=== PATIENT | female | born 1955 | race Caucasian/White ===

== ENCOUNTER 2016-07-03 08:27 | Day surgery (SDC) | payer OTHER ==
[2016-07-02 11:43] VITALS: BMI 20.2
--- NOTE | 2016-07-02 13:09 | PREOPHP ---
DATE OF ADMISSION: 07/03/2016 HISTORY OF PRESENT ILLNESS: This 61-year-old patient is admitted for elective cataract surgery of t he left eye. The patient has had progressive deterioration of vision in both eyes over the past yea r. The patient has a history of insulin-dependent diabetes mellitus, currently being treated with i nsulin as well as Januvia, spironolactone and glimepiride. ALLERGIES: THERE ARE NO KNOWN ALLERGIES. PHYSICAL EXAMINATION: Visual acuity with best correction is finger counting vision in both eyes. S lit lamp examination reveals advanced nuclear sclerotic and posterior subcapsular cataract changes p resent in both eyes. Applanation tonometry is 10 mmHg. Examination of the retina is grossly within normal limits with no obvious macular degenerative changes. DIAGNOSIS: Advanced cataracts, both eyes. PLAN: Cataract extraction with lens implant, left eye. The risks and alternatives to the surgery h ave been discussed with the patient, as well as the hope for improvement of visual acuity leading to a greater ability to perform activities of daily living. The patient understands this and agrees t o proceed with the surgery. Dictated By: GLENYS SAHU/GHULAM Conf#: [id number] DID#: [id number]
[2016-07-03] VITALS (7 sets, daily range): BP systolic 90–110; BP diastolic 47–64; PULSE 87–91; RESP 16–41; Ht 152.4 cm; Wt 50.1 kg
[~2016-07-03] VITALS: Ht 152.4 cm; Wt 50.1 kg
[~2016-07-03 08:27] MED LIST: ACET325T45 PO; CIPR500T4 PO; FURO20TA3 PO; LABE100T3 PO; LACT20SO12 PO; METF500T4 PO; PANT40TA3 PO
[2016-07-03] MEDS ORDERED: CYCLOPENTOLATE/PHENYLEPH 2 ML OPH OPER SCH (09:30)
[2016-07-03] MEDS ORDERED: TROPICAMIDE 1% 2 ML OPH OPER SCH (09:30)
[2016-07-03] MEDS ORDERED: DICLOFENAC 0.1% 2.5 ML OPH OPER SCH (09:30)
[2016-07-03] MEDS ORDERED: CIPROFLOXACIN 0.3% 2.5 ML OPH OPER SCH (09:30)
[2016-07-03] MEDS ORDERED: SITA100T8 PO (09:42)
[2016-07-03] MEDS ORDERED: SPIR50TA PO (09:42)
[2016-07-03] MEDS ORDERED: GLIM2TAB PO (09:43)
[2016-07-03] MEDS ORDERED: LANT3I SC (09:44)
[2016-07-03] MEDS ORDERED: PROP15DR OP (09:45)
[2016-07-03] MEDS ORDERED: EYEL1TOW3 (09:45)
[2016-07-03] MEDS ORDERED: DEXAMETHASONE 4 MG/ML 1 ML INJ INJ ONE (11:15)
[2016-07-03] MEDS ORDERED: HYALURONATE/CHONDROITIN 1ML OPH INJ IO ONE (11:15)
[2016-07-03] MEDS ORDERED: CARBACHOL 0.01% 1.5 ML OPH INJ IO ONE (11:15)
[2016-07-03] MEDS ORDERED: CEFAZOLIN 1 GM INJ INJ ONE (11:15)
[2016-07-03] MEDS ORDERED: PROPOFOL 20 ML ONE (11:24)
[2016-07-03] MEDS ORDERED: FENTAnyl 50 MCG/ML VIAL ONE (11:24)
[2016-07-03] MEDS ORDERED: LIDOCAINE 2% (SDV) 5 ML INJ ONE (11:24)
[2016-07-03] MEDS ORDERED: FENTAnyl 50 MCG/ML VIAL IV PRN (12:00)
[2016-07-03] MEDS ORDERED: HYDROmorphONE (0.2 MG/ML) 10ML SYG IV PRN (12:00)
[2016-07-03] MEDS ORDERED: ONDANSETRON 4 MG INJ IV PRN (12:00)
[2016-07-03] MEDS ORDERED: OXYCODONE/ACETAMINOPHEN (5/325) TAB PO PRN (12:00)
[2016-07-03] MEDS ORDERED: EPINEPHrine 1 MG INJ ONE (12:28)
[2016-07-03] MEDS ORDERED: GENTAMICIN 80 MG INJ ONE (12:28)
[2016-07-03] MEDS ORDERED: DEXAMETHASONE 4 MG/ML 1 ML INJ ONE (12:28)
[2016-07-03] MEDS ORDERED: CARBACHOL 0.01% 1.5 ML OPH INJ ONE (12:28)
[2016-07-03] MEDS ORDERED: CEFAZOLIN 1 GM INJ ONE (12:28)
--- NOTE | 2016-07-03 13:26 | OPR ---
DATE OF OPERATION: 07/03/2016 PREOPERATIVE DIAGNOSIS: Mature cataract, left eye. POSTOPERATIVE DIAGNOSIS:. Mature cataract, left eye. OPERATION PERFORMED: Cataract extraction with intraocular lens implant, left eye. SURGEON: Glenys Cifuentes MD ANESTHESIOLOGIST: Dr. Contreras. DESCRIPTION OF PROCEDURE: Patient brought to the operating room and IV positioned appropriately, at tached to electrocardiogram monitor and given oxygen via nasal cannula. The patient was given some intravenous sedation and then received local anesthesia using lidocaine 4%, given a lid block and r etrobulbar injection. The patient was then prepped and draped in the usual sterile manner. A specu lum was inserted between the lids of the left eye. Two paracentesis incisions were made through elsy ar cornea near the corneal scleral limbus at the 2 and 10 o'clock positions, and then a 3.0 mm kerat ome was used to enter the anterior chamber through clear cornea at the 12 o'clock position in a step incision. Through this opening, an irrigating cystotome was introduced. The anterior chamber was filled with DisCoVisc and then a large anterior capsulotomy was performed. An attempt was then made to be emulsify the lens nucleus by means of sculpting and quadrant removal. The lens was noted to be extremely hard in its durability and a higher energy setting was required in order to emulsify th e nucleus. During the procedure, however, it was noted that the posterior chamber deepened and the remaining lens nucleus appeared to move slightly posteriorly, indicating that there must have been a break in the posterior capsule. The procedure was then interrupted and it was decided to open the wound of the eye to a larger extent to remove the remaining lens nucleus by means of using a lens lo op and removing it en bloc. This was done using curved corneal scissors and then the lens loop noé jose m the remainder of the lens nucleus. Some anterior vitreous, however, presented at the lips of th e wound and a limited mechanical anterior vitrectomy was performed until there was no more vitreous present at the lips of the wound. Inspection of the posterior chamber revealed the presence of adeq uate remaining posterior capsule to support the haptics of a posterior chamber intraocular lens. A break in the posterior capsule was noted to be centrally located. At this point, 2 peripheral 10-0 nylon sutures were placed across the wound and were tied, the ends were cut short. Additional DisCo Visc was then injected into the anterior and posterior chamber and then a 21.0 diopter posterior mary mber intraocular lens ([employer] model LI61AO) was inserted with the haptics place d anterior to the capsule remnants in the nasal and temporal quadrants of the posterior chamber. Th e intraocular lens remained centered and despite external pressure on the globe, appeared stable. I t was therefore decided to continue to close the wound by placing 2 additional 10-0 nylon sutures. These were tied in interrupted fashion and the knots were then all buried in the corneal scleral ti ssue. Prior to tying the last suture, the DisCoVisc was evacuated from the anterior chamber. Miost at was instilled to constrict the pupil. At the end of the procedure, it was noted that the lens wa s then positioned in the posterior chamber and the wound was closed. A 0.5 mL of Ancef and 0.5 mL o f dexamethasone were injected into the subtenon space inferiorly and then the speculum was removed. Vigamox drops were placed on the surface of the eye and the eye was patched. The patient left the operating room in satisfactory condition. Dictated By: GLENYS SAHU/GHULAM Conf#: [id number] DID#: [id number]
== END 2016-07-03 13:05 | disposition home or self-care (01) ==
LOC: SDS 08:27
PROVIDERS: ATTEND Ophthalmology
DX: H25.12 Age-related nuclear cataract, left eye (principal); I10 Essential (primary) hypertension; Z87.891 Personal history of nicotine dependence
CPT/HCPCS: 66984; 82962; J0171; J0690; J1100; J1580; J3010; V2632; Z7512; Z7610

== ENCOUNTER 2016-08-28 08:36 | Day surgery (SDC) | payer OTHER ==
--- NOTE | 2016-08-27 20:59 | PREOPHP ---
DATE OF ADMISSION: 08/28/2016 HISTORY OF PRESENT ILLNESS: This 61-year-old patient is admitted for elective cataract surgery of t he right eye. The patient has had progressive deterioration of vision in both eyes over the past ye ar and 2 months ago underwent cataract surgery of the left eye with visual improvement. The patient has a history of insulin-dependent diabetes mellitus and is taking insulin as well as Januvia, spir onolactone, an Glyburide. ALLERGIES: THERE ARE NO KNOWN ALLERGIES. PHYSICAL EXAMINATION: Visual acuity best corrected is finger counting vision in the right eye and 2 0/50 in the left eye. Slit lamp examination reveals a nuclear sclerotic and posterior subcapsular c ataract in the right eye. Applanation tonometry is 10 mmHg in both eyes. Examination of the retina is within normal limits with no evidence of degenerative macular changes. DIAGNOSIS: Cataract, right eye. PLAN: Cataract extraction with lens implant, right eye. The risks and alternatives to the surgery have been discussed with the patient as well as the potential problem related to the advanced catara ct with its potential for complications during surgery. The patient understands this and agrees to proceed with surgery. Dictated By: GLENYS SAHU/GHULAM Conf#: [id number] DID#: [id number]
[~2016-08-28] VITALS: Ht 154.9 cm; Wt 49.0 kg
[2016-08-28] VITALS (10 sets, daily range): BP systolic 94–114; BP diastolic 56–65; PULSE 77–108; RESP 13–23; Ht 154.9 cm; Wt 49.0 kg
[~2016-08-28 08:36] MED LIST changes: -ACET325T45 PO; -CIPR500T4 PO; +EYEL1TOW3; -FURO20TA3 PO; +GLIM2TAB PO; +HYDROmorphONE (0.2 MG/ML) 10ML SYG IV PRN; -LABE100T3 PO; -LACT20SO12 PO; +LANT3I SC; -METF500T4 PO; +ONDANSETRON 4 MG INJ IV PRN; -PANT40TA3 PO; +PROP15DR OP; +SITA100T8 PO; +SPIR50TA PO
[2016-08-28] MEDS ORDERED: FER325 PO (09:17)
[2016-08-28] MEDS ORDERED: FURO-110 PO (09:18)
[2016-08-28] MEDS ORDERED: GLIM4TAB PO (09:19)
[2016-08-28] MEDS ORDERED: DOCU-144 PO (09:22)
[2016-08-28] MEDS ORDERED: CALC1TAB30 PO (09:23)
[2016-08-28] MEDS ORDERED: CIPROFLOXACIN 0.3% 2.5 ML OPH OPER SCH (09:30)
[2016-08-28] MEDS ORDERED: CYCLOPENTOLATE/PHENYLEPH 2 ML OPH OPER SCH (09:30)
[2016-08-28] MEDS ORDERED: DICLOFENAC 0.1% 2.5 ML OPH OPER SCH (09:30)
[2016-08-28] MEDS ORDERED: TROPICAMIDE 1% 2 ML OPH OPER SCH (09:30)
[2016-08-28] MEDS ORDERED: DEXAMETHASONE 4 MG/ML 1 ML INJ ONE (11:26)
[2016-08-28] MEDS ORDERED: HYALURONATE/CHONDROITIN 1ML OPH INJ ONE (11:26)
[2016-08-28] MEDS ORDERED: CARBACHOL 0.01% 1.5 ML OPH INJ ONE (11:26)
[2016-08-28] MEDS ORDERED: CEFAZOLIN 1 GM INJ ONE (11:26)
[2016-08-28] MEDS ORDERED: EPINEPHrine 1 MG INJ ONE (11:26)
[2016-08-28] MEDS ORDERED: GENTAMICIN 80 MG INJ ONE (11:26)
[2016-08-28] MEDS ORDERED: LIDOCAINE 4% (MPF) 5 ML INJ ONE (11:26)
[2016-08-28] MEDS ORDERED: HYALURONATE/CHONDROITIN 1ML OPH INJ IO ONE (11:30)
[2016-08-28] MEDS ORDERED: CEFAZOLIN 1 GM INJ INJ ONE (11:30)
[2016-08-28] MEDS ORDERED: DEXAMETHASONE 4 MG/ML 1 ML INJ INJ ONE (11:30)
[2016-08-28] MEDS ORDERED: CARBACHOL 0.01% 1.5 ML OPH INJ IO ONE (11:30)
[2016-08-28] MEDS ORDERED: PROPOFOL 20 ML ONE (12:15)
--- NOTE | 2016-08-28 12:44 | OPR ---
DATE OF OPERATION: 08/28/2016 PREOPERATIVE DIAGNOSIS: Cataract, right eye. POSTOPERATIVE DIAGNOSIS: Cataract, right eye. OPERATION PERFORMED: Cataract extraction with lens implant, right eye. SURGEON: Glenys Cifuentes MD ANESTHESIOLOGIST: Dr. Brooks ANESTHESIA: Local standby. PROCEDURE: The patient was brought to the operating room and placed on the table with an IV in plac e and the patient attached to an monitor tech. Oxygen was given via face mask. After some intravenous sedation was administered, local anesthesia was given using Xylocaine 2% with epinephrine, mixed with Marcaine 0.5%. This was given in a lid block and retrobulbar injection. The patient was then prepped and draped in the usual sterile manner. A wire lid speculum was inserted between the lids of the right eye. A Superblade was used to enter t he anterior chamber at the corneoscleral limbus at the 10:30 o'clock position. A separate incision w as made using a 3.0-mm keratome which entered the corneoscleral junction at the 12 o'clock position. Through this 3-mm opening, an irrigating cystotome was introduced into the anterior chamber. The ch epter was filled with Viscoat and an anterior capsulotomy was performed. Balanced salt solution was then used for hydrodissection of the lens. A phacoemulsification handpiece was then brought into th e field and introduced into the anterior chamber. The lens nucleus was emulsified using a deep groov e and cracking the nucleus into quadrants. Following this, each quadrant was aspirated and emulsifie d at the pupillary margin. The patient had an advanced nucleus sclerotic cataract which required a higher setting of ultrasonic phacoemulsification power in order to fully emulsify the lens nucleus. After this was completed, the irrigation/aspiration handpiece was brought to the field, introduced i nto the posterior chamber, and the lens cortical material was removed. When this was completed, samm tional Viscoat was injected into the anterior and posterior chambers. The 3-mm opening had its internal lips enlarged, and then the posterior chamber intraocular lens esther suring 21.0 diopters (Bausch and Lomb model LI61AO) was then injected into the posterior chamber usi ng the lens injector system. After the leading haptic was introduced into the capsular bag and the l ens optic was present in the center of the eye, the injector was removed and the trailing haptic was grasped with non-toothed forceps and introduced into the capsular fold superiorly. A Sinskey hook w as then used to rotate the intraocular lens so that the lips were oriented in the horizontal meridia n. One 10-0 nylon suture was placed across the wound. Prior to tying, the irrigation/aspiration handpiece was reintroduced into the anterior chamber to re move the Viscoat. Miochol was instilled to constrict the pupil, and then the 10-0 nylon suture was t ied. The ends were cut short and then the knot was buried. Then, 0.5 mL of dexamethasone and 0.5 mL of Ancef were injected into the sub-Tenon space in the infe rior fornix. Ciloxan drops were then placed on the surface of the eye. The speculum was removed and a patch was applied. The patient then left the operating room in satisfactory condition. Dictated By: GLENYS SAHU/GHULAM Conf#: [id number] DID#: [id number]
== END 2016-08-28 13:32 | disposition home or self-care (01) ==
LOC: SDS 08:36
PROVIDERS: ATTEND Ophthalmology
DX: H25.11 Age-related nuclear cataract, right eye (principal); E11.9 Type 2 diabetes mellitus without complications; F17.200 Nicotine dependence, unspecified, uncomplicated
CPT/HCPCS: 66984; 82962; J0171; J0690; J1100; J1170; J1580; J2405; V2632; Z7512; Z7610

== ENCOUNTER 2016-10-11 19:34 | Inpatient (IN) | payer OTHER ==
[~2016-10-11] VITALS: Ht 162.6 cm; Wt 51.7 kg
[~2016-10-11 19:34] MED LIST changes: +CALC1TAB30 PO; +DOCU-144 PO; -EYEL1TOW3; +FER325 PO; +FURO-110 PO; -GLIM2TAB PO; +GLIM4TAB PO; -HYDROmorphONE (0.2 MG/ML) 10ML SYG IV PRN; -ONDANSETRON 4 MG INJ IV PRN; -PROP15DR OP; -SPIR50TA PO
[2016-10-11 20:00] VITALS: Ht 162.6 cm; Wt 51.7 kg
[2016-10-11] MEDS ORDERED: ONDANSETRON 4 MG INJ IV PRN ×2 (20:00→22:00)
[2016-10-11] MEDS ORDERED: ACETAMINOPHEN 325 MG TAB PO PRN (20:00)
[2016-10-11] MEDS ORDERED: SPIR50TA PO (21:25)
[2016-10-11] MEDS ORDERED: OMEP20CA16 PO (21:25)
[2016-10-11] MEDS ORDERED: GLIM2TAB PO (21:25)
[2016-10-11] MEDS ORDERED: ACET325T45 PO (21:26)
--- NOTE | 2016-10-11 21:31 | ERA ---
ER Documentation Chief Complaint Date/Time DATE: 10/11/16 TIME: 21:28 Chief Complaint BILATERAL LOWER LEG PAIN AND SWELLING, UNABLE TO WALK. HPI Patient is a 61-year-old female with diabetes who presents with lower extremity pain and weakness. She was brought in by ambulance. She was transferred from [facility] for admission. She was supposed to be a direct admission but there were no beds available in the hospital and is capitated to [facility] so she needed to come to the emergency department. The patient has had bilateral leg pain weakness for a long time but it has been worse over the past 2 days and she feels like she cannot walk. She denies fever or trauma. Upon review of old medical records this is the patient's third visit to the ER since 2014. She does not know the name of her primary doctor. She had previously been accepted by Dr. Kidd from the panel team this afternoon. ROS All systems reviewed and are negative except as per history of present illness. Medications Home Meds Reported Medications Acetaminophen* (Acetaminophen*) 325 Mg Tablet, 325 MG PO Q6H Y for PAIN AND OR ELEVATED TEMP, #30 TAB 10/11/16 Spironolactone* (Aldactone*) 50 Mg Tablet, 50 MG PO BID, #60 TAB 10/11/16 Omeprazole* (Omeprazole*) 20 Mg Capsule.dr, 20 MG PO DAILY, #30 CAP 10/11/16 Glimepiride* (Glimepiride*) 2 Mg Tablet, 4 MG PO WITH BREAKFAST, TAB 10/11/16 Docusate Sodium* (Colace*) 100 Mg Capsule, 100 MG PO DAILY, #30 CAP 08/28/16 Furosemide* (Lasix*) 20 Mg Tablet, 20 MG PO DAILY, TAB 08/28/16 Ferrous Sulfate* (Ferrous Sulfate*) 325 Mg Tabec, 325 MG PO BID, TAB 08/28/16 Insulin Glargine* (Lantus*) 100 Unit/Ml Soln, 10 UNIT SC DAILY, #1 VIAL 07/03/16 Sitagliptin* (Januvia*) 100 Mg Tablet, 100 MG PO DAILY, #30 TAB 07/03/16 Discontinued Reported Medications Calcium Carbonate/Vitamin D3 (Os-Afshin 500-Vit D3 600 Caplet) 1 Each Tablet, 1 EACH PO DAILY, TAB 08/28/16 Glimepiride* (Glimepiride*) 4 Mg Tablet, 4 MG PO WITH BREAKFAST, TAB 08/28/16 Allergies Allergies: Coded Allergies: No Known Allergy (Unverified , 10/11/16) PMhx/Soc History of Surgery: Yes (LEFT EYE SX) Anesthesia Reaction: No Hx Neurological Disorder: No Hx Respiratory Disorders: No Hx Cardiac Disorders: No (HTN) Hx Psychiatric Problems: No Hx Miscellaneous Medical Probl: No (DM, CIRRHOSIS) Hx Alcohol Use: Yes (FORMER) Hx Substance Use: No Hx Tobacco Use: No Smoking Status: Former smoker FmHx Family History: No diabetes Physical Exam Vitals Vital Signs Date Time Temp Pulse Resp B/P Pulse Ox O2 Delivery O2 Flow Rate FiO2 10/11/16 20:00 98.0 82 17 141/68 98 Physical Exam Const: Mild distress secondary to pain Head: Atraumatic Eyes: Normal Conjunctiva ENT: Normal External Ears, Nose and Mouth. Neck: Full range of motion..~ No meningismus. Resp: Clear to auscultation bilaterally Cardio: Regular rate and rhythm, no murmurs Abd: Soft, non tender, non distended. Normal bowel sounds Skin: No petechiae or rashes Back: No midline or flank tenderness Ext: No cyanosis, or edema Neur: Weakness of the lower extremities bilateral Psych: Normal Mood and Affect Results 24 hrs Current Medications Medications (Trade) Dose Ordered Sig/Dino Route PRN Reason Start Time Stop Time Status Last Admin Dose Admin Ondansetron HCl (Zofran Inj) 4 mg BRIDGE ORDER PRN IV NAUSEA AND/OR VOMITING 10/11/16 20:00 10/12/16 19:59 Acetaminophen (Tylenol Tab) 650 mg ER BRIDGE PRN PO MILD PAIN/FEVER 10/11/16 20:00 10/12/16 19:59 Procedures/MDM Smoking Cessation Therapy: Pt. was lectured for greater than 3 minutes on the health risks of continued smoking and the benefits of cessation. Patient is a 61-year-old female with diabetes who presents with bilateral lower extremity weakness and pain. She will be admitted to the care of Dr. Shearer who is covering the panel at this time. The patient will be admitted to a medical surgical bed. At this point I doubt epidural abscess, epidural hematoma , or cauda equina syndrome. Departure Diagnosis: Primary Impression: Ambulatory dysfunction Additional Impression: Leg weakness, bilateral Condition: Fair OSTICK,CORRINE MD Oct 11, 2016 21:30
[2016-10-11] MEDS ORDERED: NACL 0.9% 3 ML SYG IV SCH (22:00)
--- NOTE | 2016-10-11 22:22 | HP ---
Date/Time of Note Date/Time of Note DATE: 10/11/16 TIME: 22:22 Assessment/Plan VTE Prophylaxis VTE Prophylaxis Intervention: heparin Lines/Catheters IV Catheter Type (from [facility] Saline Lock Assessment/Plan Chief Complaint/Hosp Course Will order an ultrasound of the abdomen to assess for this is a 61-year-old female was being admitted to [facility] for: #1 ambulatory dysfunction: This possibly could be multifactorial possibly related to diabetic neuropathy, edema from liver cirrhosis, or other etiology. Patient denies any recent falls. At the current time will obtain lower extremity Doppler bilaterally. Will start the patient on gabapentin as she does does describe burning sensation bilaterally. Will order further order further imaging as indicated. No signs of any cauda equina syndrome or epidural abscess at this point in time. #2 cirrhosis: We will continue current medications of spironolactone. Will hold home dose of Lasix right now and provide some aggressive diuresis with IV Lasix. Will also start patient on lactulose. And get an ammonia level. Will obtain LFTs. I did discuss patient regarding possible need for liver transplant. She and her family do state that they have been in discussion regarding liver transplant however they did not probably follow-up regarding this. I did advise patient that she needs to be sober for period of time to be considered for transplant. Ascites though I feel like there is not an adequate amount that would be amenable to percutaneous drainage. #3 diabetes mellitus: We will obtain a hemoglobin A1c level. Patient's home blood sugars that she describes appear to be uncontrolled. And I believe her current regimen of Lantus Januvia and glimepiride likely are not enough. Will put the patient on insulin sliding scale. And adjust her diabetic regimen as indicated. #DVT and GI prophylaxis: Heparin, Protonix Further treatment strategy will be implemented as per the clinical course. Problems: HPI/ROS Admit Date/Time Admit Date/Time Hx of Present Illness Chief complaint: Burning in the legs, difficulty walking This is a 61-year-old female with diabetes who presents with lower extremity pain and weakness. She was transferred from [facility] for admission. The patient has had bilateral leg pain weakness for a long time but it has been worse over the past 2 days and she feels like she cannot walk. She states she has burning sensation in her legs and she also notices swelling at times. She denies fever or trauma. She does not know the name of her primary doctor. Allergies: NKDA Medications: See Jun Const: As per HPI Eyes : No pain discharge or redness or change in visual acuity ENT: No pain, sore throat, congestion, congestion, dysphagia or discharge Respiratory: No shortness of breath, cough, sputum, wheezing, or pleuritic pain Cardiovascular: No chest pain, palpitation, PND, or edema GI : As per HPI Genitourinary: No dysuria, hematuria, flank pain , discharge or CVA tenderness Musculoskeletal: As per HPI Skin: No rash, bruising or hives Neuro: No headache, dizziness, syncope, seizure, focal weakness Endocrine: States her sugars have been at times in the 200-300 Psych: No hallucination, depression, anxiety or suicidal ideation PMH/Family/Social Past Medical History Diabetes mellitus, cirrhosis Past Surgical History Bilateral cataract surgery Family History Significant Family History: no pertinent family hx Social History Alcohol Use: other (Patient used to be a heavy drinker however she has significantly cut her drinking down but does still some small amount of alcohol such as ODELLS) Smoking Status: Never smoker (1 pack per day 30 years) Exam/Review of Systems Vital Signs Vitals Vital Signs Date Time Temp Pulse Resp B/P Pulse Ox O2 Delivery O2 Flow Rate FiO2 10/11/16 20:00 98.0 82 17 141/68 98 Exam Exam General: Patient is well-developed well-nourished The patient is alert oriented -3 lying comfortably in bed, in no acute distress. HEENT: Atraumatic, normocephalic. The pupils are equal, round and reactive. Extraocular motor are intact, Neck: Supple with full range of motion. No rigidity or meningismus Chest: Nontender Lungs: Clear to auscultation bilaterally no crackles rales or wheezing Heart: Normal S1-S2, Regular rhythm and rate. No murmur, S3, or S4 Abdomen: Soft, mild distention, no [place] noted, no overt fluid wave appreciated. Extremities: Trace edema of the bilateral lower extremities, mild tenderness to palpation along the bilateral lower extremities Neurologic: Normal mental status, speech normal, cranial nerves II through XII are intact, motor and sensory are intact, no focal weakness, Medications Medications Current Medications Ondansetron HCl (Zofran Inj) 4 mg Q6H PRN IV NAUSEA AND/OR VOMITING; Start at 22:00 Pantoprazole (Protonix Iv) 40 mg DAILY@06 IV ; Start 10/12/16 at 06:00 Heparin Sodium (Porcine) (Heparin (5000 Units/0.5 ml)) 5,000 unit Q8 SC ; Start 10/12/16 at 06:00 Gabapentin (Neurontin) 100 mg TID PO ; Start 10/12/16 at 09:00 Ferrous Sulfate (Ferrous Sulfate (Ec)) 325 mg BID PO ; Start 10/12/16 at 09:00 Insulin Glargine (Lantus) 10 unit DAILY SC ; Start 10/12/16 at 09:00 Spironolactone (Aldactone) 50 mg BID PO ; Start 10/11/16 at 23:30 Miscellaneous Information (* Miscellaneous Pharmacy Order) HYPOGLYCEMIA PROTOCOL w... ONCE ONCE XX ; Start 10/11/16 at 22:30; Stop 10/11/16 at 22:31 Miscellaneous Information (* Miscellaneous Pharmacy Order) Discontinue Glyburide , Glipizide,... ONCE ONCE XX ; Start 10/11/16 at 22:30; Stop 10/11/16 at 22:31 Miscellaneous Information (* Miscellaneous Pharmacy Order) Discontinue all previ... ONCE ONCE XX ; Start 10/11/16 at 22:30; Stop 10/11/16 at 22:31 Miscellaneous Information 1 ea NOTE XX ; Start 10/11/16 at 22:30 Glucose (Glutose) 15 gm Q15M PRN PO DECREASED GLUCOSE; Start 10/11/16 at 22:30 Glucose (Glutose) 22.5 gm Q15M PRN PO DECREASED GLUCOSE; Start 10/11/16 at 22: 30 Dextrose (D50w Syringe) 25 ml Q15M PRN IV DECREASED GLUCOSE; Start 10/11/16 at 22:30 Dextrose (D50w Syringe) 50 ml Q15M PRN IV DECREASED GLUCOSE; Start 10/11/16 at 22:30 Glucagon (Glucagen) 1 mg Q15M PRN IM DECREASED GLUCOSE; Start 10/11/16 at 22:30 Glucose (Glutose) 15 gm Q15M PRN BUCCAL DECREASED GLUCOSE; Start 10/11/16 at 22 :30 Furosemide (Lasix) 40 mg DAILY@06 IV ; Start 10/12/16 at 06:00 DANNY ROSAS Oct 11, 2016 22:22
[2016-10-11] MEDS ORDERED: GLUCAGON 1 MG INJ IM PRN (22:30)
[2016-10-11] MEDS ORDERED: DEXTROSE 50% 50 ML SYRINGE IV PRN ×2 (22:30)
[2016-10-11] MEDS ORDERED: GLUCOSE GEL 15 GRAM TUBE BUCCAL PRN (22:30)
[2016-10-11] MEDS ORDERED: GLUCOSE GEL 15 GRAM TUBE PO PRN ×2 (22:30)
[2016-10-11] MEDS: SPIRONOLACTONE 50 MG TAB PO SCH (22:58)
--- NOTE | 2016-10-11 23:22 | RADRPT ---
PROCEDURE: Abdominal ultrasound, limited. CLINICAL INDICATION: Ascites. TECHNIQUE: Multiple real-time images were acquired of the four quadrants of the abdomen utilizing a high resolution transducer. COMPARISON: None FINDINGS: There is mild free fluid within the left upper quadrant. IMPRESSION: Mild free fluid within the left upper quadrant. .Pierre Arroyo MD, Date Time Electronically viewed and signed by .Pierre Arroyo MD, MD on 10/11/2016 23:22 .T/
[2016-10-12 00:11] LABS: ABNORMAL IP MESSAGE 1; BASOPHILS % 0.7 % (0.0-2.0); EOSINOPHILS # 0.3 10^3/ul (0.0-0.5); EOSINOPHILS % 5.3 % (0.0-7.0); HEMATOCRIT 37.1 % (37.0-47.0); HEMOGLOBIN 13.5 g/dl (12.0-16.0); LYMPHOCYTES # 0.7 10^3/ul (0.8-2.9); LYMPHOCYTES % 12.7 % (15.0-51.0); MEAN CORPUSCULAR HEMOGLOBIN 35.7 pg (29.0-33.0); MEAN CORPUSCULAR HGB CONC 36.4 g/dl (32.0-37.0); MEAN CORPUSCULAR VOLUME 98.1 fl (82.0-101.0); MEAN PLATELET VOLUME 10.2 fl (7.4-10.4); MONOCYTE # 1.3 10^3/ul (0.3-0.9); MONOCYTES % 22.5 % (0.0-11.0); NEUTROPHIL # 3.3 10^3/ul (1.6-7.5); NEUTROPHILS % 58.6 % (39.0-77.0); PLATELET COUNT 63 10^3/UL (140-415); RED BLOOD COUNT 3.78 10^6/ul (4.20-5.40); RED CELL DISTRIBUTION WIDTH 14.4 % (11.5-14.5); WHITE BLOOD COUNT 5.7 10^3/ul (4.8-10.8)
[2016-10-12 00:26] LABS: ALBUMIN/GLOBULIN RATIO 0.88; BILIRUBIN,INDIRECT 0.9 mg/dl (0-1.1); BILIRUBIN,TOTAL 0.9 mg/dl (0.2-1.3); CREATININE 0.64 mg/dl (0.44-1.00); IRON 144 ug/dl (35-150); POTASSIUM 4.5 mmol/L (3.5-5.1); TOTAL PROTEIN 6.4 g/dl (6.1-8.1)
[2016-10-12 00:35] LABS: TOTAL IRON BINDING CAPACITY 247 ug/dl (241-421)
[2016-10-12 01:01] LABS: FERRITIN 83.7 ng/ml (11.1-264.0)
[2016-10-12 01:32] LABS: FOLATE 10.9 ng/ml (2.8-20.0)
[2016-10-12 01:40] LABS: ADD SCAN DIFF NO
[2016-10-12] MEDS ORDERED: GABAPENTIN 300 MG CAP PO ONE (04:00)
[2016-10-12] MEDS ORDERED: HEPARIN 5,000 UNIT/0.5 ML VIAL SC SCH (06:00)
[2016-10-12] MEDS: FUROSEMIDE 40 MG INJ IV SCH (06:00)
[2016-10-12] MEDS: LACTULOSE 30ML CUP PO SCH ×3 (06:00→21:08)
[2016-10-12] MEDS: PANTOPRAZOLE 40 MG INJ IV SCH (06:33)
[2016-10-12] MEDS: INSULIN ASPART [NOVOLOG] 3 ML PEN SC SCH ×4 (08:00→21:11)
[2016-10-12] MEDS ORDERED: INSULIN GLARGINE [LANtus] 3 ML PEN SC SCH (09:00)
[2016-10-12] MEDS ORDERED: GABAPENTIN 100 MG CAP PO SCH (09:00)
--- NOTE | 2016-10-12 09:06 | RADRPT ---
PROCEDURE: Ultrasound of the bilateral lower extremity venous system. CLINICAL INDICATION: Bilateral leg pain and swelling, deep venous thrombosis TECHNIQUE: Rock scale with and without compression, color doppler, spectral doppler of the venous system of the bilateral lower extremities was performed. Venous augmentation maneuvers were utilized . COMPARISON: No prior studies are available for comparison. FINDINGS: RIGHT: Common femoral vein: Patent. Femoral vein: Patent. Popliteal vein: Patent. Calf veins: Patent. No soft tissue abnormalities are identified. LEFT: Common femoral vein: Patent. Femoral vein: Patent. Popliteal vein: Patent. Calf veins: Patent. No soft tissue abnormalities are identified. IMPRESSION: No evidence of a deep vein thrombosis within the bilateral lower extremities. RPTAT: AADD .Arnav Mehta MD, MD Date Time Electronically viewed and signed by .Arnav Mehta MD, MD on 10/12/2016 09:05 .B/
--- NOTE | 2016-10-12 11:32 | PN ---
Date/Time of Note Date/Time of Note DATE: 10/12/16 TIME: 11:27 Assessment/Plan VTE Prophylaxis VTE Prophylaxis Intervention: SCD's Lines/Catheters IV Catheter Type (from [facility]): Saline Lock Assessment/Plan Chief Complaint/Hosp Course A/P: 61-year-old female was being admitted to [facility] floor for: #1 ambulatory dysfunction: This possibly could be multifactorial possibly related to diabetic neuropathy, edema from liver cirrhosis, or other etiology. Patient denies any recent falls. No signs of any cauda equina syndrome or epidural abscess at this point in time. -f/u lower extremity Doppler bilaterally. - for now continue gabapentin as she does does describe burning sensation bilaterally. Will order further order further imaging as indicated. #2 cirrhosis: Admitting doctor discussed with patient regarding possible need for liver transplant. She and her family do state that they have been in discussion regarding liver transplant however they did not probably follow-up regarding this. Pt advised patient that she needs to be sober for period of time to be considered for transplant. - continue current medications of spironolactone. - holding home dose of Lasix right now - monitor ammonia level;s (elevated on admission) - continue lactulose. - monitor LFTs. I did #3 diabetes mellitus: Patient's home blood sugars that she describes appear to be uncontrolled. - ISS, f/u hemoglobin A1c level. - adjust her diabetic regimen as indicated. #DVT and GI prophylaxis: SCD's, Protonix Problems: Subjective 24 Hr Interval Summary Free Text/Dictation Pt had no acute events overnight. Exam/Review of Systems Vital Signs Vitals Vital Signs Date Time Temp Pulse Resp B/P Pulse Ox O2 Delivery O2 Flow Rate FiO2 10/12/16 07:02 82 16 83/40 96 Room Air 10/11/16 20:00 98.0 Intake and Output 10/11/16 10/11/16 10/12/16 15:00 23:00 07:00 Output Total 250 ml Balance -250 ml Exam General: Patient is alert oriented -3 lying comfortably in bed, in no acute distress. HEENT: Atraumatic, normocephalic. The pupils are equal, round and reactive. Extraocular motor are intact, Neck: Supple with full range of motion. No rigidity or meningismus Lungs: Clear to auscultation bilaterally no crackles rales or wheezing Heart: Normal S1-S2, Regular rhythm and rate. No murmur, S3, or S4 Abdomen: Soft, mild distention, no [place] noted, no overt fluid wave appreciated. Extremities: Trace edema of the bilateral lower extremities, mild tenderness to palpation along the bilateral lower extremities Neurologic: Normal mental status, speech normal, cranial nerves II through XII are intact, motor and sensory are intact, no focal weakness, Results Result Diagram: 10/11/16 2355 10/11/16 2355 Results 24 hrs Laboratory Tests Test 10/11/16 23:55 10/12/16 08:38 White Blood Count 5.7 Red Blood Count 3.78 #L Hemoglobin 13.5 # Hematocrit 37.1 # Mean Corpuscular Volume 98.1 Mean Corpuscular Hemoglobin 35.7 H Mean Corpuscular Hemoglobin Concent 36.4 Red Cell Distribution Width 14.4 Platelet Count 63 L Mean Platelet Volume 10.2 Neutrophils % 58.6 Lymphocytes % 12.7 L Monocytes % 22.5 H Eosinophils % 5.3 Basophils % 0.7 Nucleated Red Blood Cells % 0.0 Neutrophils # 3.3 Lymphocytes # 0.7 L Monocytes # 1.3 H Eosinophils # 0.3 Basophils # 0.0 Nucleated Red Blood Cells # 0.0 Sodium Level 136 Potassium Level 4.5 Chloride Level 106 Carbon Dioxide Level 23 Anion Gap 12 Blood Urea Nitrogen 11 Creatinine 0.64 Glucose Level 274 H Calcium Level 9.0 Iron Level 144 Total Iron Binding Capacity 247 Percent Iron Saturation 58 H Ferritin 83.7 Total Bilirubin 0.9 Direct Bilirubin 0.00 Indirect Bilirubin 0.9 Aspartate Amino Transf (AST/SGOT) 40 Alanine Aminotransferase (ALT/SGPT) 43 Alkaline Phosphatase 138 H Ammonia 134 #H Total Protein 6.4 Albumin 3.0 L Globulin 3.40 H Albumin/Globulin Ratio 0.88 Vitamin B12 Level > 1000 H Folate 10.9 Bedside Glucose 164 Medications Medications Current Medications Ondansetron HCl (Zofran Inj) 4 mg Q6H PRN IV NAUSEA AND/OR VOMITING; Start at 22:00 Pantoprazole (Protonix Iv) 40 mg DAILY@06 IV Last administered on 10/12/16t 06: 33; Admin Dose 40 MG; Start 10/12/16 at 06:00 Heparin Sodium (Porcine) (Heparin (5000 Units/0.5 ml)) 5,000 unit Q8 SC ; Start 10/12/16 at 06:00 Ferrous Sulfate (Ferrous Sulfate (Ec)) 325 mg BID PO ; Start 10/12/16 at 09:00 Insulin Glargine (Lantus) 10 unit DAILY SC ; Start 10/12/16 at 09:00 Spironolactone (Aldactone) 50 mg BID PO Last administered on 10/11/16t 22:58; Admin Dose 50 MG; Start 10/11/16 at 23:30 Miscellaneous Information 1 ea NOTE XX ; Start 10/11/16 at 22:30 Glucose (Glutose) 15 gm Q15M PRN PO DECREASED GLUCOSE; Start 10/11/16 at 22:30 Glucose (Glutose) 22.5 gm Q15M PRN PO DECREASED GLUCOSE; Start 10/11/16 at 22: 30 Dextrose (D50w Syringe) 25 ml Q15M PRN IV DECREASED GLUCOSE; Start 10/11/16 at 22:30 Dextrose (D50w Syringe) 50 ml Q15M PRN IV DECREASED GLUCOSE; Start 10/11/16 at 22:30 Glucagon (Glucagen) 1 mg Q15M PRN IM DECREASED GLUCOSE; Start 10/11/16 at 22:30 Glucose (Glutose) 15 gm Q15M PRN BUCCAL DECREASED GLUCOSE; Start 10/11/16 at 22 :30 Furosemide (Lasix) 40 mg DAILY@06 IV ; Start 10/12/16 at 06:00 Lactulose (Enulose) 20 gm Q8 PO ; Start 10/12/16 at 06:00 Gabapentin (Neurontin) 300 mg TID PO ; Start 10/13/16 at 09:00 RAYA EDEN Oct 12, 2016 11:31
[2016-10-12 12:11] LABS: CHOL/HDL RATIO 3.6 RATIO
[2016-10-12 12:13] LABS: ALBUMIN 2.9 g/dl (3.3-4.9); ALBUMIN/GLOBULIN RATIO 0.96; BILIRUBIN,INDIRECT 1.3 mg/dl (0-1.1); BILIRUBIN,TOTAL 1.3 mg/dl (0.2-1.3); CALCIUM 8.2 mg/dl (8.4-10.2); CREATININE 0.69 mg/dl (0.44-1.00); MAGNESIUM 1.5 mg/dl (1.7-2.5); PHOSPHORUS 4.6 mg/dl (2.5-4.9); POTASSIUM 4.5 mmol/L (3.5-5.1); TOTAL PROTEIN 5.9 g/dl (6.1-8.1)
[2016-10-12 12:26] VITALS: PULSE 73; TEMP 98.1
[2016-10-12] MEDS: SPIRONOLACTONE 50 MG TAB PO SCH ×2 (12:31→21:08)
[2016-10-12] MEDS: GABAPENTIN 300 MG CAP PO SCH (12:31)
[2016-10-12] MEDS: FERROUS SULFATE (EC) 325 MG TAB PO SCH ×2 (12:31→21:08)
[2016-10-12 12:41] LABS: THYROID STIMULATING HORMONE 0.228 MIU/L (0.465-4.680)
[2016-10-12 12:49] LABS: ABNORMAL IP MESSAGE 1; BASOPHIL # 0.1 10^3/ul (0.0-0.1); EOSINOPHILS # 0.3 10^3/ul (0.0-0.5); EOSINOPHILS % 5.6 % (0.0-7.0); HEMATOCRIT 37.8 % (37.0-47.0); HEMOGLOBIN 13.5 g/dl (12.0-16.0); LYMPHOCYTES % 19.6 % (15.0-51.0); MEAN CORPUSCULAR HEMOGLOBIN 35.5 pg (29.0-33.0); MEAN CORPUSCULAR HGB CONC 35.7 g/dl (32.0-37.0); MEAN CORPUSCULAR VOLUME 99.5 fl (82.0-101.0); MEAN PLATELET VOLUME 11.1 fl (7.4-10.4); MONOCYTES % 21.5 % (0.0-11.0); NEUTROPHIL # 2.5 10^3/ul (1.6-7.5); NEUTROPHILS % 52.1 % (39.0-77.0); PLATELET COUNT 58 10^3/UL (140-415); RED CELL DISTRIBUTION WIDTH 14.6 % (11.5-14.5); WHITE BLOOD COUNT 4.8 10^3/ul (4.8-10.8)
[2016-10-12 12:50] LABS: ADD SCAN DIFF NO
[2016-10-12 13:09] VITALS: BP 99/51; RESP 18
[2016-10-12 20:57] VITALS: BP 124/58; RESP 20
[2016-10-12] MEDS: INSULIN GLARGINE [LANtus] 3 ML PEN SC SCH (21:14)
[2016-10-13] MEDS: PANTOPRAZOLE 40 MG INJ IV SCH (05:44)
[2016-10-13] MEDS: LACTULOSE 30ML CUP PO SCH ×3 (05:44→21:20)
[2016-10-13] MEDS: FUROSEMIDE 40 MG INJ IV SCH (05:45)
[2016-10-13 08:05] VITALS: BP 110/54; RESP 18
[2016-10-13] MEDS: INSULIN ASPART [NOVOLOG] 3 ML PEN SC SCH ×5 (08:18→21:25)
[2016-10-13] MEDS: GABAPENTIN 300 MG CAP PO SCH ×3 (09:01→21:20)
[2016-10-13] MEDS: SPIRONOLACTONE 50 MG TAB PO SCH ×2 (09:01→21:20)
[2016-10-13] MEDS: FERROUS SULFATE (EC) 325 MG TAB PO SCH ×2 (09:01→21:20)
[2016-10-13 09:06] LABS: ABNORMAL IP MESSAGE 1; BASOPHILS % 0.7 % (0.0-2.0); EOSINOPHILS # 0.3 10^3/ul (0.0-0.5); EOSINOPHILS % 4.9 % (0.0-7.0); HEMOGLOBIN 13.6 g/dl (12.0-16.0); LYMPHOCYTES # 0.8 10^3/ul (0.8-2.9); LYMPHOCYTES % 15.3 % (15.0-51.0); MEAN CORPUSCULAR HEMOGLOBIN 34.4 pg (29.0-33.0); MEAN CORPUSCULAR HGB CONC 34.9 g/dl (32.0-37.0); MEAN CORPUSCULAR VOLUME 98.7 fl (82.0-101.0); MEAN PLATELET VOLUME 11.1 fl (7.4-10.4); MONOCYTE # 0.9 10^3/ul (0.3-0.9); MONOCYTES % 17.2 % (0.0-11.0); NEUTROPHIL # 3.3 10^3/ul (1.6-7.5); NEUTROPHILS % 61.7 % (39.0-77.0); PLATELET COUNT 58 10^3/UL (140-415); RED BLOOD COUNT 3.95 10^6/ul (4.20-5.40); RED CELL DISTRIBUTION WIDTH 14.1 % (11.5-14.5); WHITE BLOOD COUNT 5.4 10^3/ul (4.8-10.8)
[2016-10-13] MEDS ORDERED: morphine 2 MG INJ IV PRN (13:00)
--- NOTE | 2016-10-13 15:22 | PN ---
Date/Time of Note Date/Time of Note DATE: 10/13/16 TIME: 15:21 Assessment/Plan VTE Prophylaxis VTE Prophylaxis Intervention: contraindicated Lines/Catheters IV Catheter Type (from Nrs): Saline Lock Assessment/Plan Chief Complaint/Hosp Course 1. Debility with underlying ambulatory dysfunction. Most probably secondary to underlying diabetic neuropathy. Physical therapy evaluation ordered. Continue pain control. 2. Type 2 diabetes mellitus. Hemoglobin A1c 10.6. We will continue the patient on sliding scale insulin along with pre-meal insulin and Lantus insulin. 3. Alcoholic liver cirrhosis. Continue Lasix, Aldactone, and lactulose. 4. Thrombocytopenia. Most probably secondary to underlying liver cirrhosis. Continue to monitor. 5. Fluids, electrolytes, and nutrition. Carbohydrate controlled diet. 6. DVT prophylaxis. Contraindicated because of underlying thrombocytopenia. 7. Gastrointestinal prophylaxis. Proton pump inhibitors. 8. Plan. Continue pain control. Continue blood sugar control. Await physical therapy evaluation. Case discussed with Dr. Kidd. Problems: Subjective 24 Hr Interval Summary Free Text/Dictation Complains of bilateral lower extremity pain. Exam/Review of Systems Vital Signs Vitals Vital Signs Date Time Temp Pulse Resp B/P Pulse Ox O2 Delivery O2 Flow Rate FiO2 10/13/16 08:05 99.0 79 18 110/54 95 10/12/16 12:26 Room Air Intake and Output 10/12/16 10/12/16 10/13/16 15:00 23:00 07:00 Intake Total 360 ml 200 ml Balance 360 ml 200 ml Exam General: Adequately build 61 year-old female lying in bed in no apparent distress. HEENT: Normocephalic, atraumatic. Eyes: Anicteric sclerae, conjunctivae clear. ENT: Nasal septum midline, oral mucosa moist. Neck supple, no JVD noticed. Respiratory: Bilaterally clear breath sounds. No use of accessory muscles of respiration. No adventitious breath sounds. Cardiovascular: S1, S2 heard. No murmurs or gallops. Abdomen: Soft, nontender, and nondistended. Bowel sounds positive in all 4 quadrants. Genitourinary: Deferred. Extremities: No cyanosis, no clubbing, no edema. Peripheral pulses palpable. Bilateral lower extremity tenderness of the feet. Neurologic: Cranial nerves II through XII grossly intact. The patient is awake, alert, and oriented. Skin: Normal skin turgor. No skin rashes. Results Result Diagram: 10/13/16 0820 10/12/16 1128 Results 24 hrs Laboratory Tests Test 10/12/16 17:36 10/12/16 21:05 10/13/16 02:11 10/13/16 08:07 Bedside Glucose 255 H 288 H 214 230 H Test 10/13/16 08:20 10/13/16 12:06 White Blood Count 5.4 Red Blood Count 3.95 L Hemoglobin 13.6 Hematocrit 39.0 Mean Corpuscular Volume 98.7 Mean Corpuscular Hemoglobin 34.4 H Mean Corpuscular Hemoglobin Concent 34.9 Red Cell Distribution Width 14.1 Platelet Count 58 L Mean Platelet Volume 11.1 H Neutrophils % 61.7 Lymphocytes % 15.3 Monocytes % 17.2 H Eosinophils % 4.9 Basophils % 0.7 Nucleated Red Blood Cells % 0.0 Neutrophils # 3.3 Lymphocytes # 0.8 Monocytes # 0.9 Eosinophils # 0.3 Basophils # 0.0 Nucleated Red Blood Cells # 0.0 Ammonia 54 H Bedside Glucose 260 H Medications Medications Current Medications Ondansetron HCl (Zofran Inj) 4 mg Q6H PRN IV NAUSEA AND/OR VOMITING; Start at 22:00 Pantoprazole (Protonix Iv) 40 mg DAILY@06 IV Last administered on 10/13/16 05: 44; Admin Dose 40 MG; Start 10/12/16 at 06:00 Ferrous Sulfate (Ferrous Sulfate (Ec)) 325 mg BID PO Last administered on 09:01; Admin Dose 325 MG; Start 10/12/16 at 09:00 Spironolactone (Aldactone) 50 mg BID PO Last administered on 10/13/16 09:01; Admin Dose 50 MG; Start 10/11/16 at 23:30 Miscellaneous Information 1 ea NOTE XX ; Start 10/11/16 at 22:30 Glucose (Glutose) 15 gm Q15M PRN PO DECREASED GLUCOSE; Start 10/11/16 at 22:30 Glucose (Glutose) 22.5 gm Q15M PRN PO DECREASED GLUCOSE; Start 10/11/16 at 22: 30 Dextrose (D50w Syringe) 25 ml Q15M PRN IV DECREASED GLUCOSE; Start 10/11/16 at 22:30 Dextrose (D50w Syringe) 50 ml Q15M PRN IV DECREASED GLUCOSE; Start 10/11/16 at 22:30 Glucagon (Glucagen) 1 mg Q15M PRN IM DECREASED GLUCOSE; Start 10/11/16 at 22:30 Glucose (Glutose) 15 gm Q15M PRN BUCCAL DECREASED GLUCOSE; Start 10/11/16 at 22 :30 Furosemide (Lasix) 40 mg DAILY@06 IV Last administered on 10/13/16 05:45; Admin Dose 40 MG; Start 10/12/16 at 06:00 Lactulose (Enulose) 20 gm Q8 PO Last administered on 10/13/16 13:38; Admin Dose 20 GM; Start 10/12/16 at 06:00 Gabapentin (Neurontin) 300 mg TID PO Last administered on 10/13/16 13:38; Admin Dose 300 MG; Start 10/13/16 at 09:00 Insulin Glargine (Lantus) 10 unit HS SC Last administered on 10/12/16 21:14; Admin Dose 10 UNIT; Start 10/12/16 at 21:00 Morphine Sulfate (morphine) 2 mg Q4H PRN IV Pain; Start 10/13/16 at 13:00 DONA AVALOS NP Oct 13, 2016 15:22
[2016-10-13 20:09] VITALS: BP 131/67; RESP 18
[2016-10-13] MEDS: INSULIN GLARGINE [LANtus] 3 ML PEN SC SCH (21:26)
[2016-10-14] MEDS: LACTULOSE 30ML CUP PO SCH ×3 (05:40→21:21)
[2016-10-14] MEDS: FUROSEMIDE 40 MG INJ IV SCH (05:40)
[2016-10-14] MEDS: PANTOPRAZOLE 40 MG INJ IV SCH (05:40)
[2016-10-14 06:04] LABS: ABNORMAL IP MESSAGE 1; MEAN CORPUSCULAR VOLUME 97.2 fl (82.0-101.0)
[2016-10-14 06:06] LABS: MEAN PLATELET VOLUME 10.6 fl (7.4-10.4); PLATELET COUNT 56 10^3/UL (140-415)
[2016-10-14 06:24] LABS: MAGNESIUM 1.4 mg/dl (1.7-2.5); PHOSPHORUS 4.3 mg/dl (2.5-4.9)
[2016-10-14 06:56] LABS: ALBUMIN 2.9 g/dl (3.3-4.9); ALBUMIN/GLOBULIN RATIO 0.9; BILIRUBIN,INDIRECT 0.8 mg/dl (0-1.1); BILIRUBIN,TOTAL 0.8 mg/dl (0.2-1.3); CALCIUM 9.4 mg/dl (8.4-10.2); CREATININE 0.58 mg/dl (0.44-1.00); POTASSIUM 4.1 mmol/L (3.5-5.1); TOTAL PROTEIN 6.1 g/dl (6.1-8.1)
[2016-10-14 06:57] LABS: ADD SCAN DIFF YES; HEMATOCRIT 37.5 % (37.0-47.0); HEMOGLOBIN 13.5 g/dl (12.0-16.0); RED BLOOD COUNT 3.86 10^6/ul (4.20-5.40); WHITE BLOOD COUNT 4.6 10^3/ul (4.8-10.8)
[2016-10-14 06:58] LABS: RED CELL DISTRIBUTION WIDTH 13.7 % (11.5-14.5)
[2016-10-14 07:53] VITALS: BP 105/56; RESP 18
[2016-10-14] MEDS: FERROUS SULFATE (EC) 325 MG TAB PO SCH ×2 (08:01→21:22)
[2016-10-14] MEDS: SPIRONOLACTONE 50 MG TAB PO SCH ×2 (08:01→21:22)
[2016-10-14] MEDS: GABAPENTIN 300 MG CAP PO SCH ×3 (08:01→21:22)
[2016-10-14] MEDS: INSULIN ASPART [NOVOLOG] 3 ML PEN SC SCH ×8 (08:09→21:42)
[2016-10-14 10:59] LABS: EOSINOPHILS # 0.6 10^3/ul (0.0-0.5); LYMPHOCYTES # 0.7 10^3/ul (0.8-2.9); MONOCYTE # 0.7 10^3/ul (0.3-0.9); NEUTROPHIL # 2.6 10^3/ul (1.6-7.5)
[2016-10-14 11:00] LABS: PLATELET ESTIMATE PLT APPEAR DECREASED
--- NOTE | 2016-10-14 11:42 | PN ---
Date/Time of Note Date/Time of Note DATE: 10/14/16 TIME: 11:41 Assessment/Plan VTE Prophylaxis VTE Prophylaxis Intervention: SCD's Lines/Catheters IV Catheter Type (from Nrs): Saline Lock Assessment/Plan Chief Complaint/Hosp Course 1. Debility with underlying ambulatory dysfunction. Most probably secondary to underlying diabetic neuropathy. Physical therapy evaluation ordered. Continue pain control. 2. Type 2 diabetes mellitus. Hemoglobin A1c 10.6. We will continue the patient on sliding scale insulin along with pre-meal insulin and Lantus insulin. 3. Alcoholic liver cirrhosis. Continue Lasix, Aldactone, and lactulose. 4. Thrombocytopenia. Most probably secondary to underlying liver cirrhosis. Continue to monitor. 5. Fluids, electrolytes, and nutrition. Carbohydrate controlled diet. 6. DVT prophylaxis. Contraindicated because of underlying thrombocytopenia. 7. Gastrointestinal prophylaxis. Proton pump inhibitors. 8. Plan. Continue pain control. Continue blood sugar control. Await physical therapy evaluation. Adjust insulin dosing to obtain optimal blood sugar control. Replete magnesium. Case discussed with Dr. Kidd. Problems: Subjective 24 Hr Interval Summary Free Text/Dictation Blood sugars running high. Had nausea and abdominal pain last night. Exam/Review of Systems Vital Signs Vitals Vital Signs Date Time Temp Pulse Resp B/P Pulse Ox O2 Delivery O2 Flow Rate FiO2 10/14/16 07:53 97.7 70 18 105/56 98 10/12/16 12:26 Room Air Intake and Output 10/13/16 10/13/16 10/14/16 15:00 23:00 07:00 Intake Total 1240 ml 240 ml Balance 1240 ml 240 ml Exam General: Adequately build 61 year-old female lying in bed in no apparent distress. HEENT: Normocephalic, atraumatic. Eyes: Anicteric sclerae, conjunctivae clear. ENT: Nasal septum midline, oral mucosa moist. Neck supple, no JVD noticed. Respiratory: Bilaterally clear breath sounds. No use of accessory muscles of respiration. No adventitious breath sounds. Cardiovascular: S1, S2 heard. No murmurs or gallops. Abdomen: Soft, nontender, and nondistended. Bowel sounds positive in all 4 quadrants. Genitourinary: Deferred. Extremities: No cyanosis, no clubbing, no edema. Peripheral pulses palpable. Bilateral lower extremity tenderness of the feet. Neurologic: Cranial nerves II through XII grossly intact. The patient is awake, alert, and oriented. Skin: Normal skin turgor. No skin rashes. Results Result Diagram: 10/14/1625 10/14/16 0525 Results 24 hrs Laboratory Tests Test 10/13/16 12:06 10/13/16 17:31 10/13/16 21:17 10/14/16 02:37 Bedside Glucose 260 H 294 H 235 H 237 H Test 10/14/16 05:25 10/14/16 08:00 10/14/16 09:20 White Blood Count 4.6 L Red Blood Count 3.86 L Hemoglobin 13.5 Hematocrit 37.5 Mean Corpuscular Volume 97.2 Mean Corpuscular Hemoglobin 35.0 H Mean Corpuscular Hemoglobin Concent 36.0 Red Cell Distribution Width 13.7 Platelet Count 56 L Mean Platelet Volume 10.6 H Neutrophils % 56.0 Lymphocytes % 16.0 Monocytes % 15.0 H Eosinophils % 13.0 H Basophils % Nucleated Red Blood Cells % Neutrophils # 2.6 Lymphocytes # 0.7 L Monocytes # 0.7 Eosinophils # 0.6 H Basophils # Nucleated Red Blood Cells # Platelet Estimate PLT APPEAR DECREASED Sodium Level 138 Potassium Level 4.1 Chloride Level 101 Carbon Dioxide Level 25 Anion Gap 16 # Blood Urea Nitrogen 13 Creatinine 0.58 Glucose Level 240 H Calcium Level 9.4 Phosphorus Level 4.3 Magnesium Level 1.4 L Total Bilirubin 0.8 Direct Bilirubin 0.00 Indirect Bilirubin 0.8 Aspartate Amino Transf (AST/SGOT) 36 Alanine Aminotransferase (ALT/SGPT) 43 Alkaline Phosphatase 126 H Total Protein 6.1 Albumin 2.9 L Globulin 3.20 Albumin/Globulin Ratio 0.90 Bedside Glucose 269 H Ammonia 69 H Medications Medications Current Medications Ondansetron HCl (Zofran Inj) 4 mg Q6H PRN IV NAUSEA AND/OR VOMITING; Start at 22:00 Pantoprazole (Protonix Iv) 40 mg DAILY@06 IV Last administered on 10/14/16 05: 40; Admin Dose 40 MG; Start 10/12/16 at 06:00 Ferrous Sulfate (Ferrous Sulfate (Ec)) 325 mg BID PO Last administered on 08:01; Admin Dose 325 MG; Start 10/12/16 at 09:00 Spironolactone (Aldactone) 50 mg BID PO Last administered on 10/14/16 08:01; Admin Dose 50 MG; Start 10/11/16 at 23:30 Miscellaneous Information 1 ea NOTE XX ; Start 10/11/16 at 22:30 Glucose (Glutose) 15 gm Q15M PRN PO DECREASED GLUCOSE; Start 10/11/16 at 22:30 Glucose (Glutose) 22.5 gm Q15M PRN PO DECREASED GLUCOSE; Start 10/11/16 at 22: 30 Dextrose (D50w Syringe) 25 ml Q15M PRN IV DECREASED GLUCOSE; Start 10/11/16 at 22:30 Dextrose (D50w Syringe) 50 ml Q15M PRN IV DECREASED GLUCOSE; Start 10/11/16 at 22:30 Glucagon (Glucagen) 1 mg Q15M PRN IM DECREASED GLUCOSE; Start 10/11/16 at 22:30 Glucose (Glutose) 15 gm Q15M PRN BUCCAL DECREASED GLUCOSE; Start 10/11/16 at 22 :30 Furosemide (Lasix) 40 mg DAILY@06 IV Last administered on 10/14/16 05:40; Admin Dose 40 MG; Start 10/12/16 at 06:00 Lactulose (Enulose) 20 gm Q8 PO Last administered on 10/14/16 05:40; Admin Dose 20 GM; Start 10/12/16 at 06:00 Gabapentin (Neurontin) 300 mg TID PO Last administered on 10/14/16 08:01; Admin Dose 300 MG; Start 10/13/16 at 09:00 Insulin Glargine (Lantus) 10 unit HS SC Last administered on 10/13/16 21:26; Admin Dose 10 UNIT; Start 10/12/16 at 21:00 Morphine Sulfate (morphine) 2 mg Q4H PRN IV Pain; Start 10/13/16 at 13:00 DONA AVALOS NP Oct 14, 2016 11:41
[2016-10-14] MEDS ORDERED: MAGNESIUM SULFATE 3 GM in SOD CHLORIDE 0.9% 100 ML IVPB ONE (13:00)
[2016-10-14 19:31] VITALS: BP 109/59; RESP 20
[2016-10-14] MEDS ORDERED: INSULIN GLARGINE [LANtus] 3 ML PEN SC SCH (21:00)
[2016-10-14] MEDS ORDERED: INSULIN ASPART [NOVOLOG] 3 ML PEN SC ONE (21:30)
[2016-10-15] MEDS: ACCU-CHEK XX SCH (01:55)
[2016-10-15] MEDS ORDERED: ACCU-CHEK XX SCH (02:00)
[2016-10-15] MEDS: LACTULOSE 30ML CUP PO SCH ×2 (05:24→18:00)
[2016-10-15] MEDS: PANTOPRAZOLE 40 MG INJ IV SCH (05:24)
[2016-10-15] MEDS: FUROSEMIDE 40 MG INJ IV SCH (05:30)
[2016-10-15 06:18] LABS: ABNORMAL IP MESSAGE 1; BASOPHIL # 0.1 10^3/ul (0.0-0.1); EOSINOPHILS # 0.4 10^3/ul (0.0-0.5); EOSINOPHILS % 7.5 % (0.0-7.0); HEMATOCRIT 37.7 % (37.0-47.0); HEMOGLOBIN 13.4 g/dl (12.0-16.0); LYMPHOCYTES % 20.1 % (15.0-51.0); MEAN CORPUSCULAR HEMOGLOBIN 34.2 pg (29.0-33.0); MEAN CORPUSCULAR HGB CONC 35.5 g/dl (32.0-37.0); MEAN CORPUSCULAR VOLUME 96.2 fl (82.0-101.0); MONOCYTE # 0.8 10^3/ul (0.3-0.9); MONOCYTES % 15.6 % (0.0-11.0); NEUTROPHIL # 2.9 10^3/ul (1.6-7.5); NEUTROPHILS % 55.6 % (39.0-77.0); PLATELET COUNT 60 10^3/UL (140-415); RED BLOOD COUNT 3.92 10^6/ul (4.20-5.40); RED CELL DISTRIBUTION WIDTH 13.7 % (11.5-14.5); WHITE BLOOD COUNT 5.2 10^3/ul (4.8-10.8)
[2016-10-15 06:39] LABS: MAGNESIUM 1.5 mg/dl (1.7-2.5); PHOSPHORUS 4.4 mg/dl (2.5-4.9)
[2016-10-15 07:46] VITALS: BP 107/59; RESP 20
[2016-10-15] MEDS: INSULIN ASPART [NOVOLOG] 3 ML PEN SC SCH ×7 (08:00→21:16)
[2016-10-15 08:25] LABS: ALBUMIN 3.2 g/dl (3.3-4.9); ALBUMIN/GLOBULIN RATIO 0.94; BILIRUBIN,INDIRECT 0.7 mg/dl (0-1.1); BILIRUBIN,TOTAL 0.7 mg/dl (0.2-1.3); CALCIUM 9.6 mg/dl (8.4-10.2); CREATININE 0.62 mg/dl (0.44-1.00); POTASSIUM 3.9 mmol/L (3.5-5.1); TOTAL PROTEIN 6.6 g/dl (6.1-8.1)
[2016-10-15] MEDS: FERROUS SULFATE (EC) 325 MG TAB PO SCH ×2 (09:48→21:03)
[2016-10-15] MEDS: GABAPENTIN 300 MG CAP PO SCH ×3 (09:48→21:03)
[2016-10-15] MEDS: SPIRONOLACTONE 50 MG TAB PO SCH ×2 (09:48→21:03)
--- NOTE | 2016-10-15 13:31 | PN ---
Date/Time of Note Date/Time of Note DATE: 10/15/16 TIME: 13:28 Assessment/Plan VTE Prophylaxis VTE Prophylaxis Intervention: SCD's Lines/Catheters IV [facility]from [facility] Saline Lock Assessment/Plan Chief Complaint/Hosp Course A/P: 61-year-old female was being admitted to [facility] floor for: #1 ambulatory dysfunction: This possibly could be multifactorial possibly related to diabetic neuropathy, edema from liver cirrhosis, or other etiology. Patient denies any recent falls. No signs of any cauda equina syndrome or epidural abscess at this point in time. appreciate PT rec's - monitor - f/u with CM. - continue gabapentin as she does does describe burning sensation bilaterally. #2 cirrhosis: Admitting doctor discussed with patient regarding possible need for liver transplant. She and her family do state that they have been in discussion regarding liver transplant however they did not probably follow-up regarding this. Pt advised patient that she needs to be sober for period of time to be considered for transplant. - continue current medications of spironolactone. Ammonia still elevated. - holding home dose of Lasix right now - increase lactulose dose. - monitor LFTs. #3 diabetes mellitus: Patient's home blood sugars that she describes appear to be uncontrolled. FS still elevated - ISS, f/u hemoglobin A1c level. - adjust her diabetic regimen as indicated - increase aspart and lantus doses. #DVT and GI prophylaxis: SCD's, Protonix Problems: Subjective 24 Hr Interval Summary Free Text/Dictation No acute events overnight. Exam/Review of Systems Vital Signs Vitals Vital Signs Date Time Temp Pulse Resp B/P Pulse Ox O2 Delivery O2 Flow Rate FiO2 10/15/16 07:46 97.7 74 20 107/59 98 10/12/16 12:26 Room Air Intake and Output 10/14/16 10/14/16 10/15/16 15:00 23:00 07:00 Intake Total 1306 ml 500 ml Output Total 4 ml Balance 1302 ml 500 ml Exam General: female lying in bed in no apparent distress. HEENT: Normocephalic, atraumatic. Eyes: Anicteric sclerae, conjunctivae clear. ENT: Nasal septum midline, oral mucosa moist. Neck supple, no JVD noticed. Respiratory: Bilaterally clear breath sounds. No use of accessory muscles of respiration. No adventitious breath sounds. Cardiovascular: S1, S2 heard. No murmurs or gallops. Abdomen: Soft, nontender, and nondistended. Bowel sounds positive in all 4 quadrants. Extremities: No cyanosis, no clubbing, no edema. Peripheral pulses palpable. Bilateral lower extremity tenderness of the feet. Neurologic: Cranial nerves II through XII grossly intact. The patient is awake, alert, and oriented. Skin: Normal skin turgor. No skin rashes. Results Result Diagram: 10/15/1628 10/15/16527 Results 24 hrs Laboratory Tests Test 10/14/16 17:11 10/14/16 21:20 10/15/16 01:36 10/15/16 05:28 Bedside Glucose 240 H 364 H 266 H White Blood Count 5.2 Red Blood Count 3.92 L Hemoglobin 13.4 Hematocrit 37.7 Mean Corpuscular Volume 96.2 Mean Corpuscular Hemoglobin 34.2 H Mean Corpuscular Hemoglobin Concent 35.5 Red Cell Distribution Width 13.7 Platelet Count 60 L Mean Platelet Volume 11.0 H Neutrophils % 55.6 Lymphocytes % 20.1 Monocytes % 15.6 H Eosinophils % 7.5 H Basophils % 1.0 Nucleated Red Blood Cells % 0.0 Neutrophils # 2.9 Lymphocytes # 1.0 Monocytes # 0.8 Eosinophils # 0.4 Basophils # 0.1 Nucleated Red Blood Cells # 0.0 Sodium Level 137 Potassium Level 3.9 Chloride Level 100 Carbon Dioxide Level 23 Anion Gap 18 H Blood Urea Nitrogen 13 Creatinine 0.62 Glucose Level 195 Calcium Level 9.6 Phosphorus Level 4.4 Magnesium Level 1.5 L Total Bilirubin 0.7 Direct Bilirubin 0.00 Indirect Bilirubin 0.7 Aspartate Amino Transf (AST/SGOT) 39 Alanine Aminotransferase (ALT/SGPT) 39 Alkaline Phosphatase 129 H Total Protein 6.6 Albumin 3.2 L Globulin 3.40 H Albumin/Globulin Ratio 0.94 Test 10/15/16 07:55 10/15/16 08:55 10/15/16 12:19 Bedside Glucose 201 365 H Ammonia 137 #H Medications Medications Current Medications Ondansetron HCl (Zofran Inj) 4 mg Q6H PRN IV NAUSEA AND/OR VOMITING; Start at 22:00 Pantoprazole (Protonix Iv) 40 mg DAILY@06 IV Last administered on 10/15/16t 05: 24; Admin Dose 40 MG; Start 10/12/16 at 06:00 Ferrous Sulfate (Ferrous Sulfate (Ec)) 325 mg BID PO Last administered on 09:48; Admin Dose 325 MG; Start 10/12/16 at 09:00 Spironolactone (Aldactone) 50 mg BID PO Last administered on 10/15/16 09:48; Admin Dose 50 MG; Start 10/11/16 at 23:30 Miscellaneous Information 1 ea NOTE XX ; Start 10/11/16 at 22:30 Glucose (Glutose) 15 gm Q15M PRN PO DECREASED GLUCOSE; Start 10/11/16 at 22:30 Glucose (Glutose) 22.5 gm Q15M PRN PO DECREASED GLUCOSE; Start 10/11/16 at 22: 30 Dextrose (D50w Syringe) 25 ml Q15M PRN IV DECREASED GLUCOSE; Start 10/11/16 at 22:30 Dextrose (D50w Syringe) 50 ml Q15M PRN IV DECREASED GLUCOSE; Start 10/11/16 at 22:30 Glucagon (Glucagen) 1 mg Q15M PRN IM DECREASED GLUCOSE; Start 10/11/16 at 22:30 Glucose (Glutose) 15 gm Q15M PRN BUCCAL DECREASED GLUCOSE; Start 10/11/16 at 22 :30 Furosemide (Lasix) 40 mg DAILY@06 IV Last administered on 10/15/16 05:30; Admin Dose 40 MG; Start 10/12/16 at 06:00 Gabapentin (Neurontin) 300 mg TID PO Last administered on 10/15/16 09:48; Admin Dose 300 MG; Start 10/13/16 at 09:00 Morphine Sulfate (morphine) 2 mg Q4H PRN IV Pain; Start 10/13/16 at 13:00 Diagnostic Test (Pha) (Accu-Chek) 1 ea 02 XX ; Start 10/15/16 at 02:00 Insulin Glargine (Lantus) 30 unit HS SC ; Start 10/15/16 at 21:00 Lactulose 30 gm 30 gm Q6 PO ; Start 10/15/16 at 18:00 Magnesium Sulfate (Magnesium Sulfate 2 Gm/50 ml) 50 ml @ 25 mls/hr ONCE ONCE IVPB ; Start 10/15/16 at 13:30; Stop 10/15/16 at 15:29; Status UNV RAYA EDEN Oct 15, 2016 13:31
[2016-10-15] MEDS ORDERED: MAGNESIUM SULFATE 2 GM/50 ML 50 ML IVPB ONE (15:00)
[2016-10-15 20:19] VITALS: BP 140/69; RESP 18
[2016-10-15] MEDS ORDERED: INSULIN GLARGINE [LANtus] 3 ML PEN SC SCH ×2 (21:00)
[2016-10-16] MEDS: LACTULOSE 30ML CUP PO SCH ×4 (00:36→17:36)
[2016-10-16] MEDS: ACCU-CHEK XX SCH (01:52)
[2016-10-16] MEDS: PANTOPRAZOLE (EC) 40 MG TAB PO SCH (05:58)
[2016-10-16] MEDS: FUROSEMIDE 40 MG INJ IV SCH (06:02)
[2016-10-16 06:05] LABS: MAGNESIUM 1.5 mg/dl (1.7-2.5); PHOSPHORUS 4.1 mg/dl (2.5-4.9)
[2016-10-16 06:16] LABS: ALBUMIN 3.4 g/dl (3.3-4.9); ALBUMIN/GLOBULIN RATIO 0.97; BILIRUBIN,INDIRECT 0.4 mg/dl (0-1.1); BILIRUBIN,TOTAL 0.4 mg/dl (0.2-1.3); CALCIUM 9.5 mg/dl (8.4-10.2); CREATININE 0.63 mg/dl (0.44-1.00); POTASSIUM 3.9 mmol/L (3.5-5.1); TOTAL PROTEIN 6.9 g/dl (6.1-8.1)
[2016-10-16 06:32] LABS: ADD SCAN DIFF NO
[2016-10-16 06:35] LABS: BASOPHILS % 1.3 % (0.0-2.0); EOSINOPHILS % 6.5 % (0.0-7.0); HEMATOCRIT 40.3 % (37.0-47.0); MEAN CORPUSCULAR HEMOGLOBIN 33.8 pg (29.0-33.0); MEAN CORPUSCULAR HGB CONC 34.7 g/dl (32.0-37.0); MEAN CORPUSCULAR VOLUME 97.3 fl (82.0-101.0); MONOCYTES % 12.1 % (0.0-11.0); NEUTROPHIL # 3.2 10^3/ul (1.6-7.5); NEUTROPHILS % 60.7 % (39.0-77.0); PLATELET COUNT 72 10^3/UL (140-415); RED BLOOD COUNT 4.14 10^6/ul (4.20-5.40); RED CELL DISTRIBUTION WIDTH 13.8 % (11.5-14.5); WHITE BLOOD COUNT 5.2 10^3/ul (4.8-10.8)
[2016-10-16 06:36] LABS: ABNORMAL IP MESSAGE 1; BASOPHIL # 0.1 10^3/ul (0.0-0.1); EOSINOPHILS # 0.3 10^3/ul (0.0-0.5); MONOCYTE # 0.6 10^3/ul (0.3-0.9)
[2016-10-16 07:48] VITALS: BP 106/59; RESP 20
[2016-10-16] MEDS: INSULIN ASPART [NOVOLOG] 3 ML PEN SC SCH ×7 (08:10→20:48)
[2016-10-16] MEDS: FERROUS SULFATE (EC) 325 MG TAB PO SCH ×2 (10:25→20:48)
[2016-10-16] MEDS: SPIRONOLACTONE 50 MG TAB PO SCH ×2 (10:25→20:48)
[2016-10-16] MEDS: GABAPENTIN 300 MG CAP PO SCH ×3 (10:25→20:48)
--- NOTE | 2016-10-16 11:18 | PN ---
Date/Time of Note Date/Time of Note DATE: 10/16/16 TIME: 11:16 Assessment/Plan VTE Prophylaxis VTE Prophylaxis Intervention: SCD's Lines/Catheters IV Catheter Type (from [facility]): Saline Lock Assessment/Plan Chief Complaint/Hosp Course A/P: 61-year-old female was being admitted to [facility] floor for: #1 ambulatory dysfunction: This possibly could be multifactorial possibly related to diabetic neuropathy, edema from liver cirrhosis, or other etiology. Patient denies any recent falls. No signs of any cauda equina syndrome or epidural abscess at this point in time. appreciate PT rec's - monitor - f/u with CM. - continue gabapentin as she does does describe burning sensation bilaterally. #2 cirrhosis: Admitting doctor discussed with patient regarding possible need for liver transplant. She and her family do state that they have been in discussion regarding liver transplant however they did not probably follow-up regarding this. Pt advised patient that she needs to be sober for period of time to be considered for transplant. - continue current medications of spironolactone. Ammonia still elevated. - holding home dose of Lasix right now - increase lactulose dose. - monitor LFTs. #3 diabetes mellitus: Patient's home blood sugars that she describes appear to be uncontrolled. FS still elevated today again, slightly improved. - ISS, - adjust her diabetic regimen as indicated - increase aspart and lantus doses again today, monitor. #DVT and GI prophylaxis: SCD's, Protonix Dispo: home in 24 hrs if FS improved, and CM has set up needs. Problems: Subjective 24 Hr Interval Summary Free Text/Dictation Pt had no acute events overnight. Exam/Review of Systems Vital Signs Vitals Vital Signs Date Time Temp Pulse Resp B/P Pulse Ox O2 Delivery O2 Flow Rate FiO2 10/16/16 07:48 97.8 82 20 106/59 98 10/12/16 12:26 Room Air Intake and Output 10/15/16 10/15/16 10/16/16 15:00 23:00 07:00 Intake Total 1490 ml 600 ml Balance 1490 ml 600 ml Exam General: female lying in bed in no apparent distress. HEENT: Normocephalic, atraumatic. Eyes: Anicteric sclerae, conjunctivae clear. ENT: Nasal septum midline, oral mucosa moist. Neck supple, no JVD noticed. Respiratory: Bilaterally clear breath sounds. No use of accessory muscles of respiration. No adventitious breath sounds. Cardiovascular: S1, S2 heard. No murmurs or gallops. Abdomen: Soft, nontender, and nondistended. Bowel sounds positive in all 4 quadrants. Extremities: No cyanosis, no clubbing, no edema. Peripheral pulses palpable. Bilateral lower extremity tenderness of the feet. Neurologic: Cranial nerves II through XII grossly intact. The patient is awake, alert, and oriented. Skin: Normal skin turgor. No skin rashes. Results Result Diagram: 10/16/1652110/16/16521 Results 24 hrs Laboratory Tests Test 10/15/16 12:19 10/15/16 17:12 10/15/16 21:06 10/16/16 01:26 Bedside Glucose 365 H 245 H 200 204 Test 10/16/16 05:22 10/16/16 07:44 10/16/16 08:35 White Blood Count 5.2 Red Blood Count 4.14 L Hemoglobin 14.0 Hematocrit 40.3 Mean Corpuscular Volume 97.3 Mean Corpuscular Hemoglobin 33.8 H Mean Corpuscular Hemoglobin Concent 34.7 Red Cell Distribution Width 13.8 Platelet Count 72 L Mean Platelet Volume 12.0 H Neutrophils % 60.7 Lymphocytes % 19.0 Monocytes % 12.1 H Eosinophils % 6.5 Basophils % 1.3 Nucleated Red Blood Cells % 0.0 Neutrophils # 3.2 Lymphocytes # 1.0 Monocytes # 0.6 Eosinophils # 0.3 Basophils # 0.1 Nucleated Red Blood Cells # 0.0 Sodium Level 140 Potassium Level 3.9 Chloride Level 100 Carbon Dioxide Level 25 Anion Gap 19 H Blood Urea Nitrogen 13 Creatinine 0.63 Glucose Level 197 Calcium Level 9.5 Phosphorus Level 4.1 Magnesium Level 1.5 L Total Bilirubin 0.4 Direct Bilirubin 0.00 Indirect Bilirubin 0.4 Aspartate Amino Transf (AST/SGOT) 42 Alanine Aminotransferase (ALT/SGPT) 41 Alkaline Phosphatase 152 H Total Protein 6.9 Albumin 3.4 Globulin 3.50 H Albumin/Globulin Ratio 0.97 Bedside Glucose 200 Ammonia 76 H Medications Medications Current Medications Ondansetron HCl (Zofran Inj) 4 mg Q6H PRN IV NAUSEA AND/OR VOMITING; Start at 22:00 Ferrous Sulfate (Ferrous Sulfate (Ec)) 325 mg BID PO Last administered on 10:25; Admin Dose 325 MG; Start 10/12/16 at 09:00 Spironolactone (Aldactone) 50 mg BID PO Last administered on 10/16/16 10:25; Admin Dose 50 MG; Start 10/11/16 at 23:30 Miscellaneous Information 1 ea NOTE XX ; Start 10/11/16 at 22:30 Glucose (Glutose) 15 gm Q15M PRN PO DECREASED GLUCOSE; Start 10/11/16 at 22:30 Glucose (Glutose) 22.5 gm Q15M PRN PO DECREASED GLUCOSE; Start 10/11/16 at 22: 30 Dextrose (D50w Syringe) 25 ml Q15M PRN IV DECREASED GLUCOSE; Start 10/11/16 at 22:30 Dextrose (D50w Syringe) 50 ml Q15M PRN IV DECREASED GLUCOSE; Start 10/11/16 at 22:30 Glucagon (Glucagen) 1 mg Q15M PRN IM DECREASED GLUCOSE; Start 10/11/16 at 22:30 Glucose (Glutose) 15 gm Q15M PRN BUCCAL DECREASED GLUCOSE; Start 10/11/16 at 22 :30 Gabapentin (Neurontin) 300 mg TID PO Last administered on 10/16/16 10:25; Admin Dose 300 MG; Start 10/13/16 at 09:00 Morphine Sulfate (morphine) 2 mg Q4H PRN IV Pain; Start 10/13/16 at 13:00 Diagnostic Test (Pha) (Accu-Chek) 1 ea 02 XX Last administered on 10/16/16 01: 52; Admin Dose 1 EA; Start 10/15/16 at 02:00 Lactulose (Enulose) 30 gm Q6 PO Last administered on 10/16/16 05:57; Admin Dose 30 GM; Start 10/15/16 at 18:00 Pantoprazole (Protonix Tab) 40 mg DAILY@06 PO Last administered on 10/16/16 05: 58; Admin Dose 40 MG; Start 10/16/16 at 06:00 Insulin Glargine (Lantus) 42 unit HS SC ; Start 10/16/16 at 21:00 Furosemide (Lasix) 20 mg DAILY PO ; Start 10/17/16 at 09:00; Status RAYA PUCKETT Oct 16, 2016 11:18
[2016-10-16 20:13] VITALS: BP 110/56; RESP 20
[2016-10-16] MEDS: INSULIN GLARGINE [LANtus] 3 ML PEN SC SCH (20:53)
[2016-10-16] MEDS ORDERED: QUETIAPINE 100 MG TAB PO SCH (21:00)
[2016-10-16] MEDS ORDERED: QUETIAPINE 25 MG TAB PO SCH (21:00)
[2016-10-17] MEDS: ACCU-CHEK XX SCH (02:00)
[2016-10-17] MEDS: LACTULOSE 30ML CUP PO SCH ×5 (05:53→23:51)
[2016-10-17] MEDS: PANTOPRAZOLE (EC) 40 MG TAB PO SCH (05:53)
[2016-10-17 06:14] LABS: ADD SCAN DIFF NO
[2016-10-17 06:20] LABS: ABNORMAL IP MESSAGE 1; BASOPHIL # 0.1 10^3/ul (0.0-0.1); BASOPHILS % 1.3 % (0.0-2.0); EOSINOPHILS # 0.5 10^3/ul (0.0-0.5); EOSINOPHILS % 6.8 % (0.0-7.0); HEMOGLOBIN 14.2 g/dl (12.0-16.0); LYMPHOCYTES # 1.4 10^3/ul (0.8-2.9); LYMPHOCYTES % 20.3 % (15.0-51.0); MEAN PLATELET VOLUME 11.3 fl (7.4-10.4); MONOCYTE # 0.9 10^3/ul (0.3-0.9); MONOCYTES % 12.4 % (0.0-11.0); NEUTROPHIL # 4.1 10^3/ul (1.6-7.5); NEUTROPHILS % 58.9 % (39.0-77.0); RED CELL DISTRIBUTION WIDTH 13.8 % (11.5-14.5)
[2016-10-17 06:36] LABS: HEMATOCRIT 40.2 % (37.0-47.0); MEAN CORPUSCULAR HEMOGLOBIN 34.3 pg (29.0-33.0); MEAN CORPUSCULAR HGB CONC 35.3 g/dl (32.0-37.0); MEAN CORPUSCULAR VOLUME 97.1 fl (82.0-101.0); RED BLOOD COUNT 4.14 10^6/ul (4.20-5.40)
[2016-10-17 06:38] LABS: PLATELET COUNT 79 10^3/UL (140-415)
[2016-10-17 07:00] LABS: CALCIUM 8.9 mg/dl (8.4-10.2); CREATININE 0.63 mg/dl (0.44-1.00); MAGNESIUM 1.4 mg/dl (1.7-2.5); POTASSIUM 3.8 mmol/L (3.5-5.1)
[2016-10-17 07:48] VITALS: BP 132/68; RESP 18
[2016-10-17] MEDS: INSULIN ASPART [NOVOLOG] 3 ML PEN SC SCH ×7 (07:52→20:43)
[2016-10-17] MEDS: SPIRONOLACTONE 50 MG TAB PO SCH ×2 (08:56→20:43)
[2016-10-17] MEDS: FUROSEMIDE 20 MG TAB PO SCH (08:56)
[2016-10-17] MEDS: GABAPENTIN 300 MG CAP PO SCH ×3 (08:57→20:43)
[2016-10-17] MEDS: FERROUS SULFATE (EC) 325 MG TAB PO SCH ×2 (08:57→20:43)
--- NOTE | 2016-10-17 10:50 | PN ---
Date/Time of Note Date/Time of Note DATE: 10/17/16 TIME: 10:47 Assessment/Plan VTE Prophylaxis VTE Prophylaxis Intervention: SCD's Lines/Catheters IV C[facility]ter Type (from [facility]): Saline Lock Urinary Cath still in place: No Assessment/Plan Chief Complaint/Hosp Course A/P: 61-year-old female was being admitted to [facility] floor for: #1 ambulatory dysfunction: This possibly could be multifactorial possibly related to diabetic neuropathy, edema from liver cirrhosis, or other etiology. Patient denies any recent falls. No signs of any cauda equina syndrome or epidural abscess at this point in time. Improved ambulation now since admission. appreciate PT rec's - monitor - f/u with CM. - continue gabapentin as she does does describe burning sensation bilaterally. #2 cirrhosis: Admitting doctor discussed with patient regarding possible need for liver transplant. She and her family do state that they have been in discussion regarding liver transplant however they did not probably follow-up regarding this. Pt advised patient that she needs to be sober for period of time to be considered for transplant. - continue current medications of spironolactone. Ammonia more elevated today. - holding home dose of Lasix right now - again will increase lactulose dose today - monitor LFTs, NH4 levels. #3 diabetes mellitus: Patient's home blood sugars that she describes appear to be uncontrolled. FS improved in last 24 hrs - ISS, - continue current aspart and lantus doses, monitor. #DVT and GI prophylaxis: SCD's, Protonix Dispo: home in 24 hrs if FS and Mag levels and ammonia levels improved, and CM has set up home needs. Problems: Subjective 24 Hr Interval Summary Free Text/Dictation Pt with some confusion (ammonia higher than yesterday). FS improved. Exam/Review of Systems Vital Signs Vitals Vital Signs Date Time Temp Pulse Resp B/P Pulse Ox O2 Delivery O2 Flow Rate FiO2 10/17/16 07:48 97.8 80 18 132/68 97 Intake and Output 10/16/16 10/16/16 10/17/16 15:00 23:00 07:00 Intake Total 1800 ml 550 ml Balance 1800 ml 550 ml Exam General: female lying in bed in no apparent distress. HEENT: Normocephalic, atraumatic. Eyes: Anicteric sclerae, conjunctivae clear. ENT: Nasal septum midline, oral mucosa moist. Neck supple, no JVD noticed. Respiratory: Bilaterally clear breath sounds. No use of accessory muscles of respiration. No adventitious breath sounds. Cardiovascular: S1, S2 heard. No murmurs or gallops. Abdomen: Soft, nontender, and nondistended. Bowel sounds positive in all 4 quadrants. Extremities: No cyanosis, no clubbing, no edema. Peripheral pulses palpable. Bilateral lower extremity tenderness of the feet. Neurologic: Cranial nerves II through XII grossly intact. The patient is awake, alert, and oriented. Skin: Normal skin turgor. No skin rashes. Results Result Diagram: 10/17/1652410/17/16524 Results 24 hrs Laboratory Tests Test 10/16/16 11:32 10/16/16 17:09 10/16/16 20:47 10/17/16 05:25 Bedside Glucose 371 H 115 139 White Blood Count 7.0 # Red Blood Count 4.14 L Hemoglobin 14.2 Hematocrit 40.2 Mean Corpuscular Volume 97.1 Mean Corpuscular Hemoglobin 34.3 H Mean Corpuscular Hemoglobin Concent 35.3 Red Cell Distribution Width 13.8 Platelet Count 79 L Mean Platelet Volume 11.3 H Neutrophils % 58.9 Lymphocytes % 20.3 Monocytes % 12.4 H Eosinophils % 6.8 Basophils % 1.3 Nucleated Red Blood Cells % 0.0 Neutrophils # 4.1 Lymphocytes # 1.4 Monocytes # 0.9 Eosinophils # 0.5 Basophils # 0.1 Nucleated Red Blood Cells # 0.0 Sodium Level 139 Potassium Level 3.8 Chloride Level 100 Carbon Dioxide Level 24 Anion Gap 19 H Blood Urea Nitrogen 14 Creatinine 0.63 Glucose Level 127 # Calcium Level 8.9 Phosphorus Level 4.0 Magnesium Level 1.4 L Test 10/17/16 07:46 10/17/16 09:22 Bedside Glucose 146 Ammonia 116 #H Medications Medications Current Medications Ondansetron HCl (Zofran Inj) 4 mg Q6H PRN IV NAUSEA AND/OR VOMITING Last administered on 10/16/16 23:47; Admin Dose 4 MG; Start 10/11/16 at 22:00 Ferrous Sulfate (Ferrous Sulfate (Ec)) 325 mg BID PO Last administered on 08:57; Admin Dose 325 MG; Start 10/12/16 at 09:00 Spironolactone (Aldactone) 50 mg BID PO Last administered on 10/17/16 08:56; Admin Dose 50 MG; Start 10/11/16 at 23:30 Miscellaneous Information 1 ea NOTE XX ; Start 10/11/16 at 22:30 Glucose (Glutose) 15 gm Q15M PRN PO DECREASED GLUCOSE; Start 10/11/16 at 22:30 Glucose (Glutose) 22.5 gm Q15M PRN PO DECREASED GLUCOSE; Start 10/11/16 at 22: 30 Dextrose (D50w Syringe) 25 ml Q15M PRN IV DECREASED GLUCOSE; Start 10/11/16 at 22:30 Dextrose (D50w Syringe) 50 ml Q15M PRN IV DECREASED GLUCOSE; Start 10/11/16 at 22:30 Glucagon (Glucagen) 1 mg Q15M PRN IM DECREASED GLUCOSE; Start 10/11/16 at 22:30 Glucose (Glutose) 15 gm Q15M PRN BUCCAL DECREASED GLUCOSE; Start 10/11/16 at 22 :30 Gabapentin (Neurontin) 300 mg TID PO Last administered on 10/17/16 08:57; Admin Dose 300 MG; Start 10/13/16 at 09:00 Morphine Sulfate (morphine) 2 mg Q4H PRN IV Pain Last administered on 10/16/16 23:47; Admin Dose 2 MG; Start 10/13/16 at 13:00 Diagnostic Test (Pha) (Accu-Chek) 1 ea 02 XX Last administered on 10/16/16 01: 52; Admin Dose 1 EA; Start 10/15/16 at 02:00 Pantoprazole (Protonix Tab) 40 mg DAILY@06 PO Last administered on 10/17/16 05: 53; Admin Dose 40 MG; Start 10/16/16 at 06:00 Insulin Glargine (Lantus) 42 unit HS SC Last administered on 10/16/16 20:53; Admin Dose 42 UNIT; Start 10/16/16 at 21:00 Furosemide (Lasix) 20 mg DAILY PO Last administered on 10/17/16 08:56; Admin Dose 20 MG; Start 10/17/16 at 09:00 Lactulose 50 gm 50 gm Q6 PO ; Start 10/17/16 at 12:00 Magnesium Sulfate (Magnesium Sulfate 2 Gm/50 ml) 50 ml @ 25 mls/hr ONCE ONCE IVPB ; Start 10/17/16 at 11:30; Stop 10/17/16 at 13:29 RAYA EDEN Oct 17, 2016 10:50
[2016-10-17] MEDS ORDERED: MAGNESIUM SULFATE 2 GM/50 ML 50 ML IVPB ONE (11:30)
[2016-10-17] MEDS: NICOTINE (14 MG/24 HR) PATCH TRANSDERM SCH (17:36)
[2016-10-17 19:19] VITALS: BP 162/84; RESP 20
[2016-10-17] MEDS: INSULIN GLARGINE [LANtus] 3 ML PEN SC SCH (20:47)
[2016-10-18] MEDS: ACCU-CHEK XX SCH (02:00)
[2016-10-18 05:36] LABS: ADD SCAN DIFF NO
[2016-10-18 05:50] LABS: ABNORMAL IP MESSAGE 1; BASOPHIL # 0.1 10^3/ul (0.0-0.1); EOSINOPHILS # 0.4 10^3/ul (0.0-0.5); EOSINOPHILS % 5.4 % (0.0-7.0); HEMATOCRIT 40.5 % (37.0-47.0); HEMOGLOBIN 14.2 g/dl (12.0-16.0); LYMPHOCYTES # 0.8 10^3/ul (0.8-2.9); MEAN CORPUSCULAR HEMOGLOBIN 34.4 pg (29.0-33.0); MEAN CORPUSCULAR HGB CONC 35.1 g/dl (32.0-37.0); MEAN CORPUSCULAR VOLUME 98.1 fl (82.0-101.0); MEAN PLATELET VOLUME 11.3 fl (7.4-10.4); MONOCYTE # 0.7 10^3/ul (0.3-0.9); MONOCYTES % 10.3 % (0.0-11.0); NEUTROPHIL # 4.9 10^3/ul (1.6-7.5); RED BLOOD COUNT 4.13 10^6/ul (4.20-5.40); WHITE BLOOD COUNT 6.9 10^3/ul (4.8-10.8)
[2016-10-18] MEDS: PANTOPRAZOLE (EC) 40 MG TAB PO SCH (06:15)
[2016-10-18] MEDS: LACTULOSE 30ML CUP PO SCH ×3 (06:16→18:00)
[2016-10-18 06:19] LABS: PLATELET COUNT 57 10^3/UL (140-415)
[2016-10-18 06:23] LABS: CALCIUM 9.4 mg/dl (8.4-10.2); CREATININE 0.53 mg/dl (0.44-1.00); POTASSIUM 3.5 mmol/L (3.5-5.1)
[2016-10-18 07:50] VITALS: BP 167/87; RESP 18
[2016-10-18] MEDS: GABAPENTIN 300 MG CAP PO SCH ×2 (08:42→12:35)
[2016-10-18] MEDS: SPIRONOLACTONE 50 MG TAB PO SCH (08:42)
[2016-10-18] MEDS: FERROUS SULFATE (EC) 325 MG TAB PO SCH (08:42)
[2016-10-18] MEDS: FUROSEMIDE 20 MG TAB PO SCH (08:44)
[2016-10-18] MEDS: NICOTINE (14 MG/24 HR) PATCH TRANSDERM SCH (08:44)
[2016-10-18] MEDS: INSULIN ASPART [NOVOLOG] 3 ML PEN SC SCH ×6 (08:46→17:43)
--- NOTE | 2016-10-18 10:37 | PDOCDIS ---
Discharge Instructions CONDITION Patient Condition: Stable HOME CARE INSTRUCTIONS: Special Diet: CARB CONTROLLED ACTIVITY: Activity Restrictions: Slowly Increase Activity FOLLOW UP/APPOINTMENTS Follow-up Plan Please take your medications as prescribed. Please follow-up with your doctor in 1 week as well in the clinic. RAYA EDEN Oct 18, 2016 10:37
[2016-10-18] MEDS ORDERED: LANT3I SC (10:40)
[2016-10-18] MEDS ORDERED: Lactulose PO (10:40)
[2016-10-18] MEDS ORDERED: NOVO3I SC (10:40)
--- NOTE | 2016-10-18 10:48 | DS ---
Date/Time of Note Date/Time of Note DATE: 10/18/16 TIME: 10:43 Discharge Summary Admission/Discharge Info Admit Date/Time Oct 11, 2016 at 19:56 Discharge Date/Time Discharge Diagnosis #1 ambulatory dysfunction: This possibly could be multifactorial possibly related to diabetic neuropathy, edema from liver cirrhosis, or other etiology. #2 cirrhosis: Admitting doctor discussed with patient regarding possible need for liver transplant. #3 diabetes mellitus -improved Patient Condition: Stable Hospital Course 61-year-old female with diabetes who presents with lower extremity pain and weakness. She was transferred from [facility] for admission. The patient has had bilateral leg pain weakness for a long time but it has been worse over the past 2 days prior to admission and she felt like she could not walk. She states she has burning sensation in her legs and she also notices swelling at times. She denies fever or trauma. She does not know the name of her primary doctor. She was admitted for ambulatory dysfunction: This possibly could be multifactorial possibly related to diabetic neuropathy, edema from liver cirrhosis, or other etiology. Patient denies any recent falls. No signs of any cauda equina syndrome or epidural abscess at this point in time. Improved ambulation now since admissiion as she worked with PT and was started on gabapentin as she does does describe burning sensation bilaterally. She was able to ambulate afterwards. She was also treated for her cirrhosis: Admitting doctor discussed with patient regarding possible need for liver transplant. She and her family do state that they have been in discussion regarding liver transplant however they did not probably follow-up regarding this. Pt advised patient that she needs to be sober for period of time to be considered for transplant. She was continued on spironolactone. Ammonia levels were found to be elevated and was placed on lactulose dose. And her ammonia levels improved to normal levels. Her diabetes mellitus was found to be out of control as her A1c was 10.6, she was placed on insulin which helped improve her blood sugars dramatically. Again, she worked with physical therapy able to ambulate, tolerate p.o. diet, ammonia levels and sugar levels are stable, had repletion of her magnesium, and would be discharged home today in in improved condition. For home medication list please see discharge medication list below. Home Meds Active Scripts [Lactulose] 20 GM/30 ML SOLN No Conflict Check, 20 GM PO Q6, 3 Refills Prov:RAHI,RAYA S. 10/18/16 Insulin Glargine* (Lantus*) 100 Unit/Ml Soln, 40 UNIT SC HS for 30 Days, 3 Refills Prov:RAYA EDEN S. 10/18/16 Insulin Aspart* (Novolog Insulin Pen*) 100 Unit/Ml Soln, 10 UNIT SC WITH MEALS for 30 Days, 2 Refills Prov:RAYA EDEN S. 10/18/16 Reported Medications Acetaminophen* (Acetaminophen*) 325 Mg Tablet, 325 MG PO Q6H Y for PAIN AND OR ELEVATED TEMP, #30 TAB 10/11/16 Spironolactone* (Aldactone*) 50 Mg Tablet, 50 MG PO BID, #60 TAB 10/11/16 Omeprazole* (Omeprazole*) 20 Mg Capsule.dr, 20 MG PO DAILY, #30 CAP 10/11/16 Docusate Sodium* (Colace*) 100 Mg Capsule, 100 MG PO DAILY, #30 CAP 08/28/16 Furosemide* (Lasix*) 20 Mg Tablet, 20 MG PO DAILY, TAB 08/28/16 Ferrous Sulfate* (Ferrous Sulfate*) 325 Mg Tabec, 325 MG PO BID, TAB 08/28/16 Insulin Glargine* (Lantus*) 100 Unit/Ml Soln, 10 UNIT SC DAILY, #1 VIAL 07/03/16 Discontinued Reported Medications Glimepiride* (Glimepiride*) 2 Mg Tablet, 4 MG PO WITH BREAKFAST, TAB 10/11/16 Sitagliptin* (Januvia*) 100 Mg Tablet, 100 MG PO DAILY, #30 TAB 07/03/16 Calcium Carbonate/Vitamin D3 (Os-Afshin 500-Vit D3 600 Caplet) 1 Each Tablet, 1 EACH PO DAILY, TAB 08/28/16 Glimepiride* (Glimepiride*) 4 Mg Tablet, 4 MG PO WITH BREAKFAST, TAB 08/28/16 Primary Care Provider Not On Staff Doctor Pending Labs Laboratory Tests Test 10/17/16 11:54 10/17/16 17:30 10/17/16 20:42 10/18/16 05:00 Bedside Glucose 158mg/dL (70-220) 284mg/dL (70-220) 164mg/dL (70-220) White Blood Count 6.910^3/ul (4.8-10.8) Red Blood Count 4.1310^6/ul (4.20-5.40) Hemoglobin 14.2g/dl (12.0-16.0) Hematocrit 40.5% (37.0-47.0) Mean Corpuscular Volume 98.1fl (82.0-101.0) Mean Corpuscular Hemoglobin 34.4pg (29.0-33.0) Mean Corpuscular Hemoglobin Concent 35.1g/dl (32.0-37.0) Red Cell Distribution Width 14.0% (11.5-14.5) Platelet Count 5710^3/UL (140-415) Mean Platelet Volume 11.3fl (7.4-10.4) Neutrophils % 71.0% (39.0-77.0) Lymphocytes % 12.0% (15.0-51.0) Monocytes % 10.3% (0.0-11.0) Eosinophils % 5.4% (0.0-7.0) Basophils % 1.0% (0.0-2.0) Nucleated Red Blood Cells % 0.0/100WBC (0.0-0.0) Neutrophils # 4.910^3/ul (1.6-7.5) Lymphocytes # 0.810^3/ul (0.8-2.9) Monocytes # 0.710^3/ul (0.3-0.9) Eosinophils # 0.410^3/ul (0.0-0.5) Basophils # 0.110^3/ul (0.0-0.1) Nucleated Red Blood Cells # 0.010^3/ul (0.0-0.0) Sodium Level 136mmol/L (135-144) Potassium Level 3.5mmol/L (3.5-5.1) Chloride Level 105mmol/L (97-110) Carbon Dioxide Level 20mmol/L (21-31) Anion Gap 15 (8-16) Blood Urea Nitrogen 12mg/dl (7-20) Creatinine 0.53mg/dl (0.44-1.00) Glucose Level 156mg/dl (70-220) Calcium Level 9.4mg/dl (8.4-10.2) Magnesium Level 1.6mg/dl (1.7-2.5) Ammonia 17umol/l (9-30) Test 10/18/16 07:52 Bedside Glucose 172mg/dL (70-220) RAYA EDEN Oct 18, 2016 10:48
[2016-10-18] MEDS ORDERED: MAGNESIUM SULFATE 2 GM/50 ML 50 ML IVPB SCH (12:30)
== END 2016-10-18 18:55 | disposition home or self-care (01) | DRG 74 ==
LOC: E/R 19:34 → MS2 19:56
PROVIDERS: ADMIT Family Medicine; ATTEND Family Medicine
DX: E11.40 Type 2 diabetes mellitus with diabetic neuropathy, unspecified (principal); D69.1 Qualitative platelet defects; K70.30 Alcoholic cirrhosis of liver without ascites; R53.81 Other malaise; R60.9 Edema, unspecified; Z79.4 Long term (current) use of insulin
CPT/HCPCS: 76705; 80048; 80053; 80061; 82140; 82607; 82728; 82746; 82962; 83036; 83540; 83735; 84100; 84425; 84443; 84466; 85025; 93970; 96374; 97110; 97116; 97162; 97530; C9113; J1815; J1940; J2270; J2405; J3475

== ENCOUNTER 2016-12-22 20:57 | Inpatient (IN) | payer OTHER ==
[~2016-12-22] VITALS: Ht 157.5 cm; Wt 55.0 kg
[~2016-12-22 20:57] MED LIST changes: +ACET325T45 PO; -CALC1TAB30 PO; -GLIM4TAB PO; +Lactulose PO; +NOVO3I SC; +OMEP20CA16 PO; -SITA100T8 PO; +SPIR50TA PO
[2016-12-22 21:10] VITALS: Ht 157.5 cm; Wt 55.0 kg
[2016-12-22 21:52] LABS: ABNORMAL IP MESSAGE 1; BASOPHIL # 0.1 10^3/ul (0.0-0.1); BASOPHILS % 1.1 % (0.0-2.0); EOSINOPHILS # 0.3 10^3/ul (0.0-0.5); EOSINOPHILS % 4.6 % (0.0-7.0); HEMATOCRIT 33.6 % (37.0-47.0); HEMOGLOBIN 11.9 g/dl (12.0-16.0); LYMPHOCYTES # 1.1 10^3/ul (0.8-2.9); LYMPHOCYTES % 14.9 % (15.0-51.0); MEAN CORPUSCULAR HEMOGLOBIN 35.2 pg (29.0-33.0); MEAN CORPUSCULAR HGB CONC 35.4 g/dl (32.0-37.0); MEAN CORPUSCULAR VOLUME 99.4 fl (82.0-101.0); MEAN PLATELET VOLUME 11.9 fl (7.4-10.4); MONOCYTE # 0.8 10^3/ul (0.3-0.9); MONOCYTES % 10.9 % (0.0-11.0); NEUTROPHILS % 68.2 % (39.0-77.0); POSITIVE DIFF @See below; RED BLOOD COUNT 3.38 10^6/ul (4.20-5.40); RED CELL DISTRIBUTION WIDTH 14.6 % (11.5-14.5); WHITE BLOOD COUNT 7.4 10^3/ul (4.8-10.8)
[2016-12-22 21:53] LABS: PLATELET COUNT 72 10^3/UL (140-415)
[2016-12-22 22:12] LABS: INR 1.25; PROTIME 15.8 Sec (12.2-14.2); PT RATIO 1.2
[2016-12-22 22:13] LABS: PARTIAL THROMBOPLASTIN TIME 35.4 Sec (25.0-35.0)
[2016-12-22 22:17] LABS: ALANINE AMINOTRANSFERASE 44 IU/L (13-69); ALBUMIN 3.4 g/dl (3.3-4.9); ALBUMIN/GLOBULIN RATIO 0.91; ALKALINE PHOSPHATASE 154 IU/L (42-121); ANION GAP 13 (8-16); ASPARTATE AMINO TRANSFERASE 65 IU/L (15-46); BILIRUBIN,INDIRECT 1.1 mg/dl (0-1.1); BILIRUBIN,TOTAL 1.1 mg/dl (0.2-1.3); BLOOD UREA NITROGEN 19 mg/dl (7-20); CALCIUM 8.5 mg/dl (8.4-10.2); CARBON DIOXIDE 19 mmol/L (21-31); CHLORIDE 110 mmol/L (97-110); CREATININE 0.51 mg/dl (0.44-1.00); GLUCOSE 297 mg/dl (70-220); POTASSIUM 4.7 mmol/L (3.5-5.1); SODIUM 137 mmol/L (135-144); TOTAL PROTEIN 7.1 g/dl (6.1-8.1)
[2016-12-22 22:18] LABS: ACETAMINOPHEN < 10.0 ug/ml (10.0-30.0); ETHANOL < 10.0 mg/dl; SALICYLATE < 1.0 mg/dl (5.0-30.0)
[2016-12-22 22:32] LABS: TROPONIN-I < 0.012 ng/ml (0.00-0.12)
[2016-12-22 22:45] LABS: T3 UPTAKE 35.8 % (23.5-40.5)
[2016-12-22] MEDS ORDERED: LACTULOSE 30ML CUP PO ONE (23:00)
[2016-12-22 23:28] VITALS: TEMP 98.2
--- NOTE | 2016-12-22 23:41 | RADRPT ---
PROCEDURE: XR Chest. CLINICAL INDICATION: Altered mental status. TECHNIQUE: Single frontal view of the chest was obtained COMPARISON: 08/28/2014 FINDINGS: The heart and mediastinum are within normal limits. The lungs are clear. There is no pleural effusion or pneumothorax. IMPRESSION: No acute disease. RPTAT: [facility] Physician Neeru Date Time Electronically viewed and signed by Nadine Cruz Physician on 12/22/2016 23:41 RS/
--- NOTE | 2016-12-22 23:48 | RADRPT ---
PROCEDURE: CT HEAD WITHOUT CONTRAST: CLINICAL INDICATION: 61-year of age, male, altered mental status . COMPARISON: None available. TECHNIQUE: CT of the head was performed without IV contrast. Coronal and sagittal reformatted images were obtained from the axial source images. Images were reviewed on a high-resolution PACS workstat ion. Dose information: The estimated radiation dose (CTDIvol mGy) for each series in this exam is 45. Th e estimated cumulative dose (DLP mGy-cm) is 720. One or more of the following dose reduction techniques were used: - Automated exposure control. - Adjustment of the mA and/or kV according to patient size. - Use of iterative reconstruction technique. FINDINGS: Parenchyma: Negative for evidence of acute intracranial hemorrhage, significant mass effect or midli ne shift. 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 Rock-white matter differentiation is maintained. Mild predominantly f rontal cerebral tissue loss. Mild intracranial atherosclerosis. Ventricles and extra-axial spaces: Prominence of the ventricles proportionate to the sulci in keepin g with cerebral tissue loss. No abnormal extra-axial fluid collections are identified. Visualized paranasal sinuses: Clear. Mastoid air cells: Clear. Bones: No focal abnormality. Additional comment: None. IMPRESSION: 1. Negative for evidence of an acute abnormality. Negative for evidence of acute intracranial hemorr dylan or mass effect and negative for evidence of a large territory vascular infarct. If there is con cern for recent ischemia, consider MRI brain for further evaluation. 2. 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 3. Mild predominantly frontal cerebral tissue loss. Mild intracranial atherosclerosis. RPTAT: [facility] Physician Maikel Date Time Electronically viewed and signed by Physician Maikel on 12/22/2016 23:48 CS/
[2016-12-23] VITALS (11 sets, daily range): BP systolic 103–133; BP diastolic 51–65; PULSE 74–78; RESP 16–20
[2016-12-23] MEDS ORDERED: ONDANSETRON 4 MG INJ IV PRN (01:00)
[2016-12-23] MEDS ORDERED: NACL 0.9% 3 ML SYG IV SCH (01:00)
--- NOTE | 2016-12-23 01:27 | ERA ---
ER Documentation Chief Complaint Date/Time DATE: 12/23/16 TIME: 01:21 Chief Complaint ALOC taking pills for depression and insomia HPI 61-year-old woman brought in by family for recent agitation and confusion, she does have a history of depression and dementia and has recently used new medications for insomnia and depression. Patient also has a history of cirrhosis. She has had no fevers or chills, no loss of consciousness, no vomiting or diarrhea, no blood per rectum or melena. ROS All systems reviewed and are negative except as per history of present illness. Medications Home Meds Active Scripts [Lactulose] 20 GM/30 ML SOLN No Conflict Check, 20 GM PO Q6, 3 Refills Prov:RAYA EDEN S. 10/18/16 Insulin Glargine* (Lantus*) 100 Unit/Ml Soln, 40 UNIT SC HS for 30 Days, 3 Refills Prov:JEF EDENP S. 10/18/16 Insulin Aspart* (Novolog Insulin Pen*) 100 Unit/Ml Soln, 10 UNIT SC WITH MEALS for 30 Days, 2 Refills Prov:RAYA EDEN S. 10/18/16 Reported Medications Acetaminophen* (Acetaminophen*) 325 Mg Tablet, 325 MG PO Q6H Y for PAIN AND OR ELEVATED TEMP, #30 TAB 10/11/16 Spironolactone* (Aldactone*) 50 Mg Tablet, 50 MG PO BID, #60 TAB 10/11/16 Omeprazole* (Omeprazole*) 20 Mg Capsule.dr, 20 MG PO DAILY, #30 CAP 10/11/16 Docusate Sodium* (Colace*) 100 Mg Capsule, 100 MG PO DAILY, #30 CAP 08/28/16 Furosemide* (Lasix*) 20 Mg Tablet, 20 MG PO DAILY, TAB 08/28/16 Ferrous Sulfate* (Ferrous Sulfate*) 325 Mg Tabec, 325 MG PO BID, TAB 08/28/16 Insulin Glargine* (Lantus*) 100 Unit/Ml Soln, 10 UNIT SC DAILY, #1 VIAL 07/03/16 Allergies Allergies: Coded Allergies: No Known Allergy (Unverified , 10/11/16) PMhx/Soc Depression, cirrhosis, hypertension, dementia, CHF, diabetes mellitus Anesthesia Reaction: No Hx Neurological Disorder: No Hx Respiratory Disorders: No Hx Cardiac Disorders: No Hx Psychiatric Problems: Yes (depression) Hx Miscellaneous Medical Probl: No Hx Alcohol Use: Yes Hx Substance Use: No Hx Tobacco Use: Yes Smoking Status: Smoker,current status unk FmHx Family History: No diabetes Physical Exam Vitals Vital Signs Date Time Temp Pulse Resp B/P Pulse Ox O2 Delivery O2 Flow Rate FiO2 12/22/16 21:29 98.2 77 18 118/64 100 Room Air 12/22/16 21:10 98.3 93 18 113/55 100 Physical Exam GENERAL: Well-developed, well-nourished, well-hydrated, appears confused, afebrile HEENT: Moist mucous membranes, pink conjunctiva, no cervical spine tenderness or step-off deformities, no goiter, no jaundice or icterus, extraocular movements intact without pain. No submandibular induration, and no pharyngeal erythema NEURO: Patient is confused, and O 1, able to answer simple questions and follow simple commands, moving all extremities, pupils equal round reactive to light CARDIAC: Regular rate and rhythm, no murmurs rubs or gallops LUNGS: Clear bilaterally no wheezing crackles or stridor ABDOMEN: Soft, protuberant, without rigidity, no rebound SKIN: Warm and dry to touch, no abrasions, contusions, or hematomas, no lacerations, no ecchymosis, no target lesions, and without ulcers EXTREMITIES: No clubbing cyanosis or edema, calves are bilaterally symmetrical, no Homans sign, no popliteal cord sign. Distal pulses equal and bilateral PSYCH: Normal affect without agitation or irritability Result Diagram: 12/22/16203912/22/162039 Results 24 hrs Laboratory Tests Test 12/22/16 20:40 12/22/16 22:10 White Blood Count 7.410^3/ul Red Blood Count 3.3810^6/ul Hemoglobin 11.9g/dl Hematocrit 33.6% Mean Corpuscular Volume 99.4fl Mean Corpuscular Hemoglobin 35.2pg Mean Corpuscular Hemoglobin Concent 35.4g/dl Red Cell Distribution Width 14.6% Platelet Count 7210^3/UL Mean Platelet Volume 11.9fl Neutrophils % 68.2% Lymphocytes % 14.9% Monocytes % 10.9% Eosinophils % 4.6% Basophils % 1.1% Nucleated Red Blood Cells % 0.0/100WBC Neutrophils # (Manual) 5.010^3/ul Lymphocytes # 1.110^3/ul Monocytes # 0.810^3/ul Eosinophils # 0.310^3/ul Basophils # 0.110^3/ul Nucleated Red Blood Cells # 0.010^3/ul Prothrombin Time 15.8Sec Prothrombin Time Ratio 1.2 INR International Normalized Ratio 1.25 Activated Partial Thromboplast Time 35.4Sec Sodium Level 137mmol/L Potassium Level 4.7mmol/L Chloride Level 110mmol/L Carbon Dioxide Level 19mmol/L Anion Gap 13 Blood Urea Nitrogen 19mg/dl Creatinine 0.51mg/dl Glucose Level 297mg/dl Calcium Level 8.5mg/dl Total Bilirubin 1.1mg/dl Direct Bilirubin 0.00mg/dl Indirect Bilirubin 1.1mg/dl Aspartate Amino Transf (AST/SGOT) 65IU/L Alanine Aminotransferase (ALT/SGPT) 44IU/L Alkaline Phosphatase 154IU/L Ammonia 96umol/l Troponin I < 0.012ng/ml Total Protein 7.1g/dl Albumin 3.4g/dl Globulin 3.70g/dl Albumin/Globulin Ratio 0.91 Free Thyroxine Index 3.22ug/ml Thyroxine (T4) 9.0ug/dl Triiodothyronine (T3) Uptake 35.8% Salicylates Level < 1.0mg/dl Acetaminophen Level < 10.0ug/ml Ethyl Alcohol Level < 10.0mg/dl Bedside Glucose 284mg/dL Procedures/MDM IV line was established patient was placed on pvc monitor rhythm strip revealed a sinus rhythm at about 70 bpm with upright P and T waves. Patient was afebrile. CT scan of the brain was performed that was negative for acute bleed mass or shift. One AP view of the chest performed, read by me reveals no acute infiltrates, normal mediastinum, sharp costophrenic and cardiac borders, no air under the diaphragm. Otherwise unremarkable chest x-ray. EKG performed, read by me: revealed a sinus tachycardia at 101 bpm, normal axis , no acute ST segment changes, narrow QRS complex, with good R-wave progression in precordial leads. CBC was unremarkable, electrolytes revealed mild dehydration, liver function tests normal, troponin negative. Ammonia was elevated at 96.Ethanol, Tylenol, aspirin levels were negative. For acute hyperammonemia administered lactulose 20 g p.o. Urine analysis is pending I will follow-up. Patient will be admitted to telemetry setting for continued medical management. Departure Diagnosis: Primary Impression: Hyperammonemia Additional Impressions: Acute encephalopathy Cirrhosis Qualified Code: K74.60 - Cirrhosis of liver with ascites, unspecified hepatic cirrhosis type Condition: ADEN Connelly MD Dec 23, 2016 01:27
[2016-12-23] MEDS: ACCU-CHEK XX SCH ×2 (02:00)
[2016-12-23] MEDS: FAMOTIDINE 20 MG TAB PO SCH ×2 (02:03→10:00)
[2016-12-23] MEDS: PROPRANOLOL 10 MG TAB PO SCH ×3 (02:03→20:56)
[2016-12-23] MEDS ORDERED: GLUCAGON 1 MG INJ IM PRN (02:30)
[2016-12-23] MEDS ORDERED: DEXTROSE 50% 50 ML SYRINGE IV PRN ×2 (02:30)
[2016-12-23] MEDS ORDERED: GLUCOSE GEL 15 GRAM TUBE BUCCAL PRN (02:30)
[2016-12-23] MEDS ORDERED: GLUCOSE GEL 15 GRAM TUBE PO PRN ×2 (02:30)
[2016-12-23 05:27] LABS: ABNORMAL IP MESSAGE 1; BASOPHIL # 0.1 10^3/ul (0.0-0.1); EOSINOPHILS # 0.4 10^3/ul (0.0-0.5); EOSINOPHILS % 6.9 % (0.0-7.0); HEMATOCRIT 25.6 % (37.0-47.0); HEMOGLOBIN 8.8 g/dl (12.0-16.0); LYMPHOCYTES # 1.2 10^3/ul (0.8-2.9); LYMPHOCYTES % 20.4 % (15.0-51.0); MEAN CORPUSCULAR HGB CONC 34.4 g/dl (32.0-37.0); MEAN CORPUSCULAR VOLUME 98.8 fl (82.0-101.0); MEAN PLATELET VOLUME 11.5 fl (7.4-10.4); MONOCYTE # 0.7 10^3/ul (0.3-0.9); MONOCYTES % 12.5 % (0.0-11.0); NEUTROPHILS % 58.9 % (39.0-77.0); PLATELET COUNT 66 10^3/UL (140-415); RED BLOOD COUNT 2.59 10^6/ul (4.20-5.40); RED CELL DISTRIBUTION WIDTH 14.7 % (11.5-14.5); WHITE BLOOD COUNT 5.9 10^3/ul (4.8-10.8)
[2016-12-23 05:35] LABS: POSITIVE DIFF @See below
[2016-12-23] MEDS: SPIRONOLACTONE 50 MG TAB PO SCH ×2 (05:47→17:16)
[2016-12-23] MEDS: LACTULOSE 30ML CUP PO SCH ×3 (05:47→17:16)
[2016-12-23 06:20] LABS: ALBUMIN 2.5 g/dl (3.3-4.9); ALBUMIN/GLOBULIN RATIO 0.83; BILIRUBIN,INDIRECT 0.9 mg/dl (0-1.1); BILIRUBIN,TOTAL 0.9 mg/dl (0.2-1.3); CALCIUM 8.2 mg/dl (8.4-10.2); CREATININE 0.47 mg/dl (0.44-1.00); MAGNESIUM 1.8 mg/dl (1.7-2.5); TOTAL PROTEIN 5.5 g/dl (6.1-8.1)
--- NOTE | 2016-12-23 07:15 | HP ---
Date/Time of Note Date/Time of Note DATE: 12/23/16 TIME: 06:55 Assessment/Plan VTE Prophylaxis VTE Prophylaxis Intervention: SCD's Lines/Catheters IV [facility]from [facility] Assessment/Plan Chief Complaint/Hosp Course This is a 61-year-old female was being admitted to [facility] floor for: #1 hepatic encephalopathy: Secondary to underlying cirrhosis. Patient's ammonia level was 96. She received a dose of lactulose in the ED, will continue lactulose 20 mg every 6 hours. Monitor patient's mental status. #2: Hematemesis: As per family they report that they have noticed her spitting up blood at times. At the current time will patient on IV Protonix and Inderal for suspicion for bleeding esophageal varices. There does not appear to be and active bleeding at this time, but will continue to monitor closely. Serial h/h. Will consult GI for further evaluation and likely endoscopy. #2 cirrhosis: Patient appears encephalopathic secondary to hyperammonemia level , will put on lactulose. We will continue current medications of spironolactone and Lasix. Please see #1 and #2 for further treatment strategy. #3 diabetes mellitus: We will obtain a hemoglobin A1c level. Continue patient' s home Lantus dose, insulin sliding scale and adjust as indicated. #4DVT and GI prophylaxis: scds, Protonix Further treatment strategy will be implemented as per the clinical course. Problems: HPI/ROS Admit Date/Time Admit Date/Time Dec 22, 2016 at 22:41 Hx of Present Illness Plan agitation and confusion 61-year-old woman brought in by family for recent agitation and confusion, she does have a history of depression and dementia and has recently used new medications for insomnia and depression. Patient also has a history of cirrhosis. She has had no fevers or chills, no loss of consciousness, no vomiting or diarrhea. Per the nurse who spoke with the family it was noted that the patient has been no blood recently. Upon my examination I did not notice any blood in the oral cavity. Allergies: NKDA Medications: See MAR ROS Subjective hx not possible: other (Patient appears confused, unable to get a proper review of systems) PMH/Family/Social Past Medical History Diabetes mellitus, cirrhosis Past Surgical History Past Surgical History Bilateral cataract surgery Family History Significant Family History: no pertinent family hx Social History Alcohol Use: other (Patient used to be a heavy drinker however she has significantly cut her drinking down but does still some small amount of alcohol such as ODELLS) smoker (1 pack per day 30 years) Smoking Status: Smoker,current status unk Exam/Review of Systems Vital Signs Vitals Vital Signs Date Time Temp Pulse Resp B/P Pulse Ox O2 Delivery O2 Flow Rate FiO2 12/23/16 03:15 97.4 86 20 122/60 99 12/22/16 23:28 Room Air Intake and Output 12/22/16 12/22/16 12/23/16 15:00 23:00 07:00 Intake Total 240 ml Output Total 1 ml Balance 239 ml Exam Exam General: Patient is lying in bed in no acute distress, however patient is confused when questioned HEENT: Atraumatic, normocephalic. The pupils are equal, round and reactive. Extraocular motor are intact Neck: Supple with full range of motion. No rigidity or meningismus Chest: Nontender Lungs: Clear to auscultation bilaterally no crackles rales or wheezing Heart: Normal S1-S2, Regular rhythm and rate. No overt murmurs appreciated Abdomen: Soft, nontender to palpation, mild ascites noted Extremities: Normal to inspection, no edema no cyanosis Neurologic: She is alert, however she is confused, unable to do a full neurological exam secondary to her confusion Additional Comments PROCEDURE: CT HEAD WITHOUT CONTRAST: CLINICAL INDICATION: 61-year of age, male, altered mental status . COMPARISON: None available. TECHNIQUE: CT of the head was performed without IV contrast. Coronal and sagittal reformatted images were obtained from the axial source images. Images were reviewed on a high-resolution PACS workstation. Dose information: The estimated radiation dose (CTDIvol mGy) for each series in this exam is 45. The estimated cumulative dose (DLP mGy-cm) is 720. One or more of the following dose reduction techniques were used: - Automated exposure control. - Adjustment of the mA and/or kV according to patient size. - Use of iterative reconstruction technique. FINDINGS: Parenchyma: Negative for evidence of acute intracranial hemorrhage, significant mass effect or midline shift. 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 Rock- white matter differentiation is maintained. Mild predominantly frontal cerebral tissue loss. Mild intracranial atherosclerosis. Ventricles and extra-axial spaces: Prominence of the ventricles proportionate to the sulci in keeping with cerebral tissue loss. No abnormal extra-axial fluid collections are identified. Visualized paranasal sinuses: Clear. Mastoid air cells: Clear. Bones: No focal abnormality. Additional comment: None. IMPRESSION: 1. Negative for evidence of an acute abnormality. Negative for evidence of acute intracranial hemorrhage or mass effect and negative for evidence of a large territory vascular infarct. If there is concern for recent ischemia, consider MRI brain for further evaluation. 2. 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 3. Mild predominantly frontal cerebral tissue loss. Mild intracranial atherosclerosis. RPTAT: HCTS Physician Maikel Date Time Electronically viewed and signed by Physician Maikel on 12/22/2016 23: 48 CS/ CC: ASHLYN HAY MD PROCEDURE: XR Chest. CLINICAL INDICATION: Altered mental status. TECHNIQUE: Single frontal view of the chest was obtained COMPARISON: 08/28/2014 FINDINGS: The heart and mediastinum are within normal limits. The lungs are clear. There is no pleural effusion or pneumothorax. IMPRESSION: No acute disease. RPTAT: UU Physician Neeru Date Time Electronically viewed and signed by Physician Neeru on 12/22/2016 23:41 RS/ CC: ASHLYN HAY MD Labs Result Diagram: 12/23/1644012/23/16441 Medications Medications Current Medications Ondansetron HCl (Zofran Inj) 4 mg Q6H PRN IV NAUSEA AND/OR VOMITING; Start 01/29 at 01:00 Acetaminophen (Tylenol Tab) 650 mg Q6H PRN PO PAIN LEVEL 1-3 OR FEVER; Start at 01:00 Famotidine (Pepcid) 20 mg Q12 PO Last administered on 12/23/16 02:03; Admin Dose 20 MG; Start 12/23/16 at 01:00 Ferrous Sulfate (Ferrous Sulfate (Ec)) 325 mg BID PO ; Start 12/23/16 at 09:00 Diagnostic Test (Pha) (Accu-Chek) 1 ea 02 XX ; Start 12/23/16 at 02:00 Diagnostic Test (Pha) (Accu-Chek) 1 ea 02 XX ; Start 12/23/16 at 02:00 Lactulose (Enulose) 20 gm Q6 PO Last administered on 12/23/16 05:47; Admin Dose 20 GM; Start 12/23/16 at 06:00 Propranolol HCl (Inderal) 10 mg BID PO Last administered on 12/23/16 02:03; Admin Dose 10 MG; Start 12/23/16 at 01:30 Docusate Sodium (Colace) 100 mg DAILY PO ; Start 12/23/16 at 09:00 Furosemide (Lasix) 20 mg DAILY PO ; Start 12/23/16 at 09:00 Insulin Glargine (Lantus) 40 unit HS SC ; Start 12/23/16 at 21:00 Miscellaneous Information 1 ea NOTE XX ; Start 12/23/16 at 02:30 Glucose (Glutose) 15 gm Q15M PRN PO DECREASED GLUCOSE; Start 12/23/16 at 02:30 Glucose (Glutose) 22.5 gm Q15M PRN PO DECREASED GLUCOSE; Start 12/23/16 at 02: 30 Dextrose (D50w Syringe) 25 ml Q15M PRN IV DECREASED GLUCOSE; Start 12/23/16 at 02:30 Dextrose (D50w Syringe) 50 ml Q15M PRN IV DECREASED GLUCOSE; Start 12/23/16 at 02:30 Glucagon (Glucagen) 1 mg Q15M PRN IM DECREASED GLUCOSE; Start 12/23/16 at 02:30 Glucose (Glutose) 15 gm Q15M PRN BUCCAL DECREASED GLUCOSE; Start 12/23/16 at 02 :30 DANNY ROSAS Dec 23, 2016 07:07
[2016-12-23] MEDS ORDERED: SOD CHLORIDE 0.9% 250 ML IV* ONE (07:22)
[2016-12-23] MEDS ORDERED: INSULIN ASPART [NOVOLOG] 3 ML PEN SC SCH ×2 (07:50)
[2016-12-23] MEDS ORDERED: FUROSEMIDE 20 MG TAB PO SCH (09:00)
[2016-12-23] MEDS: FERROUS SULFATE (EC) 325 MG TAB PO SCH ×2 (10:00→20:56)
[2016-12-23] MEDS ORDERED: OCTREOTIDE 50 MCG in SOD CHLORIDE 0.9% 50 ML IVPB ONE (10:00)
[2016-12-23] MEDS: DOCUSATE SODIUM 100 MG CAP PO SCH (10:00)
--- NOTE | 2016-12-23 10:32 | QN ---
Documentation Comment Patient with persistent hyperglycemia with A1C 9.0. Increase premeal to 13 units and continue a Low-dose ISS. Reevaluate in AM and adjust Lantus if indicated. DM education will be requested. HH dropped. GI consult requested. No further GI bleed. Awake but Remains non verbal, disoreintedx4. Unable to swallow. Obtain MRI brain to rule out other possibility of altered mentation other than hepatic encephalopathy. Started on Lactulose therapy appropriately. Patient on BB therapy for variceal bleeding concerns. Obtain US to rule out ascites and if positive for ascites,will hold off to BB therapy as patient also on Aldactone+Lasix and adding BB can lead to profound hypotension. Swallow eval and if passes , recommend carb-controlled, r 2 gm sodium diet. insemination worker to evaluate support system. Patient was seen in collaboration with . MIGUELITO SAMPSON NP Dec 23, 2016 10:32
[2016-12-23] MEDS: OCTREOTIDE 500 MCG in SOD CHLORIDE 0.9% 49 ML IV SCH (10:50)
--- NOTE | 2016-12-23 10:59 | CONS ---
Date/Time of Note Date/Time of Note DATE: 12/23/16 TIME: 10:48 Assessment/Plan Assessment/Plan Additional Assessment/Plan Assessment * Altered level of consciousness hyperammonemia * Anemia R/O Upper GI bleed R/O bleeding esophageal varices vs bleeding peptic ulcer vs others * Liver cirrhosis * Diabetes mellitus * Depression * H/O alcohol abuse Plan * PPI bid * monitor hemoglobin and hematocrit daily and transfuse as needed * Continue present management * Swallow evaluation * EGD tomorrow spoke to daughter and agreed with the planned procedure * case discussed with Dr Helton * Further orders will depend on clinical course Consultation Date/Type/Reason Admit Date/Time Dec 22, 2016 at 22:41 Date of Consultation: Dec 23, 2016 Type of Consultation: gastroenterology Reason for Consultation ALOC/hematemesis? Referring Provider: DANNY ROSAS Hx of Present Illness 61 year old female with past medical history of cirrhosis of liver,diabetes mellitus was brought to emergency room because of altered level of consciousness.Present condition apparently started 1 day prior to admission when the daughter noted her mother to be confused and irritable.She denies any episode of vomiting,hematemesis,nor hematochezia nor abdominal pain.She was noted to be spiriting blood on several occasion but no active bleeding.Emergency room workup revealed hemoglobin 11.8 now 8,8,ammonia level [address] scan head showed 1. Negative for evidence of an acute abnormality. Negative for evidence of acute intracranial hemorrhage or mass effect and negative for evidence of a large territory vascular infarct. If there is concern for recent ischemia, consider MRI brain for further evaluation. 2. 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 3. Mild predominantly frontal cerebral tissue loss. Mild intracranial atherosclerosis. Presently,patient is awake but unresponsive,no evidenced of active bleeding.I have spoke with her daughter Jil Polanco about the planned EGD for tomorrow and agreed with the planned procedure. Constitutional: improved, no complaints Eyes: no complaints ENT: no complaints Respiratory: no complaints Cardiovascular: no complaints Gastrointestinal: no complaints Genitourinary: no complaints Musculoskeletal: no complaints Skin: no complaints Neurologic: confusion Endocrine: no complaints Lymphatic: no complaints Psychological: nl mood/affect, no complaints Immunologic: no complaints Past Medical History Medical History: diabetes, other (depression) Past Surgical History Past Surgical Hx: other (cataract surgery) Family History Significant Family History: no pertinent family hx Social History Alcohol Use: other (history of heavy alcohol use) Smoking Status: Smoker,current status unk Exam/Review of Systems Vital Signs Vitals Vital Signs Date Time Temp Pulse Resp B/P Pulse Ox O2 Delivery O2 Flow Rate FiO2 12/23/16 08:37 78 12/23/16 07:42 98.0 16 133/60 98 12/22/16 23:28 Room Air Intake and Output 12/22/16 12/22/16 12/23/16 15:00 23:00 07:00 Intake Total 240 ml Output Total 1 ml Balance 239 ml Exam Constitutional: frail, non-verbal Psych: nl mood/affect, no complaints Head: atraumatic, normocephalic Eyes: EOMI, PERRL, nl conjunctiva, nl lids, nl sclera ENMT: nl external ears & nose, nl lips & teeth, nl nasal mucosa & septum Neck: non-tender, supple Respiratory: clear to auscultation, normal air movement Cardiovascular: nl pulses, regular rate and rhythm Gastrointestinal: nl liver, spleen, non-tender, soft Musculoskeletal: nl extremities to inspection, nl gait and stance Extremities: normal pulses Neurological: nl strength, other (non verbal) Skin: nl turgor, No rash or lesions Lymph: nl lymph nodes Results Result Diagram: 12/23/1644012/23/16441 Results 24 hrs Laboratory Tests Test 12/22/16 20:40 12/22/16 22:10 12/23/16 04:41 12/23/16 04:42 White Blood Count 7.4 5.9 # Red Blood Count 3.38 L 2.59 #L Hemoglobin 11.9 L 8.8 #L Hematocrit 33.6 L 25.6 #L Mean Corpuscular Volume 99.4 98.8 Mean Corpuscular Hemoglobin 35.2 H 34.0 H Mean Corpuscular Hemoglobin Concent 35.4 34.4 Red Cell Distribution Width 14.6 H 14.7 H Platelet Count 72 #L 66 L Mean Platelet Volume 11.9 H 11.5 H Neutrophils % 68.2 58.9 Lymphocytes % 14.9 L 20.4 Monocytes % 10.9 12.5 H Eosinophils % 4.6 6.9 Basophils % 1.1 1.0 Nucleated Red Blood Cells % 0.0 0.0 Neutrophils # (Manual) 5.0 3.5 Lymphocytes # 1.1 1.2 Monocytes # 0.8 0.7 Eosinophils # 0.3 0.4 Basophils # 0.1 0.1 Nucleated Red Blood Cells # 0.0 0.0 Prothrombin Time 15.8 H Prothrombin Time Ratio 1.2 INR International Normalized Ratio 1.25 Activated Partial Thromboplast Time 35.4 H Sodium Level 137 140 Potassium Level 4.7 4.0 Chloride Level 110 115 H Carbon Dioxide Level 19 L 22 Anion Gap 13 7 L Blood Urea Nitrogen 19 24 H Creatinine 0.51 0.47 Glucose Level 297 H 229 H Calcium Level 8.5 8.2 L Total Bilirubin 1.1 0.9 Direct Bilirubin 0.00 0.00 Indirect Bilirubin 1.1 0.9 Aspartate Amino Transf (AST/SGOT) 65 H 35 Alanine Aminotransferase (ALT/SGPT) 44 48 Alkaline Phosphatase 154 H 94 Ammonia 96 #H Troponin I < 0.012 Total Protein 7.1 5.5 #L Albumin 3.4 2.5 L Globulin 3.70 H 3.00 Albumin/Globulin Ratio 0.91 0.83 Free Thyroxine Index 3.22 Thyroxine (T4) 9.0 Triiodothyronine (T3) Uptake 35.8 Salicylates Level < 1.0 L Acetaminophen Level < 10.0 L Ethyl Alcohol Level < 10.0 Bedside Glucose 284 H Hemoglobin A1c 9.0 H Magnesium Level 1.8 Test 12/23/16 07:46 12/23/16 08:48 Bedside Glucose 246 H 213 Medications Medications Current Medications Ondansetron HCl (Zofran Inj) 4 mg Q6H PRN IV NAUSEA AND/OR VOMITING; Start 01/29 at 01:00 Acetaminophen (Tylenol Tab) 650 mg Q6H PRN PO PAIN LEVEL 1-3 OR FEVER; Start at 01:00 Famotidine (Pepcid) 20 mg Q12 PO Last administered on 12/23/16t 02:03; Admin Dose 20 MG; Start 12/23/16 at 01:00 Ferrous Sulfate (Ferrous Sulfate (Ec)) 325 mg BID PO ; Start 12/23/16 at 09:00 Diagnostic Test (Pha) (Accu-Chek) 1 ea 02 XX ; Start 12/23/16 at 02:00 Diagnostic Test (Pha) (Accu-Chek) 1 ea 02 XX ; Start 12/23/16 at 02:00 Lactulose (Enulose) 20 gm Q6 PO Last administered on 12/23/16 05:47; Admin Dose 20 GM; Start 12/23/16 at 06:00 Propranolol HCl (Inderal) 10 mg BID PO Last administered on 12/23/16 10:00; Admin Dose 10 MG; Start 12/23/16 at 01:30 Docusate Sodium (Colace) 100 mg DAILY PO ; Start 12/23/16 at 09:00 Insulin Glargine (Lantus) 40 unit HS SC ; Start 12/23/16 at 21:00 Miscellaneous Information 1 ea NOTE XX ; Start 12/23/16 at 02:30 Glucose (Glutose) 15 gm Q15M PRN PO DECREASED GLUCOSE; Start 12/23/16 at 02:30 Glucose (Glutose) 22.5 gm Q15M PRN PO DECREASED GLUCOSE; Start 12/23/16 at 02: 30 Dextrose (D50w Syringe) 25 ml Q15M PRN IV DECREASED GLUCOSE; Start 12/23/16 at 02:30 Dextrose (D50w Syringe) 50 ml Q15M PRN IV DECREASED GLUCOSE; Start 12/23/16 at 02:30 Glucagon (Glucagen) 1 mg Q15M PRN IM DECREASED GLUCOSE; Start 12/23/16 at 02:30 Glucose (Glutose) 15 gm Q15M PRN BUCCAL DECREASED GLUCOSE; Start 12/23/16 at 02 :30 Pantoprazole 40 mg 40 mg BID@06,18 IV ; Start 12/23/16 at 18:00 Octreotide Acetate/Sodium Chloride (Sandostatin/NS) 50 ml @ 2.5 mls/hr Q20H IV ; Start 12/23/16 at 10:15 Furosemide (Lasix) 40 mg DAILY PO ; Start 12/24/16 at 09:00 CAIN GAVIRIA NP Dec 23, 2016 10:58
[2016-12-23] MEDS: INSULIN ASPART [NOVOLOG] 3 ML PEN SC SCH ×5 (11:50→21:00)
[2016-12-23 12:22] LABS: ABNORMAL IP MESSAGE 1; BASOPHIL # 0.1 10^3/ul (0.0-0.1); BASOPHILS % 1.1 % (0.0-2.0); EOSINOPHILS # 0.5 10^3/ul (0.0-0.5); EOSINOPHILS % 7.3 % (0.0-7.0); HEMATOCRIT 27.3 % (37.0-47.0); HEMOGLOBIN 9.9 g/dl (12.0-16.0); LYMPHOCYTES # 1.8 10^3/ul (0.8-2.9); LYMPHOCYTES % 26.8 % (15.0-51.0); MEAN CORPUSCULAR HEMOGLOBIN 35.7 pg (29.0-33.0); MEAN CORPUSCULAR HGB CONC 36.3 g/dl (32.0-37.0); MEAN CORPUSCULAR VOLUME 98.6 fl (82.0-101.0); MEAN PLATELET VOLUME 10.8 fl (7.4-10.4); MONOCYTES % 14.8 % (0.0-11.0); NEUTROPHILS % 49.7 % (39.0-77.0); PLATELET COUNT 79 10^3/UL (140-415); RED BLOOD COUNT 2.77 10^6/ul (4.20-5.40); RED CELL DISTRIBUTION WIDTH 14.6 % (11.5-14.5); WHITE BLOOD COUNT 6.6 10^3/ul (4.8-10.8)
[2016-12-23 12:38] LABS: POSITIVE DIFF @See below
[2016-12-23] MEDS ORDERED: LACTULOSE ENEMA 1,000 ML BTL PR ONE (16:00)
[2016-12-23] MEDS: PANTOPRAZOLE 40 MG INJ IV SCH (17:16)
[2016-12-23 20:13] LABS: ABNORMAL IP MESSAGE 1; BASOPHIL # 0.1 10^3/ul (0.0-0.1); BASOPHILS % 1.3 % (0.0-2.0); EOSINOPHILS # 0.5 10^3/ul (0.0-0.5); HEMATOCRIT 30.5 % (37.0-47.0); HEMOGLOBIN 10.9 g/dl (12.0-16.0); LYMPHOCYTES # 1.3 10^3/ul (0.8-2.9); LYMPHOCYTES % 19.4 % (15.0-51.0); MEAN CORPUSCULAR HEMOGLOBIN 34.6 pg (29.0-33.0); MEAN CORPUSCULAR HGB CONC 35.7 g/dl (32.0-37.0); MEAN CORPUSCULAR VOLUME 96.8 fl (82.0-101.0); MEAN PLATELET VOLUME 10.7 fl (7.4-10.4); MONOCYTE # 0.8 10^3/ul (0.3-0.9); MONOCYTES % 11.4 % (0.0-11.0); NEUTROPHILS % 60.6 % (39.0-77.0); PLATELET COUNT 82 10^3/UL (140-415); RED BLOOD COUNT 3.15 10^6/ul (4.20-5.40); RED CELL DISTRIBUTION WIDTH 16.5 % (11.5-14.5); WHITE BLOOD COUNT 6.8 10^3/ul (4.8-10.8)
[2016-12-23 20:14] LABS: POSITIVE DIFF @See below
[2016-12-23] MEDS: INSULIN GLARGINE [LANtus] 3 ML PEN SC SCH (21:38)
[2016-12-24] VITALS (13 sets, daily range): BP systolic 134–170; BP diastolic 65–77; PULSE 82–108; RESP 16–19
[2016-12-24 01:45] LABS: ABNORMAL IP MESSAGE 1; BASOPHIL # 0.1 10^3/ul (0.0-0.1); BASOPHILS % 0.7 % (0.0-2.0); EOSINOPHILS # 0.3 10^3/ul (0.0-0.5); EOSINOPHILS % 2.9 % (0.0-7.0); HEMATOCRIT 30.5 % (37.0-47.0); LYMPHOCYTES # 1.2 10^3/ul (0.8-2.9); LYMPHOCYTES % 13.9 % (15.0-51.0); MEAN CORPUSCULAR HEMOGLOBIN 34.7 pg (29.0-33.0); MEAN CORPUSCULAR HGB CONC 36.1 g/dl (32.0-37.0); MEAN CORPUSCULAR VOLUME 96.2 fl (82.0-101.0); MEAN PLATELET VOLUME 11.2 fl (7.4-10.4); MONOCYTE # 0.9 10^3/ul (0.3-0.9); MONOCYTES % 10.6 % (0.0-11.0); NEUTROPHILS % 71.6 % (39.0-77.0); PLATELET COUNT 84 10^3/UL (140-415); RED BLOOD COUNT 3.17 10^6/ul (4.20-5.40); RED CELL DISTRIBUTION WIDTH 16.8 % (11.5-14.5); WHITE BLOOD COUNT 8.8 10^3/ul (4.8-10.8)
[2016-12-24] MEDS: ACCU-CHEK XX SCH ×2 (02:22)
[2016-12-24 02:34] LABS: POSITIVE DIFF @See below
[2016-12-24] MEDS: PANTOPRAZOLE 40 MG INJ IV SCH ×2 (05:24→09:27)
[2016-12-24] MEDS: OCTREOTIDE 500 MCG in SOD CHLORIDE 0.9% 49 ML IV SCH (05:25)
[2016-12-24] MEDS: LACTULOSE 30ML CUP PO SCH ×4 (05:27→18:00)
[2016-12-24] MEDS: SPIRONOLACTONE 50 MG TAB PO SCH ×2 (05:27→09:28)
--- NOTE | 2016-12-24 06:46 | RADRPT ---
PROCEDURE: US limited abdomen. CLINICAL INDICATION: Ascites. TECHNIQUE: Multiple real-time longitudinal and transverse images were acquired of the patient's ab domen in all four quadrants utilizing a curved array transducer. COMPARISON: No prior studies are available for comparison. FINDINGS: Limited sonographic survey of the abdomen demonstrates no significant ascites. IMPRESSION: 1. No ascites. RPTAT: EE .Antonio Ordaz MD, MD Date Time Electronically viewed and signed by .Antonio Ordaz MD, MD on 12/24/2016 06:51 .C/
[2016-12-24 07:01] LABS: INR 1.28; PROTIME 16.1 Sec (12.2-14.2); PT RATIO 1.3
[2016-12-24 07:19] LABS: ALBUMIN/GLOBULIN RATIO 0.85; BILIRUBIN,INDIRECT 1.7 mg/dl (0-1.1); BILIRUBIN,TOTAL 1.7 mg/dl (0.2-1.3); CALCIUM 8.7 mg/dl (8.4-10.2); CREATININE 0.58 mg/dl (0.44-1.00); POTASSIUM 4.5 mmol/L (3.5-5.1); TOTAL PROTEIN 6.5 g/dl (6.1-8.1)
[2016-12-24] MEDS: INSULIN ASPART [NOVOLOG] 3 ML PEN SC SCH ×7 (07:55→22:47)
[2016-12-24] MEDS: DOCUSATE SODIUM 100 MG CAP PO SCH (09:00)
[2016-12-24] MEDS: FERROUS SULFATE (EC) 325 MG TAB PO SCH (09:00)
[2016-12-24] MEDS: FUROSEMIDE 40 MG TAB PO SCH (09:00)
[2016-12-24] MEDS: PROPRANOLOL 10 MG TAB PO SCH (09:00)
[2016-12-24] MEDS: INSULIN GLARGINE [LANtus] 3 ML PEN SC SCH ×2 (09:28→22:55)
--- NOTE | 2016-12-24 14:17 | PN ---
Date/Time of Note Date/Time of Note DATE: 12/24/16 TIME: 14:00 Assessment/Plan VTE Prophylaxis VTE Prophylaxis Intervention: SCD's Lines/Catheters IV Catheter Type (from [facility]): Saline Lock Urinary Cath still in place: No Assessment/Plan Chief Complaint/Hosp Course 1. Toxic metabolic encephalopathy with Hepatic encephalopathy with hyperammonemia 2/2 #2. -Insert NGtube and continue Lactulose. Add Rifaximin. -F/u brain MRI 2. 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 No ascites. -Patient has been sober for 1year -Continue current medical management. -Obtain Hep panel. 3. Hematemesis. No episodes in house. -For EGD eval. -Continue IV protonix. On BB for variceal bleeding precaution-will closely monitor BP 4. Hyperglycemia with Adult-onset Diabetes mellitus-Poorly controlled. A1C 9.0 - Escalate Lantus to 45,premeal 15 units. Continue ISS. -DM education 5. Anemia of chronic liver disease. HH stable.Will monitor. 6.Thrombocytopenia of liver disease.Stable. -Monitor. 6.Hx of alcoholism. -Sober for 1 year 7.Dysphagia 2/2 #1. -Ng-tube insertion -Speech eval once patient more awake. DVT and GI prophylaxis: SCDs, Protonix PLAN:F/u with GI recs. Foremost priority is to insert NG tube and administer Lactulose and Rifaximin to bring down her ammonia level. F/u MRI. Prognosis:Poor Family opted for Full Code Plan of care discussed with patient's son at bedside. Patient was seen in collaboration with . Problems: Subjective 24 Hr Interval Summary Free Text/Dictation patient remains more altered and unresponsive today. Meds including lactulose was not administered secondary to NPO. Ammonia trended up. Exam/Review of Systems Vital Signs Vitals Vital Signs Date Time Temp Pulse Resp B/P Pulse Ox O2 Delivery O2 Flow Rate FiO2 12/24/16 13:01 98 12/24/16 11:42 98.4 18 137/65 100 12/23/16 20:40 Nasal Cannula 2.0 Intake and Output 12/23/16 12/23/16 12/24/16 15:00 23:00 07:00 Intake Total 50 ml 367.5 ml 0 ml Output Total 2 ml Balance 50 ml 367.5 ml -2 ml Exam General:unresponsive HEENT: Normocephalic, Atraumatic, No laceration or hematoma; Eyes: PEERL, Conjunctiva clear, Icteric sclera Neck: Supple without any lymphadenopathy, nontender, no JVD, no carotid bruits, trachea midline, no thyromegaly Cardiac: S1, S2 auscultated, regular rhythm and rate, no mumurs or gallop Pulmonary: Normal respiratory effort. Chest clear to auscultation bilaterally, no adventitious breath sounds GI: Abdomen normal to inspection. Soft, non- distended, no masses, no rebound tenderness or guarding. Bowel sounds active on all four quadrants Genitourinary: Deferred Extremities: No cyanosis, clubbing, or edema. Pulses [2+] bilaterally. Full ROM on all four extremities. No focal weakness appreciated. Neurologic: Altered/unresponsive. Skin: Jaundice+ Results Result Diagram: 12/24/16 0106 12/24/16 0609 Results 24 hrs Laboratory Tests Test 12/23/16 17:11 12/23/16 20:00 12/23/16 20:58 12/24/16 01:06 Bedside Glucose 144 151 White Blood Count 6.8 8.8 # Red Blood Count 3.15 L 3.17 L Hemoglobin 10.9 L 11.0 L Hematocrit 30.5 L 30.5 L Mean Corpuscular Volume 96.8 96.2 Mean Corpuscular Hemoglobin 34.6 H 34.7 H Mean Corpuscular Hemoglobin Concent 35.7 36.1 Red Cell Distribution Width 16.5 H 16.8 H Platelet Count 82 L 84 L Mean Platelet Volume 10.7 H 11.2 H Neutrophils % 60.6 71.6 Lymphocytes % 19.4 13.9 L Monocytes % 11.4 H 10.6 Eosinophils % 7.0 2.9 Basophils % 1.3 0.7 Nucleated Red Blood Cells % 0.0 0.0 Neutrophils # (Manual) 4.1 6.3 Lymphocytes # 1.3 1.2 Monocytes # 0.8 0.9 Eosinophils # 0.5 0.3 Basophils # 0.1 0.1 Nucleated Red Blood Cells # 0.0 0.0 Test 12/24/16 01:26 12/24/16 06:09 12/24/16 08:13 12/24/16 11:54 Bedside Glucose 153 167 217 Prothrombin Time 16.1 H Prothrombin Time Ratio 1.3 INR International Normalized Ratio 1.28 Sodium Level 144 Potassium Level 4.5 Chloride Level 119 H Carbon Dioxide Level 17 L Anion Gap 13 Blood Urea Nitrogen 25 H Creatinine 0.58 Glucose Level 153 Calcium Level 8.7 Total Bilirubin 1.7 H Direct Bilirubin 0.00 Indirect Bilirubin 1.7 H Aspartate Amino Transf (AST/SGOT) 53 H Alanine Aminotransferase (ALT/SGPT) 57 Alkaline Phosphatase 118 Total Protein 6.5 # Albumin 3.0 L Globulin 3.50 H Albumin/Globulin Ratio 0.85 Medications Medications Current Medications Ondansetron HCl (Zofran Inj) 4 mg Q6H PRN IV NAUSEA AND/OR VOMITING; Start 01/29 at 01:00 Acetaminophen (Tylenol Tab) 650 mg Q6H PRN PO PAIN LEVEL 1-3 OR FEVER; Start at 01:00 Ferrous Sulfate (Ferrous Sulfate (Ec)) 325 mg BID PO ; Start 12/23/16 at 09:00 Diagnostic Test (Pha) (Accu-Chek) 1 ea 02 XX Last administered on 12/24/16 02: 22; Admin Dose 1 EA; Start 12/23/16 at 02:00 Diagnostic Test (Pha) (Accu-Chek) 1 ea 02 XX Last administered on 12/24/16 02: 22; Admin Dose 1 EA; Start 12/23/16 at 02:00 Lactulose (Enulose) 20 gm Q6 PO Last administered on 12/23/16 05:47; Admin Dose 20 GM; Start 12/23/16 at 06:00 Propranolol HCl (Inderal) 10 mg BID PO Last administered on 12/23/16 10:00; Admin Dose 10 MG; Start 12/23/16 at 01:30 Docusate Sodium (Colace) 100 mg DAILY PO ; Start 12/23/16 at 09:00 Insulin Glargine (Lantus) 40 unit HS SC Last administered on 12/23/16 21:38; Admin Dose 40 UNIT; Start 12/23/16 at 21:00 Miscellaneous Information 1 ea NOTE XX ; Start 12/23/16 at 02:30 Glucose (Glutose) 15 gm Q15M PRN PO DECREASED GLUCOSE; Start 12/23/16 at 02:30 Glucose (Glutose) 22.5 gm Q15M PRN PO DECREASED GLUCOSE; Start 12/23/16 at 02: 30 Dextrose (D50w Syringe) 25 ml Q15M PRN IV DECREASED GLUCOSE; Start 12/23/16 at 02:30 Dextrose (D50w Syringe) 50 ml Q15M PRN IV DECREASED GLUCOSE; Start 12/23/16 at 02:30 Glucagon (Glucagen) 1 mg Q15M PRN IM DECREASED GLUCOSE; Start 12/23/16 at 02:30 Glucose (Glutose) 15 gm Q15M PRN BUCCAL DECREASED GLUCOSE; Start 12/23/16 at 02 :30 Pantoprazole 40 mg 40 mg BID@06,18 IV Last administered on 12/24/16 05:24; Admin Dose 40 MG; Start 12/23/16 at 18:00 Octreotide Acetate/Sodium Chloride (Sandostatin/NS) 50 ml @ 2.5 mls/hr Q20H IV Last administered on 12/24/16 05:25; Admin Dose 2.5 MLS/HR; Start 12/23/16 at 10:15 Furosemide (Lasix) 40 mg DAILY PO ; Start 12/24/16 at 09:00 Rifaximin (Xifaxan) 550 mg BID PO ; Start 12/24/16 at 21:00; Status MIGUELITO HOLLY NP Dec 24, 2016 14:13
[2016-12-24 15:11] LABS: HAAIG REFLEX REFLEX FILED
[2016-12-24 16:35] LABS: HEPATITIS B CORE ANTIBODY NEGATIVE (NEGATIVE)
--- NOTE | 2016-12-24 23:39 | RADRPT ---
PROCEDURE: MR Brain without contrast. CLINICAL INDICATION: Altered mental status TECHNIQUE: An MRI of the brain was performed on a 1.5 jessy scanner utilizing the following sequen mary grace: Sagittal T1 weighted, axial T2 weighted, axial FLAIR, coronal GRE, and axial diffusion weighted with ADC mapping. COMPARISON: None FINDINGS: No evidence of restricted diffusion to suggest acute or early subacute ischemic infarction. There i s no evidence of intracranial hemorrhage, mass effect, or midline shift. No extra-axial fluid collec tions are seen. Irregularity of the left infraorbital soft tissues. Correlate with direct inspection . No hypointense signal abnormalities are seen on the GRE images to suggest the presence of blood degr adation products. The brain parenchyma is normal in signal intensity and morphology with preservation of valdez white di fferentiation . Age appropriate size of the ventricles and subarachnoid spaces. The posterior fossa contents, brainstem, seventh - eighth cranial nerve complexes, pituitary axis, o rbits, paranasal sinuses, and mastoid air cells are unremarkable. Normal flow voids are visible in the proximal intracranial arteries and dural sinuses, indicating pa tency. IMPRESSION: 1. No acute or early subacute ischemic infarction or acute intracranial abnormality. 2. Left infraorbital soft tissue irregularity. Correlate with direct inspection. RPTAT:AAJJ Physician Wolfgang Date Time Electronically viewed and signed by Physician Wolfgang on 12/24/2016 23:39 LINDA/
[2016-12-25] VITALS (31 sets, daily range): BP systolic 75–153; BP diastolic 19–90; PULSE 84–114; RESP 16–40
--- NOTE | 2016-12-25 00:41 | RADRPT ---
PROCEDURE: XR Chest. CLINICAL INDICATION: Nasogastric tube placement. TECHNIQUE: Portable AP upright views of the chest were obtained. COMPARISON: 12/22/2016 FINDINGS: The distal tip of the new nasogastric tube points inferiorly in the left upper quadrant of the abdom en and extends below the diaphragm and within the mid stomach The cardiomediastinal silhouette is wi thin normal limits. The lungs are clear. There is no evidence for pleural effusion, pneumothorax o r pulmonary vascular congestion. The osseous structures are intact with no evidence for acute abnor mality. RPTAT:HJJR IMPRESSION: 1. Distal tip of the new nasogastric tube points inferiorly in the region of the mid stomach. 2. No evidence for acute intrathoracic pathology are otherwise interval change from 12/22/2016. Physician Ashley Date Time Electronically viewed and signed by Physician Ashley on 12/25/2016 00:41 /
[2016-12-25] MEDS: FERROUS SULFATE (EC) 325 MG TAB PO SCH ×3 (01:11→21:00)
[2016-12-25] MEDS: RIFAXIMIN 550 MG TAB PO SCH ×3 (01:11→21:00)
[2016-12-25] MEDS: LACTULOSE 30ML CUP PO SCH ×7 (01:12→23:41)
[2016-12-25] MEDS: PROPRANOLOL 10 MG TAB PO SCH ×3 (01:12→21:00)
[2016-12-25] MEDS: OCTREOTIDE 500 MCG in SOD CHLORIDE 0.9% 49 ML IV SCH ×2 (01:22→22:15)
[2016-12-25] MEDS: ACCU-CHEK XX SCH ×2 (02:00)
[2016-12-25] MEDS ORDERED: SOD CHLORIDE 0.9% 500 ML IV ONE (04:00)
[2016-12-25] MEDS ORDERED: INSULIN ASPART [NOVOLOG] 3 ML PEN SC ONE (04:00)
[2016-12-25 04:28] LABS: AADO2 Arterial 68.2 mmHg (7.0-24.0); Allen Test ACCEPTAB; Arterial Base Excess -6.2 mmol/L (-3.0-3); Arterial COHb 0.3 % (0.0-3.0); Arterial Fraction of Oxyhgb 97.3 % (93.0-99.0); Arterial HCO3 11.8 mmol/L (22.0-26.0); Arterial MetHb 0.4 % (0.0-1.5); Arterial Total Hemglobin 12.7 g/dl (12.0-18.0); MODE NASAL CANNULA
[2016-12-25] MEDS: PANTOPRAZOLE 40 MG INJ IV SCH ×2 (06:08→19:19)
[2016-12-25] MEDS: SPIRONOLACTONE 50 MG TAB PO SCH (06:09)
[2016-12-25 07:42] LABS: ABNORMAL IP MESSAGE 1; BASOPHIL # 0.1 10^3/ul (0.0-0.1); BASOPHILS % 0.3 % (0.0-2.0); EOSINOPHILS % 0.1 % (0.0-7.0); HEMOGLOBIN 10.8 g/dl (12.0-16.0); LYMPHOCYTES % 10.2 % (15.0-51.0); MEAN CORPUSCULAR HEMOGLOBIN 34.6 pg (29.0-33.0); MEAN CORPUSCULAR HGB CONC 34.8 g/dl (32.0-37.0); MEAN CORPUSCULAR VOLUME 99.4 fl (82.0-101.0); MEAN PLATELET VOLUME 11.3 fl (7.4-10.4); MONOCYTE # 1.9 10^3/ul (0.3-0.9); MONOCYTES % 9.6 % (0.0-11.0); NEUTROPHILS % 79.1 % (39.0-77.0); NUCLEATED RED BLOOD CELLS # 0.1 10^3/ul (0.0-0.0); NUCLEATED RED BLOOD CELLS% 0.4 /100WBC (0.0-0.0); PLATELET COUNT 156 10^3/UL (140-415); RED BLOOD COUNT 3.12 10^6/ul (4.20-5.40); WHITE BLOOD COUNT 19.4 10^3/ul (4.8-10.8)
[2016-12-25 07:44] LABS: POSITIVE DIFF @See below
[2016-12-25] MEDS: INSULIN ASPART [NOVOLOG] 3 ML PEN SC SCH ×6 (07:53→23:54)
[2016-12-25 08:37] LABS: ALBUMIN 3.1 g/dl (3.3-4.9); ALBUMIN/GLOBULIN RATIO 0.86; CALCIUM 8.6 mg/dl (8.4-10.2); CREATININE 0.93 mg/dl (0.44-1.00); POTASSIUM 4.1 mmol/L (3.5-5.1); TOTAL PROTEIN 6.7 g/dl (6.1-8.1)
[2016-12-25] MEDS: DOCUSATE SODIUM 100 MG CAP PO SCH (10:19)
[2016-12-25] MEDS: FUROSEMIDE 40 MG TAB PO SCH (10:20)
[2016-12-25] MEDS ORDERED: LACTULOSE 30ML CUP PO PRN (16:00)
--- NOTE | 2016-12-25 16:35 | PN ---
Date/Time of Note Date/Time of Note DATE: 12/25/16 TIME: 16:30 Assessment/Plan VTE Prophylaxis VTE Prophylaxis Intervention: SCD's Lines/Catheters IV [facility] Type (from [facility] Saline Lock Urinary Cath still in place: No Assessment/Plan Chief Complaint/Hosp Course 1. Toxic metabolic encephalopathy with Hepatic encephalopathy with coma and hyperammonemia secondary to #2. -Increase Lactulose to max dose.Continue Rifaximin. -Neurology consult to rule out other possible causes of encephalopathy-MRI negative 2. 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 No ascites. -Patient has been sober for 1year -Continue current medical management. -Negative Hep panel. 3.Hypernatremia-Patient appears severely dehydrated currently. -Start D5W Bolus followed by 100ml/hr. -Hold all diuretics. 4.Leukocytosis,Reactive vs infectious etiology -Obtain cultures. Start Cefepime prophylactically. 5.Azotemia 2/2 dehydration. High risk for RUSH- Currently with stable creatinine. -Will treat with IVFs 6. Hematemesis. No episodes in house. -GI on board and tentative plan for EGD when medically stable. -Continue IV protonix. On BB for variceal bleeding precaution-will closely monitor BP 7. Adult-onset Diabetes mellitus-Poorly controlled. A1C 9.0.With better glycemic control today. -Continue Lantus to 45,premeal 15 units. Continue ISS. -DM education 8. Anemia of chronic liver disease. HH stable.Will monitor. 9.Thrombocytopenia of liver disease. Stable. 10.Hx of alcoholism. -Sober for 1 year 11.Dysphagia 2/2 #1. -NPO for now . Ng-tube for meds -Speech eval once patient more awake. DVT and GI prophylaxis: SCDs, Protonix PLAN: Patient with overall poor prognosis. Family decided full code. Patient at high risk for potential intubation and impending kidney injury. Transfer to ICU.F/u with GI recs Patient was seen in collaboration with . Problems: Subjective 24 Hr Interval Summary Free Text/Dictation Remains unresponsive. As per nursing staff,patient has no urine output for past 12hrs. Exam/Review of Systems Vital Signs Vitals Vital Signs Date Time Temp Pulse Resp B/P Pulse Ox O2 Delivery O2 Flow Rate FiO2 12/25/16 16:28 94 12/25/16 15:09 98.3 26 136/65 99 12/25/16 15:07 2.0 12/25/16 11:46 Nasal Cannula Intake and Output 12/24/16 12/24/16 12/25/16 15:00 23:00 07:00 Intake Total 0 ml 530 ml Output Total 2 ml Balance -2 ml 530 ml Exam General:unresponsive HEENT: Normocephalic, Atraumatic, No laceration or hematoma; Eyes: PEERL, Conjunctiva clear, Icteric sclera Neck: Supple without any lymphadenopathy, nontender, no JVD, no carotid bruits, trachea midline, no thyromegaly Cardiac: S1, S2 auscultated, regular rhythm and rate, no mumurs or gallop Pulmonary: Normal respiratory effort. Chest clear to auscultation bilaterally, no adventitious breath sounds GI: Abdomen normal to inspection. Soft, non- distended, no masses, no rebound tenderness or guarding. Bowel sounds active on all four quadrants Genitourinary: Deferred Extremities: No cyanosis, clubbing, or edema. Pulses [2+] bilaterally. Full ROM on all four extremities. No focal weakness appreciated. Neurologic: Altered/unresponsive. Results Result Diagram: 12/25/16 0623 12/25/16 0623 Results 24 hrs Laboratory Tests Test 12/24/16 17:04 12/24/16 22:39 12/25/16 02:12 12/25/16 04:00 Bedside Glucose 256 H 272 H 299 H Blood Gas Specimen Source Blood arterial Arterial Blood Date Drawn 12/25/2016 4:18:36 AM Arterial Blood pH (Temp corrected) 7.611 *H Arterial Blood pCO2 (Temp correct) 12.0 L Arterial Blood pO2 (Temp corrected) 110.1 H Arterial Blood HCO3 11.8 L Arterial Blood Base Excess -6.2 L Arterial Blood Oxygen Saturation 98.0 Rene Test ACCEPTAB Arterial Blood Gas Puncture Site Right Radial Arterial Blood Carboxyhemoglobin 0.3 Arterial Blood Methemoglobin 0.4 Blood Gas A-a O2 Differential 68.2 H Oxyhemoglobin Percent 97.3 Total Hemoglobin 12.7 Blood Gas Temperature 37.0 Blood Gas Modality NASAL CANNULA FiO2 27.0 Blood Gas Critical Value Read Back CORUNNA Blood Gas Notified Whom Blood Gas Notified Time 12/25/2016 4:26:23 AM Test 12/25/16 04:16 12/25/16 06:23 12/25/16 07:16 12/25/16 11:08 Bedside Glucose 283 H 172 189 White Blood Count 19.4 #H Red Blood Count 3.12 L Hemoglobin 10.8 L Hematocrit 31.0 L Mean Corpuscular Volume 99.4 Mean Corpuscular Hemoglobin 34.6 H Mean Corpuscular Hemoglobin Concent 34.8 Red Cell Distribution Width 18.0 H Platelet Count 156 # Mean Platelet Volume 11.3 H Neutrophils % 79.1 H Lymphocytes % 10.2 L Monocytes % 9.6 Eosinophils % 0.1 Basophils % 0.3 Nucleated Red Blood Cells % 0.4 H Neutrophils # (Manual) 15.4 H Lymphocytes # 2.0 Monocytes # 1.9 H Eosinophils # 0.0 Basophils # 0.1 Nucleated Red Blood Cells # 0.1 H Sodium Level 149 H Potassium Level 4.1 Chloride Level 123 H Carbon Dioxide Level 13 L Anion Gap 17 H Blood Urea Nitrogen 54 H Creatinine 0.93 Glucose Level 207 Calcium Level 8.6 Total Bilirubin 1.0 Direct Bilirubin 0.00 Indirect Bilirubin 1.0 Aspartate Amino Transf (AST/SGOT) 49 H Alanine Aminotransferase (ALT/SGPT) 53 Alkaline Phosphatase 102 Ammonia 201 H Total Protein 6.7 Albumin 3.1 L Globulin 3.60 H Albumin/Globulin Ratio 0.86 Medications Medications Current Medications Ondansetron HCl (Zofran Inj) 4 mg Q6H PRN IV NAUSEA AND/OR VOMITING; Start 01/29 at 01:00 Acetaminophen (Tylenol Tab) 650 mg Q6H PRN PO PAIN LEVEL 1-3 OR FEVER; Start at 01:00 Ferrous Sulfate (Ferrous Sulfate (Ec)) 325 mg BID PO Last administered on 10:19; Admin Dose 325 MG; Start 12/23/16 at 09:00 Diagnostic Test (Pha) (Accu-Chek) 1 ea 02 XX Last administered on 12/25/16 02: 00; Admin Dose 1 EA; Start 12/23/16 at 02:00 Diagnostic Test (Pha) (Accu-Chek) 1 ea 02 XX Last administered on 12/24/16 02: 22; Admin Dose 1 EA; Start 12/23/16 at 02:00 Propranolol HCl (Inderal) 10 mg BID PO Last administered on 12/25/16 10:20; Admin Dose 10 MG; Start 12/23/16 at 01:30 Docusate Sodium (Colace) 100 mg DAILY PO Last administered on 12/25/16 10:19; Admin Dose 100 MG; Start 12/23/16 at 09:00 Miscellaneous Information 1 ea NOTE XX ; Start 12/23/16 at 02:30 Glucose (Glutose) 15 gm Q15M PRN PO DECREASED GLUCOSE; Start 12/23/16 at 02:30 Glucose (Glutose) 22.5 gm Q15M PRN PO DECREASED GLUCOSE; Start 12/23/16 at 02: 30 Dextrose (D50w Syringe) 25 ml Q15M PRN IV DECREASED GLUCOSE; Start 12/23/16 at 02:30 Dextrose (D50w Syringe) 50 ml Q15M PRN IV DECREASED GLUCOSE; Start 12/23/16 at 02:30 Glucagon (Glucagen) 1 mg Q15M PRN IM DECREASED GLUCOSE; Start 12/23/16 at 02:30 Glucose (Glutose) 15 gm Q15M PRN BUCCAL DECREASED GLUCOSE; Start 12/23/16 at 02 :30 Pantoprazole 40 mg 40 mg BID@06,18 IV Last administered on 12/25/16 06:08; Admin Dose 40 MG; Start 12/23/16 at 18:00 Octreotide Acetate/Sodium Chloride (Sandostatin/NS) 50 ml @ 2.5 mls/hr Q20H IV Last administered on 12/25/16 01:22; Admin Dose 2.5 MLS/HR; Start 12/23/16 at 10:15 Furosemide (Lasix) 40 mg DAILY PO Last administered on 12/25/16 10:20; Admin Dose 40 MG; Start 12/24/16 at 09:00 Rifaximin (Xifaxan) 550 mg BID PO Last administered on 12/25/16 10:19; Admin Dose 550 MG; Start 12/24/16 at 21:00 Insulin Glargine (Lantus) 45 unit HS SC Last administered on 12/24/16 22:55; Admin Dose 45 UNIT; Start 12/24/16 at 21:00 Lactulose (Enulose) 30 gm Q6H PRN PO CONSTIPATION Last administered on 16:13; Admin Dose 30 GM; Start 12/25/16 at 16:00 MIGUELITO SAMPSON NP Dec 25, 2016 16:35
[2016-12-25] MEDS ORDERED: DEXTROSE 5% WATER 500 ML BAG IV ONE (17:00)
[2016-12-25 18:13] LABS: AADO2 Arterial 622.8 mmHg (7.0-24.0); Arterial Base Excess -6.8 mmol/L (-3.0-3); Arterial COHb 0.3 % (0.0-3.0); Arterial Fraction of Oxyhgb 94.5 % (93.0-99.0); Arterial HCO3 12.4 mmol/L (22.0-26.0); Arterial MetHb 0.3 % (0.0-1.5); Arterial Total Hemglobin 12.8 g/dl (12.0-18.0); MODE MASK - NRB
[2016-12-25] MEDS ORDERED: PROPOFOL 100 ML ONE (18:20)
[2016-12-25] MEDS ORDERED: FENTAnyl (DRIP) 1000 mcg/100mL 100 ML IV ONE (18:52)
[2016-12-25] MEDS: PROPOFOL 100 ML IV ONE ×2 (19:04→19:13)
[2016-12-25 19:08] LABS: HEMATOCRIT 34.5 % (37.0-47.0)
[2016-12-25] MEDS: FENTAnyl (DRIP) 1000 mcg/100mL 100 ML IV SCH (19:10)
[2016-12-25] MEDS: DEXTROSE 5% 1,000 ML IV SCH (19:13)
--- NOTE | 2016-12-25 19:28 | RADRPT ---
PROCEDURE: XR Chest. CLINICAL INDICATION: The patient is status post intubation. TECHNIQUE: Single frontal view of the chest was obtained COMPARISON: 12/22/2016. FINDINGS: New endotracheal intubation is seen with tip about 22 mm above the ara. New nasogastric tube in p lace with tip and side port coiled in the proximal stomach. The heart and mediastinum are within normal limits. Mild discoid atelectasis is new at the left lung base. Question small left pleural effusion. There is no pneumothorax. IMPRESSION: 1. New endotracheal intubation is seen with tip about 22 mm above the ara. 2. New nasogastric tube in place with tip and side port coiled in the proximal stomach. 3. New discoid atelectasis at the left lung base. 3. Question small left pleural effusion. RPTAT: UU Physician Neeru Date Time Electronically viewed and signed by Physician Neeru on 12/25/2016 19:27 RS/
--- NOTE | 2016-12-25 19:28 | EN ---
Date/Time of Note Date/Time of Note DATE: 12/25/16 TIME: 19:26 ER Progress Note Call for intubation. This patient is admitted for hyperammonemia. The patient's ABG looks poor with elevated pH of 7.6 with a low CO2. The patient's having altered mental status due to the high ammonia levels and is not having some respiratory difficulty with rapid respirations and does not seem to be out of protect her airway due to decreased mental status. I was called to the ICU for intubation. Endotracheal Intubation by me: Pre assessment performed. See preceding note for details. Pre-oxygenation performed with 100% oxygen RSI: Performed w/o complication or hypoxic events. Medications as ordered. Blade: [Mac 4] ET Tube: 7.0] cm Depth: 23] cm at the lip Intubation confirmed by colorimetric CO2, equal breath sounds, quiet over the stomach. LEIGH MONGE DO Dec 25, 2016 19:28
[2016-12-25] MEDS ORDERED: LIDOCAINE 1% (MPF) 5 ML VIAL SC ONE (19:30)
[2016-12-25 20:05] LABS: AADO2 Arterial 521.2 mmHg (7.0-24.0); Arterial Base Excess -10.2 mmol/L (-3.0-3); Arterial COHb 0.2 % (0.0-3.0); Arterial Fraction of Oxyhgb 97.9 % (93.0-99.0); Arterial HCO3 11.7 mmol/L (22.0-26.0); Arterial MetHb 0.4 % (0.0-1.5); Arterial Total Hemglobin 12.2 g/dl (12.0-18.0); MODE VENT - AC
[2016-12-25] MEDS ORDERED: morphine 4 MG/ML VIAL IV STA (20:19)
[2016-12-25] MEDS ORDERED: morphine 4 MG/ML VIAL ONE (20:21)
[2016-12-25] MEDS ORDERED: CEFEPIME 1GM/50 ML (PMX) 50 ML IVPB SCH (21:00)
[2016-12-25] MEDS: OCULAR LUBRICANT 3.5 GM OPH OINT BOTH EYES SCH (21:00)
[2016-12-25] MEDS: PANTOPRAZOLE IV 80 MG in SOD CHLORIDE 0.9% 100 ML IV SCH (21:00)
[2016-12-25] MEDS ORDERED: NORepinephrine 8MG/250 ML (PMX 250 ML ONE (22:53)
[2016-12-25] MEDS ORDERED: NORepinephrine 8MG/250 ML (PMX 250 ML IV SCH (23:00)
--- NOTE | 2016-12-25 23:57 | CONS ---
DATE OF ADMISSION: 12/22/2016 DATE OF CONSULTATION: 12/25/2016 Thank you for your kind referral for evaluation of encephalopathy. HISTORY OF PRESENT ILLNESS: Patient is a 61-year-old lady who presented with agitation and confusion for the last 3 or 4 days. Patient's daughter at bedside providing details of the history. She has also a history of alcohol-related cirrhosis and diabetes. Also, she has bilateral cataract surgery. FAMILY HISTORY: No family history. SOCIAL HISTORY: According to the daughter, the patient stopped drinking 2 years ago. She is a smoker. No drug use. LABORATORY: Patient while in the hospital had CAT scan of the brain and MRI of the brain. Both did not show any acute abnormality or calcifications in the left occipital lobe. 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 Chest x-ray: Small left pleural effusion. Patient's labs show a WBC count 19.4. Today, hemoglobin 10, hematocrit 31, neutrophils 79 percent, platelets 156 today, but on admission was 79. PT 16, PTT 35. Chemistry shows BUN 54, creatinine 0.93, sodium 149, chloride 123, bicarb 13, AST 49, ALT 53. Ammonia 201, on admission was 96. Albumin 3.1. Tox screen shows no alcohol, no salicylates and acetaminophen. Negative hepatitis B and C serology. Blood gas was done today in the evening. Patient was having severe tachypnea and respiratory difficulties and was intubated tonight, so post intubation pH 7.43, pCO2 of 18 and pO2 of 173. CURRENT MEDICATIONS: 1. Lactulose. 2. Cefepime. 3. Pantoprazole. 4. Fentanyl. 5. Propofol. 6. Rifaximin. 7. Insulin. 8. Octreotide. 9. Iron. PHYSICAL EXAMINATION: VITAL SIGNS: On examination, 98.3 temperature, pulse 91, respirations 16, blood pressure 136/65. This is from computer, but currently patient is tachypneic. HEENT: Normocephalic, atraumatic head. NECK: No carotid bruits. No thyromegaly. LUNGS: Clear. CARDIAC: Normal cardiac rhythm and sounds. ABDOMEN: Soft. EXTREMITIES: No cyanosis, clubbing, or edema. NEUROLOGIC: Patient is unresponsive. She keeps her eyes open, does not blink to threat. Does not follow commands. Pupils fixed, about 3 mm on the left and irregular on the right, was postsurgical. Extraocular movements intact on oculocephalic maneuver, but no spontaneous eye movements. Corneal reflexes present bilaterally as well as gag. Flaccid tone. No movements in extremities to pain. Deep tendon reflexes 2+, upper extremities, absent in lower extremities. No response to plantar stimulation bilaterally. IMPRESSION: 1. Acute encephalopathy. 2. Acute respiratory failure. 3. Hyperammonemia. 4. Cirrhosis. 5. Hepatic encephalopathy. 6. Azotemia. PLAN: Continue current treatments. For evaluation I will obtain EEG, but most likely it is toxic metabolic in etiology, especially that the MRI did not show any acute abnormality. Thank you very much for this interesting consultation. Dictated By: Nirav Salazar MD /[email or web address]/ruben /Document#: [id number] MTDD
[2016-12-26] VITALS (94 sets, daily range): BP systolic 58–154; BP diastolic 30–106; PULSE 100–124; RESP 15–44
[2016-12-26] MEDS: OCULAR LUBRICANT 3.5 GM OPH OINT BOTH EYES SCH ×6 (01:20→20:08)
[2016-12-26] MEDS: INSULIN GLARGINE [LANtus] 3 ML PEN SC SCH (02:00)
[2016-12-26] MEDS: ACCU-CHEK XX SCH ×15 (02:06→22:42)
[2016-12-26] MEDS: DEXTROSE 5% 1,000 ML IV SCH ×2 (02:56→13:00)
[2016-12-26] MEDS: PANTOPRAZOLE IV 80 MG in SOD CHLORIDE 0.9% 100 ML IV SCH ×3 (02:56→22:45)
[2016-12-26] MEDS: FENTAnyl (DRIP) 1000 mcg/100mL 100 ML IV SCH ×3 (02:57→20:10)
[2016-12-26] MEDS: OCTREOTIDE 500 MCG in SOD CHLORIDE 0.9% 49 ML IV SCH (04:11)
[2016-12-26] MEDS: ACETAMINOPHEN 325 MG TAB PO PRN ×2 (04:30→22:46)
[2016-12-26] MEDS: LACTULOSE 30ML CUP NGT SCH ×3 (04:57→18:09)
[2016-12-26 05:15] LABS: ABNORMAL IP MESSAGE 1; BASOPHILS % 0.1 % (0.0-2.0); EOSINOPHILS % 0.1 % (0.0-7.0); HEMATOCRIT 33.5 % (37.0-47.0); HEMOGLOBIN 10.8 g/dl (12.0-16.0); LYMPHOCYTES # 1.6 10^3/ul (0.8-2.9); MEAN CORPUSCULAR HEMOGLOBIN 35.2 pg (29.0-33.0); MEAN CORPUSCULAR HGB CONC 32.2 g/dl (32.0-37.0); MEAN CORPUSCULAR VOLUME 109.1 fl (82.0-101.0); MEAN PLATELET VOLUME 11.9 fl (7.4-10.4); MONOCYTE # 3.3 10^3/ul (0.3-0.9); MONOCYTES % 14.2 % (0.0-11.0); NEUTROPHILS % 77.7 % (39.0-77.0); NUCLEATED RED BLOOD CELLS # 0.4 10^3/ul (0.0-0.0); NUCLEATED RED BLOOD CELLS% 1.8 /100WBC (0.0-0.0); PLATELET COUNT 144 10^3/UL (140-415); RED BLOOD COUNT 3.07 10^6/ul (4.20-5.40); RED CELL DISTRIBUTION WIDTH 18.8 % (11.5-14.5); WHITE BLOOD COUNT 23.2 10^3/ul (4.8-10.8)
[2016-12-26 05:39] LABS: POSITIVE DIFF @See below
[2016-12-26 05:40] LABS: ALBUMIN 2.5 g/dl (3.3-4.9); ALBUMIN/GLOBULIN RATIO 0.83; BILIRUBIN,INDIRECT 0.7 mg/dl (0-1.1); BILIRUBIN,TOTAL 0.7 mg/dl (0.2-1.3); CALCIUM 8.3 mg/dl (8.4-10.2); CREATININE 2.4 mg/dl (0.44-1.00); TOTAL PROTEIN 5.5 g/dl (6.1-8.1)
[2016-12-26 06:09] LABS: UR RBC 0 /HPF (0-5)
[2016-12-26 06:13] LABS: UR CLARITY CLEAR (CLEAR); UR COLOR AMBER (YELLOW); UR KETONES (Dip) NEGATIVE (NEGATIVE); UR SPECIFIC GRAVITY (Dip) 1.025 (1.003-1.030); UR TOTAL PROTEIN (Dip) NEGATIVE (NEGATIVE)
[2016-12-26 06:14] LABS: ADD UMIC NO; UR BILIRUBIN (Dip) NEGATIVE (NEGATIVE); UR BLOOD (Dip) NEGATIVE (NEGATIVE); UR GLUCOSE (Dip) 1+ mg/dL (NEGATIVE); UR LEUKOCYTE ESTERASE (Dip) NEGATIVE Leu/ul (NEGATIVE); UR NITRITE (Dip) NEGATIVE (NEGATIVE); UR UROBILINOGEN (Dip) 1+ mg/dL (NEGATIVE)
[2016-12-26] MEDS: PIPER-TAZO 3.375 GM IV (PMX) 100 ML IVPB SCH ×3 (06:18→22:42)
[2016-12-26] MEDS ORDERED: SOD CHLORIDE 0.9% 500 ML IV ONE (06:30)
[2016-12-26] MEDS ORDERED: VANCOMYCIN IV PER PHARMACY XX SCH (06:30)
[2016-12-26] MEDS ORDERED: VANCOMYCIN 1 GM in NS 250 ML IVPB ONE (08:00)
[2016-12-26 08:35] LABS: AADO2 Arterial 180.8 mmHg (7.0-24.0); Allen Test ACCEPTAB; Arterial Base Excess -21.4 mmol/L (-3.0-3); Arterial COHb 0.3 % (0.0-3.0); Arterial Fraction of Oxyhgb 87.4 % (93.0-99.0); Arterial HCO3 6.7 mmol/L (22.0-26.0); Arterial MetHb 0.5 % (0.0-1.5); Arterial Total Hemglobin 11.5 g/dl (12.0-18.0); MODE VENT - AC
[2016-12-26] MEDS ORDERED: NA BICARBONATE 8.4% 50 ML SYG IV STA (08:54)
[2016-12-26] MEDS ORDERED: NA BICARBONATE 8.4% 50 ML SYG ONE (08:57)
[2016-12-26] MEDS ORDERED: ALBUTEROL/IPRATROPIUM (NEB) 3 ML AMP HHN SCH (09:00)
[2016-12-26] MEDS ORDERED: ALBUTEROL/IPRATROPIUM (NEB) 3 ML AMP HHN PRN (09:00)
[2016-12-26] MEDS: FERROUS SULFATE (EC) 325 MG TAB PO SCH ×2 (09:00→20:09)
[2016-12-26] MEDS ORDERED: INSULIN ASPART [NOVOLOG] 3 ML PEN SC ONE (09:00)
[2016-12-26] MEDS: DOCUSATE SODIUM 100 MG CAP PO SCH (09:00)
[2016-12-26] MEDS: RIFAXIMIN 550 MG TAB PO SCH ×2 (09:00→20:09)
[2016-12-26] MEDS ORDERED: LORAZEPAM 2 MG INJ ONE (09:06)
--- NOTE | 2016-12-26 09:14 | PN ---
Date/Time of Note Date/Time of Note DATE: 12/26/16 TIME: 08:48 Assessment/Plan VTE Prophylaxis VTE Prophylaxis Intervention: SCD's Lines/Catheters IV [facility]from [facility] Urinary Cath still in place: No Assessment/Plan Chief Complaint/Hosp Course 1. Acute hypoxemic respiratory failure requiring mechanical ventilation. -Pulmonary eval appreciated. -Around the clock NEB, Chest Xray, ABG follow-up 2.Hypovolemic/Hypotensive shock,requiring pressors. -IVFs,Titrate Levophed to keep MAP>60 - 2D Echo and Cards consult. 3.Toxic metabolic encephalopathy with Hepatic encephalopathy with coma and hyperammonemia secondary to #2. -Increase Lactulose to max dose.Continue Rifaximin. -Neurology consult to rule out other possible causes of encephalopathy-MRI negative 4. Acute GI-Bleed, likely variceal bleed vs bleeding ulcer vs others. GI on board and pending EGD eval as patient is hemodynamically unstable -Monitor HH closely and transfuse as indicated. -Continue protonix/Octreotide drip-Not a candidate for BB 2/2 Hypotension. 5.Severe anion-gap metabolic acidosis. -Change IV with bicarb containing soln 6. Acute Kidney Injury, likely hemodynamics -Nephrology consult. -Monitor renal fxn closely. 7. 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 No ascites. -Patient has been sober for 1year -Continue current medical management. -Negative Hep panel. 8. New-onset Seizures. -Neur eval appreciated-Pending EEG -Ativan PRN. Start Keppr 1 gm STAT followed by maintenance dose. 9.Hypernatremia with free water deficit-Patient appears severely dehydrated currently. -Continue IVFs -Hold all diuretics. 10.Leukocytosis,Reactive vs infectious etiology. Rule out sepsis. -F/u cultures. Continue Zosyn 11.Azotemia 2/2 dehydration/GIB. -Continue IVFs 12. Hyperglycemia ,likely worsened by D5W with Adult-onset Diabetes mellitus- Poorly controlled. -Start ICU Insulin drip protocol 13. Anemia of chronic liver disease. HH stable.Will monitor. 14.Thrombocytopenia of liver disease. Stable. 15.Hx of alcoholism. -Sober for 1 year DVT and GI prophylaxis: SCDs, Protonix PLAN: NPO. Proceed with central line insertion. Patient with overall poor prognosis. Family decided full code. Continue aggressive ICU care. Patient was seen in collaboration with . Problems: Subjective 24 Hr Interval Summary Free Text/Dictation Patient was transferred to ICU 2/2 respiratory failure. Now intubated.having sever rectal bleed. Exam/Review of Systems Vital Signs Vitals Vital Signs Date Time Temp Pulse Resp B/P Pulse Ox O2 Delivery O2 Flow Rate FiO2 12/26/16 06:00 102.0 107 25 96/50 100 12/26/16 05:20 50 12/25/16 15:07 2.0 12/25/16 11:46 Nasal Cannula Intake and Output 12/25/16 12/25/16 12/26/16 15:00 23:00 07:00 Intake Total 692.6 ml 1530.7 ml Output Total 1485 ml 205 ml Balance -792.4 ml 1325.7 ml Exam General:unresponsive/comatose HEENT: Normocephalic, Atraumatic, No laceration or hematoma; Eyes: PEERL, Conjunctiva clear, Icteric sclera Neck: Supple without any lymphadenopathy, nontender, no JVD, no carotid bruits, trachea midline, no thyromegaly Cardiac: S1, S2 auscultated, regular rhythm and rate, no mumurs or gallop Pulmonary: Vent breath..no adventitious breath sounds GI: with rectal bleed. Abdomen normal to inspection. Soft, non- distended, no masses, no rebound tenderness or guarding. Bowel sounds active on all four quadrants Genitourinary: Deferred Extremities: No cyanosis, clubbing, or edema. Pulses [2+] bilaterally. Full ROM on all four extremities. No focal weakness appreciated. Neurologic: unresponsive. Skin:Jaundiced+ Results Result Diagram: 12/26/1643912/26/16439 Results 24 hrs Laboratory Tests Test 12/25/16 11:08 12/25/16 17:01 12/25/16 17:03 12/25/16 18:45 Bedside Glucose 189 98 Blood Gas Specimen Source Blood arterial Arterial Blood Date Drawn 12/25/2016 6:00:23 PM Arterial Blood pH (Temp corrected) 7.557 *H Arterial Blood pCO2 (Temp correct) 14.3 L Arterial Blood pO2 (Temp corrected) 75.9 L Arterial Blood HCO3 12.4 L Arterial Blood Base Excess -6.8 L Arterial Blood Oxygen Saturation 95.1 Rene Test N/A Arterial Blood Gas Puncture Site LB Arterial Blood Carboxyhemoglobin 0.3 Arterial Blood Methemoglobin 0.3 Blood Gas A-a O2 Differential 622.8 H Oxyhemoglobin Percent 94.5 Total Hemoglobin 12.8 Blood Gas Temperature 37.0 Blood Gas Actual Respiration Rate 40 Blood Gas Modality MASK - NRB FiO2 100.0 Blood Gas Critical Value Read Back RN [facility] ICU Blood Gas Notified Whom JOSHUA RT Blood Gas Notified Time 12/25/2016 6:12:48 PM Hemoglobin 12.0 Hematocrit 34.5 L Test 12/25/16 19:30 12/25/16 21:00 12/25/16 23:52 12/26/16 02:03 Blood Gas Specimen Source Blood arterial Arterial Blood Date Drawn 12/25/2016 7:45:24 PM Arterial Blood pH (Temp corrected) 7.430 Arterial Blood pCO2 (Temp correct) 18.1 L Arterial Blood pO2 (Temp corrected) 173.7 H Arterial Blood HCO3 11.7 L Arterial Blood Base Excess -10.2 L Arterial Blood Oxygen Saturation 98.5 H Rene Test N/A Arterial Blood Gas Puncture Site Right Brachial Arterial Blood Carboxyhemoglobin 0.2 Arterial Blood Methemoglobin 0.4 Blood Gas A-a O2 Differential 521.2 H Oxyhemoglobin Percent 97.9 Total Hemoglobin 12.2 Blood Gas Temperature 37.0 Blood Gas Respiration Rate 16.0 Blood Gas Actual Respiration Rate 33 Blood Gas Modality VENT - AC FiO2 100.0 Blood Gas Tidal Volume 500.0 Blood Gas Low PEEP Setting 5.0 Blood Gas Notified Whom NZAKERI Blood Gas Notified Time 12/25/2016 8:05:42 PM Urine Color ALOK Urine Clarity CLEAR Urine pH 5.0 Urine Specific [place] 1.025 Urine Ketones NEGATIVE Urine Nitrite NEGATIVE Urine Bilirubin NEGATIVE Urine Urobilinogen 1+ H Urine Leukocyte Esterase NEGATIVE Urine Microscopic RBC 0 Urine Microscopic WBC 1 Urine Hemoglobin NEGATIVE Urine Glucose 1+ H Urine Total Protein NEGATIVE Bedside Glucose 208 265 H Test 12/26/16 04:40 12/26/16 05:28 12/26/16 08:06 White Blood Count 23.2 H Red Blood Count 3.07 L Hemoglobin 10.8 L Hematocrit 33.5 L Mean Corpuscular Volume 109.1 H Mean Corpuscular Hemoglobin 35.2 H Mean Corpuscular Hemoglobin Concent 32.2 Red Cell Distribution Width 18.8 H Platelet Count 144 Mean Platelet Volume 11.9 H Neutrophils % 77.7 H Lymphocytes % 7.0 L Monocytes % 14.2 H Eosinophils % 0.1 Basophils % 0.1 Nucleated Red Blood Cells % 1.8 H Neutrophils # (Manual) 18.0 H Lymphocytes # 1.6 Monocytes # 3.3 H Eosinophils # 0.0 Basophils # 0.0 Nucleated Red Blood Cells # 0.4 H Sodium Level 148 H Potassium Level 4.0 Chloride Level 122 H Carbon Dioxide Level 12 L Anion Gap 18 H Blood Urea Nitrogen 82 H Creatinine 2.40 #H Glucose Level 416 #*H Calcium Level 8.3 L Total Bilirubin 0.7 Direct Bilirubin 0.00 Indirect Bilirubin 0.7 Aspartate Amino Transf (AST/SGOT) 69 H Alanine Aminotransferase (ALT/SGPT) 63 Alkaline Phosphatase 89 Ammonia 196 H Total Protein 5.5 #L Albumin 2.5 L Globulin 3.00 Albumin/Globulin Ratio 0.83 Lab Scanned Report BLOOD TRANSFUSION Blood Gas Specimen Source Blood arterial Arterial Blood Date Drawn 12/26/2016 8:22:21 AM Arterial Blood pH (Temp corrected) 7.091 *L Arterial Blood pCO2 (Temp correct) 22.7 L Arterial Blood pO2 (Temp corrected) 78.3 L Arterial Blood HCO3 6.7 *L Arterial Blood Base Excess -21.4 L Arterial Blood Oxygen Saturation 88.1 L Rene Test ACCEPTAB Arterial Blood Gas Puncture Site Right Radial Arterial Blood Carboxyhemoglobin 0.3 Arterial Blood Methemoglobin 0.5 Blood Gas A-a O2 Differential 180.8 H Oxyhemoglobin Percent 87.4 L Total Hemoglobin 11.5 L Blood Gas Temperature 37.0 Blood Gas Respiration Rate 16.0 Blood Gas Actual Respiration Rate 34 Blood Gas Modality VENT - AC FiO2 40.0 Blood Gas Tidal Volume 500.0 Blood Gas Low PEEP Setting 5.0 Blood Gas Critical Value Read Back Mike PITT RN Blood Gas Notified Whom CIRILO Blood Gas Notified Time 12/26/2016 8:33:42 AM Medications Medications Current Medications Ondansetron HCl (Zofran Inj) 4 mg Q6H PRN IV NAUSEA AND/OR VOMITING; Start 01/29 at 01:00 Acetaminophen (Tylenol Tab) 650 mg Q6H PRN PO PAIN LEVEL 1-3 OR FEVER Last administered on 12/26/16t 04:30; Admin Dose 650 MG; Start 12/23/16 at 01:00 Ferrous Sulfate (Ferrous Sulfate (Ec)) 325 mg BID PO Last administered on 21:00; Admin Dose 325 MG; Start 12/23/16 at 09:00 Diagnostic Test (Pha) (Accu-Chek) 1 ea 02 XX Last administered on 12/26/16 02: 06; Admin Dose 1 EA; Start 12/23/16 at 02:00 Propranolol HCl (Inderal) 10 mg BID PO Last administered on 12/25/16 10:20; Admin Dose 10 MG; Start 12/23/16 at 01:30 Docusate Sodium (Colace) 100 mg DAILY PO Last administered on 12/25/16 10:19; Admin Dose 100 MG; Start 12/23/16 at 09:00 Miscellaneous Information 1 ea NOTE XX ; Start 12/23/16 at 02:30 Glucose (Glutose) 15 gm Q15M PRN PO DECREASED GLUCOSE; Start 12/23/16 at 02:30 Glucose (Glutose) 22.5 gm Q15M PRN PO DECREASED GLUCOSE; Start 12/23/16 at 02: 30 Dextrose (D50w Syringe) 25 ml Q15M PRN IV DECREASED GLUCOSE; Start 12/23/16 at 02:30 Dextrose (D50w Syringe) 50 ml Q15M PRN IV DECREASED GLUCOSE; Start 12/23/16 at 02:30 Glucagon (Glucagen) 1 mg Q15M PRN IM DECREASED GLUCOSE; Start 12/23/16 at 02:30 Glucose 15 gm 15 gm Q15M PRN BUCCAL DECREASED GLUCOSE; Start 12/23/16 at 02:30 Octreotide Acetate/Sodium Chloride (Sandostatin/NS) 50 ml @ 2.5 mls/hr Q20H IV Last administered on 12/26/16 04:11; Admin Dose 2.5 MLS/HR; Start 12/23/16 at 10:15 Furosemide (Lasix) 40 mg DAILY PO Last administered on 12/25/16 10:20; Admin Dose 40 MG; Start 12/24/16 at 09:00; Status Future Hold Rifaximin (Xifaxan) 550 mg BID PO Last administered on 12/25/16 21:00; Admin Dose 550 MG; Start 12/24/16 at 21:00 Insulin Glargine (Lantus) 45 unit HS SC Last administered on 12/26/16 02:00; Admin Dose 45 UNIT; Start 12/24/16 at 21:00 Lactulose 30 gm 30 gm Q6H PRN PO CONSTIPATION Last administered on 12/25/16 16 :13; Admin Dose 30 GM; Start 12/25/16 at 16:00 Dextrose 1,000 ml @ 100 mls/hr Q10H IV Last administered on 12/26/16 02:56; Admin Dose 100 MLS/HR; Start 12/25/16 at 17:00 Propofol (Diprivan) 100 ml @ 1.65 mls/hr TITRATE ONCE IV Last administered on 12/25/16 19:13; Admin Dose 1.65 MLS/HR; Start 12/25/16 at 18:30; Stop at 07:06 Lactulose 30 gm 30 gm Q6 NGT Last administered on 12/26/16 04:57; Admin Dose 30 GM; Start 12/26/16 at 06:00 Pantoprazole 80 mg/Sodium Chloride 100 ml @ 10 mls/hr Q10H IV Last administered on 12/26/16 02:56; Admin Dose 10 MLS/HR; Start 12/25/16 at 19:30 Fentanyl (Sublimaze) 100 ml @ 2.5 mls/hr TITRATE IV Last administered on 02:57; Admin Dose 10 MLS/HR; Start 12/25/16 at 19:00 Eye Lubricant 1 applic 1 applic Q4 BOTH EYES Last administered on 12/26/16 04: 57; Admin Dose 1 APPLIC; Start 12/25/16 at 21:00 Norepinephrine 16 mg/Dextrose 500 ml @ 1.87 mls/hr TITRATE IV Last administered on 12/26/16 06:22; Admin Dose 28.12 MLS/HR; Start 12/26/16 at 03: 00 Piperacillin Sod/ Tazobactam Sod 100 ml @ 100 mls/hr Q8 IVPB Last administered on 12/26/16 06:18; Admin Dose 100 MLS/HR; Start 12/26/16 at 06:30 Vancomycin HCl (Vancocin) 250 ml @ 125 mls/hr ONCE ONCE IVPB ; Start 12/26/16 at 08:00; Stop 12/26/16 at 09:59 MIGUELITO SAMPSON NP Dec 26, 2016 08:58
[2016-12-26 09:26] LABS: HEMATOCRIT 28.3 % (37.0-47.0); HEMOGLOBIN 9.6 g/dl (12.0-16.0)
[2016-12-26] MEDS ORDERED: DEXTROSE 50% 50 ML SYRINGE IV PRN (09:30)
[2016-12-26] MEDS ORDERED: LORAZEPAM 2 MG INJ IV ONE (09:30)
[2016-12-26 09:37] LABS: INR 2.02; PROTIME 23.1 Sec (12.2-14.2); PT RATIO 1.8
[2016-12-26 09:38] LABS: PARTIAL THROMBOPLASTIN TIME 38.7 Sec (25.0-35.0)
[2016-12-26] MEDS: IPRATROPIUM (HFA) 12.9 GM INHALER INH SCH ×5 (10:00→21:18)
[2016-12-26] MEDS ORDERED: LEVETIRACETAM 1000 MG (PMX) 100 ML IVPB SCH (10:00)
--- NOTE | 2016-12-26 10:33 | CONS ---
Date/Time of Note Date/Time of Note DATE: 12/26/16 TIME: 10:26 Assessment/Plan Assessment/Plan Additional Assessment/Plan Ventilator setting; AC of 16, tidal volume 500, PEEP of 5, 40% FiO2. Patient currently on propofol at 30 mics per kilogram per minute, Protonix drip at 10 mg/h, fentanyl 100 mics per hour, Levophed 30 mics per minute, Sandostatin drip at 5 mics per hour. Assessment and recommendations; 1. Patient admitted with severe hepatic encephalopathy with active upper GI bleed. Patient has been deemed hemodynamically too unstable to undergo EGD. 2. Profound metabolic acidosis. 3. Profound shock. 4. History of diabetes. With severe hyperglycemia. Patient on insulin drip via protocol. Continue current supportive care. Start sodium bicarbonate drip. Patient was also given additional sodium bicarbonate IV push. Prognosis is very guarded. Patient will need to have a central line placed. She has very poor peripheral IV access. Consultation Date/Type/Reason Admit Date/Time Dec 22, 2016 at 22:41 Date of Consultation: Dec 26, 2016 Type of Consultation: Pulmonary/critical care Reason for Consultation Pulmonary consultation requested for evaluation of respiratory failure. History of presenting any; patient is a 61-year-old lady who came into the emergency room with altered mental status. Patient was diagnosed with severe hepatic enthesopathy and was also having active upper GI bleed. Patient was intubated for respiratory failure. By the time I saw the patient in ICU the patient is orally intubated on high-dose pressor support for blood pressure maintenance. Also is sedated. History was obtained from medical records. Past medical history; 1. Patient with history of cirrhosis of liver. 2. History of diabetes. Medications; reviewed. Allergies; none. Social history; patient has a history of heavy alcohol abuse in the past. Family history, occupational histories not available. Review of systems; unable to be obtained. General exam; middle-aged woman, orally intubated, having active upper GI bleed. Sedated. Currently in no distress. Constitutional: improved, no complaints Eyes: no complaints ENT: no complaints Respiratory: no complaints Cardiovascular: no complaints Gastrointestinal: no complaints Genitourinary: no complaints Musculoskeletal: no complaints Skin: no complaints Neurologic: confusion Endocrine: no complaints Lymphatic: no complaints Psychological: nl mood/affect, no complaints Immunologic: no complaints Past Medical History Medical History: diabetes, other (depression) Past Surgical History Past Surgical Hx: other (cataract surgery) Social History Alcohol Use: other (history of heavy alcohol use) Smoking Status: Smoker,current status unk Exam/Review of Systems Vital Signs Vitals Vital Signs Date Time Temp Pulse Resp B/P Pulse Ox O2 Delivery O2 Flow Rate FiO2 12/26/16 08:45 113 25 105/56 98 12/26/16 08:00 100.4 12/26/16 05:20 50 12/25/16 15:07 2.0 12/25/16 11:46 Nasal Cannula Intake and Output 12/25/16 12/25/16 12/26/16 15:00 23:00 07:00 Intake Total 692.6 ml 1530.7 ml Output Total 1485 ml 205 ml Balance -792.4 ml 1325.7 ml Exam HEENT exam; supple neck, no JVD. No lymphadenopathy. Midline trachea. No thyromegaly. Orally intubated. Nasogastric tube in place. Having active bleeding. Has multiple carious teeth. Pupils are small bilaterally. Chest exam; diminished but clear sounds. S1-S2 audible, no murmurs. Regular rhythm. Abdomen exam; protuberant. Bowel sounds absent. No organomegaly felt. Extremity exam; no edema. MARGIN ANALYST exam; patient is sedated. Results Result Diagram: 12/26/16 0915 12/26/16 0440 Results 24 hrs Laboratory Tests Test 12/25/16 11:08 12/25/16 17:01 12/25/16 17:03 12/25/16 18:45 Bedside Glucose 189 98 Blood Gas Specimen Source Blood arterial Arterial Blood Date Drawn 12/25/2016 6:00:23 PM Arterial Blood pH (Temp corrected) 7.557 *H Arterial Blood pCO2 (Temp correct) 14.3 L Arterial Blood pO2 (Temp corrected) 75.9 L Arterial Blood HCO3 12.4 L Arterial Blood Base Excess -6.8 L Arterial Blood Oxygen Saturation 95.1 Rene Test N/A Arterial Blood Gas Puncture Site LB Arterial Blood Carboxyhemoglobin 0.3 Arterial Blood Methemoglobin 0.3 Blood Gas A-a O2 Differential 622.8 H Oxyhemoglobin Percent 94.5 Total Hemoglobin 12.8 Blood Gas Temperature 37.0 Blood Gas Actual Respiration Rate 40 Blood Gas Modality MASK - NRB FiO2 100.0 Blood Gas Critical Value Read Back [facility] ICU Blood Gas Notified Whom JOSHUA RT Blood Gas Notified Time 12/25/2016 6:12:48 PM Hemoglobin 12.0 Hematocrit 34.5 L Test 12/25/16 19:30 12/25/16 21:00 12/25/16 23:52 12/26/16 02:03 Blood Gas Specimen Source Blood arterial Arterial Blood Date Drawn 12/25/2016 7:45:24 PM Arterial Blood pH (Temp corrected) 7.430 Arterial Blood pCO2 (Temp correct) 18.1 L Arterial Blood pO2 (Temp corrected) 173.7 H Arterial Blood HCO3 11.7 L Arterial Blood Base Excess -10.2 L Arterial Blood Oxygen Saturation 98.5 H Rene Test N/A Arterial Blood Gas Puncture Site Right Brachial Arterial Blood Carboxyhemoglobin 0.2 Arterial Blood Methemoglobin 0.4 Blood Gas A-a O2 Differential 521.2 H Oxyhemoglobin Percent 97.9 Total Hemoglobin 12.2 Blood Gas Temperature 37.0 Blood Gas Respiration Rate 16.0 Blood Gas Actual Respiration Rate 33 Blood Gas Modality VENT - AC FiO2 100.0 Blood Gas Tidal Volume 500.0 Blood Gas Low PEEP Setting 5.0 Blood Gas Notified Whom NZAKERI Blood Gas Notified Time 12/25/2016 8:05:42 PM Urine Color ALOK Urine Clarity CLEAR Urine pH 5.0 Urine Specific [place] 1.025 Urine Ketones NEGATIVE Urine Nitrite NEGATIVE Urine Bilirubin NEGATIVE Urine Urobilinogen 1+ H Urine Leukocyte Esterase NEGATIVE Urine Microscopic RBC 0 Urine Microscopic WBC 1 Urine Hemoglobin NEGATIVE Urine Glucose 1+ H Urine Total Protein NEGATIVE Bedside Glucose 208 265 H Test 12/26/16 04:40 12/26/16 05:28 12/26/16 08:06 12/26/16 09:15 White Blood Count 23.2 H Red Blood Count 3.07 L Hemoglobin 10.8 L 9.6 L Hematocrit 33.5 L 28.3 L Mean Corpuscular Volume 109.1 H Mean Corpuscular Hemoglobin 35.2 H Mean Corpuscular Hemoglobin Concent 32.2 Red Cell Distribution Width 18.8 H Platelet Count 144 Mean Platelet Volume 11.9 H Neutrophils % 77.7 H Lymphocytes % 7.0 L Monocytes % 14.2 H Eosinophils % 0.1 Basophils % 0.1 Nucleated Red Blood Cells % 1.8 H Neutrophils # (Manual) 18.0 H Lymphocytes # 1.6 Monocytes # 3.3 H Eosinophils # 0.0 Basophils # 0.0 Nucleated Red Blood Cells # 0.4 H Sodium Level 148 H Potassium Level 4.0 Chloride Level 122 H Carbon Dioxide Level 12 L Anion Gap 18 H Blood Urea Nitrogen 82 H Creatinine 2.40 #H Glucose Level 416 #*H Calcium Level 8.3 L Total Bilirubin 0.7 Direct Bilirubin 0.00 Indirect Bilirubin 0.7 Aspartate Amino Transf (AST/SGOT) 69 H Alanine Aminotransferase (ALT/SGPT) 63 Alkaline Phosphatase 89 Ammonia 196 H Total Protein 5.5 #L Albumin 2.5 L Globulin 3.00 Albumin/Globulin Ratio 0.83 Lab Scanned Report BLOOD TRANSFUSION Blood Gas Specimen Source Blood arterial Arterial Blood Date Drawn 12/26/2016 8:22:21 AM Arterial Blood pH (Temp corrected) 7.091 *L Arterial Blood pCO2 (Temp correct) 22.7 L Arterial Blood pO2 (Temp corrected) 78.3 L Arterial Blood HCO3 6.7 *L Arterial Blood Base Excess -21.4 L Arterial Blood Oxygen Saturation 88.1 L Rene Test ACCEPTAB Arterial Blood Gas Puncture Site Right Radial Arterial Blood Carboxyhemoglobin 0.3 Arterial Blood Methemoglobin 0.5 Blood Gas A-a O2 Differential 180.8 H Oxyhemoglobin Percent 87.4 L Total Hemoglobin 11.5 L Blood Gas Temperature 37.0 Blood Gas Respiration Rate 16.0 Blood Gas Actual Respiration Rate 34 Blood Gas Modality VENT - AC FiO2 40.0 Blood Gas Tidal Volume 500.0 Blood Gas Low PEEP Setting 5.0 Blood Gas Critical Value Read Back Mike PITT RN Blood Gas Notified Whom JLD Blood Gas Notified Time 12/26/2016 8:33:42 AM Test 12/26/16 09:16 Prothrombin Time 23.1 #H Prothrombin Time Ratio 1.8 INR International Normalized Ratio 2.02 Activated Partial Thromboplast Time 38.7 H Medications Medications Current Medications Ondansetron HCl (Zofran Inj) 4 mg Q6H PRN IV NAUSEA AND/OR VOMITING; Start 01/29 at 01:00 Acetaminophen (Tylenol Tab) 650 mg Q6H PRN PO PAIN LEVEL 1-3 OR FEVER Last administered on 12/26/16t 04:30; Admin Dose 650 MG; Start 12/23/16 at 01:00 Ferrous Sulfate (Ferrous Sulfate (Ec)) 325 mg BID PO Last administered on 21:00; Admin Dose 325 MG; Start 12/23/16 at 09:00 Propranolol HCl (Inderal) 10 mg BID PO Last administered on 12/25/16 10:20; Admin Dose 10 MG; Start 12/23/16 at 01:30; Status Future Hold Docusate Sodium (Colace) 100 mg DAILY PO Last administered on 12/25/16 10:19; Admin Dose 100 MG; Start 12/23/16 at 09:00 Miscellaneous Information 1 ea 1 ea NOTE XX ; Start 12/23/16 at 02:30 Octreotide Acetate/Sodium Chloride (Sandostatin/NS) 50 ml @ 2.5 mls/hr Q20H IV Last administered on 12/26/16 04:11; Admin Dose 2.5 MLS/HR; Start 12/23/16 at 10:15 Furosemide (Lasix) 40 mg DAILY PO Last administered on 12/25/16 10:20; Admin Dose 40 MG; Start 12/24/16 at 09:00; Status Future Hold Rifaximin (Xifaxan) 550 mg BID PO Last administered on 12/25/16 21:00; Admin Dose 550 MG; Start 12/24/16 at 21:00 Lactulose 30 gm 30 gm Q6H PRN PO CONSTIPATION Last administered on 12/25/16 16 :13; Admin Dose 30 GM; Start 12/25/16 at 16:00 Dextrose 1,000 ml @ 100 mls/hr Q10H IV Last administered on 12/26/16 02:56; Admin Dose 100 MLS/HR; Start 12/25/16 at 17:00 Propofol (Diprivan) 100 ml @ 1.65 mls/hr TITRATE ONCE IV Last administered on 12/25/16 19:13; Admin Dose 1.65 MLS/HR; Start 12/25/16 at 18:30; Stop at 07:06 Lactulose 30 gm 30 gm Q6 NGT Last administered on 12/26/16 04:57; Admin Dose 30 GM; Start 12/26/16 at 06:00 Pantoprazole 80 mg/Sodium Chloride 100 ml @ 10 mls/hr Q10H IV Last administered on 12/26/16 02:56; Admin Dose 10 MLS/HR; Start 12/25/16 at 19:30 Fentanyl (Sublimaze) 100 ml @ 2.5 mls/hr TITRATE IV Last administered on 02:57; Admin Dose 10 MLS/HR; Start 12/25/16 at 19:00 Eye Lubricant 1 applic 1 applic Q4 BOTH EYES Last administered on 12/26/16 09: 23; Admin Dose 1 APPLIC; Start 12/25/16 at 21:00 Norepinephrine 16 mg/Dextrose 500 ml @ 1.87 mls/hr TITRATE IV Last administered on 12/26/16 06:22; Admin Dose 28.12 MLS/HR; Start 12/26/16 at 03: 00 Piperacillin Sod/ Tazobactam Sod 100 ml @ 100 mls/hr Q8 IVPB Last administered on 12/26/16 06:18; Admin Dose 100 MLS/HR; Start 12/26/16 at 06:30 Levetiracetam (Keppra 500 Mg/ 100ml (Pmx)) 100 ml @ 400 mls/hr Q12 IVPB ; Start 12/26/16 at 21:00 Diagnostic Test (Pha) (Accu-Chek) 1 ea Q1H XX ; Start 12/26/16 at 09:30 Dextrose (D50w Syringe) 25 ml Q15M PRN IV Till BS 80 mg/dL or above x2; Start 12/26/16 at 09:30 Dextrose (D50w Syringe) 50 ml Q15M PRN IV Till BS 80 mg/dL or above x2; Start 12/26/16 at 09:30 Lorazepam (Ativan) 1 mg Q2 PRN IV Seizures; Start 12/26/16 at 09:30 KAYLA HUNTER Dec 26, 2016 10:33
--- NOTE | 2016-12-26 10:35 | EN ---
Date/Time of Note Date/Time of Note DATE: 12/26/16 TIME: 10:34 Event Note Medicine Medicine Event Note Central line placement. Patient with very poor peripheral IV access. Respiratory failure with profound shock. Procedure was deemed a medical emergency. Right femoral area was prepped in the usual sterile fashion. All sterile barrier precautions were undertaken. Right triple-lumen central venous line in the femoral vein was placed Via Seldinger technique without difficulty. KAYLA HUNTER Dec 26, 2016 10:35
[2016-12-26] MEDS: INSULIN HUMAN REGULAR 100 UNIT in SOD CHLORIDE 0.9% 99 ML IV SCH (10:50)
[2016-12-26] MEDS: [UNRECOGNIZED DRUG - REMARK] XX SCH (11:30)
--- NOTE | 2016-12-26 11:30 | RADRPT ---
PROCEDURE: US Renal CLINICAL INDICATION: Acute renal insufficiency. TECHNIQUE: Multiple sonographic images of the kidneys and bladder were obtained. Evaluation of th e kidneys and bladder was performed as well with valdez scale and color and Doppler evaluation using a curved array transducer. The images were reviewed on a high-resolution PACS workstation. COMPARISON: 10/11/2016. FINDINGS: The right kidney measures 10.2 cm. The left kidney measures 10.4 cm. There is normal echogenicity within the parenchyma of the kidneys bilaterally. There is mild left-sided hydronephrosis.. No perinephric fluid collection is seen. Pereyra catheter in the urinary bladder with small urine volume seen. IMPRESSION: 1. Left-sided hydronephrosis. 2. Pereyra catheter with the year and volume seen in the bladder. RPTAT: [facility] Physician Gypsy Date Time Electronically viewed and signed by Physician Gypsy on 12/26/2016 11:29 /
[2016-12-26] MEDS ORDERED: INSULIN ASPART [NOVOLOG] 3 ML PEN SC SCH (12:00)
[2016-12-26] MEDS: VASOPRESSIN 60 UNIT in SOD CHLORIDE 0.9% 57 ML IVPB SCH (12:00)
[2016-12-26] MEDS ORDERED: SODIUM BICARBONATE (IV ADD) 75 MEQ in SOD CHLORIDE 0.45% 1,000 ML IV SCH (13:00)
[2016-12-26] MEDS ORDERED: VASOPRESSIN IVPB SCH (13:00)
[2016-12-26] MEDS ORDERED: SOD CHLORIDE 0.9% IVPB SCH (13:00)
[2016-12-26] MEDS: SODIUM BICARBONATE (IV ADD) 75 MEQ in SOD CHLORIDE 0.45% 1,000 ML IV SCH ×2 (13:42→22:45)
[2016-12-26 14:09] LABS: HEMATOCRIT 26.8 % (37.0-47.0); HEMOGLOBIN 8.7 g/dl (12.0-16.0)
[2016-12-26] MEDS: ALBUTEROL 18 GM INHALER INH SCH ×3 (15:35→21:18)
--- NOTE | 2016-12-26 16:22 | RADRPT ---
Echocardiogram Report Patient Name: MAGDALENA ROSS Gender: Female Date: 1955 Study Date: 26-Dec-2016 Pay Station Collector: Jose Guadalupe Vuong RDCS Location: 120 Ref. Physician: MIGUELITO SAMPSON Quality: Limited Procedures: Transthoracic echocardiogram with complete 2D, M-Mode, and doppler examination. Indications: Hypotension. 2D/M Mode Doppler Measurement Value Normal Ranges Measurement Value Normal Ranges LVIDd 2D 2.5 3.5 - 5.6 cm AV Peak [place] 1.9 m/sec LVIDs 2D 1.4 2.1 - 4.1 cm AV Peak PG 14.0 mmHg FS 2D 44.2 % LVOT Peak [place] 1.2 m/sec LVPWd 2D 1.0 0.6 - 1.1 cm LVOT Peak PG 5.0 mmHg IVSd 2D 1.0 0.6 - 1.1 cm MV E Peak [place] 0.5 m/sec IVS/LVPW 2D 1.0 MV A Peak [place] 0.7 m/sec AoR Diam 2D 2.5 2.0 - 3.7 cm MV E/A 0.8 LA/Ao 2D 1 0 - 1 MV Decel Time 113 msec EDV 2D 15.8 cm3 MV E/A 0.8 ESV 2D 2.7 cm3 TR Peak [place] 2.2 m/sec LA Dimen 2D 2.7 2.3 - 4.0 cm TR Peak PG 20.0 mmHg RVSP 28.0 mmHg Findings Left Ventricle: Hyperdynamic left ventricular systolic function. Normal left ventricular cavity size. Normal left ventricular wall thickness. Ejection fraction is visually estimated at >70 %. Right Ventricle: Normal right ventricular size. Normal right ventricular systolic function. Left Atrium: The left atrium is normal in size. Right Atrium: The right atrium is normal in size. Mitral Valve: Normal appearance and function of the mitral valve with trace physiologic regurgitation. Aortic Valve: Normal appearance of the aortic valve. No significant aortic stenosis or insufficiency. Tricuspid Valve: Normal appearance of the tricuspid valve. Estimated peak PA systolic pressure 28 mmHg. There is trace tricuspid regurgitation. Pulmonic Valve: Pulmonic valve not well visualized. Pericardium: Normal pericardium with no significant pericardial effusion. Aorta: Not well visualized. IVC: The IVC is not well visualized. Conclusions 1.The left ventricle is normal in size with hyperdynamic systolic function. 2.Estimated left ventricular ejection fraction of >70%. Electronically Signed By: Rj Sanders 26-Dec-2016 16:21:53 -0700 Patient Name: MAGDALENA ROSS Study Date: 26-Dec-[id number]
[2016-12-26 16:24] LABS: ADD UMIC YES; UR ASCORBIC ACID NEGATIVE (NEGATIVE); UR BILIRUBIN (Dip) NEGATIVE (NEGATIVE); UR BLOOD (Dip) 1+ mg/dL (NEGATIVE); UR CLARITY SLIGHTLY CLOUDY (CLEAR); UR COLOR YELLOW (YELLOW); UR GLUCOSE (Dip) NEGATIVE (NEGATIVE); UR KETONES (Dip) NEGATIVE (NEGATIVE); UR LEUKOCYTE ESTERASE (Dip) NEGATIVE Leu/ul (NEGATIVE); UR NITRITE (Dip) NEGATIVE (NEGATIVE); UR RBC 4 /HPF (0-5); UR SPECIFIC GRAVITY (Dip) 1.021 (1.003-1.030); UR TOTAL PROTEIN (Dip) NEGATIVE (NEGATIVE); UR UROBILINOGEN (Dip) NEGATIVE (NEGATIVE)
[2016-12-26 16:36] LABS: AADO2 Arterial 244.6 mmHg (7.0-24.0); Arterial Base Excess -4.2 mmol/L (-3.0-3); Arterial COHb 0.2 % (0.0-3.0); Arterial HCO3 20.8 mmol/L (22.0-26.0); Arterial MetHb 0.4 % (0.0-1.5); Arterial Total Hemglobin 10.1 g/dl (12.0-18.0); MODE VENT - AC
[2016-12-26] MEDS ORDERED: LIDOCAINE 1% (MDV) 20 ML INJ ONE (16:51)
[2016-12-26] MEDS ORDERED: MIDAZOLAM 1 MG/ML 2 ML INJ ONE (16:52)
--- NOTE | 2016-12-26 17:03 | CONS ---
Date/Time of Note Date/Time of Note DATE: 12/26/16 TIME: 16:55 Assessment/Plan Assessment/Plan Chief Complaint/Hosp Course Assessment: Shock - likely septic Acute hypoxic respiratory failure - intubated and on mechanical ventilation Hematemesis and anemia - per gastroenterology, planning EGD Acute kidney injury Alcoholic liver cirrhosis Diabetes mellitus Recommendations: -intravenous fluid resuscitation -Levophed to keep MAP>65 -infection work up -echocardiogram showed LVEF>70% Problems: Consultation Date/Type/Reason Admit Date/Time Dec 22, 2016 at 22:41 Type of Consultation: Cardiology Reason for Consultation hypotension Hx of Present Illness The patient is a 61 year-old female who presented with altered mental status secondary to hepatic encephalopathy. There was also reports of hematemesis. During the hospitalization, the patient developed acute respiratory distress requiring intubation and mechanical ventilation. She also developed hypotension and was started on a Levophed drip. She had fever to 102 F. Abdominal ultrasound did not show any ascites. EKG showed sinus tachycardia without other abnormalities. Echocardiogram showed a hyperdynamic left ventricle. Unable to obtain review of systems, patient is intubated and sedated. Past Medical History Alcoholic liver cirrhosis Diabetes mellitus Incomplete data Past Surgical History Unable to obtain Family History Significant Family History: other (unable to obtain) Social History Unable to obtain Exam/Review of Systems Vital Signs Vitals Vital Signs Date Time Temp Pulse Resp B/P Pulse Ox O2 Delivery O2 Flow Rate FiO2 12/26/16 16:15 114 18 113/52 99 Mechanical Ventilator 12/26/16 16:00 99.5 12/26/16 05:20 50 12/25/16 15:07 2.0 Intake and Output 12/25/16 12/25/16 12/26/16 15:00 23:00 07:00 Intake Total 692.6 ml 1530.7 ml Output Total 1485 ml 225 ml Balance -792.4 ml 1305.7 ml Exam Constitutional: other (sedated), No alert Psych: No nl mood/affect, No no complaints Head: atraumatic, normocephalic Eyes: nl conjunctiva, nl lids ENMT: intubated Respiratory: clear to auscultation Cardiovascular: regular rate and rhythm Gastrointestinal: non-tender, soft Musculoskeletal: nl extremities to inspection Extremities: No clubbing, No cyanosis, No edema Neurological: No nl mental status, No nl speech Results Result Diagram: 12/26/16 1355 12/26/16 0440 Results 24 hrs Laboratory Tests Test 12/25/16 17:01 12/25/16 17:03 12/25/16 18:45 12/25/16 19:30 Blood Gas Specimen Source Blood arterial Blood arterial Arterial Blood Date Drawn 12/25/2016 6:00:23 PM 12/25/2016 7:45:24 PM Arterial Blood pH (Temp corrected) 7.557 *H 7.430 Arterial Blood pCO2 (Temp correct) 14.3 L 18.1 L Arterial Blood pO2 (Temp corrected) 75.9 L 173.7 H Arterial Blood HCO3 12.4 L 11.7 L Arterial Blood Base Excess -6.8 L -10.2 L Arterial Blood Oxygen Saturation 95.1 98.5 H Rene Test N/A N/A Arterial Blood Gas Puncture Site LB Right Brachial Arterial Blood Carboxyhemoglobin 0.3 0.2 Arterial Blood Methemoglobin 0.3 0.4 Blood Gas A-a O2 Differential 622.8 H 521.2 H Oxyhemoglobin Percent 94.5 97.9 Total Hemoglobin 12.8 12.2 Blood Gas Temperature 37.0 37.0 Blood Gas Actual Respiration Rate 40 33 Blood Gas Modality MASK - NRB VENT - AC FiO2 100.0 100.0 Blood Gas Critical Value Read Back [facility] Blood Gas Notified Whom JOSHUA CORBIN NZAKERI Blood Gas Notified Time 12/25/2016 6:12:48 PM 12/25/2016 8:05:42 PM Bedside Glucose 98 Hemoglobin 12.0 Hematocrit 34.5 L Blood Gas Respiration Rate 16.0 Blood Gas Tidal Volume 500.0 Blood Gas Low PEEP Setting 5.0 Test 12/25/16 21:00 12/25/16 23:52 12/26/16 02:03 12/26/16 04:40 Urine Color ALOK Urine Clarity CLEAR Urine pH 5.0 Urine Specific [place] 1.025 Urine Ketones NEGATIVE Urine Nitrite NEGATIVE Urine Bilirubin NEGATIVE Urine Urobilinogen 1+ H Urine Leukocyte Esterase NEGATIVE Urine Microscopic RBC 0 Urine Microscopic WBC 1 Urine Hemoglobin NEGATIVE Urine Glucose 1+ H Urine Total Protein NEGATIVE Bedside Glucose 208 265 H White Blood Count 23.2 H Red Blood Count 3.07 L Hemoglobin 10.8 L Hematocrit 33.5 L Mean Corpuscular Volume 109.1 H Mean Corpuscular Hemoglobin 35.2 H Mean Corpuscular Hemoglobin Concent 32.2 Red Cell Distribution Width 18.8 H Platelet Count 144 Mean Platelet Volume 11.9 H Neutrophils % 77.7 H Lymphocytes % 7.0 L Monocytes % 14.2 H Eosinophils % 0.1 Basophils % 0.1 Nucleated Red Blood Cells % 1.8 H Neutrophils # (Manual) 18.0 H Lymphocytes # 1.6 Monocytes # 3.3 H Eosinophils # 0.0 Basophils # 0.0 Nucleated Red Blood Cells # 0.4 H Sodium Level 148 H Potassium Level 4.0 Chloride Level 122 H Carbon Dioxide Level 12 L Anion Gap 18 H Blood Urea Nitrogen 82 H Creatinine 2.40 #H Glucose Level 416 #*H Calcium Level 8.3 L Total Bilirubin 0.7 Direct Bilirubin 0.00 Indirect Bilirubin 0.7 Aspartate Amino Transf (AST/SGOT) 69 H Alanine Aminotransferase (ALT/SGPT) 63 Alkaline Phosphatase 89 Ammonia 196 H Total Protein 5.5 #L Albumin 2.5 L Globulin 3.00 Albumin/Globulin Ratio 0.83 Test 12/26/16 05:28 12/26/16 08:06 12/26/16 09:15 12/26/16 09:16 Lab Scanned Report BLOOD TRANSFUSION Blood Gas Specimen Source Blood arterial Arterial Blood Date Drawn 12/26/2016 8:22:21 AM Arterial Blood pH (Temp corrected) 7.091 *L Arterial Blood pCO2 (Temp correct) 22.7 L Arterial Blood pO2 (Temp corrected) 78.3 L Arterial Blood HCO3 6.7 *L Arterial Blood Base Excess -21.4 L Arterial Blood Oxygen Saturation 88.1 L Rene Test ACCEPTAB Arterial Blood Gas Puncture Site Right Radial Arterial Blood Carboxyhemoglobin 0.3 Arterial Blood Methemoglobin 0.5 Blood Gas A-a O2 Differential 180.8 H Oxyhemoglobin Percent 87.4 L Total Hemoglobin 11.5 L Blood Gas Temperature 37.0 Blood Gas Respiration Rate 16.0 Blood Gas Actual Respiration Rate 34 Blood Gas Modality VENT - AC FiO2 40.0 Blood Gas Tidal Volume 500.0 Blood Gas Low PEEP Setting 5.0 Blood Gas Critical Value Read Back Mike PITT RN Blood Gas Notified Whom LULUD Blood Gas Notified Time 12/26/2016 8:33:42 AM Hemoglobin 9.6 L Hematocrit 28.3 L Prothrombin Time 23.1 #H Prothrombin Time Ratio 1.8 INR International Normalized Ratio 2.02 Activated Partial Thromboplast Time 38.7 H Test 12/26/16 10:43 12/26/16 12:05 12/26/16 13:55 12/26/16 13:59 Bedside Glucose 322 H 292 H 217 Hemoglobin 8.7 L Hematocrit 26.8 L Test 12/26/16 15:00 12/26/16 15:23 12/26/16 16:00 Urine Color YELLOW Urine Clarity SLIGHTLY CLOUDY A Urine pH 5.0 Urine Specific [place] 1.021 Urine Ketones NEGATIVE Urine Nitrite NEGATIVE Urine Bilirubin NEGATIVE Urine Urobilinogen NEGATIVE Urine Leukocyte Esterase NEGATIVE Urine Microscopic RBC 4 Urine Microscopic WBC 7 H Urine Hemoglobin 1+ H Urine Glucose NEGATIVE Urine Total Protein NEGATIVE Bedside Glucose 161 Blood Gas Specimen Source Blood arterial Arterial Blood Date Drawn 12/26/2016 4:30:10 PM Arterial Blood pH (Temp corrected) 7.360 Arterial Blood pCO2 (Temp correct) 37.6 Arterial Blood pO2 (Temp corrected) 69.6 L Arterial Blood HCO3 20.8 L Arterial Blood Base Excess -4.2 L Arterial Blood Oxygen Saturation 91.5 L Rene Test N/A Arterial Blood Gas Puncture Site Right Brachial Arterial Blood Carboxyhemoglobin 0.2 Arterial Blood Methemoglobin 0.4 Blood Gas A-a O2 Differential 244.6 H Oxyhemoglobin Percent 91.0 L Total Hemoglobin 10.1 L Blood Gas Temperature 37.0 Blood Gas Respiration Rate 16.0 Blood Gas Actual Respiration Rate 19 Blood Gas Modality VENT - AC FiO2 50.0 Blood Gas Tidal Volume 500.0 Blood Gas Low PEEP Setting 5.0 Blood Gas Notified Whom [place] Blood Gas Notified Time 12/26/2016 4:35:52 PM Medications Medications Current Medications Ondansetron HCl (Zofran Inj) 4 mg Q6H PRN IV NAUSEA AND/OR VOMITING; Start 01/29 at 01:00 Acetaminophen (Tylenol Tab) 650 mg Q6H PRN PO PAIN LEVEL 1-3 OR FEVER Last administered on 12/26/16 04:30; Admin Dose 650 MG; Start 12/23/16 at 01:00 Ferrous Sulfate (Ferrous Sulfate (Ec)) 325 mg BID PO Last administered on 21:00; Admin Dose 325 MG; Start 12/23/16 at 09:00 Propranolol HCl (Inderal) 10 mg BID PO Last administered on 12/25/16 10:20; Admin Dose 10 MG; Start 12/23/16 at 01:30; Status Future Hold Docusate Sodium (Colace) 100 mg DAILY PO Last administered on 12/25/16 10:19; Admin Dose 100 MG; Start 12/23/16 at 09:00 Miscellaneous Information 1 ea 1 ea NOTE XX ; Start 12/23/16 at 02:30 Octreotide Acetate/Sodium Chloride (Sandostatin/NS) 50 ml @ 2.5 mls/hr Q20H IV Last administered on 12/26/16 04:11; Admin Dose 2.5 MLS/HR; Start 12/23/16 at 10:15 Furosemide (Lasix) 40 mg DAILY PO Last administered on 12/25/16 10:20; Admin Dose 40 MG; Start 12/24/16 at 09:00; Status Future Hold Rifaximin (Xifaxan) 550 mg BID PO Last administered on 12/25/16 21:00; Admin Dose 550 MG; Start 12/24/16 at 21:00 Lactulose 30 gm 30 gm Q6H PRN PO CONSTIPATION Last administered on 12/25/16 16 :13; Admin Dose 30 GM; Start 12/25/16 at 16:00 Propofol (Diprivan) 100 ml @ 1.65 mls/hr TITRATE ONCE IV Last administered on 12/25/16 19:13; Admin Dose 1.65 MLS/HR; Start 12/25/16 at 18:30; Stop at 07:06 Lactulose 30 gm 30 gm Q6 NGT Last administered on 12/26/16 12:50; Admin Dose 30 GM; Start 12/26/16 at 06:00 Pantoprazole 80 mg/Sodium Chloride 100 ml @ 10 mls/hr Q10H IV Last administered on 12/26/16 12:40; Admin Dose 10 MLS/HR; Start 12/25/16 at 19:30 Fentanyl (Sublimaze) 100 ml @ 2.5 mls/hr TITRATE IV Last administered on 11:15; Admin Dose 10 MLS/HR; Start 12/25/16 at 19:00 Eye Lubricant 1 applic 1 applic Q4 BOTH EYES Last administered on 12/26/16 13: 18; Admin Dose 1 APPLIC; Start 12/25/16 at 21:00 Norepinephrine 16 mg/Dextrose 500 ml @ 1.87 mls/hr TITRATE IV Last administered on 12/26/16 06:22; Admin Dose 28.12 MLS/HR; Start 12/26/16 at 03: 00 Piperacillin Sod/ Tazobactam Sod 100 ml @ 100 mls/hr Q8 IVPB Last administered on 12/26/16 14:39; Admin Dose 100 MLS/HR; Start 12/26/16 at 06:30 Levetiracetam (Keppra 500 Mg/ 100ml (Pmx)) 100 ml @ 400 mls/hr Q12 IVPB ; Start 12/26/16 at 21:00 Diagnostic Test (Pha) (Accu-Chek) 1 ea Q1H XX Last administered on 12/26/16 16 :19; Admin Dose 1 EA; Start 12/26/16 at 09:30 Dextrose (D50w Syringe) 25 ml Q15M PRN IV Till BS 80 mg/dL or above x2; Start 12/26/16 at 09:30 Dextrose (D50w Syringe) 50 ml Q15M PRN IV Till BS 80 mg/dL or above x2; Start 12/26/16 at 09:30 Lorazepam (Ativan) 1 mg Q2 PRN IV Seizures; Start 12/26/16 at 09:30 Miscellaneous Information Q24H XX ; Start 12/26/16 at 11:30 Sodium Bicarbonate 75 meq/Sodium Chloride 1,075 ml @ 100 mls/hr [id number] IV Last administered on 12/26/16 13:42; Admin Dose 100 MLS/HR; Start 12/26/16 at 13:00 Vasopressin/ Sodium Chloride (Vasostrict/NS) 60 ml @ 0 mls/hr Q12H IVPB ; Start 12/26/16 at 12:00 Procedures Procedures Critical care time: >35 minutes at bedside TRISTAN UGARTE MD Dec 26, 2016 17:03
--- NOTE | 2016-12-26 18:09 | OPPN ---
Date/Time of Note Date/Time of Note DATE: 12/26/16 TIME: 18:03 Proc Note GI Procedure date: Dec 26, 2016 Pre-procedure Diagnosis * GI bleeding/hematemesis Post-procedure Diagnosis Assessment: * Grade IV/IV esophageal varices * Post endoscopic variceal ligation 4 * Severe portal hypertensive gastropathy Plan: * Continue present regimen with Protonix and octreotide drip * Close monitor H&H every 6 hours transfuse for hemoglobin less than 7.5 * Continue general supportive measures * Prognosis appears poor Operation Performed * EGD with endoscopic variceal ligation Surgeon: EDI MCLAUGHLIN MD Anesthesia Type: MAC Anesthesiologist: CARMEN VANCE DO Estimated blood loss: none Transfusion Required: no Specimen: none Grafts/Implants: none Complications 2 frontal teeth that were acknowledge very loose fell off with insertion of bite -block. Patient was made aware prior to the procedure and it is consider best outcome as loose teeth may dislodge and created further problems especially with the patient altered mental status Pt Condition post procedure: critical Disposition: other (ICU) Procedure Description After informed consent, with the patient/relatives understanding the procedure, its indications, potential risks and complications, including but not limited to : allergic reaction, bleeding, perforation or infection, and after all pertinent questions were answered to the patients satisfaction, the patient/ relatives signed witnessed informed consent. Following this, premedication was administered slowly IV push under careful cardiovascular and respiratory monitoring with pulse oximetry, automatic blood pressure, and vehicle monitor technician. Once the sedative effect was achieved the patient was place in the left lateral decubitus, the panendoscope was introduced and advanced under visual control. Careful examination of the upper gastrointestinal tract, both on insertion as well as withdrawal of the instrument disclosing the following findings: ESOPHAGUS: the mucosa of the entire esophagus was carefully examined and showed the following findings: There are large grade IV/IV esophageal varices with stigmata recent bleeding. Endoscopic variceal ligation 4 was applied at completion of the examination. Otherwise the mucosa appears within normal limits. There is no evidence of esophagitis, neoplasm, or stricture. No Hiatal Hernia identified. STOMACH: Upon entrance to the stomach air was insufflated, the gastric dupree distended normally. The mucosa of the fundus, body and antrum of the stomach was carefully examined both head-on and on retroflexion, and showed the following findings: There is severe erythema, congestion and submucosal hemorrhagic changes in the stomach more significant proximal stomach suggestive of portal hypertensive gastropathy. No fundal gastric varices are present. Otherwise the mucosa appears within normal limits with no abnormalities. There is no evidence of ulcers or neoplasm. PYLORUS: The pylorus was carefully examined and showed the following findings: the pylorus appears patent and within normal limits, with no evidence of gastric outlet obstruction. DUODENUM: The duodenal mucosa was carefully examined in the duodenal bulb as well as the second portion of the duodenum and showed the following findings: the mucosa appears unremarkable with no evidence of duodenitis, ulcer or neoplasm. EDI MCLAUGHLIN MD Dec 26, 2016 18:09
[2016-12-26 18:32] LABS: HEMATOCRIT 26.6 % (37.0-47.0); HEMOGLOBIN 8.6 g/dl (12.0-16.0)
[2016-12-26] MEDS: LEVETIRACETAM 500 MG (PMX) 100 ML IVPB SCH (20:08)
[2016-12-26] MEDS: DEXTROSE 50% 50 ML SYRINGE IV PRN (22:30)
[2016-12-27] VITALS (100 sets, daily range): BP systolic 78–128; BP diastolic 41–67; PULSE 100–117; RESP 13–25
[2016-12-27] MEDS: ACCU-CHEK XX SCH ×25 (00:03→23:46)
[2016-12-27] MEDS: LACTULOSE 30ML CUP NGT SCH ×5 (00:03→23:42)
[2016-12-27] MEDS: OCULAR LUBRICANT 3.5 GM OPH OINT BOTH EYES SCH ×6 (00:39→21:30)
[2016-12-27 01:09] LABS: HEMATOCRIT 25.4 % (37.0-47.0); HEMOGLOBIN 8.3 g/dl (12.0-16.0)
[2016-12-27] MEDS: IPRATROPIUM (HFA) 12.9 GM INHALER INH SCH ×6 (01:42→21:27)
[2016-12-27] MEDS: ALBUTEROL 18 GM INHALER INH SCH ×6 (01:42→21:27)
[2016-12-27] MEDS: VASOPRESSIN 60 UNIT in SOD CHLORIDE 0.9% 57 ML IVPB SCH ×5 (03:18→20:00)
[2016-12-27] MEDS: DEXTROSE 50% 50 ML SYRINGE IV PRN ×2 (03:35→11:52)
[2016-12-27 05:21] LABS: ABNORMAL IP MESSAGE 1; HEMATOCRIT 25.2 % (37.0-47.0); HEMOGLOBIN 8.5 g/dl (12.0-16.0); MEAN CORPUSCULAR HEMOGLOBIN 35.6 pg (29.0-33.0); MEAN CORPUSCULAR HGB CONC 33.7 g/dl (32.0-37.0); MEAN CORPUSCULAR VOLUME 105.4 fl (82.0-101.0); MEAN PLATELET VOLUME 12.2 fl (7.4-10.4); NUCLEATED RED BLOOD CELLS% 1.7 /100WBC (0.0-0.0); PLATELET COUNT 55 10^3/UL (140-415); RED BLOOD COUNT 2.39 10^6/ul (4.20-5.40); RED CELL DISTRIBUTION WIDTH 17.9 % (11.5-14.5); WHITE BLOOD COUNT 13.2 10^3/ul (4.8-10.8)
[2016-12-27 05:37] LABS: POSITIVE DIFF @See below
[2016-12-27] MEDS: PIPER-TAZO 3.375 GM IV (PMX) 100 ML IVPB SCH ×3 (05:37→21:30)
[2016-12-27 05:38] LABS: ALBUMIN 2.4 g/dl (3.3-4.9); ALBUMIN/GLOBULIN RATIO 0.85; BILIRUBIN,DIRECT 0.8 mg/dl (0.00-0.20); BILIRUBIN,INDIRECT 1.2 mg/dl (0-1.1); CALCIUM 7.5 mg/dl (8.4-10.2); CREATININE 1.55 mg/dl (0.44-1.00); MAGNESIUM 2.4 mg/dl (1.7-2.5); TOTAL PROTEIN 5.2 g/dl (6.1-8.1)
[2016-12-27 06:05] LABS: POTASSIUM 2.2 mmol/L (3.5-5.1)
[2016-12-27] MEDS ORDERED: POTASSIUM CHLORIDE 250 ML IVPB SCH (06:30)
[2016-12-27] MEDS ORDERED: POTASSIUM CHLORIDE (SR) 20 MEQ TAB PO ONE ×2 (06:45→06:47)
[2016-12-27] MEDS ORDERED: POTASSIUM CHLORIDE 20 MEQ POWDER FOR ORAL SOLN ONE (06:47)
[2016-12-27 06:54] LABS: AADO2 Arterial 278.2 mmHg (7.0-24.0); Allen Test ACCEPTAB; Arterial COHb 0.2 % (0.0-3.0); Arterial Fraction of Oxyhgb 98.1 % (93.0-99.0); Arterial HCO3 23.4 mmol/L (22.0-26.0); Arterial MetHb 0.4 % (0.0-1.5); Arterial Total Hemglobin 9.4 g/dl (12.0-18.0); MODE VENT - AC
[2016-12-27] MEDS ORDERED: POTASSIUM CHLORIDE 250 ML IVPB ONE ×2 (07:00→14:00)
--- NOTE | 2016-12-27 07:35 | CONS ---
DATE OF ADMISSION: 12/22/2016 DATE OF CONSULTATION: 12/26/2016 REASON FOR CONSULTATION: Acute kidney injury. HISTORY OF PRESENT ILLNESS: This is a 61-year-old female with a past medical history of end-stage liver disease, advanced cirrhosis, history of depression, history of diabetes, who presents to [facility] with worsening mental status and confusion. The patient in the Emergency room was noted to be altered. [place] to have hepatic encephalopathy, and she has had markedly elevated ammonia level. The patient was given lactulose, and she was admitted to the floor. While on the floor the patient became obtunded, and as a result was intubated and admitted to intensive care unit. On the Intensive Care Unit the patient was noted to have gross bleeding from the rectal tube. The patient was noted to be critically ill and hypertensive on presser support. Patient's renal history, the patient had normal renal function. On admission, currently elevated creatinine 2.40. Urinary output has been marginal. PAST MEDICAL HISTORY: As stated above. History of diabetes and cirrhosis. PAST SURGICAL HISTORY: Bilateral cataract surgery. FAMILY HISTORY: Noncontributory. SOCIAL HISTORY: Previous history of alcohol abuse. MEDICATION: Reviewed. REVIEW OF SYSTEMS: Unable to do adequate review of systems patient is obtunded. Pertinent positives as stated in HPI, as obtained by review of medical records and speaking to hospital staff. PHYSICAL EXAMINATION: VITAL SIGNS: Blood pressure is 105/56, respiration 25, pulse 113, temperature 100.4. GENERAL: The patient is critical, and obtunded. HEENT: Head is normocephalic. Pupils are reactive. NECK: Supple. CARDIAC: Heart is tachycardic. LUNGS: Diminished breath sounds at the base. ABDOMEN: Soft, nontender to palpation. EXTREMITIES: Negative for clubbing, cyanosis. No edema. DERMATOLOGIC: No rashes. MUSCULOSKELETAL: No joint effusion. NEUROLOGIC: Limited exam as patient is obtunded. LABORATORY: Sodium 140, potassium 4, chloride 112, bicarb 12, BUN is 82, creatinine 2.40. ABG shows a pH 7.09, PCO2 22, base excess 21. White count 23.2, hemoglobin 8.8, hematocrit 33.5, platelet count is 144,000. IMAGING STUDIES: Reviewed. Chest x-ray shows atelectasis. IMPRESSION AND PLAN: This is a 61-year-old female who presents with: 1. Nonoliguric acute kidney injury, with previously normal baseline creatinine. Etiology of acute kidney injury secondary to acute tubular necrosis, due to septic acute kidney injury, acute tubular necrosis, ischemic hypoperfusion. Plan at this point is to continue current medical management. Continue IV hydration. Continue pressor support. Maintain 55. Continue antibiotic therapy. Will repeat urinalysis. Initial urinalysis was . Check renal ultrasound. 2. Hyponatremia secondary to insensible losses. Patient has a free water deficit of 2 liters. Continue D5 water. 3. Severe anion gap metabolic acidosis. Etiology secondary to acute kidney injury. Possible lactic acidosis. Plan is to start bicarbonate drip. Half normal saline with 1.5 ampules of bicarb drip. Will repeat an ABG. 4. Anemia. Monitor hemoglobin and hematocrit levels. 5. Mineral bone disorder. Monitor calcium and phosphorus levels. 6. Ventilatory-dependent respiratory failure. Ventilator settings reviewed. Arterial blood gases reviewed. Continue to monitor. Follow up with pulmonary. 7. Septic shock. Underlying source unclear. Possible gastrointestinal. Continue current antibiotic regimen. 8. End-stage cirrhosis with active gastrointestinal bleed. The patient is being followed by gastroenterology. Continue Protonix. 9. Encephalopathy. Etiology is secondary to hepatic toxic metabolic. Continue to monitor. Follow up with Neurology. 10. Diabetes. Continue Accu-Chek, insulin drip. Thank you, Dr. Shearer, for this interesting consult. It will be a pleasure to follow patient with you throughout the hospital course. Dictated By: Will Gonzales DO /[email or web address]/olya /Document#: [id number]
--- NOTE | 2016-12-27 07:37 | PN ---
DATE: 12/27/2016 SUBJECTIVE DATA: The patient remains critically ill, on pressor support. The patient's urinary output has been adequate. No other events noted. OBJECTIVE DATA: VITAL SIGNS: Blood pressure is 103/51, respirations 15, pulse 110, temperature 98.4. HEENT: Head is normocephalic. NECK: Supple. HEART: Regular rate. LUNGS: Showed diminished breath sounds at the base. ABDOMEN: Soft, nontender to palpation. No rebound or guarding. EXTREMITIES: Negative for clubbing, cyanosis. No edema. DERMATOLOGIC: Clean. No rashes. MUSCULOSKELETAL: No joint effusion. NEUROLOGIC: No change in exam. MEDICATIONS: Reviewed. LABORATORY AND DIAGNOSTIC DATA: Shows sodium 153, potassium 3.2, BUN 65, creatinine 1.55. Magnesium 2.4. White count 13.2, hemoglobin 8.5, crit 25.2, platelet count is 55. The patient's renal ultrasound shows left-sided hydronephrosis, mild. ASSESSMENT AND PLAN: 1. Nonoliguric acute kidney injury with a previously known baseline creatinine. Etiology is secondary to acute kidney injury, sepsis. The patient's renal function has improved in the last 24 hours with adequate urinary output. At this point, continue current treatment plan. Continue supportive care. Continue pressor support. 2. Hypokalemia. Etiology is multifactorial secondary to alkalemia causing transcellular shift and a body total body deficit. We will replete with potassium chloride. Discontinue bicarbonate drip. We will monitor serial potassium levels. 3. Hyponatremia. Patient has a free water deficit of approximately 2 L. We will start the patient on hypotonic fluid. Monitor serum sodium levels. 4. Alkalemia. Etiology secondary to bicarb drip, as well as respiratory alkalosis. ABG was reviewed. We will discontinue bicarbonate drip. Follow up will repeat ABG in 4 hours. 5. Anemia. Monitor H and H levels. 6. Mineral bone disorder. Monitor calcium and phosphorus levels. 7. Septic shock. Continue current antibiotics. Continue pressor support. Cultures have been reviewed. 8. Ventilatory-dependent respiratory failure. Vent settings and ABGs have been reviewed. 9. End-stage liver disease, cirrhosis. The patient is decompensated. Follow up with GI. 10. Hematemesis, active bleeding. Continue time Protonix drip. Follow up with GI for further recommendations. 11. Seizure disorder. Continue current medical management. Please note, I spent over 30 minutes of critical care time with this patient. Dictated By: Will Gonzales DO /[email or web address]/zev /Document#: [id number]
[2016-12-27] MEDS: SOD CHLORIDE 0.45% 1,000 ML IV SCH ×2 (07:38→17:57)
[2016-12-27] MEDS: FERROUS SULFATE (EC) 325 MG TAB PO SCH ×2 (08:01→20:29)
[2016-12-27] MEDS: DOCUSATE SODIUM 100 MG CAP PO SCH (08:01)
[2016-12-27] MEDS: ACETAMINOPHEN 325 MG TAB PO PRN ×2 (08:01→21:00)
[2016-12-27] MEDS: RIFAXIMIN 550 MG TAB PO SCH ×2 (08:02→20:29)
[2016-12-27] MEDS: LEVETIRACETAM 500 MG (PMX) 100 ML IVPB SCH ×2 (08:03→20:29)
[2016-12-27 08:15] LABS: ANISOCYTOSIS 1+ (0-0); EOSINOPHILS % (M) 3 % (0-7); ERYTHROBLAST% (NRBC) (M) 2 % (0-0); GIANT THROMBO% (M) 1 % (0-0); MONOCYTES % (M) 4 % (0-11); MYELOCYTES % (M) 4 % (0-0); PLATELET ESTIMATE DECREASED; POLYCHROMASIA 2+ (0-0)
[2016-12-27] MEDS: PANTOPRAZOLE IV 80 MG in SOD CHLORIDE 0.9% 100 ML IV SCH ×2 (08:29→20:03)
--- NOTE | 2016-12-27 09:29 | CONS ---
Date/Time of Note Date/Time of Note DATE: 12/27/16 TIME: 09:25 Consult Date/Type/Reason Admit Date/Time Dec 22, 2016 at 22:41 Initial Consult Date 12/26/16 Type of Consultation: Pulmonary critical care Ordering Provider: DANNY ROSAS Subjective Remains intubated sedated on mechanical ventilation, multiple vasopressors and octreotide drip. Status post endoscopy demonstrated grade 4 esophageal varices status post ligation Objective Vital Signs Date Time Temp Pulse Resp B/P Pulse Ox O2 Delivery O2 Flow Rate FiO2 12/27/16 08:00 106 12/27/16 07:45 100.3 12/27/16 07:30 16 112/49 100 12/27/16 05:15 70 12/26/16 20:00 Mechanical Ventilator 12/25/16 15:07 2.0 Intake and Output 12/26/16 12/26/16 12/27/16 15:00 23:00 07:00 Intake Total 1222.00 ml 1666.60 ml 1228.4 ml Output Total 1160 ml 410 ml 800 ml Balance 62.00 ml 1256.60 ml 428.4 ml Exam PHYSICAL EXAMINATION GENERAL: Chronically ill-appearing lady intubated on mechanical ventilation appears comfortable VITAL SIGNS: see below. HEENT: Pupils equal, round, and reactive to light. CARDIAC: S1, S2, 1/6 systolic ejection murmur CHEST: Diminished air entry bilaterally. ABDOMEN: Mildly distended. Bowel sounds present no guarding or rebound EXTREMITIES: No cyanosis, clubbing edema +1 NEUROLOGIC: Generalized weakness Results/Medications Result Diagram: 12/27/16 0400 12/27/16 0400 Results 24 hrs Laboratory Tests Test 12/26/16 10:43 12/26/16 12:05 12/26/16 13:55 12/26/16 13:59 Bedside Glucose 322 H 292 H 217 Hemoglobin 8.7 L Hematocrit 26.8 L Test 12/26/16 15:00 12/26/16 15:23 12/26/16 16:00 12/26/16 17:23 Urine Color YELLOW Urine Clarity SLIGHTLY CLOUDY A Urine pH 5.0 Urine Specific [place] 1.021 Urine Ketones NEGATIVE Urine Nitrite NEGATIVE Urine Bilirubin NEGATIVE Urine Urobilinogen NEGATIVE Urine Leukocyte Esterase NEGATIVE Urine Microscopic RBC 4 Urine Microscopic WBC 7 H Urine Hemoglobin 1+ H Urine Random Creatinine 78.28 Urine Random Sodium < 13 L Urine Glucose NEGATIVE Urine Total Protein 19.0 H Bedside Glucose 161 116 Blood Gas Specimen Source Blood arterial Arterial Blood Date Drawn 12/26/2016 4:30:10 PM Arterial Blood pH (Temp corrected) 7.360 Arterial Blood pCO2 (Temp correct) 37.6 Arterial Blood pO2 (Temp corrected) 69.6 L Arterial Blood HCO3 20.8 L Arterial Blood Base Excess -4.2 L Arterial Blood Oxygen Saturation 91.5 L Rene Test N/A Arterial Blood Gas Puncture Site Right Brachial Arterial Blood Carboxyhemoglobin 0.2 Arterial Blood Methemoglobin 0.4 Blood Gas A-a O2 Differential 244.6 H Oxyhemoglobin Percent 91.0 L Total Hemoglobin 10.1 L Blood Gas Temperature 37.0 Blood Gas Respiration Rate 16.0 Blood Gas Actual Respiration Rate 19 Blood Gas Modality VENT - AC FiO2 50.0 Blood Gas Tidal Volume 500.0 Blood Gas Low PEEP Setting 5.0 Blood Gas Notified Whom [place] Blood Gas Notified Time 12/26/2016 4:35:52 PM Test 12/26/16 18:14 12/26/16 18:17 12/26/16 19:41 12/26/16 20:35 Hemoglobin 8.6 L Hematocrit 26.6 L Bedside Glucose 85 73 71 Test 12/26/16 21:28 12/26/16 22:24 12/26/16 22:43 12/26/16 23:44 Bedside Glucose 72 69 L 137 106 Test 12/27/16 00:49 12/27/16 00:59 12/27/16 03:39 12/27/16 04:00 Bedside Glucose 88 110 Hemoglobin 8.3 L 8.5 L Hematocrit 25.4 L 25.2 L White Blood Count 13.2 #H Red Blood Count 2.39 #L Mean Corpuscular Volume 105.4 H Mean Corpuscular Hemoglobin 35.6 H Mean Corpuscular Hemoglobin Concent 33.7 Red Cell Distribution Width 17.9 H Platelet Count 55 #L Mean Platelet Volume 12.2 H Neutrophils % Segmented Neutrophils % (Manual) 70 Band Neutrophils % (Manual) 8 H Lymphocytes % Lymphocytes % (Manual) 11 L Monocytes % Monocytes % (Manual) 4 Eosinophils % Eosinophils % (Manual) 3 Basophils % Myelocytes % (Manual) 4 H Nucleated Red Blood Cells % 2 H Neutrophils # Neutrophils # (Manual) 9.4 H Band Neutrophils # 1.0 H Absolute Lymphocytes (Manual) 1.4 Lymphocytes # Monocytes # Absolute Monocytes (Manual) 0.5 Eosinophils # Basophils # Myelocytes # 0.5 H Nucleated Red Blood Cells # Platelet Estimate DECREASED Giant Platelets 1 H Polychromasia 2+ Anisocytosis 1+ Sodium Level 153 H Potassium Level 2.2 *L Chloride Level 118 H Carbon Dioxide Level 26 # Anion Gap 11 # Blood Urea Nitrogen 65 H Creatinine 1.55 H Glucose Level 118 # Calcium Level 7.5 L Magnesium Level 2.4 Total Bilirubin 2.0 H Direct Bilirubin 0.80 #H Indirect Bilirubin 1.2 H Aspartate Amino Transf (AST/SGOT) 133 H Alanine Aminotransferase (ALT/SGPT) 75 H Alkaline Phosphatase 78 Total Protein 5.2 L Albumin 2.4 L Globulin 2.80 Albumin/Globulin Ratio 0.85 Test 12/27/16 04:44 12/27/16 05:00 12/27/16 05:35 12/27/16 06:09 Bedside Glucose 131 90 Phosphorus Level 3.8 Lab Scanned Report BLOOD TRANSFUSION Test 12/27/16 06:35 12/27/16 06:44 12/27/16 07:42 12/27/16 08:42 Bedside Glucose 93 77 83 Blood Gas Specimen Source Blood arterial Arterial Blood Date Drawn 12/27/2016 6:40:45 AM Arterial Blood pH (Temp corrected) 7.520 H Arterial Blood pCO2 (Temp correct) 29.3 L Arterial Blood pO2 (Temp corrected) 189.4 H Arterial Blood HCO3 23.4 Arterial Blood Base Excess 1.0 Arterial Blood Oxygen Saturation 98.7 H Rene Test ACCEPTAB Arterial Blood Gas Puncture Site Right Radial Arterial Blood Carboxyhemoglobin 0.2 Arterial Blood Methemoglobin 0.4 Blood Gas A-a O2 Differential 278.2 H Oxyhemoglobin Percent 98.1 Total Hemoglobin 9.4 L Blood Gas Temperature 37.0 Blood Gas Respiration Rate 16.0 Blood Gas Actual Respiration Rate 22 Blood Gas Modality VENT - AC FiO2 70.0 Blood Gas Tidal Volume 500.0 Blood Gas Low PEEP Setting 5.0 Blood Gas Notified Whom [place] Blood Gas Notified Time 12/27/2016 6:54:30 AM Medications Current Medications Ondansetron HCl (Zofran Inj) 4 mg Q6H PRN IV NAUSEA AND/OR VOMITING; Start 01/29 at 01:00 Acetaminophen (Tylenol Tab) 650 mg Q6H PRN PO PAIN LEVEL 1-3 OR FEVER Last administered on 12/27/16 08:01; Admin Dose 650 MG; Start 12/23/16 at 01:00 Ferrous Sulfate (Ferrous Sulfate (Ec)) 325 mg BID PO Last administered on 08:01; Admin Dose 325 MG; Start 12/23/16 at 09:00 Propranolol HCl (Inderal) 10 mg BID PO Last administered on 12/25/16 10:20; Admin Dose 10 MG; Start 12/23/16 at 01:30; Status Future Hold Docusate Sodium (Colace) 100 mg DAILY PO Last administered on 12/27/16 08:01; Admin Dose 100 MG; Start 12/23/16 at 09:00 Miscellaneous Information 1 ea 1 ea NOTE XX ; Start 12/23/16 at 02:30 Octreotide Acetate/Sodium Chloride (Sandostatin/NS) 50 ml @ 2.5 mls/hr Q20H IV Last administered on 12/26/16 04:11; Admin Dose 2.5 MLS/HR; Start 12/23/16 at 10:15 Furosemide (Lasix) 40 mg DAILY PO Last administered on 12/25/16 10:20; Admin Dose 40 MG; Start 12/24/16 at 09:00; Status Future Hold Rifaximin (Xifaxan) 550 mg BID PO Last administered on 12/27/16 08:02; Admin Dose 550 MG; Start 12/24/16 at 21:00 Lactulose 30 gm 30 gm Q6H PRN PO CONSTIPATION Last administered on 12/25/16 16 :13; Admin Dose 30 GM; Start 12/25/16 at 16:00 Propofol (Diprivan) 100 ml @ 1.65 mls/hr TITRATE ONCE IV Last administered on 12/25/16 19:13; Admin Dose 1.65 MLS/HR; Start 12/25/16 at 18:30; Stop at 07:06 Lactulose 30 gm 30 gm Q6 NGT Last administered on 12/27/16 05:37; Admin Dose 30 GM; Start 12/26/16 at 06:00 Pantoprazole 80 mg/Sodium Chloride 100 ml @ 10 mls/hr Q10H IV Last administered on 12/27/16 08:29; Admin Dose 10 MLS/HR; Start 12/25/16 at 19:30 Fentanyl (Sublimaze) 100 ml @ 2.5 mls/hr TITRATE IV Last administered on 20:10; Admin Dose 10 MLS/HR; Start 12/25/16 at 19:00 Eye Lubricant 1 applic 1 applic Q4 BOTH EYES Last administered on 12/27/16 08: 03; Admin Dose 1 APPLIC; Start 12/25/16 at 21:00 Norepinephrine 16 mg/Dextrose 500 ml @ 1.87 mls/hr TITRATE IV Last administered on 12/27/16 08:28; Admin Dose 15 MLS/HR; Start 12/26/16 at 03:00 Piperacillin Sod/ Tazobactam Sod 100 ml @ 100 mls/hr Q8 IVPB Last administered on 12/27/16 05:37; Admin Dose 100 MLS/HR; Start 12/26/16 at 06:30 Levetiracetam (Keppra 500 Mg/ 100ml (Pmx)) 100 ml @ 400 mls/hr Q12 IVPB Last administered on 12/27/16 08:03; Admin Dose 400 MLS/HR; Start 12/26/16 at 21:00 Diagnostic Test (Pha) (Accu-Chek) 1 ea Q1H XX Last administered on 12/27/16 08 :42; Admin Dose 1 EA; Start 12/26/16 at 09:30 Dextrose (D50w Syringe) 25 ml Q15M PRN IV Till BS 80 mg/dL or above x2 Last administered on 12/27/16 03:35; Admin Dose 25 ML; Start 12/26/16 at 09:30 Dextrose (D50w Syringe) 50 ml Q15M PRN IV Till BS 80 mg/dL or above x2; Start 12/26/16 at 09:30 Lorazepam (Ativan) 1 mg Q2 PRN IV Seizures; Start 12/26/16 at 09:30 Miscellaneous Information Q24H XX ; Start 12/26/16 at 11:30 Vasopressin 60 unit/Sodium Chloride 60 ml @ 0 mls/hr Q12H IVPB Last administered on 12/27/16 08:29; Admin Dose 2.4 MLS/HR; Start 12/26/16 at 12:00 Potassium Chloride 250 ml @ 62.5 mls/hr ONCE ONCE IVPB Last administered on 06:30; Admin Dose 62.5 MLS/HR; Start 12/27/16 at 07:00; Stop 12/27/16 at 10:59 Sodium Chloride (1/2 NS) 1,000 ml @ 100 mls/hr Q10H IV Last administered on 07:38; Admin Dose 100 MLS/HR; Start 12/27/16 at 07:00 Assessment/Plan Chief Complaint/Hosp Course Assessment 1. Massive GI bleed secondary to esophageal varices 2. Hypovolemic and likely septic shock. 3. History of cirrhosis with portal hypertension 4. Thrombocytopenia likely secondary to liver disease 5. Renal insufficiency possible ATN injury versus hepatorenal syndrome. 6. Hyper natremia and hypokalemia 7. Acute hypoxemic respiratory failure secondary to above Plan 1. Continue octreotide drip 2. Continue proton pump inhibitor 3. Decrease vasopressors as tolerated 4. Consider increasing free water 5. Continue mechanical ventilation Critical care time 40 minutes. Problems: JÚNIOR AGUILERA MD, [facility] Dec 27, 2016 09:29
[2016-12-27] MEDS: [UNRECOGNIZED DRUG - REMARK] XX SCH (10:52)
[2016-12-27 11:33] LABS: HEMATOCRIT 25.4 % (37.0-47.0); HEMOGLOBIN 8.6 g/dl (12.0-16.0)
--- NOTE | 2016-12-27 11:45 | CONS ---
Date/Time of Note Date/Time of Note DATE: 12/27/16 TIME: 11:42 Assessment/Plan Assessment/Plan Additional Assessment/Plan Chart reviewed Sepsis Encephalopathy Cirrhosis [facility] Spoke with [facility] ... setting up a family conference hopefully tomorrow a. m. Full PC note to follow Consultation Date/Type/Reason Admit Date/Time Dec 22, 2016 at 22:41 Psychological: No nl mood/affect, No no complaints Exam/Review of Systems Vital Signs Vitals Vital Signs Date Time Temp Pulse Resp B/P Pulse Ox O2 Delivery O2 Flow Rate FiO2 12/27/16 08:00 106 12/27/16 07:45 100.3 12/27/16 07:30 16 112/49 100 12/27/16 05:15 70 12/26/16 20:00 Mechanical Ventilator 12/25/16 15:07 2.0 Intake and Output 12/26/16 12/26/16 12/27/16 15:00 23:00 07:00 Intake Total 1222.00 ml 1666.60 ml 1228.4 ml Output Total 1160 ml 410 ml 800 ml Balance 62.00 ml 1256.60 ml 428.4 ml Results Result Diagram: 12/27/16 1123 12/27/16 0400 Results 24 hrs Laboratory Tests Test 12/26/16 12:05 12/26/16 13:55 12/26/16 13:59 12/26/16 15:00 Bedside Glucose 292 H 217 Hemoglobin 8.7 L Hematocrit 26.8 L Urine Color YELLOW Urine Clarity SLIGHTLY CLOUDY A Urine pH 5.0 Urine Specific [place] 1.021 Urine Ketones NEGATIVE Urine Nitrite NEGATIVE Urine Bilirubin NEGATIVE Urine Urobilinogen NEGATIVE Urine Leukocyte Esterase NEGATIVE Urine Microscopic RBC 4 Urine Microscopic WBC 7 H Urine Hemoglobin 1+ H Urine Random Creatinine 78.28 Urine Random Sodium < 13 L Urine Glucose NEGATIVE Urine Total Protein 19.0 H Test 12/26/16 15:23 12/26/16 16:00 12/26/16 17:23 12/26/16 18:14 Bedside Glucose 161 116 Blood Gas Specimen Source Blood arterial Arterial Blood Date Drawn 12/26/2016 4:30:10 PM Arterial Blood pH (Temp corrected) 7.360 Arterial Blood pCO2 (Temp correct) 37.6 Arterial Blood pO2 (Temp corrected) 69.6 L Arterial Blood HCO3 20.8 L Arterial Blood Base Excess -4.2 L Arterial Blood Oxygen Saturation 91.5 L Rene Test N/A Arterial Blood Gas Puncture Site Right Brachial Arterial Blood Carboxyhemoglobin 0.2 Arterial Blood Methemoglobin 0.4 Blood Gas A-a O2 Differential 244.6 H Oxyhemoglobin Percent 91.0 L Total Hemoglobin 10.1 L Blood Gas Temperature 37.0 Blood Gas Respiration Rate 16.0 Blood Gas Actual Respiration Rate 19 Blood Gas Modality VENT - AC FiO2 50.0 Blood Gas Tidal Volume 500.0 Blood Gas Low PEEP Setting 5.0 Blood Gas Notified Whom [place] Blood Gas Notified Time 12/26/2016 4:35:52 PM Hemoglobin 8.6 L Hematocrit 26.6 L Test 12/26/16 18:17 12/26/16 19:41 12/26/16 20:35 12/26/16 21:28 Bedside Glucose 85 73 71 72 Test 12/26/16 22:24 12/26/16 22:43 12/26/16 23:44 12/27/16 00:49 Bedside Glucose 69 L 137 106 88 Test 12/27/16 00:59 12/27/16 03:39 12/27/16 04:00 12/27/16 04:44 Hemoglobin 8.3 L 8.5 L Hematocrit 25.4 L 25.2 L Bedside Glucose 110 131 White Blood Count 13.2 #H Red Blood Count 2.39 #L Mean Corpuscular Volume 105.4 H Mean Corpuscular Hemoglobin 35.6 H Mean Corpuscular Hemoglobin Concent 33.7 Red Cell Distribution Width 17.9 H Platelet Count 55 #L Mean Platelet Volume 12.2 H Neutrophils % Segmented Neutrophils % (Manual) 70 Band Neutrophils % (Manual) 8 H Lymphocytes % Lymphocytes % (Manual) 11 L Monocytes % Monocytes % (Manual) 4 Eosinophils % Eosinophils % (Manual) 3 Basophils % Myelocytes % (Manual) 4 H Nucleated Red Blood Cells % 2 H Neutrophils # Neutrophils # (Manual) 9.4 H Band Neutrophils # 1.0 H Absolute Lymphocytes (Manual) 1.4 Lymphocytes # Monocytes # Absolute Monocytes (Manual) 0.5 Eosinophils # Basophils # Myelocytes # 0.5 H Nucleated Red Blood Cells # Platelet Estimate DECREASED Giant Platelets 1 H Polychromasia 2+ Anisocytosis 1+ Sodium Level 153 H Potassium Level 2.2 *L Chloride Level 118 H Carbon Dioxide Level 26 # Anion Gap 11 # Blood Urea Nitrogen 65 H Creatinine 1.55 H Glucose Level 118 # Calcium Level 7.5 L Magnesium Level 2.4 Total Bilirubin 2.0 H Direct Bilirubin 0.80 #H Indirect Bilirubin 1.2 H Aspartate Amino Transf (AST/SGOT) 133 H Alanine Aminotransferase (ALT/SGPT) 75 H Alkaline Phosphatase 78 Total Protein 5.2 L Albumin 2.4 L Globulin 2.80 Albumin/Globulin Ratio 0.85 Test 12/27/16 05:00 12/27/16 05:35 12/27/16 06:09 12/27/16 06:35 Phosphorus Level 3.8 Lab Scanned Report BLOOD TRANSFUSION Bedside Glucose 90 93 Test 12/27/16 06:44 12/27/16 07:42 12/27/16 08:42 12/27/16 09:44 Blood Gas Specimen Source Blood arterial Arterial Blood Date Drawn 12/27/2016 6:40:45 AM Arterial Blood pH (Temp corrected) 7.520 H Arterial Blood pCO2 (Temp correct) 29.3 L Arterial Blood pO2 (Temp corrected) 189.4 H Arterial Blood HCO3 23.4 Arterial Blood Base Excess 1.0 Arterial Blood Oxygen Saturation 98.7 H Rene Test ACCEPTAB Arterial Blood Gas Puncture Site Right Radial Arterial Blood Carboxyhemoglobin 0.2 Arterial Blood Methemoglobin 0.4 Blood Gas A-a O2 Differential 278.2 H Oxyhemoglobin Percent 98.1 Total Hemoglobin 9.4 L Blood Gas Temperature 37.0 Blood Gas Respiration Rate 16.0 Blood Gas Actual Respiration Rate 22 Blood Gas Modality VENT - AC FiO2 70.0 Blood Gas Tidal Volume 500.0 Blood Gas Low PEEP Setting 5.0 Blood Gas Notified Whom MA Blood Gas Notified Time 12/27/2016 6:54:30 AM Bedside Glucose 77 83 76 Test 12/27/16 10:48 12/27/16 11:23 12/27/16 11:25 Bedside Glucose 76 65 L Hemoglobin 8.6 L Hematocrit 25.4 L Medications Medications Current Medications Ondansetron HCl (Zofran Inj) 4 mg Q6H PRN IV NAUSEA AND/OR VOMITING; Start 01/29 at 01:00 Acetaminophen (Tylenol Tab) 650 mg Q6H PRN PO PAIN LEVEL 1-3 OR FEVER Last administered on 12/27/16t 08:01; Admin Dose 650 MG; Start 12/23/16 at 01:00 Ferrous Sulfate (Ferrous Sulfate (Ec)) 325 mg BID PO Last administered on 08:01; Admin Dose 325 MG; Start 12/23/16 at 09:00 Propranolol HCl (Inderal) 10 mg BID PO Last administered on 12/25/16 10:20; Admin Dose 10 MG; Start 12/23/16 at 01:30; Status Future Hold Docusate Sodium (Colace) 100 mg DAILY PO Last administered on 12/27/16 08:01; Admin Dose 100 MG; Start 12/23/16 at 09:00 Miscellaneous Information 1 ea 1 ea NOTE XX ; Start 12/23/16 at 02:30 Octreotide Acetate/Sodium Chloride (Sandostatin/NS) 50 ml @ 2.5 mls/hr Q20H IV Last administered on 12/26/16 04:11; Admin Dose 2.5 MLS/HR; Start 12/23/16 at 10:15 Furosemide (Lasix) 40 mg DAILY PO Last administered on 12/25/16 10:20; Admin Dose 40 MG; Start 12/24/16 at 09:00; Status Future Hold Rifaximin (Xifaxan) 550 mg BID PO Last administered on 12/27/16 08:02; Admin Dose 550 MG; Start 12/24/16 at 21:00 Lactulose 30 gm 30 gm Q6H PRN PO CONSTIPATION Last administered on 12/25/16 16 :13; Admin Dose 30 GM; Start 12/25/16 at 16:00 Propofol (Diprivan) 100 ml @ 1.65 mls/hr TITRATE ONCE IV Last administered on 12/25/16 19:13; Admin Dose 1.65 MLS/HR; Start 12/25/16 at 18:30; Stop at 07:06 Lactulose 30 gm 30 gm Q6 NGT Last administered on 12/27/16 05:37; Admin Dose 30 GM; Start 12/26/16 at 06:00 Pantoprazole 80 mg/Sodium Chloride 100 ml @ 10 mls/hr Q10H IV Last administered on 12/27/16 08:29; Admin Dose 10 MLS/HR; Start 12/25/16 at 19:30 Fentanyl (Sublimaze) 100 ml @ 2.5 mls/hr TITRATE IV Last administered on 20:10; Admin Dose 10 MLS/HR; Start 12/25/16 at 19:00 Eye Lubricant 1 applic 1 applic Q4 BOTH EYES Last administered on 12/27/16 08: 03; Admin Dose 1 APPLIC; Start 12/25/16 at 21:00 Norepinephrine 16 mg/Dextrose 500 ml @ 1.87 mls/hr TITRATE IV Last administered on 12/27/16 08:28; Admin Dose 15 MLS/HR; Start 12/26/16 at 03:00 Piperacillin Sod/ Tazobactam Sod 100 ml @ 100 mls/hr Q8 IVPB Last administered on 12/27/16 05:37; Admin Dose 100 MLS/HR; Start 12/26/16 at 06:30 Levetiracetam (Keppra 500 Mg/ 100ml (Pmx)) 100 ml @ 400 mls/hr Q12 IVPB Last administered on 12/27/16 08:03; Admin Dose 400 MLS/HR; Start 12/26/16 at 21:00 Diagnostic Test (Pha) (Accu-Chek) 1 ea Q1H XX Last administered on 12/27/16 10 :52; Admin Dose 1 EA; Start 12/26/16 at 09:30 Dextrose (D50w Syringe) 25 ml Q15M PRN IV Till BS 80 mg/dL or above x2 Last administered on 12/27/16 03:35; Admin Dose 25 ML; Start 12/26/16 at 09:30 Dextrose (D50w Syringe) 50 ml Q15M PRN IV Till BS 80 mg/dL or above x2; Start 12/26/16 at 09:30 Lorazepam (Ativan) 1 mg Q2 PRN IV Seizures; Start 12/26/16 at 09:30 Miscellaneous Information Q24H XX Last administered on 12/27/16 10:52; Admin Dose 1 EA; Start 12/26/16 at 11:30 Vasopressin 60 unit/Sodium Chloride 60 ml @ 0 mls/hr Q12H IVPB Last administered on 12/27/16 08:29; Admin Dose 2.4 MLS/HR; Start 12/26/16 at 12:00 Sodium Chloride (1/2 NS) 1,000 ml @ 100 mls/hr Q10H IV Last administered on 07:38; Admin Dose 100 MLS/HR; Start 12/27/16 at 07:00 ARNOL AUSTIN Dec 27, 2016 11:45
--- NOTE | 2016-12-27 13:21 | PRO ---
DATE OF PROCEDURE: 12/26/2016 PROCEDURE PERFORMED: Electroencephalogram. INDICATION: The patient is a 61-year-old lady with severe encephalopathy due to cirrhosis, hyperammonemia, renal insufficiency and respiratory failure. DESCRIPTION OF PROCEDURE: EEG was recorded digitally. Scalp to scalp and scalp to ear montages were recorded and reviewed. Impedanceswere measured and recorded. CAP electrodes were placed in accordance to informational 10-20 system of electrode placement. Symmetrically distributed background activity of low amplitude was seen throughout the recording with predominant frequency ranging between 2-4 cycles per seconds. There is some smaller amplitude, faster activity in beta range was seen in the frontal regions. No epileptiform transients were seen. No signs of ongoing electrographic seizures. No lateralized slowing observed. No definite response to photic stimulation. IMPRESSION: Abnormal study secondary to background slowing consistent with clinical diagnosis of encephalopathy, likely toxic metabolic in etiology. Dictated By: Nirav Salazar MD /[email or web address]/sanam /Document#: [id number] FITO
[2016-12-27] MEDS ORDERED: VANCOMYCIN 500MG/NS (PMX) 100 ML IVPB SCH (14:00)
[2016-12-27] MEDS: OCTREOTIDE 500 MCG in SOD CHLORIDE 0.9% 49 ML IV SCH ×2 (15:11→19:58)
--- NOTE | 2016-12-27 15:18 | CONS ---
Date/Time of Note Date/Time of Note DATE: 12/27/16 TIME: 15:16 Assessment/Plan Assessment/Plan Chief Complaint/Hosp Course Assessment: Shock - likely septic Acute hypoxic respiratory failure - intubated and on mechanical ventilation Hematemesis and anemia - EGD showed grade IV esophageal varices status post ligation, follow up gastroenterology recommendations Acute kidney injury Alcoholic liver cirrhosis Diabetes mellitus Recommendations: -intravenous fluid resuscitation -pressors to keep MAP>65, wean as tolerated -infection work up -echocardiogram showed LVEF>70% Problems: Consultation Date/Type/Reason Admit Date/Time Dec 22, 2016 at 22:41 Initial Consult Date 12/26/16 Type of Consultation: Cardiology 24 HR Interval Summary Free Text/Dictation EGD yesterday showed grade IV esophageal varices, which were ligated. Remains intubated and on mechanical ventilation. Remains on Levophed and vasopressin drips. Remains on octreotide drip. Detailed Summary Additional Comments Unable to obtain review of systems, patient intubated. Exam/Review of Systems Vital Signs Vitals Vital Signs Date Time Temp Pulse Resp B/P Pulse Ox O2 Delivery O2 Flow Rate FiO2 12/27/16 14:15 103 16 116/52 100 12/27/16 12:00 99.8 12/27/16 11:47 70 12/27/16 11:45 Mechanical Ventilator 12/25/16 15:07 2.0 Intake and Output 12/26/16 12/26/16 12/27/16 15:00 23:00 07:00 Intake Total 1222.00 ml 1666.60 ml 1228.4 ml Output Total 1160 ml 410 ml 800 ml Balance 62.00 ml 1256.60 ml 428.4 ml Results Result Diagram: 12/27/16 1123 12/27/16 1123 Results 24 hrs Laboratory Tests Test 12/26/16 15:23 12/26/16 16:00 12/26/16 17:23 12/26/16 18:14 Bedside Glucose 161 116 Blood Gas Specimen Source Blood arterial Arterial Blood Date Drawn 12/26/2016 4:30:10 PM Arterial Blood pH (Temp corrected) 7.360 Arterial Blood pCO2 (Temp correct) 37.6 Arterial Blood pO2 (Temp corrected) 69.6 L Arterial Blood HCO3 20.8 L Arterial Blood Base Excess -4.2 L Arterial Blood Oxygen Saturation 91.5 L Rene Test N/A Arterial Blood Gas Puncture Site Right Brachial Arterial Blood Carboxyhemoglobin 0.2 Arterial Blood Methemoglobin 0.4 Blood Gas A-a O2 Differential 244.6 H Oxyhemoglobin Percent 91.0 L Total Hemoglobin 10.1 L Blood Gas Temperature 37.0 Blood Gas Respiration Rate 16.0 Blood Gas Actual Respiration Rate 19 Blood Gas Modality VENT - AC FiO2 50.0 Blood Gas Tidal Volume 500.0 Blood Gas Low PEEP Setting 5.0 Blood Gas Notified Whom [place] Blood Gas Notified Time 12/26/2016 4:35:52 PM Hemoglobin 8.6 L Hematocrit 26.6 L Test 12/26/16 18:17 12/26/16 19:41 12/26/16 20:35 12/26/16 21:28 Bedside Glucose 85 73 71 72 Test 12/26/16 22:24 12/26/16 22:43 12/26/16 23:44 12/27/16 00:49 Bedside Glucose 69 L 137 106 88 Test 12/27/16 00:59 12/27/16 03:39 12/27/16 04:00 12/27/16 04:44 Hemoglobin 8.3 L 8.5 L Hematocrit 25.4 L 25.2 L Bedside Glucose 110 131 White Blood Count 13.2 #H Red Blood Count 2.39 #L Mean Corpuscular Volume 105.4 H Mean Corpuscular Hemoglobin 35.6 H Mean Corpuscular Hemoglobin Concent 33.7 Red Cell Distribution Width 17.9 H Platelet Count 55 #L Mean Platelet Volume 12.2 H Neutrophils % Segmented Neutrophils % (Manual) 70 Band Neutrophils % (Manual) 8 H Lymphocytes % Lymphocytes % (Manual) 11 L Monocytes % Monocytes % (Manual) 4 Eosinophils % Eosinophils % (Manual) 3 Basophils % Myelocytes % (Manual) 4 H Nucleated Red Blood Cells % 2 H Neutrophils # Neutrophils # (Manual) 9.4 H Band Neutrophils # 1.0 H Absolute Lymphocytes (Manual) 1.4 Lymphocytes # Monocytes # Absolute Monocytes (Manual) 0.5 Eosinophils # Basophils # Myelocytes # 0.5 H Nucleated Red Blood Cells # Platelet Estimate DECREASED Giant Platelets 1 H Polychromasia 2+ Anisocytosis 1+ Sodium Level 153 H Potassium Level 2.2 *L Chloride Level 118 H Carbon Dioxide Level 26 # Anion Gap 11 # Blood Urea Nitrogen 65 H Creatinine 1.55 H Glucose Level 118 # Calcium Level 7.5 L Magnesium Level 2.4 Total Bilirubin 2.0 H Direct Bilirubin 0.80 #H Indirect Bilirubin 1.2 H Aspartate Amino Transf (AST/SGOT) 133 H Alanine Aminotransferase (ALT/SGPT) 75 H Alkaline Phosphatase 78 Total Protein 5.2 L Albumin 2.4 L Globulin 2.80 Albumin/Globulin Ratio 0.85 Test 12/27/16 05:00 12/27/16 05:35 12/27/16 06:09 12/27/16 06:35 Phosphorus Level 3.8 Lab Scanned Report BLOOD TRANSFUSION Bedside Glucose 90 93 Test 12/27/16 06:44 12/27/16 07:42 12/27/16 08:42 12/27/16 09:44 Blood Gas Specimen Source Blood arterial Arterial Blood Date Drawn 12/27/2016 6:40:45 AM Arterial Blood pH (Temp corrected) 7.520 H Arterial Blood pCO2 (Temp correct) 29.3 L Arterial Blood pO2 (Temp corrected) 189.4 H Arterial Blood HCO3 23.4 Arterial Blood Base Excess 1.0 Arterial Blood Oxygen Saturation 98.7 H Rene Test ACCEPTAB Arterial Blood Gas Puncture Site Right Radial Arterial Blood Carboxyhemoglobin 0.2 Arterial Blood Methemoglobin 0.4 Blood Gas A-a O2 Differential 278.2 H Oxyhemoglobin Percent 98.1 Total Hemoglobin 9.4 L Blood Gas Temperature 37.0 Blood Gas Respiration Rate 16.0 Blood Gas Actual Respiration Rate 22 Blood Gas Modality VENT - AC FiO2 70.0 Blood Gas Tidal Volume 500.0 Blood Gas Low PEEP Setting 5.0 Blood Gas Notified Whom [place] Blood Gas Notified Time 12/27/2016 6:54:30 AM Bedside Glucose 77 83 76 Test 12/27/16 10:48 12/27/16 11:23 12/27/16 11:25 12/27/16 11:45 Bedside Glucose 76 65 L 152 Hemoglobin 8.6 L Hematocrit 25.4 L Potassium Level 3.3 L Test 12/27/16 12:29 12/27/16 14:29 Bedside Glucose 136 147 Medications Medications Current Medications Ondansetron HCl (Zofran Inj) 4 mg Q6H PRN IV NAUSEA AND/OR VOMITING; Start 01/29 at 01:00 Acetaminophen (Tylenol Tab) 650 mg Q6H PRN PO PAIN LEVEL 1-3 OR FEVER Last administered on 12/27/16t 08:01; Admin Dose 650 MG; Start 12/23/16 at 01:00 Ferrous Sulfate (Ferrous Sulfate (Ec)) 325 mg BID PO Last administered on 08:01; Admin Dose 325 MG; Start 12/23/16 at 09:00 Propranolol HCl (Inderal) 10 mg BID PO Last administered on 12/25/16 10:20; Admin Dose 10 MG; Start 12/23/16 at 01:30; Status Future Hold Docusate Sodium (Colace) 100 mg DAILY PO Last administered on 12/27/16 08:01; Admin Dose 100 MG; Start 12/23/16 at 09:00 Miscellaneous Information 1 ea 1 ea NOTE XX ; Start 12/23/16 at 02:30 Octreotide Acetate/Sodium Chloride (Sandostatin/NS) 50 ml @ 2.5 mls/hr Q20H IV Last administered on 12/27/16 15:11; Admin Dose 2.5 MLS/HR; Start 12/23/16 at 10:15 Furosemide (Lasix) 40 mg DAILY PO Last administered on 12/25/16 10:20; Admin Dose 40 MG; Start 12/24/16 at 09:00; Status Future Hold Rifaximin (Xifaxan) 550 mg BID PO Last administered on 12/27/16 08:02; Admin Dose 550 MG; Start 12/24/16 at 21:00 Lactulose 30 gm 30 gm Q6H PRN PO CONSTIPATION Last administered on 12/25/16 16 :13; Admin Dose 30 GM; Start 12/25/16 at 16:00 Propofol (Diprivan) 100 ml @ 1.65 mls/hr TITRATE ONCE IV Last administered on 12/25/16 19:13; Admin Dose 1.65 MLS/HR; Start 12/25/16 at 18:30; Stop at 07:06 Lactulose 30 gm 30 gm Q6 NGT Last administered on 12/27/16 12:21; Admin Dose 30 GM; Start 12/26/16 at 06:00 Pantoprazole 80 mg/Sodium Chloride 100 ml @ 10 mls/hr Q10H IV Last administered on 12/27/16 08:29; Admin Dose 10 MLS/HR; Start 12/25/16 at 19:30 Fentanyl (Sublimaze) 100 ml @ 2.5 mls/hr TITRATE IV Last administered on 20:10; Admin Dose 10 MLS/HR; Start 12/25/16 at 19:00 Eye Lubricant 1 applic 1 applic Q4 BOTH EYES Last administered on 12/27/16 12: 31; Admin Dose 1 APPLIC; Start 12/25/16 at 21:00 Norepinephrine 16 mg/Dextrose 500 ml @ 1.87 mls/hr TITRATE IV Last administered on 12/27/16 08:28; Admin Dose 15 MLS/HR; Start 12/26/16 at 03:00 Piperacillin Sod/ Tazobactam Sod 100 ml @ 100 mls/hr Q8 IVPB Last administered on 12/27/16 14:24; Admin Dose 100 MLS/HR; Start 12/26/16 at 06:30 Levetiracetam (Keppra 500 Mg/ 100ml (Pmx)) 100 ml @ 400 mls/hr Q12 IVPB Last administered on 12/27/16 08:03; Admin Dose 400 MLS/HR; Start 12/26/16 at 21:00 Diagnostic Test (Pha) (Accu-Chek) 1 ea Q1H XX Last administered on 12/27/16 15 :14; Admin Dose 1 EA; Start 12/26/16 at 09:30 Dextrose (D50w Syringe) 25 ml Q15M PRN IV Till BS 80 mg/dL or above x2 Last administered on 12/27/16 11:52; Admin Dose 25 ML; Start 12/26/16 at 09:30 Dextrose (D50w Syringe) 50 ml Q15M PRN IV Till BS 80 mg/dL or above x2; Start 12/26/16 at 09:30 Lorazepam (Ativan) 1 mg Q2 PRN IV Seizures; Start 12/26/16 at 09:30 Miscellaneous Information Q24H XX Last administered on 12/27/16 10:52; Admin Dose 1 EA; Start 12/26/16 at 11:30 Vasopressin 60 unit/Sodium Chloride 60 ml @ 0 mls/hr Q12H IVPB Last administered on 12/27/16 08:29; Admin Dose 2.4 MLS/HR; Start 12/26/16 at 12:00 Sodium Chloride 1,000 ml @ 100 mls/hr Q10H IV Last administered on 12/27/16 07:38; Admin Dose 100 MLS/HR; Start 12/27/16 at 07:00 Vancomycin HCl 100 ml @ 100 mls/hr Q24H IVPB Last administered on 12/27/16 15 :13; Admin Dose 100 MLS/HR; Start 12/27/16 at 14:00 Potassium Chloride (KCl 40 MEQ/250 ML NS) 250 ml @ 62.5 mls/hr ONCE ONCE IVPB Last administered on 12/27/16 14:24; Admin Dose 62.5 MLS/HR; Start 12/27/16 at 14:00; Stop 12/27/16 at 17:59 TRISTAN UGARTE MD Dec 27, 2016 15:18
--- NOTE | 2016-12-27 16:26 | PN ---
Date/Time of Note Date/Time of Note DATE: 12/27/16 TIME: 16:14 Assessment/Plan VTE Prophylaxis VTE Prophylaxis Intervention: SCD's Assessment/Plan Chief Complaint/Hosp Course 1. Acute hypoxemic respiratory failure requiring mechanical ventilation secondary to decompensated liver cirrhosis -Pulmonary eval appreciated, continue vent management 2.Hypovolemic/Hypotensive shock,requiring pressors -IVFs,Titrate Levophed to keep MAP>60 - 2D Echo shows preserved EF, Cards consult appreciated 3.Toxic metabolic encephalopathy with Hepatic encephalopathy with coma and hyperammonemia secondary to end-stage liver disease -Continue lactulose 4. Acute GI bleed secondary to varices status post banding-now stable -Continue protonix/Octreotide drip-Not a candidate for BB 2/2 Hypotension. 5.Severe anion-gap metabolic acidosis. -Continue IV with bicarb 6. Acute Kidney Injury, likely hemodynamics-improved -Nephrology consult appreciated -Monitor renal fxn closely. 7. 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 No ascites. -Patient has been sober for 1year -Continue current medical management. -Negative Hep panel. 8. New-onset Seizures. -Neur eval appreciated -EEG shows encephalopathy -Ativan PRN, continue Keppra 9.Hypernatremia with free water deficit-Patient appears severely dehydrated currently. -Continue IVFs -Hold all diuretics. 10.Leukocytosis likely secondary to UTI -Urine culture shows gram-negative rods, continue Zosyn 11.Azotemia 2/2 dehydration/GIB. -Continue IVFs 12. Hyperglycemia ,likely worsened by D5W with Adult-onset Diabetes mellitus- Poorly controlled. -Continue ICU Insulin drip protocol 13. Anemia of chronic disease. HH stable.Will monitor. 14.Thrombocytopenia of liver disease. Stable. DVT and GI prophylaxis: SCDs, Protonix Problems: Subjective 24 Hr Interval Summary Subjective hx not possible: pt non-verbal Exam/Review of Systems Vital Signs Vitals Vital Signs Date Time Temp Pulse Resp B/P Pulse Ox O2 Delivery O2 Flow Rate FiO2 12/27/16 15:15 105 15 106/46 100 12/27/16 15:00 Mechanical Ventilator 12/27/16 12:00 99.8 12/27/16 11:47 70 12/25/16 15:07 2.0 Intake and Output 12/26/16 12/26/16 12/27/16 15:00 23:00 07:00 Intake Total 1222.00 ml 1666.60 ml 1228.4 ml Output Total 1160 ml 410 ml 800 ml Balance 62.00 ml 1256.60 ml 428.4 ml Exam Constitutional: non-verbal ENMT: intubated Respiratory: clear to auscultation Cardiovascular: regular rate and rhythm Gastrointestinal: soft, No distended Musculoskeletal: nl extremities to inspection Results Result Diagram: 12/27/16 1123 12/27/16 1123 Results 24 hrs Laboratory Tests Test 12/26/16 17:23 12/26/16 18:14 12/26/16 18:17 12/26/16 19:41 Bedside Glucose 116 85 73 Hemoglobin 8.6 L Hematocrit 26.6 L Test 12/26/16 20:35 12/26/16 21:28 12/26/16 22:24 12/26/16 22:43 Bedside Glucose 71 72 69 L 137 Test 12/26/16 23:44 12/27/16 00:49 12/27/16 00:59 12/27/16 03:39 Bedside Glucose 106 88 110 Hemoglobin 8.3 L Hematocrit 25.4 L Test 12/27/16 04:00 12/27/16 04:44 12/27/16 05:00 12/27/16 05:35 White Blood Count 13.2 #H Red Blood Count 2.39 #L Hemoglobin 8.5 L Hematocrit 25.2 L Mean Corpuscular Volume 105.4 H Mean Corpuscular Hemoglobin 35.6 H Mean Corpuscular Hemoglobin Concent 33.7 Red Cell Distribution Width 17.9 H Platelet Count 55 #L Mean Platelet Volume 12.2 H Neutrophils % Segmented Neutrophils % (Manual) 70 Band Neutrophils % (Manual) 8 H Lymphocytes % Lymphocytes % (Manual) 11 L Monocytes % Monocytes % (Manual) 4 Eosinophils % Eosinophils % (Manual) 3 Basophils % Myelocytes % (Manual) 4 H Nucleated Red Blood Cells % 2 H Neutrophils # Neutrophils # (Manual) 9.4 H Band Neutrophils # 1.0 H Absolute Lymphocytes (Manual) 1.4 Lymphocytes # Monocytes # Absolute Monocytes (Manual) 0.5 Eosinophils # Basophils # Myelocytes # 0.5 H Nucleated Red Blood Cells # Platelet Estimate DECREASED Giant Platelets 1 H Polychromasia 2+ Anisocytosis 1+ Sodium Level 153 H Potassium Level 2.2 *L Chloride Level 118 H Carbon Dioxide Level 26 # Anion Gap 11 # Blood Urea Nitrogen 65 H Creatinine 1.55 H Glucose Level 118 # Calcium Level 7.5 L Magnesium Level 2.4 Total Bilirubin 2.0 H Direct Bilirubin 0.80 #H Indirect Bilirubin 1.2 H Aspartate Amino Transf (AST/SGOT) 133 H Alanine Aminotransferase (ALT/SGPT) 75 H Alkaline Phosphatase 78 Total Protein 5.2 L Albumin 2.4 L Globulin 2.80 Albumin/Globulin Ratio 0.85 Bedside Glucose 131 Phosphorus Level 3.8 Lab Scanned Report BLOOD TRANSFUSION Test 12/27/16 06:09 12/27/16 06:35 12/27/16 06:44 12/27/16 07:42 Bedside Glucose 90 93 77 Blood Gas Specimen Source Blood arterial Arterial Blood Date Drawn 12/27/2016 6:40:45 AM Arterial Blood pH (Temp corrected) 7.520 H Arterial Blood pCO2 (Temp correct) 29.3 L Arterial Blood pO2 (Temp corrected) 189.4 H Arterial Blood HCO3 23.4 Arterial Blood Base Excess 1.0 Arterial Blood Oxygen Saturation 98.7 H Rene Test ACCEPTAB Arterial Blood Gas Puncture Site Right Radial Arterial Blood Carboxyhemoglobin 0.2 Arterial Blood Methemoglobin 0.4 Blood Gas A-a O2 Differential 278.2 H Oxyhemoglobin Percent 98.1 Total Hemoglobin 9.4 L Blood Gas Temperature 37.0 Blood Gas Respiration Rate 16.0 Blood Gas Actual Respiration Rate 22 Blood Gas Modality VENT - AC FiO2 70.0 Blood Gas Tidal Volume 500.0 Blood Gas Low PEEP Setting 5.0 Blood Gas Notified Whom MA Blood Gas Notified Time 12/27/2016 6:54:30 AM Test 12/27/16 08:42 12/27/16 09:44 12/27/16 10:48 12/27/16 11:23 Bedside Glucose 83 76 76 Hemoglobin 8.6 L Hematocrit 25.4 L Potassium Level 3.3 L Test 12/27/16 11:25 12/27/16 11:45 12/27/16 12:29 12/27/16 14:29 Bedside Glucose 65 L 152 136 147 Medications Medications Current Medications Ondansetron HCl (Zofran Inj) 4 mg Q6H PRN IV NAUSEA AND/OR VOMITING; Start 01/29 at 01:00 Acetaminophen (Tylenol Tab) 650 mg Q6H PRN PO PAIN LEVEL 1-3 OR FEVER Last administered on 12/27/16 08:01; Admin Dose 650 MG; Start 12/23/16 at 01:00 Ferrous Sulfate (Ferrous Sulfate (Ec)) 325 mg BID PO Last administered on 08:01; Admin Dose 325 MG; Start 12/23/16 at 09:00 Propranolol HCl (Inderal) 10 mg BID PO Last administered on 12/25/16 10:20; Admin Dose 10 MG; Start 12/23/16 at 01:30; Status Future Hold Docusate Sodium (Colace) 100 mg DAILY PO Last administered on 12/27/16 08:01; Admin Dose 100 MG; Start 12/23/16 at 09:00 Miscellaneous Information 1 ea 1 ea NOTE XX ; Start 12/23/16 at 02:30 Octreotide Acetate/Sodium Chloride (Sandostatin/NS) 50 ml @ 2.5 mls/hr Q20H IV Last administered on 12/27/16 15:11; Admin Dose 2.5 MLS/HR; Start 12/23/16 at 10:15 Furosemide (Lasix) 40 mg DAILY PO Last administered on 12/25/16 10:20; Admin Dose 40 MG; Start 12/24/16 at 09:00; Status Future Hold Rifaximin (Xifaxan) 550 mg BID PO Last administered on 12/27/16 08:02; Admin Dose 550 MG; Start 12/24/16 at 21:00 Lactulose 30 gm 30 gm Q6H PRN PO CONSTIPATION Last administered on 12/25/16 16 :13; Admin Dose 30 GM; Start 12/25/16 at 16:00 Propofol (Diprivan) 100 ml @ 1.65 mls/hr TITRATE ONCE IV Last administered on 12/25/16 19:13; Admin Dose 1.65 MLS/HR; Start 12/25/16 at 18:30; Stop at 07:06 Lactulose 30 gm 30 gm Q6 NGT Last administered on 12/27/16 12:21; Admin Dose 30 GM; Start 12/26/16 at 06:00 Pantoprazole 80 mg/Sodium Chloride 100 ml @ 10 mls/hr Q10H IV Last administered on 12/27/16 08:29; Admin Dose 10 MLS/HR; Start 12/25/16 at 19:30 Fentanyl (Sublimaze) 100 ml @ 2.5 mls/hr TITRATE IV Last administered on 20:10; Admin Dose 10 MLS/HR; Start 12/25/16 at 19:00 Eye Lubricant 1 applic 1 applic Q4 BOTH EYES Last administered on 12/27/16 12: 31; Admin Dose 1 APPLIC; Start 12/25/16 at 21:00 Norepinephrine 16 mg/Dextrose 500 ml @ 1.87 mls/hr TITRATE IV Last administered on 12/27/16 08:28; Admin Dose 15 MLS/HR; Start 12/26/16 at 03:00 Piperacillin Sod/ Tazobactam Sod 100 ml @ 100 mls/hr Q8 IVPB Last administered on 12/27/16 14:24; Admin Dose 100 MLS/HR; Start 12/26/16 at 06:30 Levetiracetam (Keppra 500 Mg/ 100ml (Pmx)) 100 ml @ 400 mls/hr Q12 IVPB Last administered on 12/27/16 08:03; Admin Dose 400 MLS/HR; Start 12/26/16 at 21:00 Diagnostic Test (Pha) (Accu-Chek) 1 ea Q1H XX Last administered on 12/27/16 15 :14; Admin Dose 1 EA; Start 12/26/16 at 09:30 Dextrose (D50w Syringe) 25 ml Q15M PRN IV Till BS 80 mg/dL or above x2 Last administered on 12/27/16 11:52; Admin Dose 25 ML; Start 12/26/16 at 09:30 Dextrose (D50w Syringe) 50 ml Q15M PRN IV Till BS 80 mg/dL or above x2; Start 12/26/16 at 09:30 Lorazepam (Ativan) 1 mg Q2 PRN IV Seizures; Start 12/26/16 at 09:30 Miscellaneous Information Q24H XX Last administered on 12/27/16 10:52; Admin Dose 1 EA; Start 12/26/16 at 11:30 Vasopressin 60 unit/Sodium Chloride 60 ml @ 0 mls/hr Q12H IVPB Last administered on 12/27/16 08:29; Admin Dose 2.4 MLS/HR; Start 12/26/16 at 12:00 Sodium Chloride 1,000 ml @ 100 mls/hr Q10H IV Last administered on 12/27/16 07:38; Admin Dose 100 MLS/HR; Start 12/27/16 at 07:00 Vancomycin HCl 100 ml @ 100 mls/hr Q24H IVPB Last administered on 12/27/16 15 :13; Admin Dose 100 MLS/HR; Start 12/27/16 at 14:00 Potassium Chloride (KCl 40 MEQ/250 ML NS) 250 ml @ 62.5 mls/hr ONCE ONCE IVPB Last administered on 12/27/16 14:24; Admin Dose 62.5 MLS/HR; Start 12/27/16 at 14:00; Stop 12/27/16 at 17:59 GT DON Dec 27, 2016 16:24
--- NOTE | 2016-12-27 16:42 | PN ---
Date/Time of Note Date/Time of Note DATE: 12/27/16 TIME: 16:27 Assessment/Plan VTE Prophylaxis VTE Prophylaxis Intervention: SCD's Assessment/Plan Assessment/Plan Assessment * Acute respiratory failure * Toxic metabolic encephalopathy * sepsis * S/P EGD Grade IV/IV esophageal varices * Post endoscopic variceal ligation 4 Severe portal hypertensive gastropathy Plan * continue present management * Case discuassed with DR Helton * further orders will depend on clinical course * prognosis poor Subjective 24 Hr Interval Summary Free Text/Dictation * Case reviewed with RN * Patient seen ane examined * Patient on multiple pressors * S/P EGD Grade IV/IV esophageal varices * Post endoscopic variceal ligation 4 Severe portal hypertensive gastropathy Exam/Review of Systems Vital Signs Vitals Vital Signs Date Time Temp Pulse Resp B/P Pulse Ox O2 Delivery O2 Flow Rate FiO2 12/27/16 15:15 105 15 106/46 100 12/27/16 15:00 Mechanical Ventilator 12/27/16 12:00 99.8 12/27/16 11:47 70 12/25/16 15:07 2.0 Intake and Output 12/26/16 12/26/16 12/27/16 15:00 23:00 07:00 Intake Total 1222.00 ml 1666.60 ml 1228.4 ml Output Total 1160 ml 410 ml 800 ml Balance 62.00 ml 1256.60 ml 428.4 ml Exam Constitutional: frail, non-verbal ENMT: intubated Respiratory: diminished breath sounds Cardiovascular: nl pulses, regular rate and rhythm Gastrointestinal: soft Extremities: edema, pitting pedal edema Neurological: unresponsive Results Result Diagram: 12/27/16 1123 12/27/16 1123 Results 24 hrs Laboratory Tests Test 12/26/16 17:23 12/26/16 18:14 12/26/16 18:17 12/26/16 19:41 Bedside Glucose 116 85 73 Hemoglobin 8.6 L Hematocrit 26.6 L Test 12/26/16 20:35 12/26/16 21:28 12/26/16 22:24 12/26/16 22:43 Bedside Glucose 71 72 69 L 137 Test 12/26/16 23:44 12/27/16 00:49 12/27/16 00:59 12/27/16 03:39 Bedside Glucose 106 88 110 Hemoglobin 8.3 L Hematocrit 25.4 L Test 12/27/16 04:00 12/27/16 04:44 12/27/16 05:00 12/27/16 05:35 White Blood Count 13.2 #H Red Blood Count 2.39 #L Hemoglobin 8.5 L Hematocrit 25.2 L Mean Corpuscular Volume 105.4 H Mean Corpuscular Hemoglobin 35.6 H Mean Corpuscular Hemoglobin Concent 33.7 Red Cell Distribution Width 17.9 H Platelet Count 55 #L Mean Platelet Volume 12.2 H Neutrophils % Segmented Neutrophils % (Manual) 70 Band Neutrophils % (Manual) 8 H Lymphocytes % Lymphocytes % (Manual) 11 L Monocytes % Monocytes % (Manual) 4 Eosinophils % Eosinophils % (Manual) 3 Basophils % Myelocytes % (Manual) 4 H Nucleated Red Blood Cells % 2 H Neutrophils # Neutrophils # (Manual) 9.4 H Band Neutrophils # 1.0 H Absolute Lymphocytes (Manual) 1.4 Lymphocytes # Monocytes # Absolute Monocytes (Manual) 0.5 Eosinophils # Basophils # Myelocytes # 0.5 H Nucleated Red Blood Cells # Platelet Estimate DECREASED Giant Platelets 1 H Polychromasia 2+ Anisocytosis 1+ Sodium Level 153 H Potassium Level 2.2 *L Chloride Level 118 H Carbon Dioxide Level 26 # Anion Gap 11 # Blood Urea Nitrogen 65 H Creatinine 1.55 H Glucose Level 118 # Calcium Level 7.5 L Magnesium Level 2.4 Total Bilirubin 2.0 H Direct Bilirubin 0.80 #H Indirect Bilirubin 1.2 H Aspartate Amino Transf (AST/SGOT) 133 H Alanine Aminotransferase (ALT/SGPT) 75 H Alkaline Phosphatase 78 Total Protein 5.2 L Albumin 2.4 L Globulin 2.80 Albumin/Globulin Ratio 0.85 Bedside Glucose 131 Phosphorus Level 3.8 Lab Scanned Report BLOOD TRANSFUSION Test 12/27/16 06:09 12/27/16 06:35 12/27/16 06:44 12/27/16 07:42 Bedside Glucose 90 93 77 Blood Gas Specimen Source Blood arterial Arterial Blood Date Drawn 12/27/2016 6:40:45 AM Arterial Blood pH (Temp corrected) 7.520 H Arterial Blood pCO2 (Temp correct) 29.3 L Arterial Blood pO2 (Temp corrected) 189.4 H Arterial Blood HCO3 23.4 Arterial Blood Base Excess 1.0 Arterial Blood Oxygen Saturation 98.7 H Rene Test ACCEPTAB Arterial Blood Gas Puncture Site Right Radial Arterial Blood Carboxyhemoglobin 0.2 Arterial Blood Methemoglobin 0.4 Blood Gas A-a O2 Differential 278.2 H Oxyhemoglobin Percent 98.1 Total Hemoglobin 9.4 L Blood Gas Temperature 37.0 Blood Gas Respiration Rate 16.0 Blood Gas Actual Respiration Rate 22 Blood Gas Modality VENT - AC FiO2 70.0 Blood Gas Tidal Volume 500.0 Blood Gas Low PEEP Setting 5.0 Blood Gas Notified Whom MA Blood Gas Notified Time 12/27/2016 6:54:30 AM Test 12/27/16 08:42 12/27/16 09:44 12/27/16 10:48 12/27/16 11:23 Bedside Glucose 83 76 76 Hemoglobin 8.6 L Hematocrit 25.4 L Potassium Level 3.3 L Test 12/27/16 11:25 12/27/16 11:45 12/27/16 12:29 12/27/16 14:29 Bedside Glucose 65 L 152 136 147 Medications Medications Current Medications Ondansetron HCl (Zofran Inj) 4 mg Q6H PRN IV NAUSEA AND/OR VOMITING; Start 01/29 at 01:00 Acetaminophen (Tylenol Tab) 650 mg Q6H PRN PO PAIN LEVEL 1-3 OR FEVER Last administered on 12/27/16 08:01; Admin Dose 650 MG; Start 12/23/16 at 01:00 Ferrous Sulfate (Ferrous Sulfate (Ec)) 325 mg BID PO Last administered on 08:01; Admin Dose 325 MG; Start 12/23/16 at 09:00 Propranolol HCl (Inderal) 10 mg BID PO Last administered on 12/25/16 10:20; Admin Dose 10 MG; Start 12/23/16 at 01:30; Status Future Hold Docusate Sodium (Colace) 100 mg DAILY PO Last administered on 12/27/16 08:01; Admin Dose 100 MG; Start 12/23/16 at 09:00 Miscellaneous Information 1 ea 1 ea NOTE XX ; Start 12/23/16 at 02:30 Octreotide Acetate/Sodium Chloride (Sandostatin/NS) 50 ml @ 2.5 mls/hr Q20H IV Last administered on 12/27/16 15:11; Admin Dose 2.5 MLS/HR; Start 12/23/16 at 10:15 Furosemide (Lasix) 40 mg DAILY PO Last administered on 12/25/16 10:20; Admin Dose 40 MG; Start 12/24/16 at 09:00; Status Future Hold Rifaximin (Xifaxan) 550 mg BID PO Last administered on 12/27/16 08:02; Admin Dose 550 MG; Start 12/24/16 at 21:00 Lactulose 30 gm 30 gm Q6H PRN PO CONSTIPATION Last administered on 12/25/16 16 :13; Admin Dose 30 GM; Start 12/25/16 at 16:00 Propofol (Diprivan) 100 ml @ 1.65 mls/hr TITRATE ONCE IV Last administered on 12/25/16 19:13; Admin Dose 1.65 MLS/HR; Start 12/25/16 at 18:30; Stop at 07:06 Lactulose 30 gm 30 gm Q6 NGT Last administered on 12/27/16 12:21; Admin Dose 30 GM; Start 12/26/16 at 06:00 Pantoprazole 80 mg/Sodium Chloride 100 ml @ 10 mls/hr Q10H IV Last administered on 12/27/16 08:29; Admin Dose 10 MLS/HR; Start 12/25/16 at 19:30 Fentanyl (Sublimaze) 100 ml @ 2.5 mls/hr TITRATE IV Last administered on 20:10; Admin Dose 10 MLS/HR; Start 12/25/16 at 19:00 Eye Lubricant 1 applic 1 applic Q4 BOTH EYES Last administered on 12/27/16 12: 31; Admin Dose 1 APPLIC; Start 12/25/16 at 21:00 Norepinephrine 16 mg/Dextrose 500 ml @ 1.87 mls/hr TITRATE IV Last administered on 12/27/16 08:28; Admin Dose 15 MLS/HR; Start 12/26/16 at 03:00 Piperacillin Sod/ Tazobactam Sod 100 ml @ 100 mls/hr Q8 IVPB Last administered on 12/27/16 14:24; Admin Dose 100 MLS/HR; Start 12/26/16 at 06:30 Levetiracetam (Keppra 500 Mg/ 100ml (Pmx)) 100 ml @ 400 mls/hr Q12 IVPB Last administered on 12/27/16 08:03; Admin Dose 400 MLS/HR; Start 12/26/16 at 21:00 Diagnostic Test (Pha) (Accu-Chek) 1 ea Q1H XX Last administered on 12/27/16 15 :14; Admin Dose 1 EA; Start 12/26/16 at 09:30 Dextrose (D50w Syringe) 25 ml Q15M PRN IV Till BS 80 mg/dL or above x2 Last administered on 12/27/16 11:52; Admin Dose 25 ML; Start 12/26/16 at 09:30 Dextrose (D50w Syringe) 50 ml Q15M PRN IV Till BS 80 mg/dL or above x2; Start 12/26/16 at 09:30 Lorazepam (Ativan) 1 mg Q2 PRN IV Seizures; Start 12/26/16 at 09:30 Miscellaneous Information Q24H XX Last administered on 12/27/16 10:52; Admin Dose 1 EA; Start 12/26/16 at 11:30 Vasopressin 60 unit/Sodium Chloride 60 ml @ 0 mls/hr Q12H IVPB Last administered on 12/27/16 08:29; Admin Dose 2.4 MLS/HR; Start 12/26/16 at 12:00 Sodium Chloride 1,000 ml @ 100 mls/hr Q10H IV Last administered on 12/27/16 07:38; Admin Dose 100 MLS/HR; Start 12/27/16 at 07:00 Vancomycin HCl 100 ml @ 100 mls/hr Q24H IVPB Last administered on 12/27/16 15 :13; Admin Dose 100 MLS/HR; Start 12/27/16 at 14:00 Potassium Chloride (KCl 40 MEQ/250 ML NS) 250 ml @ 62.5 mls/hr ONCE ONCE IVPB Last administered on 12/27/16 14:24; Admin Dose 62.5 MLS/HR; Start 12/27/16 at 14:00; Stop 12/27/16 at 17:59 CAIN GAVIRIA NP Dec 27, 2016 16:38
[2016-12-27 19:46] LABS: HEMATOCRIT 25.2 % (37.0-47.0); HEMOGLOBIN 8.4 g/dl (12.0-16.0)
[2016-12-27] MEDS: BALSAM PERU/CASTOR OIL 60 GM TUBE TOP SCH (20:59)
[2016-12-28] VITALS (95 sets, daily range): BP systolic 66–143; BP diastolic 40–58; PULSE 94–105; RESP 12–27
[2016-12-28 00:51] LABS: HEMATOCRIT 24.5 % (37.0-47.0); HEMOGLOBIN 8.2 g/dl (12.0-16.0)
[2016-12-28] MEDS: OCULAR LUBRICANT 3.5 GM OPH OINT BOTH EYES SCH ×6 (01:05→20:15)
[2016-12-28] MEDS: ACCU-CHEK XX SCH ×14 (01:05→23:54)
[2016-12-28] MEDS: ALBUTEROL 18 GM INHALER INH SCH ×6 (01:27→22:11)
[2016-12-28] MEDS: IPRATROPIUM (HFA) 12.9 GM INHALER INH SCH ×6 (01:27→22:11)
[2016-12-28] MEDS: SOD CHLORIDE 0.45% 1,000 ML IV SCH ×3 (03:00→23:26)
[2016-12-28 04:58] LABS: ABNORMAL IP MESSAGE 1; BASOPHILS % 0.1 % (0.0-2.0); EOSINOPHILS # 0.2 10^3/ul (0.0-0.5); EOSINOPHILS % 1.3 % (0.0-7.0); HEMATOCRIT 24.3 % (37.0-47.0); LYMPHOCYTES # 1.6 10^3/ul (0.8-2.9); LYMPHOCYTES % 12.4 % (15.0-51.0); MEAN CORPUSCULAR HEMOGLOBIN 34.9 pg (29.0-33.0); MEAN CORPUSCULAR HGB CONC 32.9 g/dl (32.0-37.0); MEAN CORPUSCULAR VOLUME 106.1 fl (82.0-101.0); MEAN PLATELET VOLUME 12.1 fl (7.4-10.4); MONOCYTES % 7.9 % (0.0-11.0); NEUTROPHIL # 9.8 10^3/ul (1.6-7.5); NEUTROPHILS % 77.5 % (39.0-77.0); NUCLEATED RED BLOOD CELLS # 0.2 10^3/ul (0.0-0.0); NUCLEATED RED BLOOD CELLS% 1.4 /100WBC (0.0-0.0); PLATELET COUNT 41 10^3/UL (140-415); RED BLOOD COUNT 2.29 10^6/ul (4.20-5.40); WHITE BLOOD COUNT 12.6 10^3/ul (4.8-10.8)
[2016-12-28] MEDS: PIPER-TAZO 3.375 GM IV (PMX) 100 ML IVPB SCH ×3 (05:02→21:35)
[2016-12-28 05:05] LABS: POSITIVE DIFF @See below
[2016-12-28] MEDS: LACTULOSE 30ML CUP NGT SCH ×4 (05:22→23:48)
[2016-12-28] MEDS: PANTOPRAZOLE IV 80 MG in SOD CHLORIDE 0.9% 100 ML IV SCH (05:23)
[2016-12-28 05:25] LABS: CALCIUM 7.5 mg/dl (8.4-10.2); CREATININE 0.86 mg/dl (0.44-1.00); MAGNESIUM 2.5 mg/dl (1.7-2.5); PHOSPHORUS 1.4 mg/dl (2.5-4.9)
[2016-12-28 05:29] LABS: POTASSIUM 2.9 mmol/L (3.5-5.1)
[2016-12-28] MEDS ORDERED: POTASSIUM PHOSPHATE 30 MM in SOD CHLORIDE 0.9% 250 ML IVPB ONE (06:00)
[2016-12-28 07:39] LABS: AADO2 Arterial 201.6 mmHg (7.0-24.0); Allen Test ACCEPTAB; Arterial Base Excess -0.7 mmol/L (-3.0-3); Arterial COHb 0.2 % (0.0-3.0); Arterial Fraction of Oxyhgb 97.6 % (93.0-99.0); Arterial HCO3 20.4 mmol/L (22.0-26.0); Arterial MetHb 0.4 % (0.0-1.5); Arterial Total Hemglobin 9.3 g/dl (12.0-18.0); MODE VENT - AC
[2016-12-28] MEDS: VANCOMYCIN 500MG/NS (PMX) 100 ML IVPB SCH ×2 (07:57→20:14)
--- NOTE | 2016-12-28 08:03 | PN ---
DATE: 12/28/2016 SUBJECTIVE DATA: The patient is critically on presser support. Full ventilatory support. No other events noted. OBJECTIVE DATA: VITAL SIGNS: Blood pressure 130/61, respirations, pulse 97, and temperature 100.2. HEENT: Head is normocephalic. NECK: Supple. HEART: Regular rate. LUNGS: Diminished breath sounds at the base. ABDOMEN: Soft, nontender to palpation. No rebound or guarding. EXTREMITIES: Negative for clubbing, cyanosis. No edema. DERMATOLOGIC: No rashes. MUSCULOSKELETAL: No joint effusion. NEUROLOGIC: Unchanged exam. MEDICATIONS: Reviewed. LABORATORY AND DIAGNOSTIC DATA: Shows sodium 149, potassium 3.9, chloride 121, BUN 36, creatinine 0.86, phosphorus 1.4. White count 5.6, hemoglobin 8, hematocrit 24.3, and platelet count is 41,000. Urine cultures been reviewed. ASSESSMENT AND PLAN: 1. Nonoliguric acute kidney injury with unknown baseline creatinine. Etiology secondary to acute tubular necrosis and sepsis. Renal function has improved. At this point, continue current treatment. Supportive care. Renally dose all meds. 2. Hypokalemia. Etiology is multifactorial. Continue to monitor. Replete potassium chloride. 3. Hypernatremia. The patient's free water deficit of approximately 2 liters. Continue hypotonic fluid. 4. Hypokalemia. Second bicarb drip. The patient's bicarb drip was discontinued. Will repeat an ABG. 5. Anemia. Monitor hemoglobin and hematocrit levels. 6. Mineral bone disorder. Continue monitor calcium and phosphorus levels. 7. Septic shock. Continue current medical management. Antibiotics and pressor support. Continue intravenous fluids. 8. Left dependent respiratory failure. Ventilator settings have been reviewed. Arterial blood gases reviewed. 9. End-stage liver disease, cirrhosis. The patient is decompensated. Continue to monitor. Follow up with Gastroenterology. 10. Hematemesis. Active bleeding continue . 11. Seizure disorder. Continue medical management. CRITICAL CARE TIME: 1. Please note, I spent over 30 minutes of critical care time with this patient. Dictated By: Will Gonzales DO /[email or web address]/olya /Document#: [id number]
--- NOTE | 2016-12-28 08:09 | RADRPT ---
PROCEDURE: XR Chest. CLINICAL INDICATION: Pneumonia TECHNIQUE: Single frontal view of the chest. COMPARISON: 12/25/2016 and additional priors FINDINGS: Endotracheal tube tip well positioned over the mid tracheal shadow. Enteric tube tip passes below th e diaphragm and below the field of view. Stable cardiomediastinal silhouette. Patchy air space opac ities in the left perihilar and bilateral lower lung barnhart. No significant pleural effusion. No she dence of pneumothorax. IMPRESSION: 1. Appropriate position of endotracheal and enteric tubes. 2. Patchy bilateral air space opacities consistent with multifocal pneumonia. RPTAT:AAJJ Physician Rush Date Time Electronically viewed and signed by Physician Rush on 12/28/2016 08:09 /
--- NOTE | 2016-12-28 09:16 | CONS ---
Date/Time of Note Date/Time of Note DATE: 12/28/16 TIME: 09:11 Assessment/Plan Assessment/Plan Additional Assessment/Plan Chest x-ray was reviewed which is showing patchy lower lobe infiltrates. Endotracheal tube is at an adequate level. Patient currently on insulin drip at 1 U/h, Sandostatin 26 mics per hour, vasopressin 0.04 U/min, Protonix drip 10 mg/h, Levophed 3 mics per minute. Ventilator setting; AC of 16, tidal volume 500, PEEP of 5, 50% FiO2. Assessment and recommendations; 1. Patient admitted with massive upper GI bleed due to variceal bleeding status post EGD with banding of varices. No further active bleed noted. 2. Advanced cirrhosis of liver. 3. Renal insufficiency likely due to hepatorenal syndrome with significant improvement in serum creatinine. 4. Likely bilateral aspiration pneumonia. 5. Hypernatremia with interval improvement. 6. Hypotension. 7. Severe mental unresponsiveness. Likely from combination of liver disease, renal insufficiency and sedative use. Patient off sedation for more than 24 hours. Continue current supportive care. Weaning from ventilator with depend upon adequate mental status recovery. As well as resolution of ongoing sepsis. 35 minutes of critical care time was spent evaluating the patient. Consultation Date/Type/Reason Admit Date/Time Dec 22, 2016 at 22:41 Initial Consult Date 12/26/16 Type of Consultation: Pulmonary/critical care 24 HR Interval Summary Free Text/Dictation Patient's condition remains critical. Remains unresponsive. Remains hypotensive. General exam; middle-aged woman, orally intubated, unresponsive. Currently in no distress. Exam/Review of Systems Vital Signs Vitals Vital Signs Date Time Temp Pulse Resp B/P Pulse Ox O2 Delivery O2 Flow Rate FiO2 12/28/16 08:10 103 18 100 50 12/28/16 07:30 133/54 12/28/16 06:00 100.2 12/27/16 18:45 Mechanical Ventilator 12/25/16 15:07 2.0 Intake and Output 12/27/16 12/27/16 12/28/16 15:00 23:00 07:00 Intake Total 1431.7 ml 1021.9 ml 1360.1 ml Output Total 885 ml 265 ml 375 ml Balance 546.7 ml 756.9 ml 985.1 ml Exam HEENT exam; supple, no JVD. No lymphadenopathy. Midline trachea. Orally intubated. Does have multiple carious teeth. Has bilateral intraocular lens implants. No neck masses. Chest exam; diminished but clear breath sounds. S1-S2 audible, no murmurs. Regular rhythm. Abdomen exam; soft, nondistended. No organomegaly. Bowel sounds are audible. Extremity exam; no peripheral edema. [employer] exam; patient remains unresponsive. Results Result Diagram: 12/28/16 0410 12/28/16 0410 Results 24 hrs Laboratory Tests Test 12/27/16 09:44 12/27/16 10:48 12/27/16 11:23 12/27/16 11:25 Bedside Glucose 76 76 65 L Hemoglobin 8.6 L Hematocrit 25.4 L Potassium Level 3.3 L Test 12/27/16 11:45 12/27/16 12:29 12/27/16 13:43 12/27/16 14:29 Bedside Glucose 152 136 147 Hemoglobin 8.4 L Hematocrit 25.2 L Test 12/27/16 17:06 12/27/16 17:41 12/27/16 18:34 12/27/16 19:16 Bedside Glucose 163 181 195 182 Test 12/27/16 20:06 12/27/16 21:25 12/27/16 22:19 12/27/16 23:53 Bedside Glucose 119 104 131 117 Test 12/28/16 00:28 12/28/16 02:43 12/28/16 04:10 12/28/16 04:20 Hemoglobin 8.2 L 8.0 L Hematocrit 24.5 L 24.3 L Bedside Glucose 125 86 White Blood Count 12.6 H Red Blood Count 2.29 L Mean Corpuscular Volume 106.1 H Mean Corpuscular Hemoglobin 34.9 H Mean Corpuscular Hemoglobin Concent 32.9 Red Cell Distribution Width 19.0 H Platelet Count 41 #L Mean Platelet Volume 12.1 H Neutrophils % 77.5 H Lymphocytes % 12.4 L Monocytes % 7.9 Eosinophils % 1.3 Basophils % 0.1 Nucleated Red Blood Cells % 1.4 H Neutrophils # 9.8 H Lymphocytes # 1.6 Monocytes # 1.0 H Eosinophils # 0.2 Basophils # 0.0 Nucleated Red Blood Cells # 0.2 H Sodium Level 149 H Potassium Level 2.9 *L Chloride Level 121 H Carbon Dioxide Level 25 Anion Gap 6 L Blood Urea Nitrogen 36 #H Creatinine 0.86 Glucose Level 92 Calcium Level 7.5 L Phosphorus Level 1.4 #L Magnesium Level 2.5 Test 12/28/16 05:58 12/28/16 07:00 12/28/16 07:53 Bedside Glucose 92 84 Blood Gas Specimen Source Blood arterial Arterial Blood Date Drawn 12/28/2016 7:20:30 AM Arterial Blood pH (Temp corrected) 7.571 *H Arterial Blood pCO2 (Temp correct) 22.7 L Arterial Blood pO2 (Temp corrected) 129.4 H Arterial Blood HCO3 20.4 L Arterial Blood Base Excess -0.7 Arterial Blood Oxygen Saturation 98.2 H Rene Test ACCEPTAB Arterial Blood Gas Puncture Site Right Radial Arterial Blood Carboxyhemoglobin 0.2 Arterial Blood Methemoglobin 0.4 Blood Gas A-a O2 Differential 201.6 H Oxyhemoglobin Percent 97.6 Total Hemoglobin 9.3 L Blood Gas Temperature 37.0 Blood Gas Respiration Rate 16.0 Blood Gas Actual Respiration Rate 22 Blood Gas Modality VENT - AC FiO2 50.0 Blood Gas Tidal Volume 500.0 Blood Gas Low PEEP Setting 5.0 Blood Gas Critical Value Read Back A ELIZABETH GENAO Blood Gas Notified Whom LULUD Blood Gas Notified Time 12/28/2016 7:39:37 AM Medications Medications Current Medications Ondansetron HCl (Zofran Inj) 4 mg Q6H PRN IV NAUSEA AND/OR VOMITING; Start 01/29 at 01:00 Acetaminophen (Tylenol Tab) 650 mg Q6H PRN PO PAIN LEVEL 1-3 OR FEVER Last administered on 12/27/16 21:00; Admin Dose 650 MG; Start 12/23/16 at 01:00 Ferrous Sulfate (Ferrous Sulfate (Ec)) 325 mg BID PO Last administered on 20:29; Admin Dose 325 MG; Start 12/23/16 at 09:00 Propranolol HCl (Inderal) 10 mg BID PO Last administered on 12/25/16 10:20; Admin Dose 10 MG; Start 12/23/16 at 01:30; Status Future Hold Docusate Sodium (Colace) 100 mg DAILY PO Last administered on 12/27/16 08:01; Admin Dose 100 MG; Start 12/23/16 at 09:00 Miscellaneous Information 1 ea 1 ea NOTE XX ; Start 12/23/16 at 02:30 Octreotide Acetate/Sodium Chloride (Sandostatin/NS) 50 ml @ 2.5 mls/hr Q20H IV Last administered on 12/27/16 19:58; Admin Dose 2.5 MLS/HR; Start 12/23/16 at 10:15 Furosemide (Lasix) 40 mg DAILY PO Last administered on 12/25/16 10:20; Admin Dose 40 MG; Start 12/24/16 at 09:00; Status Future Hold Rifaximin (Xifaxan) 550 mg BID PO Last administered on 12/27/16 20:29; Admin Dose 550 MG; Start 12/24/16 at 21:00 Lactulose (Enulose) 30 gm Q6H PRN PO CONSTIPATION Last administered on 16:13; Admin Dose 30 GM; Start 12/25/16 at 16:00 Lactulose 30 gm 30 gm Q6 NGT Last administered on 12/28/16 05:22; Admin Dose 30 GM; Start 12/26/16 at 06:00 Pantoprazole 80 mg/Sodium Chloride 100 ml @ 10 mls/hr Q10H IV Last administered on 12/28/16 05:23; Admin Dose 10 MLS/HR; Start 12/25/16 at 19:30 Fentanyl (Sublimaze) 100 ml @ 2.5 mls/hr TITRATE IV Last administered on 20:10; Admin Dose 10 MLS/HR; Start 12/25/16 at 19:00 Eye Lubricant 1 applic 1 applic Q4 BOTH EYES Last administered on 12/28/16 08: 00; Admin Dose 1 APPLIC; Start 12/25/16 at 21:00 Norepinephrine 16 mg/Dextrose 500 ml @ 1.87 mls/hr TITRATE IV Last administered on 12/27/16 08:28; Admin Dose 15 MLS/HR; Start 12/26/16 at 03:00 Piperacillin Sod/ Tazobactam Sod 100 ml @ 100 mls/hr Q8 IVPB Last administered on 12/28/16 05:02; Admin Dose 100 MLS/HR; Start 12/26/16 at 06:30 Levetiracetam (Keppra 500 Mg/ 100ml (Pmx)) 100 ml @ 400 mls/hr Q12 IVPB Last administered on 12/27/16 20:29; Admin Dose 400 MLS/HR; Start 12/26/16 at 21:00 Dextrose (D50w Syringe) 25 ml Q15M PRN IV Till BS 80 mg/dL or above x2 Last administered on 12/27/16 11:52; Admin Dose 25 ML; Start 12/26/16 at 09:30 Dextrose (D50w Syringe) 50 ml Q15M PRN IV Till BS 80 mg/dL or above x2; Start 12/26/16 at 09:30 Lorazepam (Ativan) 1 mg Q2 PRN IV Seizures; Start 12/26/16 at 09:30 Miscellaneous Information Q24H XX Last administered on 12/27/16 10:52; Admin Dose 1 EA; Start 12/26/16 at 11:30 Vasopressin 60 unit/Sodium Chloride 60 ml @ 0 mls/hr Q12H IVPB Last administered on 12/27/16 20:00; Admin Dose 2.4 MLS/HR; Start 12/26/16 at 12:00 Sodium Chloride (1/2 NS) 1,000 ml @ 100 mls/hr Q10H IV Last administered on 03:00; Admin Dose 100 MLS/HR; Start 12/27/16 at 07:00 Diagnostic Test (Pha) 1 ea 1 ea Q2H XX Last administered on 12/28/16 07:55; Admin Dose 1 EA; Start 12/28/16 at 06:00; Stop 12/31/16 at 05:59 Potassium Phosphate 30 mm/ Sodium Chloride 260 ml @ 65 mls/hr ONCE ONCE IVPB Last administered on 12/28/16 06:09; Admin Dose 65 MLS/HR; Start 12/28/16 at 06 :00; Stop 12/28/16 at 09:59 Vancomycin HCl (Vancocin) 100 ml @ 100 mls/hr Q12H IVPB Last administered on 07:57; Admin Dose 100 MLS/HR; Start 12/28/16 at 08:00 Miscellaneous Information (*Rx Drug Level Order Reminder*) VANCO TROUGH @ 0, 700 ON... ONCE ONCE XX ; Start 12/29/16 at 07:00; Stop 12/29/16 at 07:01 KAYLA HUNTER Dec 28, 2016:16
[2016-12-28] MEDS: LEVETIRACETAM 500 MG (PMX) 100 ML IVPB SCH ×2 (09:26→21:34)
[2016-12-28] MEDS ORDERED: NORepinephrine 8MG/250 ML (PMX 250 ML ONE (09:46)
[2016-12-28] MEDS: DOCUSATE SODIUM 100 MG CAP PO SCH (10:18)
[2016-12-28] MEDS: FERROUS SULFATE (EC) 325 MG TAB PO SCH ×2 (10:18→21:35)
--- NOTE | 2016-12-28 11:21 | CONS ---
Date/Time of Note Date/Time of Note DATE: 12/28/16 TIME: 11:17 Assessment/Plan Assessment/Plan Additional Assessment/Plan Family discussion with patient's sisters son distended family members and there is another daughter patient in route. Voice for the family include all family members. We reviewed patient's background and social history compassionate way and explored understanding of her current major medical condition. They certainly understand that she is critically ill and they understand sequence of medical events that have occurred including liver cirrhosis, encephalopathy, sepsis syndrome and comorbid medical problems associated with shock. He may get made it very clear that they do not want her to suffer their fears that she would suffer at the end of life or no cultural differences that is expressed amongst family members. Communication preferences is 1 1 goals of care and estimated prognosis have been discussed I have spoken told them that she has a 90% chance of . But kept the discussion open insofar is controlling symptoms and not allowing her to suffer. Family members are leaning towards do not resuscitation the only family member whose was not available is patient's daughter, and son stepped out of the room he was very emotional unable to make any decisions. Only members are currently discussing changing CODE STATUS but all other treatment will be continued. Consultation Date/Type/Reason Admit Date/Time Dec 22, 2016 at 22:41 Type of Consultation: Palliative care Psychological: No nl mood/affect, No no complaints Exam/Review of Systems Vital Signs Vitals Vital Signs Date Time Temp Pulse Resp B/P Pulse Ox O2 Delivery O2 Flow Rate FiO2 12/28/16 09:50 98 18 100 50 12/28/16 07:30 133/54 12/28/16 06:00 100.2 12/27/16 18:45 Mechanical Ventilator 12/25/16 15:07 2.0 Intake and Output 12/27/16 12/27/16 12/28/16 15:00 23:00 07:00 Intake Total 1431.7 ml 1021.9 ml 1360.1 ml Output Total 885 ml 265 ml 375 ml Balance 546.7 ml 756.9 ml 985.1 ml Results Result Diagram: 12/28/16 0410 12/28/16 0410 Results 24 hrs Laboratory Tests Test 12/27/16 11:23 12/27/16 11:25 12/27/16 11:45 12/27/16 12:29 Hemoglobin 8.6 L Hematocrit 25.4 L Potassium Level 3.3 L Bedside Glucose 65 L 152 136 Test 12/27/16 13:43 12/27/16 14:29 12/27/16 17:06 12/27/16 17:41 Hemoglobin 8.4 L Hematocrit 25.2 L Bedside Glucose 147 163 181 Test 12/27/16 18:34 12/27/16 19:16 12/27/16 20:06 12/27/16 21:25 Bedside Glucose 195 182 119 104 Test 12/27/16 22:19 12/27/16 23:53 12/28/16 00:28 12/28/16 02:43 Bedside Glucose 131 117 125 Hemoglobin 8.2 L Hematocrit 24.5 L Test 12/28/16 04:10 12/28/16 04:20 12/28/16 05:58 12/28/16 07:00 White Blood Count 12.6 H Red Blood Count 2.29 L Hemoglobin 8.0 L Hematocrit 24.3 L Mean Corpuscular Volume 106.1 H Mean Corpuscular Hemoglobin 34.9 H Mean Corpuscular Hemoglobin Concent 32.9 Red Cell Distribution Width 19.0 H Platelet Count 41 #L Mean Platelet Volume 12.1 H Neutrophils % 77.5 H Lymphocytes % 12.4 L Monocytes % 7.9 Eosinophils % 1.3 Basophils % 0.1 Nucleated Red Blood Cells % 1.4 H Neutrophils # 9.8 H Lymphocytes # 1.6 Monocytes # 1.0 H Eosinophils # 0.2 Basophils # 0.0 Nucleated Red Blood Cells # 0.2 H Sodium Level 149 H Potassium Level 2.9 *L Chloride Level 121 H Carbon Dioxide Level 25 Anion Gap 6 L Blood Urea Nitrogen 36 #H Creatinine 0.86 Glucose Level 92 Calcium Level 7.5 L Phosphorus Level 1.4 #L Magnesium Level 2.5 Bedside Glucose 86 92 Blood Gas Specimen Source Blood arterial Arterial Blood Date Drawn 12/28/2016 7:20:30 AM Arterial Blood pH (Temp corrected) 7.571 *H Arterial Blood pCO2 (Temp correct) 22.7 L Arterial Blood pO2 (Temp corrected) 129.4 H Arterial Blood HCO3 20.4 L Arterial Blood Base Excess -0.7 Arterial Blood Oxygen Saturation 98.2 H Rene Test ACCEPTAB Arterial Blood Gas Puncture Site Right Radial Arterial Blood Carboxyhemoglobin 0.2 Arterial Blood Methemoglobin 0.4 Blood Gas A-a O2 Differential 201.6 H Oxyhemoglobin Percent 97.6 Total Hemoglobin 9.3 L Blood Gas Temperature 37.0 Blood Gas Respiration Rate 16.0 Blood Gas Actual Respiration Rate 22 Blood Gas Modality VENT - AC FiO2 50.0 Blood Gas Tidal Volume 500.0 Blood Gas Low PEEP Setting 5.0 Blood Gas Critical Value Read Back A ELIZABETH GENAO Blood Gas Notified Whom JLD Blood Gas Notified Time 12/28/2016 7:39:37 AM Test 12/28/16 07:53 12/28/16 09:54 Bedside Glucose 84 100 Medications Medications Current Medications Ondansetron HCl (Zofran Inj) 4 mg Q6H PRN IV NAUSEA AND/OR VOMITING; Start 01/29 at 01:00 Acetaminophen (Tylenol Tab) 650 mg Q6H PRN PO PAIN LEVEL 1-3 OR FEVER Last administered on 12/27/16 21:00; Admin Dose 650 MG; Start 12/23/16 at 01:00 Ferrous Sulfate (Ferrous Sulfate (Ec)) 325 mg BID PO Last administered on 10:18; Admin Dose 325 MG; Start 12/23/16 at 09:00 Propranolol HCl (Inderal) 10 mg BID PO Last administered on 12/25/16 10:20; Admin Dose 10 MG; Start 12/23/16 at 01:30; Status Future Hold Docusate Sodium (Colace) 100 mg DAILY PO Last administered on 12/28/16 10:18; Admin Dose 100 MG; Start 12/23/16 at 09:00 Miscellaneous Information 1 ea 1 ea NOTE XX ; Start 12/23/16 at 02:30 Octreotide Acetate/Sodium Chloride (Sandostatin/NS) 50 ml @ 2.5 mls/hr Q20H IV Last administered on 12/27/16 19:58; Admin Dose 2.5 MLS/HR; Start 12/23/16 at 10:15 Furosemide (Lasix) 40 mg DAILY PO Last administered on 12/25/16 10:20; Admin Dose 40 MG; Start 12/24/16 at 09:00; Status Future Hold Rifaximin (Xifaxan) 550 mg BID PO Last administered on 12/27/16 20:29; Admin Dose 550 MG; Start 12/24/16 at 21:00 Lactulose (Enulose) 30 gm Q6H PRN PO CONSTIPATION Last administered on 16:13; Admin Dose 30 GM; Start 12/25/16 at 16:00 Lactulose 30 gm 30 gm Q6 NGT Last administered on 12/28/16 05:22; Admin Dose 30 GM; Start 12/26/16 at 06:00 Pantoprazole 80 mg/Sodium Chloride 100 ml @ 10 mls/hr Q10H IV Last administered on 12/28/16 05:23; Admin Dose 10 MLS/HR; Start 12/25/16 at 19:30 Fentanyl (Sublimaze) 100 ml @ 2.5 mls/hr TITRATE IV Last administered on 20:10; Admin Dose 10 MLS/HR; Start 12/25/16 at 19:00 Eye Lubricant 1 applic 1 applic Q4 BOTH EYES Last administered on 12/28/16 08: 00; Admin Dose 1 APPLIC; Start 12/25/16 at 21:00 Norepinephrine 16 mg/Dextrose 500 ml @ 1.87 mls/hr TITRATE IV Last administered on 12/27/16 08:28; Admin Dose 15 MLS/HR; Start 12/26/16 at 03:00 Piperacillin Sod/ Tazobactam Sod 100 ml @ 100 mls/hr Q8 IVPB Last administered on 12/28/16 05:02; Admin Dose 100 MLS/HR; Start 12/26/16 at 06:30 Levetiracetam (Keppra 500 Mg/ 100ml (Pmx)) 100 ml @ 400 mls/hr Q12 IVPB Last administered on 12/28/16 09:26; Admin Dose 400 MLS/HR; Start 12/26/16 at 21:00 Dextrose (D50w Syringe) 25 ml Q15M PRN IV Till BS 80 mg/dL or above x2 Last administered on 12/27/16 11:52; Admin Dose 25 ML; Start 12/26/16 at 09:30 Dextrose (D50w Syringe) 50 ml Q15M PRN IV Till BS 80 mg/dL or above x2; Start 12/26/16 at 09:30 Lorazepam (Ativan) 1 mg Q2 PRN IV Seizures; Start 12/26/16 at 09:30 Miscellaneous Information Q24H XX Last administered on 12/27/16 10:52; Admin Dose 1 EA; Start 12/26/16 at 11:30 Vasopressin 60 unit/Sodium Chloride 60 ml @ 0 mls/hr Q12H IVPB Last administered on 12/27/16 20:00; Admin Dose 2.4 MLS/HR; Start 12/26/16 at 12:00 Sodium Chloride (1/2 NS) 1,000 ml @ 100 mls/hr Q10H IV Last administered on 03:00; Admin Dose 100 MLS/HR; Start 12/27/16 at 07:00 Diagnostic Test (Pha) 1 ea 1 ea Q2H XX Last administered on 12/28/16 10:16; Admin Dose 1 EA; Start 12/28/16 at 06:00; Stop 12/31/16 at 05:59 Vancomycin HCl (Vancocin) 100 ml @ 100 mls/hr Q12H IVPB Last administered on 07:57; Admin Dose 100 MLS/HR; Start 12/28/16 at 08:00 Miscellaneous Information (*Rx Drug Level Order Reminder*) VANCO TROUGH @ 0, 700 ON... ONCE ONCE XX ; Start 12/29/16 at 07:00; Stop 12/29/16 at 07:01 ARNOL AUSTIN Dec 28, 2016 11:21
[2016-12-28] MEDS: BALSAM PERU/CASTOR OIL 60 GM TUBE TOP SCH ×2 (11:30→21:37)
[2016-12-28] MEDS: [UNRECOGNIZED DRUG - REMARK] XX SCH (11:30)
[2016-12-28] MEDS: RIFAXIMIN 550 MG TAB PO SCH ×2 (12:35→21:35)
[2016-12-28 12:38] LABS: HEMATOCRIT 25.6 % (37.0-47.0); HEMOGLOBIN 8.3 g/dl (12.0-16.0)
[2016-12-28 14:36] LABS: MICROALBUMIN 2.6 mg/dL
--- NOTE | 2016-12-28 15:14 | PN ---
Date/Time of Note Date/Time of Note DATE: 12/28/16 TIME: 15:10 Assessment/Plan VTE Prophylaxis VTE Prophylaxis Intervention: SCD's Lines/Catheters Central line still needed: Yes Urinary Cath still in place: Yes Reason Cath still needed: urinary retention Assessment/Plan Assessment/Plan Assessment * Acute respiratory failure * Toxic metabolic encephalopathy * sepsis * S/P EGD Grade IV/IV esophageal varices * Post endoscopic variceal ligation 4 Severe portal hypertensive gastropathy Plan * continue present management * Case discussed with DR Helton * further orders will depend on clinical course * prognosis poor Subjective 24 Hr Interval Summary Free Text/Dictation * course reviwed with RN * Patient seen and examined * Patient still on pressors * unresponsive Exam/Review of Systems Vital Signs Vitals Vital Signs Date Time Temp Pulse Resp B/P Pulse Ox O2 Delivery O2 Flow Rate FiO2 12/28/16 14:00 99 18 117/57 100 12/28/16 12:15 98.8 12/28/16 11:57 45 12/27/16 18:45 Mechanical Ventilator 12/25/16 15:07 2.0 Intake and Output 12/27/16 12/27/16 12/28/16 15:00 23:00 07:00 Intake Total 1431.7 ml 1021.9 ml 1360.1 ml Output Total 885 ml 265 ml 425 ml Balance 546.7 ml 756.9 ml 935.1 ml Exam Constitutional: frail, non-verbal ENMT: intubated Neck: supple Respiratory: diminished breath sounds, other (on ventilator) Cardiovascular: regular rate and rhythm Gastrointestinal: distended, soft Musculoskeletal: muscle weakness Extremities: edema Neurological: unresponsive Skin: nl turgor Lymph: nl lymph nodes Results Result Diagram: 12/28/16 1153 12/28/16 0410 Results 24 hrs Laboratory Tests Test 12/27/16 17:06 12/27/16 17:41 12/27/16 18:34 12/27/16 19:16 Bedside Glucose 163 181 195 182 Test 12/27/16 20:06 12/27/16 21:25 12/27/16 22:19 12/27/16 23:53 Bedside Glucose 119 104 131 117 Test 12/28/16 00:28 12/28/16 02:43 12/28/16 04:10 12/28/16 04:20 Hemoglobin 8.2 L 8.0 L Hematocrit 24.5 L 24.3 L Bedside Glucose 125 86 White Blood Count 12.6 H Red Blood Count 2.29 L Mean Corpuscular Volume 106.1 H Mean Corpuscular Hemoglobin 34.9 H Mean Corpuscular Hemoglobin Concent 32.9 Red Cell Distribution Width 19.0 H Platelet Count 41 #L Mean Platelet Volume 12.1 H Neutrophils % 77.5 H Lymphocytes % 12.4 L Monocytes % 7.9 Eosinophils % 1.3 Basophils % 0.1 Nucleated Red Blood Cells % 1.4 H Neutrophils # 9.8 H Lymphocytes # 1.6 Monocytes # 1.0 H Eosinophils # 0.2 Basophils # 0.0 Nucleated Red Blood Cells # 0.2 H Sodium Level 149 H Potassium Level 2.9 *L Chloride Level 121 H Carbon Dioxide Level 25 Anion Gap 6 L Blood Urea Nitrogen 36 #H Creatinine 0.86 Glucose Level 92 Calcium Level 7.5 L Phosphorus Level 1.4 #L Magnesium Level 2.5 Test 12/28/16 05:58 12/28/16 07:00 12/28/16 07:53 12/28/16 09:54 Bedside Glucose 92 84 100 Blood Gas Specimen Source Blood arterial Arterial Blood Date Drawn 12/28/2016 7:20:30 AM Arterial Blood pH (Temp corrected) 7.571 *H Arterial Blood pCO2 (Temp correct) 22.7 L Arterial Blood pO2 (Temp corrected) 129.4 H Arterial Blood HCO3 20.4 L Arterial Blood Base Excess -0.7 Arterial Blood Oxygen Saturation 98.2 H Rene Test ACCEPTAB Arterial Blood Gas Puncture Site Right Radial Arterial Blood Carboxyhemoglobin 0.2 Arterial Blood Methemoglobin 0.4 Blood Gas A-a O2 Differential 201.6 H Oxyhemoglobin Percent 97.6 Total Hemoglobin 9.3 L Blood Gas Temperature 37.0 Blood Gas Respiration Rate 16.0 Blood Gas Actual Respiration Rate 22 Blood Gas Modality VENT - AC FiO2 50.0 Blood Gas Tidal Volume 500.0 Blood Gas Low PEEP Setting 5.0 Blood Gas Critical Value Read Back A ELIZABETH GENAO Blood Gas Notified Whom LULUD Blood Gas Notified Time 12/28/2016 7:39:37 AM Test 12/28/16 11:53 12/28/16 12:37 12/28/16 14:15 Hemoglobin 8.3 L Hematocrit 25.6 L Bedside Glucose 112 132 Medications Medications Current Medications Ondansetron HCl (Zofran Inj) 4 mg Q6H PRN IV NAUSEA AND/OR VOMITING; Start 01/29 at 01:00 Acetaminophen (Tylenol Tab) 650 mg Q6H PRN PO PAIN LEVEL 1-3 OR FEVER Last administered on 12/27/16 21:00; Admin Dose 650 MG; Start 12/23/16 at 01:00 Ferrous Sulfate (Ferrous Sulfate (Ec)) 325 mg BID PO Last administered on 10:18; Admin Dose 325 MG; Start 12/23/16 at 09:00 Propranolol HCl (Inderal) 10 mg BID PO Last administered on 12/25/16 10:20; Admin Dose 10 MG; Start 12/23/16 at 01:30; Status Future Hold Docusate Sodium (Colace) 100 mg DAILY PO Last administered on 12/28/16 10:18; Admin Dose 100 MG; Start 12/23/16 at 09:00 Miscellaneous Information 1 ea NOTE XX ; Start 12/23/16 at 02:30 Furosemide (Lasix) 40 mg DAILY PO Last administered on 12/25/16 10:20; Admin Dose 40 MG; Start 12/24/16 at 09:00; Status Future Hold Rifaximin (Xifaxan) 550 mg BID PO Last administered on 12/28/16 12:35; Admin Dose 550 MG; Start 12/24/16 at 21:00 Lactulose (Enulose) 30 gm Q6H PRN PO CONSTIPATION Last administered on 16:13; Admin Dose 30 GM; Start 12/25/16 at 16:00 Lactulose 30 gm 30 gm Q6 NGT Last administered on 12/28/16 12:36; Admin Dose 30 GM; Start 12/26/16 at 06:00 Fentanyl (Sublimaze) 100 ml @ 2.5 mls/hr TITRATE IV Last administered on 20:10; Admin Dose 10 MLS/HR; Start 12/25/16 at 19:00 Eye Lubricant 1 applic 1 applic Q4 BOTH EYES Last administered on 12/28/16 12: 50; Admin Dose 1 APPLIC; Start 12/25/16 at 21:00 Norepinephrine 16 mg/Dextrose 500 ml @ 1.87 mls/hr TITRATE IV Last administered on 12/27/16 08:28; Admin Dose 15 MLS/HR; Start 12/26/16 at 03:00 Piperacillin Sod/ Tazobactam Sod 100 ml @ 100 mls/hr Q8 IVPB Last administered on 12/28/16 14:14; Admin Dose 100 MLS/HR; Start 12/26/16 at 06:30 Levetiracetam (Keppra 500 Mg/ 100ml (Pmx)) 100 ml @ 400 mls/hr Q12 IVPB Last administered on 12/28/16 09:26; Admin Dose 400 MLS/HR; Start 12/26/16 at 21:00 Dextrose (D50w Syringe) 25 ml Q15M PRN IV Till BS 80 mg/dL or above x2 Last administered on 12/27/16 11:52; Admin Dose 25 ML; Start 12/26/16 at 09:30 Dextrose (D50w Syringe) 50 ml Q15M PRN IV Till BS 80 mg/dL or above x2; Start 12/26/16 at 09:30 Lorazepam (Ativan) 1 mg Q2 PRN IV Seizures; Start 12/26/16 at 09:30 Miscellaneous Information Q24H XX Last administered on 12/27/16 10:52; Admin Dose 1 EA; Start 12/26/16 at 11:30 Vasopressin 60 unit/Sodium Chloride 60 ml @ 0 mls/hr Q12H IVPB Last administered on 12/27/16 20:00; Admin Dose 2.4 MLS/HR; Start 12/26/16 at 12:00 Sodium Chloride (1/2 NS) 1,000 ml @ 100 mls/hr Q10H IV Last administered on 12:51; Admin Dose 100 MLS/HR; Start 12/27/16 at 07:00 Diagnostic Test (Pha) 1 ea 1 ea Q2H XX Last administered on 12/28/16 14:14; Admin Dose 1 EA; Start 12/28/16 at 06:00; Stop 12/31/16 at 05:59 Vancomycin HCl (Vancocin) 100 ml @ 100 mls/hr Q12H IVPB Last administered on 07:57; Admin Dose 100 MLS/HR; Start 12/28/16 at 08:00 Miscellaneous Information (*Rx Drug Level Order Reminder*) VANCO TROUGH @ 0, 700 ON... ONCE ONCE XX ; Start 12/29/16 at 07:00; Stop 12/29/16 at 07:01 CAIN GAVIRIA NP Dec 28, 2016 15:14
--- NOTE | 2016-12-28 17:38 | PN ---
Date/Time of Note Date/Time of Note DATE: 12/28/16 TIME: 17:36 Assessment/Plan VTE Prophylaxis VTE Prophylaxis Intervention: SCD's Assessment/Plan Chief Complaint/Hosp Course 1. Acute hypoxemic respiratory failure requiring mechanical ventilation secondary to decompensated liver cirrhosis -Pulmonary eval appreciated, continue vent management 2.Hypovolemic/Hypotensive shock,requiring pressors -IVFs,Titrate Levophed to keep MAP>60 - 2D Echo shows preserved EF, Cards consult appreciated 3.Toxic metabolic encephalopathy with Hepatic encephalopathy with coma and hyperammonemia secondary to end-stage liver disease -Continue lactulose 4. Acute GI bleed secondary to varices status post banding-now stable -Continue protonix/Octreotide drip-Not a candidate for BB 2/2 Hypotension. 5.Severe anion-gap metabolic acidosis. -Continue IVF 6. Acute Kidney Injury, likely hemodynamics-improved -Nephrology consult appreciated -Monitor renal fxn closely. 7. 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 No ascites. -Patient has been sober for 1 year -Continue current medical management. -Negative Hep panel 8. New-onset Seizures. -Neur eval appreciated -EEG shows encephalopathy -Ativan PRN, continue Keppra 9.Hypernatremia with free water deficit-Patient appears severely dehydrated currently. -Continue IVFs -Hold all diuretics. 10.Leukocytosis likely secondary to UTI -Urine culture shows K pneumoniae, continue Zosyn 11.Azotemia 2/2 dehydration/GIB. -Continue IVFs 12. Hyperglycemia ,likely worsened by D5W with Adult-onset Diabetes mellitus- Poorly controlled. -Continue ICU Insulin drip protocol 13. Anemia of chronic disease and acute blood loss anemia from GI bleed. HH stable.Will monitor. 14.Thrombocytopenia of liver disease. Stable. DVT and GI prophylaxis: SCDs, Protonix Problems: Subjective 24 Hr Interval Summary Subjective hx not possible: pt non-verbal Exam/Review of Systems Vital Signs Vitals Vital Signs Date Time Temp Pulse Resp B/P Pulse Ox O2 Delivery O2 Flow Rate FiO2 12/28/16 17:18 103 21 100 45 12/28/16 16:15 101/47 12/28/16 16:00 100.0 12/27/16 18:45 Mechanical Ventilator 12/25/16 15:07 2.0 Intake and Output 12/27/16 12/27/16 12/28/16 15:00 23:00 07:00 Intake Total 1431.7 ml 1021.9 ml 1360.1 ml Output Total 885 ml 265 ml 425 ml Balance 546.7 ml 756.9 ml 935.1 ml Exam Constitutional: non-verbal Respiratory: clear to auscultation Cardiovascular: regular rate and rhythm Gastrointestinal: soft, No distended Musculoskeletal: nl extremities to inspection Results Result Diagram: 12/28/16 1153 12/28/16 0410 Results 24 hrs Laboratory Tests Test 12/27/16 17:41 12/27/16 18:34 12/27/16 19:16 12/27/16 20:06 Bedside Glucose 181 195 182 119 Test 12/27/16 21:25 12/27/16 22:19 12/27/16 23:53 12/28/16 00:28 Bedside Glucose 104 131 117 Hemoglobin 8.2 L Hematocrit 24.5 L Test 12/28/16 02:43 12/28/16 04:10 12/28/16 04:20 12/28/16 05:58 Bedside Glucose 125 86 92 White Blood Count 12.6 H Red Blood Count 2.29 L Hemoglobin 8.0 L Hematocrit 24.3 L Mean Corpuscular Volume 106.1 H Mean Corpuscular Hemoglobin 34.9 H Mean Corpuscular Hemoglobin Concent 32.9 Red Cell Distribution Width 19.0 H Platelet Count 41 #L Mean Platelet Volume 12.1 H Neutrophils % 77.5 H Lymphocytes % 12.4 L Monocytes % 7.9 Eosinophils % 1.3 Basophils % 0.1 Nucleated Red Blood Cells % 1.4 H Neutrophils # 9.8 H Lymphocytes # 1.6 Monocytes # 1.0 H Eosinophils # 0.2 Basophils # 0.0 Nucleated Red Blood Cells # 0.2 H Sodium Level 149 H Potassium Level 2.9 *L Chloride Level 121 H Carbon Dioxide Level 25 Anion Gap 6 L Blood Urea Nitrogen 36 #H Creatinine 0.86 Glucose Level 92 Calcium Level 7.5 L Phosphorus Level 1.4 #L Magnesium Level 2.5 Test 12/28/16 07:00 12/28/16 07:53 12/28/16 09:54 12/28/16 11:53 Blood Gas Specimen Source Blood arterial Arterial Blood Date Drawn 12/28/2016 7:20:30 AM Arterial Blood pH (Temp corrected) 7.571 *H Arterial Blood pCO2 (Temp correct) 22.7 L Arterial Blood pO2 (Temp corrected) 129.4 H Arterial Blood HCO3 20.4 L Arterial Blood Base Excess -0.7 Arterial Blood Oxygen Saturation 98.2 H Rene Test ACCEPTAB Arterial Blood Gas Puncture Site Right Radial Arterial Blood Carboxyhemoglobin 0.2 Arterial Blood Methemoglobin 0.4 Blood Gas A-a O2 Differential 201.6 H Oxyhemoglobin Percent 97.6 Total Hemoglobin 9.3 L Blood Gas Temperature 37.0 Blood Gas Respiration Rate 16.0 Blood Gas Actual Respiration Rate 22 Blood Gas Modality VENT - AC FiO2 50.0 Blood Gas Tidal Volume 500.0 Blood Gas Low PEEP Setting 5.0 Blood Gas Critical Value Read Back A ELIZABETH GENAO Blood Gas Notified Whom LULUD Blood Gas Notified Time 12/28/2016 7:39:37 AM Bedside Glucose 84 100 Hemoglobin 8.3 L Hematocrit 25.6 L Test 12/28/16 12:37 12/28/16 14:15 12/28/16 15:57 Bedside Glucose 112 132 126 Medications Medications Current Medications Ondansetron HCl (Zofran Inj) 4 mg Q6H PRN IV NAUSEA AND/OR VOMITING; Start 01/29 at 01:00 Acetaminophen (Tylenol Tab) 650 mg Q6H PRN PO PAIN LEVEL 1-3 OR FEVER Last administered on 12/27/16 21:00; Admin Dose 650 MG; Start 12/23/16 at 01:00 Ferrous Sulfate (Ferrous Sulfate (Ec)) 325 mg BID PO Last administered on 10:18; Admin Dose 325 MG; Start 12/23/16 at 09:00 Propranolol HCl (Inderal) 10 mg BID PO Last administered on 12/25/16 10:20; Admin Dose 10 MG; Start 12/23/16 at 01:30; Status Future Hold Docusate Sodium (Colace) 100 mg DAILY PO Last administered on 12/28/16 10:18; Admin Dose 100 MG; Start 12/23/16 at 09:00 Miscellaneous Information 1 ea NOTE XX ; Start 12/23/16 at 02:30 Furosemide (Lasix) 40 mg DAILY PO Last administered on 12/25/16 10:20; Admin Dose 40 MG; Start 12/24/16 at 09:00; Status Future Hold Rifaximin (Xifaxan) 550 mg BID PO Last administered on 12/28/16 12:35; Admin Dose 550 MG; Start 12/24/16 at 21:00 Lactulose (Enulose) 30 gm Q6H PRN PO CONSTIPATION Last administered on 16:13; Admin Dose 30 GM; Start 12/25/16 at 16:00 Lactulose (Enulose) 30 gm Q6 NGT Last administered on 12/28/16 12:36; Admin Dose 30 GM; Start 12/26/16 at 06:00 Eye Lubricant 1 applic 1 applic Q4 BOTH EYES Last administered on 12/28/16 12: 50; Admin Dose 1 APPLIC; Start 12/25/16 at 21:00 Norepinephrine 16 mg/Dextrose 500 ml @ 1.87 mls/hr TITRATE IV Last administered on 12/27/16 08:28; Admin Dose 15 MLS/HR; Start 12/26/16 at 03:00 Piperacillin Sod/ Tazobactam Sod 100 ml @ 100 mls/hr Q8 IVPB Last administered on 12/28/16 14:14; Admin Dose 100 MLS/HR; Start 12/26/16 at 06:30 Levetiracetam (Keppra 500 Mg/ 100ml (Pmx)) 100 ml @ 400 mls/hr Q12 IVPB Last administered on 12/28/16 09:26; Admin Dose 400 MLS/HR; Start 12/26/16 at 21:00 Dextrose (D50w Syringe) 25 ml Q15M PRN IV Till BS 80 mg/dL or above x2 Last administered on 12/27/16 11:52; Admin Dose 25 ML; Start 12/26/16 at 09:30 Dextrose (D50w Syringe) 50 ml Q15M PRN IV Till BS 80 mg/dL or above x2; Start 12/26/16 at 09:30 Lorazepam (Ativan) 1 mg Q2 PRN IV Seizures; Start 12/26/16 at 09:30 Miscellaneous Information Q24H XX Last administered on 12/27/16 10:52; Admin Dose 1 EA; Start 12/26/16 at 11:30 Vasopressin 60 unit/Sodium Chloride 60 ml @ 0 mls/hr Q12H IVPB Last administered on 12/27/16 20:00; Admin Dose 2.4 MLS/HR; Start 12/26/16 at 12:00 Sodium Chloride (1/2 NS) 1,000 ml @ 100 mls/hr Q10H IV Last administered on 12:51; Admin Dose 100 MLS/HR; Start 12/27/16 at 07:00 Diagnostic Test (Pha) 1 ea 1 ea Q2H XX Last administered on 12/28/16 16:06; Admin Dose 1 EA; Start 12/28/16 at 06:00; Stop 12/31/16 at 05:59 Vancomycin HCl (Vancocin) 100 ml @ 100 mls/hr Q12H IVPB Last administered on 07:57; Admin Dose 100 MLS/HR; Start 12/28/16 at 08:00 Miscellaneous Information (*Rx Drug Level Order Reminder*) VANCO TROUGH @ 0, 700 ON... ONCE ONCE XX ; Start 12/29/16 at 07:00; Stop 12/29/16 at 07:01 GT DON Dec 28, 2016 17:38
--- NOTE | 2016-12-28 20:27 | CONS ---
Date/Time of Note Date/Time of Note DATE: 12/28/16 TIME: 20:25 Assessment/Plan Assessment/Plan Chief Complaint/Hosp Course Assessment: Septic shock Pneumonia Acute hypoxic respiratory failure - intubated and on mechanical ventilation Hematemesis and anemia - EGD showed grade IV esophageal varices status post ligation, follow up gastroenterology recommendations Acute kidney injury Alcoholic liver cirrhosis Diabetes mellitus Recommendations: -pressors to keep MAP>65, wean as tolerated -echocardiogram showed LVEF>70% Problems: Consultation Date/Type/Reason Admit Date/Time Dec 22, 2016 at 22:41 Initial Consult Date 12/26/16 Type of Consultation: Cardiology 24 HR Interval Summary Free Text/Dictation Remains intubated and on mechanical ventilation. Remains on Levophed and vasopressin drips. Detailed Summary Additional Comments Unable to obtain review of systems, patient intubated. Exam/Review of Systems Vital Signs Vitals Vital Signs Date Time Temp Pulse Resp B/P Pulse Ox O2 Delivery O2 Flow Rate FiO2 12/28/16 19:45 101 14 108/46 100 12/28/16 19:44 45 12/28/16 16:00 100.0 12/27/16 18:45 Mechanical Ventilator 12/25/16 15:07 2.0 Intake and Output 12/27/16 12/27/16 12/28/16 15:00 23:00 07:00 Intake Total 1431.7 ml 1021.9 ml 1360.1 ml Output Total 885 ml 265 ml 425 ml Balance 546.7 ml 756.9 ml 935.1 ml Exam Constitutional: other (sedated), No alert Psych: No nl mood/affect, No no complaints Head: atraumatic, normocephalic Eyes: nl conjunctiva, nl lids ENMT: intubated Respiratory: clear to auscultation Cardiovascular: regular rate and rhythm Gastrointestinal: non-tender, soft Musculoskeletal: nl extremities to inspection Extremities: No clubbing, No cyanosis, No edema Neurological: No nl mental status, No nl speech Results Result Diagram: 12/28/16 1153 12/28/16 0410 Results 24 hrs Laboratory Tests Test 12/27/16 21:25 12/27/16 22:19 12/27/16 23:53 12/28/16 00:28 Bedside Glucose 104 131 117 Hemoglobin 8.2 L Hematocrit 24.5 L Test 12/28/16 02:43 12/28/16 04:10 12/28/16 04:20 12/28/16 05:58 Bedside Glucose 125 86 92 White Blood Count 12.6 H Red Blood Count 2.29 L Hemoglobin 8.0 L Hematocrit 24.3 L Mean Corpuscular Volume 106.1 H Mean Corpuscular Hemoglobin 34.9 H Mean Corpuscular Hemoglobin Concent 32.9 Red Cell Distribution Width 19.0 H Platelet Count 41 #L Mean Platelet Volume 12.1 H Neutrophils % 77.5 H Lymphocytes % 12.4 L Monocytes % 7.9 Eosinophils % 1.3 Basophils % 0.1 Nucleated Red Blood Cells % 1.4 H Neutrophils # 9.8 H Lymphocytes # 1.6 Monocytes # 1.0 H Eosinophils # 0.2 Basophils # 0.0 Nucleated Red Blood Cells # 0.2 H Sodium Level 149 H Potassium Level 2.9 *L Chloride Level 121 H Carbon Dioxide Level 25 Anion Gap 6 L Blood Urea Nitrogen 36 #H Creatinine 0.86 Glucose Level 92 Calcium Level 7.5 L Phosphorus Level 1.4 #L Magnesium Level 2.5 Test 12/28/16 07:00 12/28/16 07:53 12/28/16 09:54 12/28/16 11:53 Blood Gas Specimen Source Blood arterial Arterial Blood Date Drawn 12/28/2016 7:20:30 AM Arterial Blood pH (Temp corrected) 7.571 *H Arterial Blood pCO2 (Temp correct) 22.7 L Arterial Blood pO2 (Temp corrected) 129.4 H Arterial Blood HCO3 20.4 L Arterial Blood Base Excess -0.7 Arterial Blood Oxygen Saturation 98.2 H Rene Test ACCEPTAB Arterial Blood Gas Puncture Site Right Radial Arterial Blood Carboxyhemoglobin 0.2 Arterial Blood Methemoglobin 0.4 Blood Gas A-a O2 Differential 201.6 H Oxyhemoglobin Percent 97.6 Total Hemoglobin 9.3 L Blood Gas Temperature 37.0 Blood Gas Respiration Rate 16.0 Blood Gas Actual Respiration Rate 22 Blood Gas Modality VENT - AC FiO2 50.0 Blood Gas Tidal Volume 500.0 Blood Gas Low PEEP Setting 5.0 Blood Gas Critical Value Read Back A ELIZABETH GENAO Blood Gas Notified Whom LULUD Blood Gas Notified Time 12/28/2016 7:39:37 AM Bedside Glucose 84 100 Hemoglobin 8.3 L Hematocrit 25.6 L Test 12/28/16 12:37 12/28/16 14:15 12/28/16 15:57 12/28/16 17:38 Bedside Glucose 112 132 126 140 Test 12/28/16 20:07 Bedside Glucose 148 Medications Medications Current Medications Ondansetron HCl (Zofran Inj) 4 mg Q6H PRN IV NAUSEA AND/OR VOMITING; Start 01/29 at 01:00 Acetaminophen (Tylenol Tab) 650 mg Q6H PRN PO PAIN LEVEL 1-3 OR FEVER Last administered on 12/27/16 21:00; Admin Dose 650 MG; Start 12/23/16 at 01:00 Ferrous Sulfate (Ferrous Sulfate (Ec)) 325 mg BID PO Last administered on 10:18; Admin Dose 325 MG; Start 12/23/16 at 09:00 Propranolol HCl (Inderal) 10 mg BID PO Last administered on 12/25/16 10:20; Admin Dose 10 MG; Start 12/23/16 at 01:30; Status Future Hold Docusate Sodium (Colace) 100 mg DAILY PO Last administered on 12/28/16 10:18; Admin Dose 100 MG; Start 12/23/16 at 09:00 Miscellaneous Information 1 ea NOTE XX ; Start 12/23/16 at 02:30 Furosemide (Lasix) 40 mg DAILY PO Last administered on 12/25/16 10:20; Admin Dose 40 MG; Start 12/24/16 at 09:00; Status Future Hold Rifaximin (Xifaxan) 550 mg BID PO Last administered on 12/28/16 12:35; Admin Dose 550 MG; Start 12/24/16 at 21:00 Lactulose (Enulose) 30 gm Q6H PRN PO CONSTIPATION Last administered on 16:13; Admin Dose 30 GM; Start 12/25/16 at 16:00 Lactulose (Enulose) 30 gm Q6 NGT Last administered on 12/28/16 17:40; Admin Dose 30 GM; Start 12/26/16 at 06:00 Eye Lubricant 1 applic 1 applic Q4 BOTH EYES Last administered on 12/28/16 20: 15; Admin Dose 1 APPLIC; Start 12/25/16 at 21:00 Norepinephrine 16 mg/Dextrose 500 ml @ 1.87 mls/hr TITRATE IV Last administered on 12/27/16 08:28; Admin Dose 15 MLS/HR; Start 12/26/16 at 03:00 Piperacillin Sod/ Tazobactam Sod 100 ml @ 100 mls/hr Q8 IVPB Last administered on 12/28/16 14:14; Admin Dose 100 MLS/HR; Start 12/26/16 at 06:30 Levetiracetam (Keppra 500 Mg/ 100ml (Pmx)) 100 ml @ 400 mls/hr Q12 IVPB Last administered on 12/28/16 09:26; Admin Dose 400 MLS/HR; Start 12/26/16 at 21:00 Dextrose (D50w Syringe) 25 ml Q15M PRN IV Till BS 80 mg/dL or above x2 Last administered on 12/27/16 11:52; Admin Dose 25 ML; Start 12/26/16 at 09:30 Dextrose (D50w Syringe) 50 ml Q15M PRN IV Till BS 80 mg/dL or above x2; Start 12/26/16 at 09:30 Lorazepam (Ativan) 1 mg Q2 PRN IV Seizures; Start 12/26/16 at 09:30 Miscellaneous Information Q24H XX Last administered on 12/27/16 10:52; Admin Dose 1 EA; Start 12/26/16 at 11:30 Vasopressin 60 unit/Sodium Chloride 60 ml @ 0 mls/hr Q12H IVPB Last administered on 12/27/16 20:00; Admin Dose 2.4 MLS/HR; Start 12/26/16 at 12:00 Sodium Chloride (1/2 NS) 1,000 ml @ 100 mls/hr Q10H IV Last administered on 12:51; Admin Dose 100 MLS/HR; Start 12/27/16 at 07:00 Diagnostic Test (Pha) 1 ea 1 ea Q2H XX Last administered on 12/28/16 20:09; Admin Dose 1 EA; Start 12/28/16 at 06:00; Stop 12/31/16 at 05:59 Vancomycin HCl (Vancocin) 100 ml @ 100 mls/hr Q12H IVPB Last administered on 20:14; Admin Dose 100 MLS/HR; Start 12/28/16 at 08:00 Miscellaneous Information (*Rx Drug Level Order Reminder*) VANCO TROUGH @ 0, 700 ON... ONCE ONCE XX ; Start 12/29/16 at 07:00; Stop 12/29/16 at 07:01 TRISTAN UGARTE MD Dec 28, 2016 20:27
[2016-12-29] VITALS (95 sets, daily range): BP systolic 93–123; BP diastolic 35–62; PULSE 89–104; RESP 11–24
[2016-12-29] MEDS: OCULAR LUBRICANT 3.5 GM OPH OINT BOTH EYES SCH ×6 (01:00→21:07)
[2016-12-29] MEDS: ALBUTEROL 18 GM INHALER INH SCH ×6 (01:11→20:00)
[2016-12-29] MEDS: IPRATROPIUM (HFA) 12.9 GM INHALER INH SCH ×6 (01:11→20:00)
[2016-12-29] MEDS: ACCU-CHEK XX SCH ×12 (02:11→23:42)
[2016-12-29] MEDS: INSULIN HUMAN REGULAR 100 UNIT in SOD CHLORIDE 0.9% 99 ML IV SCH (02:15)
[2016-12-29 05:12] LABS: ABNORMAL IP MESSAGE 1; BASOPHILS % 0.1 % (0.0-2.0); EOSINOPHILS # 0.2 10^3/ul (0.0-0.5); EOSINOPHILS % 1.8 % (0.0-7.0); HEMATOCRIT 24.7 % (37.0-47.0); HEMOGLOBIN 7.8 g/dl (12.0-16.0); LYMPHOCYTES # 1.2 10^3/ul (0.8-2.9); MEAN CORPUSCULAR HEMOGLOBIN 33.9 pg (29.0-33.0); MEAN CORPUSCULAR HGB CONC 31.6 g/dl (32.0-37.0); MEAN CORPUSCULAR VOLUME 107.4 fl (82.0-101.0); MEAN PLATELET VOLUME 12.2 fl (7.4-10.4); MONOCYTE # 1.3 10^3/ul (0.3-0.9); MONOCYTES % 9.8 % (0.0-11.0); NEUTROPHIL # 10.6 10^3/ul (1.6-7.5); NEUTROPHILS % 78.8 % (39.0-77.0); NUCLEATED RED BLOOD CELLS # 0.1 10^3/ul (0.0-0.0); NUCLEATED RED BLOOD CELLS% 0.6 /100WBC (0.0-0.0); PLATELET COUNT 49 10^3/UL (140-415); RED CELL DISTRIBUTION WIDTH 19.2 % (11.5-14.5); WHITE BLOOD COUNT 13.5 10^3/ul (4.8-10.8)
[2016-12-29 05:18] LABS: POSITIVE DIFF @See below
[2016-12-29] MEDS: LACTULOSE 30ML CUP NGT SCH ×4 (05:30→23:45)
[2016-12-29] MEDS: PIPER-TAZO 3.375 GM IV (PMX) 100 ML IVPB SCH ×3 (05:30→21:45)
[2016-12-29 05:49] LABS: CALCIUM 7.6 mg/dl (8.4-10.2); CREATININE 0.76 mg/dl (0.44-1.00); MAGNESIUM 2.7 mg/dl (1.7-2.5); PHOSPHORUS 2.1 mg/dl (2.5-4.9); POTASSIUM 3.3 mmol/L (3.5-5.1)
[2016-12-29] MEDS: VASOPRESSIN 60 UNIT in SOD CHLORIDE 0.9% 57 ML IVPB SCH ×2 (07:00→12:00)
[2016-12-29] MEDS: VANCOMYCIN 500MG/NS (PMX) 100 ML IVPB SCH (09:07)
[2016-12-29] MEDS: LEVETIRACETAM 500 MG (PMX) 100 ML IVPB SCH ×2 (09:07→21:06)
[2016-12-29] MEDS: RIFAXIMIN 550 MG TAB PO SCH ×2 (09:08→21:07)
[2016-12-29] MEDS: FERROUS SULFATE (EC) 325 MG TAB PO SCH ×2 (09:08→21:07)
[2016-12-29] MEDS: DOCUSATE SODIUM 100 MG CAP PO SCH (09:08)
[2016-12-29] MEDS: BALSAM PERU/CASTOR OIL 60 GM TUBE TOP SCH ×2 (09:08→21:06)
--- NOTE | 2016-12-29 09:14 | PN ---
Date/Time of Note Date/Time of Note DATE: 12/29/16 TIME: 09:10 Assessment/Plan VTE Prophylaxis VTE Prophylaxis Intervention: other Lines/Catheters IV Catheter Type (from Nrs): Central Line Central line still needed: Yes Urinary Cath still in place: Yes Reason Cath still needed: urinary retention Assessment/Plan Chief Complaint/Hosp Course renal follow up SUBJECTIVE DATA: The patient is critically on presser support. Full ventilatory support. No other events noted. has a rectal tube in place good uop d/w ICU nurse and Dr Gonzales OBJECTIVE DATA: HEENT: Head is normocephalic. NECK: Supple. HEART: Regular rate. LUNGS: Diminished breath sounds at the base. ABDOMEN: Soft, nontender to palpation. No rebound or guarding. EXTREMITIES: Negative for clubbing, cyanosis. No edema. DERMATOLOGIC: No rashes. MUSCULOSKELETAL: No joint effusion. NEUROLOGIC: Unchanged exam. time of mcc: 40 min ASSESSMENT AND PLAN: 1. Nonoliguric acute kidney injury with unknown baseline creatinine. Etiology secondary to acute tubular necrosis and sepsis. Renal function has improved. At this point, continue current treatment. Supportive care. Renally dose all meds. 2. Hypokalemia. Etiology is multifactorial. Continue to monitor. Replete potassium chloride. 3. Hypernatremia. The patient's free water deficit of approximately 4 liters. will change ivf composition. 4. Hypokalemia. Second bicarb drip. The patient's bicarb drip was discontinued. Will repeat an ABG. 5. Anemia. Monitor hemoglobin and hematocrit levels. 6. Mineral bone disorder. Continue monitor calcium and phosphorus levels. 7. Septic shock. Continue current medical management. Antibiotics and pressor support. Continue intravenous fluids. 8. Left dependent respiratory failure. Ventilator settings have been reviewed. Arterial blood gases reviewed. 9. End-stage liver disease, cirrhosis. The patient is decompensated. Continue to monitor. Follow up with Gastroenterology. 10. Hematemesis. 11. Seizure disorder. Continue medical management. Problems: Exam/Review of Systems Vital Signs Vitals Vital Signs Date Time Temp Pulse Resp B/P Pulse Ox O2 Delivery O2 Flow Rate FiO2 12/29/16 08:15 96 12 112/57 100 Mechanical Ventilator 15.0 12/29/16 07:00 99.8 12/29/16 05:12 40 Intake and Output 12/28/16 12/28/16 12/29/16 15:00 23:00 07:00 Intake Total 1335.94 ml 848.14 ml 713.0 ml Output Total 390 ml 375 ml 220 ml Balance 945.94 ml 473.14 ml 493.0 ml Results Result Diagram: 12/29/16 0420 12/29/16 0420 Results 24 hrs Laboratory Tests Test 12/28/16 09:54 12/28/16 11:53 12/28/16 12:37 12/28/16 14:15 Bedside Glucose 100 112 132 Hemoglobin 8.3 L Hematocrit 25.6 L Test 12/28/16 15:57 12/28/16 17:38 12/28/16 20:07 12/28/16 23:50 Bedside Glucose 126 140 148 155 Test 12/29/16 02:10 12/29/16 03:39 12/29/16 04:20 12/29/16 05:45 Bedside Glucose 168 168 175 White Blood Count 13.5 H Red Blood Count 2.30 L Hemoglobin 7.8 L Hematocrit 24.7 L Mean Corpuscular Volume 107.4 H Mean Corpuscular Hemoglobin 33.9 H Mean Corpuscular Hemoglobin Concent 31.6 L Red Cell Distribution Width 19.2 H Platelet Count 49 L Mean Platelet Volume 12.2 H Neutrophils % 78.8 H Lymphocytes % 9.0 L Monocytes % 9.8 Eosinophils % 1.8 Basophils % 0.1 Nucleated Red Blood Cells % 0.6 H Neutrophils # 10.6 H Lymphocytes # 1.2 Monocytes # 1.3 H Eosinophils # 0.2 Basophils # 0.0 Nucleated Red Blood Cells # 0.1 H Sodium Level 151 H Potassium Level 3.3 L Chloride Level 121 H Carbon Dioxide Level 24 Anion Gap 9 Blood Urea Nitrogen 31 H Creatinine 0.76 Glucose Level 163 Calcium Level 7.6 L Phosphorus Level 2.1 L Magnesium Level 2.7 H Test 12/29/16 07:13 12/29/16 08:06 Vancomycin Level Trough 7.1 L Bedside Glucose 208 Medications Medications Current Medications Ondansetron HCl (Zofran Inj) 4 mg Q6H PRN IV NAUSEA AND/OR VOMITING; Start 01/29 at 01:00 Acetaminophen (Tylenol Tab) 650 mg Q6H PRN PO PAIN LEVEL 1-3 OR FEVER Last administered on 12/27/16 21:00; Admin Dose 650 MG; Start 12/23/16 at 01:00 Ferrous Sulfate (Ferrous Sulfate (Ec)) 325 mg BID PO Last administered on 09:08; Admin Dose 325 MG; Start 12/23/16 at 09:00 Propranolol HCl (Inderal) 10 mg BID PO Last administered on 12/25/16 10:20; Admin Dose 10 MG; Start 12/23/16 at 01:30; Status Future Hold Docusate Sodium (Colace) 100 mg DAILY PO Last administered on 12/29/16 09:08; Admin Dose 100 MG; Start 12/23/16 at 09:00 Miscellaneous Information 1 ea NOTE XX ; Start 12/23/16 at 02:30 Furosemide (Lasix) 40 mg DAILY PO Last administered on 12/25/16 10:20; Admin Dose 40 MG; Start 12/24/16 at 09:00; Status Future Hold Rifaximin (Xifaxan) 550 mg BID PO Last administered on 12/29/16 09:08; Admin Dose 550 MG; Start 12/24/16 at 21:00 Lactulose (Enulose) 30 gm Q6H PRN PO CONSTIPATION Last administered on 16:13; Admin Dose 30 GM; Start 12/25/16 at 16:00 Lactulose (Enulose) 30 gm Q6 NGT Last administered on 12/29/16 05:30; Admin Dose 30 GM; Start 12/26/16 at 06:00 Eye Lubricant 1 applic 1 applic Q4 BOTH EYES Last administered on 12/29/16 05: 18; Admin Dose 1 APPLIC; Start 12/25/16 at 21:00 Norepinephrine 16 mg/Dextrose 500 ml @ 1.87 mls/hr TITRATE IV Last administered on 12/27/16 08:28; Admin Dose 15 MLS/HR; Start 12/26/16 at 03:00 Piperacillin Sod/ Tazobactam Sod 100 ml @ 100 mls/hr Q8 IVPB Last administered on 12/29/16 05:30; Admin Dose 100 MLS/HR; Start 12/26/16 at 06:30 Levetiracetam (Keppra 500 Mg/ 100ml (Pmx)) 100 ml @ 400 mls/hr Q12 IVPB Last administered on 12/29/16 09:07; Admin Dose 400 MLS/HR; Start 12/26/16 at 21:00 Dextrose (D50w Syringe) 25 ml Q15M PRN IV Till BS 80 mg/dL or above x2 Last administered on 12/27/16 11:52; Admin Dose 25 ML; Start 12/26/16 at 09:30 Dextrose (D50w Syringe) 50 ml Q15M PRN IV Till BS 80 mg/dL or above x2; Start 12/26/16 at 09:30 Lorazepam (Ativan) 1 mg Q2 PRN IV Seizures; Start 12/26/16 at 09:30 Miscellaneous Information Q24H XX Last administered on 12/27/16 10:52; Admin Dose 1 EA; Start 12/26/16 at 11:30 Vasopressin 60 unit/Sodium Chloride 60 ml @ 0 mls/hr Q12H IVPB Last administered on 12/27/16 20:00; Admin Dose 2.4 MLS/HR; Start 12/26/16 at 12:00 Sodium Chloride (1/2 NS) 1,000 ml @ 100 mls/hr Q10H IV Last administered on 23:26; Admin Dose 100 MLS/HR; Start 12/27/16 at 07:00 Diagnostic Test (Pha) 1 ea 1 ea Q2H XX Last administered on 12/29/16 08:10; Admin Dose 1 EA; Start 12/28/16 at 06:00; Stop 12/31/16 at 05:59 Vancomycin HCl 100 ml @ 100 mls/hr Q12H IVPB Last administered on 12/29/16 09 :07; Admin Dose 100 MLS/HR; Start 12/28/16 at 08:00; Stop 12/29/16 at 13:00 Vancomycin HCl/ Sodium Chloride (Vancocin/NS) 150 ml @ 75 mls/hr Q12H IVPB ; Start 12/29/16 at 20:30 RANJITH BARAJAS DO Dec 29, 2016 09:14
[2016-12-29] MEDS: D5W-0.45 NACL + KCL 20 MEQ 1,000 ML IV SCH ×2 (10:00→21:17)
[2016-12-29] MEDS: [UNRECOGNIZED DRUG - REMARK] XX SCH (11:30)
--- NOTE | 2016-12-29 11:32 | RADRPT ---
PROCEDURE: XR Chest. CLINICAL INDICATION: PICC placement. TECHNIQUE: Portable AP chest x-ray. COMPARISON: 12/28/2016 FINDINGS: There is interval placement of a right PICC with the tip in the SVC. Endotracheal tube tip well posi tioned over the mid tracheal shadow. Enteric tube tip passes below the diaphragm and below the field of view. Stable cardiomediastinal silhouette. Patchy air space opacities in the left perihilar and bilateral lower lung barnhart. No significant pleural effusion. No evidence of pneumothorax. IMPRESSION: Interval placement of right PICC with the tip in the region of the SVC. No evidence of pneumothorax. Otherwise, no significant interval change. Persistent patchy bilateral air space opacities consiste nt with multifocal pneumonia. RPTAT: QQ .Max Rosenberg MD, Date Time Electronically viewed and signed by .Max Rosenberg MD, MD on 12/29/2016 11:32 .A/
--- NOTE | 2016-12-29 11:55 | RADRPT ---
PROCEDURE: US guidance for PICC line CLINICAL INDICATION: PICC line placement TECHNIQUE: Multiple real-time images were acquired of the patient's arm utilizing a high resolutio n transducer. This was performed by the PICC line nurse for venous access. COMPARISON: None FINDINGS: Ultrasound guidance for PICC line placement. IMPRESSION: Ultrasound guidance for PICC line placement. RPTAT: AA .Rajendra Eckert MD, MD Date Time Electronically viewed and signed by .Rajendra Eckert MD, on 12/29/2016 11:55 .S/
--- NOTE | 2016-12-29 15:20 | PN ---
Date/Time of Note Date/Time of Note DATE: 12/29/16 TIME: 15:19 Assessment/Plan VTE Prophylaxis VTE Prophylaxis Intervention: SCD's Assessment/Plan Chief Complaint/Hosp Course 1. Acute hypoxemic respiratory failure requiring mechanical ventilation secondary to decompensated liver cirrhosis -Pulmonary eval appreciated, continue vent management 2.Hypovolemic/Hypotensive shock -Wean off pressors as able -IVFs,Titrate Levophed to keep MAP>60 - 2D Echo shows preserved EF, Cards consult appreciated 3.Toxic metabolic encephalopathy with Hepatic encephalopathy with coma and hyperammonemia secondary to end-stage liver disease -Continue lactulose 4. Acute GI bleed secondary to varices status post banding-now stable -Continue protonix/Octreotide drip-Not a candidate for BB 2/2 Hypotension. 5.Severe anion-gap metabolic acidosis. -Continue IVF 6. Acute Kidney Injury, likely hemodynamics-improved -Nephrology consult appreciated -Monitor renal fxn closely. 7. 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 No ascites. -Patient has been sober for 1 year -Continue current medical management. -Negative Hep panel 8. New-onset Seizures. -Neur eval appreciated -EEG shows encephalopathy -Ativan PRN, continue Keppra 9.Hypernatremia with free water deficit-Patient appears severely dehydrated currently. -Continue IVFs -Hold all diuretics. 10.Leukocytosis likely secondary to UTI -Urine culture shows K pneumoniae, continue Zosyn 11.Azotemia 2/2 dehydration/GIB. -Continue IVFs 12. Hyperglycemia ,likely worsened by D5W with Adult-onset Diabetes mellitus- Poorly controlled. -Continue ICU Insulin drip protocol 13. Anemia of chronic disease and acute blood loss anemia from GI bleed. stable.Will monitor. 14.Thrombocytopenia of liver disease. Stable. DVT and GI prophylaxis: SCDs, Protonix Problems: Subjective 24 Hr Interval Summary Subjective hx not possible: pt non-verbal Exam/Review of Systems Vital Signs Vitals Vital Signs Date Time Temp Pulse Resp B/P Pulse Ox O2 Delivery O2 Flow Rate FiO2 12/29/16 12:00 100 12/29/16 11:45 16 109/57 98 Mechanical Ventilator 15.0 12/29/16 11:25 30 12/29/16 07:00 99.8 Intake and Output 12/28/16 12/28/16 12/29/16 15:00 23:00 07:00 Intake Total 1335.94 ml 848.14 ml 718.62 ml Output Total 390 ml 375 ml 220 ml Balance 945.94 ml 473.14 ml 498.62 ml Exam Constitutional: non-verbal Respiratory: clear to auscultation Cardiovascular: regular rate and rhythm Gastrointestinal: soft, No distended Musculoskeletal: nl extremities to inspection Results Result Diagram: 12/29/16 0420 12/29/16 0420 Results 24 hrs Laboratory Tests Test 12/28/16 15:57 12/28/16 17:38 12/28/16 20:07 12/28/16 23:50 Bedside Glucose 126 140 148 155 Test 12/29/16 02:10 12/29/16 03:39 12/29/16 04:20 12/29/16 05:45 Bedside Glucose 168 168 175 White Blood Count 13.5 H Red Blood Count 2.30 L Hemoglobin 7.8 L Hematocrit 24.7 L Mean Corpuscular Volume 107.4 H Mean Corpuscular Hemoglobin 33.9 H Mean Corpuscular Hemoglobin Concent 31.6 L Red Cell Distribution Width 19.2 H Platelet Count 49 L Mean Platelet Volume 12.2 H Neutrophils % 78.8 H Lymphocytes % 9.0 L Monocytes % 9.8 Eosinophils % 1.8 Basophils % 0.1 Nucleated Red Blood Cells % 0.6 H Neutrophils # 10.6 H Lymphocytes # 1.2 Monocytes # 1.3 H Eosinophils # 0.2 Basophils # 0.0 Nucleated Red Blood Cells # 0.1 H Sodium Level 151 H Potassium Level 3.3 L Chloride Level 121 H Carbon Dioxide Level 24 Anion Gap 9 Blood Urea Nitrogen 31 H Creatinine 0.76 Glucose Level 163 Calcium Level 7.6 L Phosphorus Level 2.1 L Magnesium Level 2.7 H Test 12/29/16 07:13 12/29/16 08:06 12/29/16 09:24 12/29/16 10:23 Vancomycin Level Trough 7.1 L Bedside Glucose 208 204 196 Test 12/29/16 11:23 12/29/16 12:06 12/29/16 13:05 12/29/16 14:29 Bedside Glucose 185 176 161 167 Medications Medications Current Medications Ondansetron HCl (Zofran Inj) 4 mg Q6H PRN IV NAUSEA AND/OR VOMITING; Start 01/29 at 01:00 Acetaminophen (Tylenol Tab) 650 mg Q6H PRN PO PAIN LEVEL 1-3 OR FEVER Last administered on 12/27/16 21:00; Admin Dose 650 MG; Start 12/23/16 at 01:00 Ferrous Sulfate (Ferrous Sulfate (Ec)) 325 mg BID PO Last administered on 09:08; Admin Dose 325 MG; Start 12/23/16 at 09:00 Propranolol HCl (Inderal) 10 mg BID PO Last administered on 12/25/16 10:20; Admin Dose 10 MG; Start 12/23/16 at 01:30; Status Future Hold Docusate Sodium (Colace) 100 mg DAILY PO Last administered on 12/29/16 09:08; Admin Dose 100 MG; Start 12/23/16 at 09:00 Miscellaneous Information 1 ea NOTE XX ; Start 12/23/16 at 02:30 Furosemide (Lasix) 40 mg DAILY PO Last administered on 12/25/16 10:20; Admin Dose 40 MG; Start 12/24/16 at 09:00; Status Future Hold Rifaximin (Xifaxan) 550 mg BID PO Last administered on 12/29/16 09:08; Admin Dose 550 MG; Start 12/24/16 at 21:00 Lactulose (Enulose) 30 gm Q6H PRN PO CONSTIPATION Last administered on 16:13; Admin Dose 30 GM; Start 12/25/16 at 16:00 Lactulose (Enulose) 30 gm Q6 NGT Last administered on 12/29/16 13:02; Admin Dose 30 GM; Start 12/26/16 at 06:00 Eye Lubricant 1 applic 1 applic Q4 BOTH EYES Last administered on 12/29/16 13: 01; Admin Dose 1 APPLIC; Start 12/25/16 at 21:00 Norepinephrine 16 mg/Dextrose 500 ml @ 1.87 mls/hr TITRATE IV Last administered on 12/27/16 08:28; Admin Dose 15 MLS/HR; Start 12/26/16 at 03:00 Piperacillin Sod/ Tazobactam Sod 100 ml @ 100 mls/hr Q8 IVPB Last administered on 12/29/16 13:09; Admin Dose 100 MLS/HR; Start 12/26/16 at 06:30 Levetiracetam (Keppra 500 Mg/ 100ml (Pmx)) 100 ml @ 400 mls/hr Q12 IVPB Last administered on 12/29/16 09:07; Admin Dose 400 MLS/HR; Start 12/26/16 at 21:00 Dextrose (D50w Syringe) 25 ml Q15M PRN IV Till BS 80 mg/dL or above x2 Last administered on 12/27/16 11:52; Admin Dose 25 ML; Start 12/26/16 at 09:30 Dextrose (D50w Syringe) 50 ml Q15M PRN IV Till BS 80 mg/dL or above x2; Start 12/26/16 at 09:30 Lorazepam (Ativan) 1 mg Q2 PRN IV Seizures; Start 12/26/16 at 09:30 Miscellaneous Information Q24H XX Last administered on 12/29/16 11:30; Admin Dose 10 EA; Start 12/26/16 at 11:30 Vasopressin/ Sodium Chloride (Vasostrict/NS) 60 ml @ 0 mls/hr Q12H IVPB Last administered on 12/27/16 20:00; Admin Dose 2.4 MLS/HR; Start 12/26/16 at 12:00 Diagnostic Test (Pha) 1 ea 1 ea Q2H XX Last administered on 12/29/16 14:40; Admin Dose 1 EA; Start 12/28/16 at 06:00; Stop 12/31/16 at 05:59 Vancomycin HCl 750 mg/Sodium Chloride 150 ml @ 75 mls/hr Q12H IVPB ; Start at 20:30 Potassium Chloride/Dextrose/ Sod Cl (D5-1/2ns + KCl 20 Meq) 1,000 ml @ 80 mls/ hr [id number] IV Last administered on 12/29/16 10:00; Admin Dose 80 MLS/HR; Start 12/29/16 at 09:30 IV Flush (NS 10 ml) 10 ml PRN PRN IV FLUSH LINE; Start 12/29/16 at 12:00 GT DON Dec 29, 2016 15:20
--- NOTE | 2016-12-29 17:39 | CONS ---
Date/Time of Note Date/Time of Note DATE: 12/29/16 TIME: 17:37 Consult Date/Type/Reason Admit Date/Time Dec 22, 2016 at 22:41 Initial Consult Date 12/26/16 Type of Consultation: Pulm/CCM Subjective On vent. Not responsive Objective Vital Signs Date Time Temp Pulse Resp B/P Pulse Ox O2 Delivery O2 Flow Rate FiO2 12/29/16 17:00 95 16 103/52 98 Mechanical Ventilator 12/29/16 16:55 30 12/29/16 12:00 98.6 12/29/16 11:45 15.0 Intake and Output 12/28/16 12/28/16 12/29/16 15:00 23:00 07:00 Intake Total 1335.94 ml 848.14 ml 718.62 ml Output Total 390 ml 375 ml 220 ml Balance 945.94 ml 473.14 ml 498.62 ml Exam VITAL SIGNS: see below. HEENT: Pupils equal, round, and reactive to light. CARDIAC: S1, S2, 1/6 systolic ejection murmur CHEST: Diminished air entry bilaterally. ABDOMEN: Mildly distended. Bowel sounds present no guarding or rebound EXT: ++ edema Results/Medications Result Diagram: 12/29/16 0420 12/29/16 0420 Results 24 hrs Laboratory Tests Test 12/28/16 17:38 12/28/16 20:07 12/28/16 23:50 12/29/16 02:10 Bedside Glucose 140 148 155 168 Test 12/29/16 03:39 12/29/16 04:20 12/29/16 05:45 12/29/16 07:13 Bedside Glucose 168 175 White Blood Count 13.5 H Red Blood Count 2.30 L Hemoglobin 7.8 L Hematocrit 24.7 L Mean Corpuscular Volume 107.4 H Mean Corpuscular Hemoglobin 33.9 H Mean Corpuscular Hemoglobin Concent 31.6 L Red Cell Distribution Width 19.2 H Platelet Count 49 L Mean Platelet Volume 12.2 H Neutrophils % 78.8 H Lymphocytes % 9.0 L Monocytes % 9.8 Eosinophils % 1.8 Basophils % 0.1 Nucleated Red Blood Cells % 0.6 H Neutrophils # 10.6 H Lymphocytes # 1.2 Monocytes # 1.3 H Eosinophils # 0.2 Basophils # 0.0 Nucleated Red Blood Cells # 0.1 H Sodium Level 151 H Potassium Level 3.3 L Chloride Level 121 H Carbon Dioxide Level 24 Anion Gap 9 Blood Urea Nitrogen 31 H Creatinine 0.76 Glucose Level 163 Calcium Level 7.6 L Phosphorus Level 2.1 L Magnesium Level 2.7 H Vancomycin Level Trough 7.1 L Test 12/29/16 08:06 12/29/16 09:24 12/29/16 10:23 12/29/16 11:23 Bedside Glucose 208 204 196 185 Test 12/29/16 12:06 12/29/16 13:05 12/29/16 14:29 12/29/16 15:11 Bedside Glucose 176 161 167 156 Test 12/29/16 16:13 12/29/16 17:21 Bedside Glucose 133 128 Medications Current Medications Ondansetron HCl (Zofran Inj) 4 mg Q6H PRN IV NAUSEA AND/OR VOMITING; Start 01/29 at 01:00 Acetaminophen (Tylenol Tab) 650 mg Q6H PRN PO PAIN LEVEL 1-3 OR FEVER Last administered on 12/27/16 21:00; Admin Dose 650 MG; Start 12/23/16 at 01:00 Ferrous Sulfate (Ferrous Sulfate (Ec)) 325 mg BID PO Last administered on 09:08; Admin Dose 325 MG; Start 12/23/16 at 09:00 Propranolol HCl (Inderal) 10 mg BID PO Last administered on 12/25/16 10:20; Admin Dose 10 MG; Start 12/23/16 at 01:30; Status Future Hold Docusate Sodium (Colace) 100 mg DAILY PO Last administered on 12/29/16 09:08; Admin Dose 100 MG; Start 12/23/16 at 09:00 Miscellaneous Information 1 ea NOTE XX ; Start 12/23/16 at 02:30 Furosemide (Lasix) 40 mg DAILY PO Last administered on 12/25/16 10:20; Admin Dose 40 MG; Start 12/24/16 at 09:00; Status Future Hold Rifaximin (Xifaxan) 550 mg BID PO Last administered on 12/29/16 09:08; Admin Dose 550 MG; Start 12/24/16 at 21:00 Lactulose (Enulose) 30 gm Q6H PRN PO CONSTIPATION Last administered on 16:13; Admin Dose 30 GM; Start 12/25/16 at 16:00 Lactulose (Enulose) 30 gm Q6 NGT Last administered on 12/29/16 13:02; Admin Dose 30 GM; Start 12/26/16 at 06:00 Eye Lubricant 1 applic 1 applic Q4 BOTH EYES Last administered on 12/29/16 13: 01; Admin Dose 1 APPLIC; Start 12/25/16 at 21:00 Norepinephrine 16 mg/Dextrose 500 ml @ 1.87 mls/hr TITRATE IV Last administered on 12/27/16 08:28; Admin Dose 15 MLS/HR; Start 12/26/16 at 03:00 Piperacillin Sod/ Tazobactam Sod 100 ml @ 100 mls/hr Q8 IVPB Last administered on 12/29/16 13:09; Admin Dose 100 MLS/HR; Start 12/26/16 at 06:30 Levetiracetam (Keppra 500 Mg/ 100ml (Pmx)) 100 ml @ 400 mls/hr Q12 IVPB Last administered on 12/29/16 09:07; Admin Dose 400 MLS/HR; Start 12/26/16 at 21:00 Dextrose (D50w Syringe) 25 ml Q15M PRN IV Till BS 80 mg/dL or above x2 Last administered on 12/27/16 11:52; Admin Dose 25 ML; Start 12/26/16 at 09:30 Dextrose (D50w Syringe) 50 ml Q15M PRN IV Till BS 80 mg/dL or above x2; Start 12/26/16 at 09:30 Lorazepam (Ativan) 1 mg Q2 PRN IV Seizures; Start 12/26/16 at 09:30 Miscellaneous Information Q24H XX Last administered on 12/29/16 11:30; Admin Dose 10 EA; Start 12/26/16 at 11:30 Vasopressin/ Sodium Chloride (Vasostrict/NS) 60 ml @ 0 mls/hr Q12H IVPB Last administered on 12/27/16 20:00; Admin Dose 2.4 MLS/HR; Start 12/26/16 at 12:00 Diagnostic Test (Pha) 1 ea 1 ea Q2H XX Last administered on 12/29/16 16:15; Admin Dose 1 EA; Start 9/15/17 at 06:00; Stop 12/31/16 at 05:59 Vancomycin HCl 750 mg/Sodium Chloride 150 ml @ 75 mls/hr Q12H IVPB ; Start at 20:30 Potassium Chloride/Dextrose/ Sod Cl (D5-1/2ns + KCl 20 Meq) 1,000 ml @ 80 mls/ hr [id number] IV Last administered on 12/29/16t 10:00; Admin Dose 80 MLS/HR; Start 12/29/16 at 09:30 IV Flush (NS 10 ml) 10 ml PRN PRN IV FLUSH LINE; Start 12/29/16 at 12:00 Assessment/Plan Additional Assessment/Plan IMP: 1. Massive GI bleed secondary to esophageal varices 2. Hypovolemic and likely septic shock. 3. History of cirrhosis with portal hypertension 4. Thrombocytopenia likely secondary to liver disease 5. Renal insufficiency possible ATN injury versus hepatorenal syndrome. 6. Hyper natremia and hypokalemia 7. Acute hypoxemic respiratory failure secondary to above RECS: 1. Vent support 2. Abx 3. PPI 4. Lactulose 5. Am labs/CXR 6. Insulin gtt Critical care time 40 minutes. JEVON GARCIA MD Dec 29, 2016 17:39
--- NOTE | 2016-12-29 18:17 | PN ---
Date/Time of Note Date/Time of Note DATE: 12/29/16 TIME: 18:15 Assessment/Plan VTE Prophylaxis VTE Prophylaxis Intervention: SCD's Lines/Catheters IV Catheter Type (from Nrs): PICC Line Central line still needed: Yes Assessment/Plan Assessment/Plan Assessment * Acute respiratory failure * Toxic metabolic encephalopathy * sepsis * S/P EGD Grade IV/IV esophageal varices * Post endoscopic variceal ligation 4 Severe portal hypertensive gastropathy Plan * continue present management * Case discussed with DR Helton * further orders will depend on clinical course * prognosis poor Subjective 24 Hr Interval Summary Free Text/Dictation * Course reviled with RN * Patient seen and examined * still on pressors Exam/Review of Systems Vital Signs Vitals Vital Signs Date Time Temp Pulse Resp B/P Pulse Ox O2 Delivery O2 Flow Rate FiO2 12/29/16 17:00 95 16 103/52 98 Mechanical Ventilator 12/29/16 16:55 30 12/29/16 12:00 98.6 12/29/16 11:45 15.0 Intake and Output 12/28/16 12/28/16 12/29/16 15:00 23:00 07:00 Intake Total 1335.94 ml 848.14 ml 718.62 ml Output Total 390 ml 375 ml 220 ml Balance 945.94 ml 473.14 ml 498.62 ml Exam Constitutional: non-verbal ENMT: intubated Respiratory: diminished breath sounds Cardiovascular: regular rate and rhythm Gastrointestinal: distended, soft Musculoskeletal: muscle weakness Extremities: edema Neurological: unresponsive Results Result Diagram: 12/29/16 0420 12/29/16 0420 Results 24 hrs Laboratory Tests Test 12/28/16 20:07 12/28/16 23:50 12/29/16 02:10 12/29/16 03:39 Bedside Glucose 148 155 168 168 Test 12/29/16 04:20 12/29/16 05:45 12/29/16 07:13 12/29/16 08:06 White Blood Count 13.5 H Red Blood Count 2.30 L Hemoglobin 7.8 L Hematocrit 24.7 L Mean Corpuscular Volume 107.4 H Mean Corpuscular Hemoglobin 33.9 H Mean Corpuscular Hemoglobin Concent 31.6 L Red Cell Distribution Width 19.2 H Platelet Count 49 L Mean Platelet Volume 12.2 H Neutrophils % 78.8 H Lymphocytes % 9.0 L Monocytes % 9.8 Eosinophils % 1.8 Basophils % 0.1 Nucleated Red Blood Cells % 0.6 H Neutrophils # 10.6 H Lymphocytes # 1.2 Monocytes # 1.3 H Eosinophils # 0.2 Basophils # 0.0 Nucleated Red Blood Cells # 0.1 H Sodium Level 151 H Potassium Level 3.3 L Chloride Level 121 H Carbon Dioxide Level 24 Anion Gap 9 Blood Urea Nitrogen 31 H Creatinine 0.76 Glucose Level 163 Calcium Level 7.6 L Phosphorus Level 2.1 L Magnesium Level 2.7 H Bedside Glucose 175 208 Vancomycin Level Trough 7.1 L Test 12/29/16 09:24 12/29/16 10:23 12/29/16 11:23 12/29/16 12:06 Bedside Glucose 204 196 185 176 Test 12/29/16 13:05 12/29/16 14:29 12/29/16 15:11 12/29/16 16:13 Bedside Glucose 161 167 156 133 Test 12/29/16 17:21 Bedside Glucose 128 Medications Medications Current Medications Ondansetron HCl (Zofran Inj) 4 mg Q6H PRN IV NAUSEA AND/OR VOMITING; Start 01/29 at 01:00 Acetaminophen (Tylenol Tab) 650 mg Q6H PRN PO PAIN LEVEL 1-3 OR FEVER Last administered on 12/27/16 21:00; Admin Dose 650 MG; Start 12/23/16 at 01:00 Ferrous Sulfate (Ferrous Sulfate (Ec)) 325 mg BID PO Last administered on 09:08; Admin Dose 325 MG; Start 12/23/16 at 09:00 Propranolol HCl (Inderal) 10 mg BID PO Last administered on 12/25/16 10:20; Admin Dose 10 MG; Start 12/23/16 at 01:30; Status Future Hold Docusate Sodium (Colace) 100 mg DAILY PO Last administered on 12/29/16 09:08; Admin Dose 100 MG; Start 12/23/16 at 09:00 Miscellaneous Information 1 ea NOTE XX ; Start 12/23/16 at 02:30 Furosemide (Lasix) 40 mg DAILY PO Last administered on 12/25/16 10:20; Admin Dose 40 MG; Start 12/24/16 at 09:00; Status Future Hold Rifaximin (Xifaxan) 550 mg BID PO Last administered on 12/29/16 09:08; Admin Dose 550 MG; Start 12/24/16 at 21:00 Lactulose (Enulose) 30 gm Q6H PRN PO CONSTIPATION Last administered on 16:13; Admin Dose 30 GM; Start 12/25/16 at 16:00 Lactulose (Enulose) 30 gm Q6 NGT Last administered on 12/29/16 18:13; Admin Dose 30 GM; Start 12/26/16 at 06:00 Eye Lubricant 1 applic 1 applic Q4 BOTH EYES Last administered on 12/29/16 18: 13; Admin Dose 1 APPLIC; Start 12/25/16 at 21:00 Norepinephrine 16 mg/Dextrose 500 ml @ 1.87 mls/hr TITRATE IV Last administered on 12/27/16 08:28; Admin Dose 15 MLS/HR; Start 12/26/16 at 03:00 Piperacillin Sod/ Tazobactam Sod 100 ml @ 100 mls/hr Q8 IVPB Last administered on 12/29/16 13:09; Admin Dose 100 MLS/HR; Start 12/26/16 at 06:30 Levetiracetam (Keppra 500 Mg/ 100ml (Pmx)) 100 ml @ 400 mls/hr Q12 IVPB Last administered on 12/29/16 09:07; Admin Dose 400 MLS/HR; Start 12/26/16 at 21:00 Dextrose (D50w Syringe) 25 ml Q15M PRN IV Till BS 80 mg/dL or above x2 Last administered on 12/27/16 11:52; Admin Dose 25 ML; Start 12/26/16 at 09:30 Dextrose (D50w Syringe) 50 ml Q15M PRN IV Till BS 80 mg/dL or above x2; Start 12/26/16 at 09:30 Lorazepam (Ativan) 1 mg Q2 PRN IV Seizures; Start 12/26/16 at 09:30 Miscellaneous Information Q24H XX Last administered on 12/29/16 11:30; Admin Dose 10 EA; Start 12/26/16 at 11:30 Vasopressin/ Sodium Chloride (Vasostrict/NS) 60 ml @ 0 mls/hr Q12H IVPB Last administered on 12/27/16 20:00; Admin Dose 2.4 MLS/HR; Start 12/26/16 at 12:00 Diagnostic Test (Pha) 1 ea 1 ea Q2H XX Last administered on 12/29/16 18:14; Admin Dose 1 EA; Start 12/28/16 at 06:00; Stop 12/31/16 at 05:59 Vancomycin HCl 750 mg/Sodium Chloride 150 ml @ 75 mls/hr Q12H IVPB ; Start at 20:30 Potassium Chloride/Dextrose/ Sod Cl (D5-1/2ns + KCl 20 Meq) 1,000 ml @ 80 mls/ hr [id number] IV Last administered on 12/29/16 10:00; Admin Dose 80 MLS/HR; Start 12/29/16 at 09:30 IV Flush (NS 10 ml) 10 ml PRN PRN IV FLUSH LINE; Start 12/29/16 at 12:00 CAIN GAVIRIA NP Dec 29, 2016 18:17
[2016-12-29 20:12] LABS: ABNORMAL IP MESSAGE 1; BASOPHILS % 0.1 % (0.0-2.0); EOSINOPHILS # 0.8 10^3/ul (0.0-0.5); EOSINOPHILS % 6.5 % (0.0-7.0); HEMATOCRIT 23.9 % (37.0-47.0); LYMPHOCYTES # 1.1 10^3/ul (0.8-2.9); LYMPHOCYTES % 9.1 % (15.0-51.0); MEAN CORPUSCULAR HGB CONC 33.5 g/dl (32.0-37.0); MEAN CORPUSCULAR VOLUME 107.7 fl (82.0-101.0); MONOCYTE # 1.6 10^3/ul (0.3-0.9); MONOCYTES % 12.5 % (0.0-11.0); NEUTROPHIL # 8.9 10^3/ul (1.6-7.5); NUCLEATED RED BLOOD CELLS # 0.1 10^3/ul (0.0-0.0); NUCLEATED RED BLOOD CELLS% 0.8 /100WBC (0.0-0.0); PLATELET COUNT 45 10^3/UL (140-415); RED BLOOD COUNT 2.22 10^6/ul (4.20-5.40); RED CELL DISTRIBUTION WIDTH 18.8 % (11.5-14.5); WHITE BLOOD COUNT 12.5 10^3/ul (4.8-10.8)
[2016-12-29 20:26] LABS: INR 1.59; PROTIME 19.1 Sec (12.2-14.2); PT RATIO 1.5
[2016-12-29] MEDS: VANCOMYCIN 750 MG in SOD CHLORIDE 0.9% 150 ML IVPB SCH (21:06)
--- NOTE | 2016-12-29 22:27 | RADRPT ---
PROCEDURE: Right upper extremity venous ultrasound CLINICAL INDICATION: Right arm pain and swelling, deep venous thrombosis TECHNIQUE: Rock scale, color doppler, spectral doppler ultrasound imaging of the venous system of the right upper extremity. Augmentation maneuvers were utilized. COMPARISON: No prior studies are available for comparison. FINDINGS: RIGHT: Internal jugular vein: Patent. Subclavian vein: Patent. Axillary vein: Patent. Brachial vein: Patent. PICC line present. Basilic vein: Patent. Cephalic vein: Thrombus present in the upper arm and forearm. Radial vein: Patent. Ulnar vein: Patent. IMPRESSION: No evidence of a deep vein thrombosis involving the right upper extremity. Superficial venous thrombosis of the right cephalic vein. RPTAT: AADD .Arnav Mehta MD, MD Date Time Electronically viewed and signed by .Arnav Mehta MD, on 12/29/2016 22:27 .B/
[2016-12-30] VITALS (101 sets, daily range): BP systolic 87–115; BP diastolic 28–99; PULSE 81–97; RESP 13–26
[2016-12-30] MEDS: OCULAR LUBRICANT 3.5 GM OPH OINT BOTH EYES SCH ×6 (01:00→21:35)
[2016-12-30] MEDS: ALBUTEROL 18 GM INHALER INH SCH ×6 (01:06→20:15)
[2016-12-30] MEDS: IPRATROPIUM (HFA) 12.9 GM INHALER INH SCH ×6 (01:06→20:15)
[2016-12-30] MEDS: ACCU-CHEK XX SCH ×12 (02:00→23:47)
[2016-12-30 05:13] LABS: AADO2 Arterial 109.1 mmHg (7.0-24.0); Allen Test ACCEPTAB; Arterial Base Excess -0.9 mmol/L (-3.0-3); Arterial COHb 0.3 % (0.0-3.0); Arterial Fraction of Oxyhgb 91.3 % (93.0-99.0); Arterial HCO3 22.7 mmol/L (22.0-26.0); Arterial MetHb 0.3 % (0.0-1.5); Arterial Total Hemglobin 11.4 g/dl (12.0-18.0); MODE VENT - AC
[2016-12-30 05:38] LABS: ABNORMAL IP MESSAGE 1; BASOPHILS % 0.1 % (0.0-2.0); EOSINOPHILS # 0.8 10^3/ul (0.0-0.5); EOSINOPHILS % 6.8 % (0.0-7.0); HEMOGLOBIN 7.6 g/dl (12.0-16.0); LYMPHOCYTES # 1.2 10^3/ul (0.8-2.9); LYMPHOCYTES % 9.7 % (15.0-51.0); MEAN CORPUSCULAR HEMOGLOBIN 34.4 pg (29.0-33.0); MEAN CORPUSCULAR HGB CONC 31.7 g/dl (32.0-37.0); MEAN CORPUSCULAR VOLUME 108.6 fl (82.0-101.0); MEAN PLATELET VOLUME 11.9 fl (7.4-10.4); MONOCYTE # 1.6 10^3/ul (0.3-0.9); MONOCYTES % 13.5 % (0.0-11.0); NEUTROPHIL # 8.1 10^3/ul (1.6-7.5); NEUTROPHILS % 68.5 % (39.0-77.0); NUCLEATED RED BLOOD CELLS # 0.1 10^3/ul (0.0-0.0); NUCLEATED RED BLOOD CELLS% 1.2 /100WBC (0.0-0.0); PLATELET COUNT 41 10^3/UL (140-415); RED BLOOD COUNT 2.21 10^6/ul (4.20-5.40); RED CELL DISTRIBUTION WIDTH 18.8 % (11.5-14.5); WHITE BLOOD COUNT 11.8 10^3/ul (4.8-10.8)
[2016-12-30 05:46] LABS: POSITIVE DIFF @See below
[2016-12-30] MEDS: INSULIN HUMAN REGULAR 100 UNIT in SOD CHLORIDE 0.9% 99 ML IV SCH ×2 (06:09→21:53)
[2016-12-30] MEDS: LACTULOSE 30ML CUP NGT SCH ×3 (06:19→18:00)
[2016-12-30] MEDS: PIPER-TAZO 3.375 GM IV (PMX) 100 ML IVPB SCH ×3 (06:19→21:59)
[2016-12-30 06:23] LABS: CALCIUM 7.7 mg/dl (8.4-10.2); CREATININE 0.6 mg/dl (0.44-1.00); POTASSIUM 3.1 mmol/L (3.5-5.1)
--- NOTE | 2016-12-30 08:48 | PN ---
Date/Time of Note Date/Time of Note DATE: 12/30/16 TIME: 08:47 Assessment/Plan VTE Prophylaxis VTE Prophylaxis Intervention: other Lines/Catheters IV Catheter Type (from [facility]): PICC Line Central line still needed: Yes Urinary Cath still in place: Yes Reason Cath still needed: urinary retention Assessment/Plan Chief Complaint/Hosp Course renal follow up SUBJECTIVE DATA: The patient is critically on presser support. Full ventilatory support. No other events noted. has a rectal tube in place good uop d/w ICU nurse and Dr Gonzales OBJECTIVE DATA: HEENT: Head is normocephalic. NECK: Supple. HEART: Regular rate. LUNGS: Diminished breath sounds at the base. ABDOMEN: Soft, nontender to palpation. No rebound or guarding. EXTREMITIES: Negative for clubbing, cyanosis. No edema. DERMATOLOGIC: No rashes. MUSCULOSKELETAL: No joint effusion. NEUROLOGIC: Unchanged exam. time of residential: 39 min ASSESSMENT AND PLAN: 1. Nonoliguric acute kidney injury with unknown baseline creatinine. Etiology secondary to acute tubular necrosis and sepsis. Renal function has improved. At this point, continue current treatment. Supportive care. Renally dose all meds. 2. Hypokalemia. Etiology is multifactorial. Continue to monitor. Replete potassium chloride. 3. Hypernatremia. The patient's free water deficit of approximately 4 liters. will continue current IVF 4. Hypokalemia. will replete 5. Anemia. Monitor hemoglobin and hematocrit levels. 6. Mineral bone disorder. Continue monitor calcium and phosphorus levels. 7. Septic shock. Continue current medical management. Antibiotics and pressor support. Continue intravenous fluids. 8. Left dependent respiratory failure. Ventilator settings have been reviewed. Arterial blood gases reviewed. 9. End-stage liver disease, cirrhosis. The patient is decompensated. Continue to monitor. Follow up with Gastroenterology. 10. Hematemesis. 11. Seizure disorder. Continue medical management. Problems: Exam/Review of Systems Vital Signs Vitals Vital Signs Date Time Temp Pulse Resp B/P Pulse Ox O2 Delivery O2 Flow Rate FiO2 12/30/16 08:15 82 16 95/48 99 Mechanical Ventilator 12/30/16 08:00 40 12/30/16 07:45 97.7 12/29/16 11:45 15.0 Intake and Output 12/29/16 12/29/16 12/30/16 15:00 23:00 07:00 Intake Total 895.35 ml 610.49 ml 695.4 ml Output Total 290 ml 840 ml 250 ml Balance 605.35 ml -229.51 ml 445.4 ml Results Result Diagram: 12/30/16 0445 12/30/16 0445 Results 24 hrs Laboratory Tests Test 12/29/16 09:24 12/29/16 10:23 12/29/16 11:23 12/29/16 12:06 Bedside Glucose 204 196 185 176 Test 12/29/16 13:05 12/29/16 14:29 12/29/16 15:11 12/29/16 16:13 Bedside Glucose 161 167 156 133 Test 12/29/16 17:21 12/29/16 18:07 12/29/16 19:36 12/29/16 20:03 Bedside Glucose 128 130 129 White Blood Count 12.5 H Red Blood Count 2.22 L Hemoglobin 8.0 L Hematocrit 23.9 L Mean Corpuscular Volume 107.7 H Mean Corpuscular Hemoglobin 36.0 H Mean Corpuscular Hemoglobin Concent 33.5 Red Cell Distribution Width 18.8 H Platelet Count 45 L Mean Platelet Volume 12.0 H Neutrophils % 71.0 Lymphocytes % 9.1 L Monocytes % 12.5 H Eosinophils % 6.5 Basophils % 0.1 Nucleated Red Blood Cells % 0.8 H Neutrophils # 8.9 H Lymphocytes # 1.1 Monocytes # 1.6 H Eosinophils # 0.8 H Basophils # 0.0 Nucleated Red Blood Cells # 0.1 H Prothrombin Time 19.1 H Prothrombin Time Ratio 1.5 INR International Normalized Ratio 1.59 Test 12/29/16 21:43 12/29/16 23:40 12/30/16 02:09 12/30/16 04:16 Bedside Glucose 160 173 150 128 Test 12/30/16 04:45 12/30/16 05:00 12/30/16 05:42 12/30/16 08:11 White Blood Count 11.8 H Red Blood Count 2.21 L Hemoglobin 7.6 L Hematocrit 24.0 L Mean Corpuscular Volume 108.6 H Mean Corpuscular Hemoglobin 34.4 H Mean Corpuscular Hemoglobin Concent 31.7 L Red Cell Distribution Width 18.8 H Platelet Count 41 L Mean Platelet Volume 11.9 H Neutrophils % 68.5 Lymphocytes % 9.7 L Monocytes % 13.5 H Eosinophils % 6.8 Basophils % 0.1 Nucleated Red Blood Cells % 1.2 H Neutrophils # 8.1 H Lymphocytes # 1.2 Monocytes # 1.6 H Eosinophils # 0.8 H Basophils # 0.0 Nucleated Red Blood Cells # 0.1 H Sodium Level 152 H Potassium Level 3.1 L Chloride Level 124 H Carbon Dioxide Level 24 Anion Gap 7 L Blood Urea Nitrogen 22 H Creatinine 0.60 Glucose Level 160 Lactic Acid Level 2.6 *H Calcium Level 7.7 L Blood Gas Specimen Source Blood arterial Arterial Blood Date Drawn 12/30/2016 4:52:54 AM Arterial Blood pH (Temp corrected) 7.442 Arterial Blood pCO2 (Temp correct) 34.0 L Arterial Blood pO2 (Temp corrected) 64.9 L Arterial Blood HCO3 22.7 Arterial Blood Base Excess -0.9 Arterial Blood Oxygen Saturation 91.9 L Rene Test ACCEPTAB Arterial Blood Gas Puncture Site Right Radial Arterial Blood Carboxyhemoglobin 0.3 Arterial Blood Methemoglobin 0.3 Blood Gas A-a O2 Differential 109.1 H Oxyhemoglobin Percent 91.3 L Total Hemoglobin 11.4 L Blood Gas Temperature 37.0 Blood Gas Respiration Rate 16.0 Blood Gas Actual Respiration Rate 24 Blood Gas Modality VENT - AC FiO2 30.0 Blood Gas Tidal Volume 400.0 Blood Gas Low PEEP Setting 5.0 Blood Gas Inspiratory Pressure 24.0 Blood Gas Notified Whom RTR Blood Gas Notified Time 12/30/2016 5:13:05 AM Bedside Glucose 130 153 Medications Medications Current Medications Ondansetron HCl (Zofran Inj) 4 mg Q6H PRN IV NAUSEA AND/OR VOMITING; Start 01/29 at 01:00 Acetaminophen (Tylenol Tab) 650 mg Q6H PRN PO PAIN LEVEL 1-3 OR FEVER Last administered on 12/27/16 21:00; Admin Dose 650 MG; Start 12/23/16 at 01:00 Propranolol HCl (Inderal) 10 mg BID PO Last administered on 12/25/16 10:20; Admin Dose 10 MG; Start 12/23/16 at 01:30; Status Future Hold Docusate Sodium (Colace) 100 mg DAILY PO Last administered on 12/29/16 09:08; Admin Dose 100 MG; Start 12/23/16 at 09:00 Miscellaneous Information 1 ea NOTE XX ; Start 12/23/16 at 02:30 Furosemide (Lasix) 40 mg DAILY PO Last administered on 12/25/16 10:20; Admin Dose 40 MG; Start 12/24/16 at 09:00; Status Future Hold Rifaximin (Xifaxan) 550 mg BID PO Last administered on 12/29/16 21:07; Admin Dose 550 MG; Start 12/24/16 at 21:00 Lactulose (Enulose) 30 gm Q6H PRN PO CONSTIPATION Last administered on 16:13; Admin Dose 30 GM; Start 12/25/16 at 16:00 Lactulose (Enulose) 30 gm Q6 NGT Last administered on 12/30/16 06:19; Admin Dose 30 GM; Start 12/26/16 at 06:00 Eye Lubricant 1 applic 1 applic Q4 BOTH EYES Last administered on 12/30/16 05: 00; Admin Dose 1 APPLIC; Start 12/25/16 at 21:00 Norepinephrine 16 mg/Dextrose 500 ml @ 1.87 mls/hr TITRATE IV Last administered on 12/27/16 08:28; Admin Dose 15 MLS/HR; Start 12/26/16 at 03:00 Piperacillin Sod/ Tazobactam Sod 100 ml @ 100 mls/hr Q8 IVPB Last administered on 12/30/16 06:19; Admin Dose 100 MLS/HR; Start 12/26/16 at 06:30 Levetiracetam (Keppra 500 Mg/ 100ml (Pmx)) 100 ml @ 400 mls/hr Q12 IVPB Last administered on 12/29/16 21:06; Admin Dose 400 MLS/HR; Start 12/26/16 at 21:00 Dextrose (D50w Syringe) 25 ml Q15M PRN IV Till BS 80 mg/dL or above x2 Last administered on 12/27/16 11:52; Admin Dose 25 ML; Start 12/26/16 at 09:30 Dextrose (D50w Syringe) 50 ml Q15M PRN IV Till BS 80 mg/dL or above x2; Start 12/26/16 at 09:30 Lorazepam (Ativan) 1 mg Q2 PRN IV Seizures; Start 12/26/16 at 09:30 Miscellaneous Information Q24H XX Last administered on 12/29/16 11:30; Admin Dose 10 EA; Start 12/26/16 at 11:30 Vasopressin/ Sodium Chloride (Vasostrict/NS) 60 ml @ 0 mls/hr Q12H IVPB Last administered on 12/27/16 20:00; Admin Dose 2.4 MLS/HR; Start 12/26/16 at 12:00 Diagnostic Test (Pha) 1 ea 1 ea Q2H XX Last administered on 12/30/16 06:21; Admin Dose 1 EA; Start 12/28/16 at 06:00; Stop 12/31/16 at 05:59 Vancomycin HCl 750 mg/Sodium Chloride 150 ml @ 75 mls/hr Q12H IVPB Last administered on 12/29/16 21:06; Admin Dose 75 MLS/HR; Start 12/29/16 at 20:30 Potassium Chloride/Dextrose/ Sod Cl (D5-1/2ns + KCl 20 Meq) 1,000 ml @ 80 mls/ hr [id number] IV Last administered on 12/29/16 21:17; Admin Dose 80 MLS/HR; Start 12/29/16 at 09:30 IV Flush (NS 10 ml) 10 ml PRN PRN IV FLUSH LINE; Start 12/29/16 at 12:00 Ferrous Sulfate (Feosol Liquid Cup) 300 mg BID GTB ; Start 12/30/16 at 09:00 RANJITH BARAJAS DO Dec 30, 2016 08:48
[2016-12-30] MEDS: DOCUSATE SODIUM 100 MG CAP PO SCH (09:00)
[2016-12-30] MEDS: VANCOMYCIN 750 MG in SOD CHLORIDE 0.9% 150 ML IVPB SCH (09:15)
[2016-12-30] MEDS: LEVETIRACETAM 500 MG (PMX) 100 ML IVPB SCH ×2 (09:22→21:35)
[2016-12-30] MEDS: FERROUS SULFATE 60 MG/ML 5ML CUP GTB SCH ×2 (09:22→21:35)
[2016-12-30] MEDS: RIFAXIMIN 550 MG TAB PO SCH ×2 (09:22→21:35)
[2016-12-30] MEDS: BALSAM PERU/CASTOR OIL 60 GM TUBE TOP SCH ×2 (09:23→21:42)
[2016-12-30] MEDS ORDERED: POTASSIUM PHOSPHATE 30 MM in SOD CHLORIDE 0.9% 250 ML IVPB ONE (09:30)
[2016-12-30] MEDS: D5W-0.45 NACL + KCL 20 MEQ 1,000 ML IV SCH ×2 (10:45→23:49)
--- NOTE | 2016-12-30 16:39 | CONS ---
Date/Time of Note Date/Time of Note DATE: 12/30/16 TIME: 16:36 Consult Date/Type/Reason Admit Date/Time Dec 22, 2016 at 22:41 Initial Consult Date 12/26/16 Type of Consultation: Pulm/CCM Subjective No events. Remains on low-dose levophed gtt. Objective Vital Signs Date Time Temp Pulse Resp B/P Pulse Ox O2 Delivery O2 Flow Rate FiO2 12/30/16 15:24 90 20 98 40 12/30/16 13:15 88/46 12/30/16 12:00 98.3 Mechanical Ventilator 12/29/16 11:45 15.0 Intake and Output 12/29/16 12/29/16 12/30/16 15:00 23:00 07:00 Intake Total 895.35 ml 610.49 ml 695.4 ml Output Total 290 ml 840 ml 250 ml Balance 605.35 ml -229.51 ml 445.4 ml Exam HEENT: Pupils equal, round, and reactive to light. CARDIAC: S1, S2, 1/6 systolic ejection murmur CHEST: Diminished air entry bilaterally. ABDOMEN: Mildly distended. Bowel sounds present no guarding or rebound EXT: ++ edema Results/Medications Result Diagram: 12/30/165 12/30/16 0445 Results 24 hrs Laboratory Tests Test 12/29/16 17:21 12/29/16 18:07 12/29/16 19:36 12/29/16 20:03 Bedside Glucose 128 130 129 White Blood Count 12.5 H Red Blood Count 2.22 L Hemoglobin 8.0 L Hematocrit 23.9 L Mean Corpuscular Volume 107.7 H Mean Corpuscular Hemoglobin 36.0 H Mean Corpuscular Hemoglobin Concent 33.5 Red Cell Distribution Width 18.8 H Platelet Count 45 L Mean Platelet Volume 12.0 H Neutrophils % 71.0 Lymphocytes % 9.1 L Monocytes % 12.5 H Eosinophils % 6.5 Basophils % 0.1 Nucleated Red Blood Cells % 0.8 H Neutrophils # 8.9 H Lymphocytes # 1.1 Monocytes # 1.6 H Eosinophils # 0.8 H Basophils # 0.0 Nucleated Red Blood Cells # 0.1 H Prothrombin Time 19.1 H Prothrombin Time Ratio 1.5 INR International Normalized Ratio 1.59 Test 12/29/16 21:43 12/29/16 23:40 12/30/16 02:09 12/30/16 04:16 Bedside Glucose 160 173 150 128 Test 12/30/16 04:45 12/30/16 05:00 12/30/16 05:42 12/30/16 08:11 White Blood Count 11.8 H Red Blood Count 2.21 L Hemoglobin 7.6 L Hematocrit 24.0 L Mean Corpuscular Volume 108.6 H Mean Corpuscular Hemoglobin 34.4 H Mean Corpuscular Hemoglobin Concent 31.7 L Red Cell Distribution Width 18.8 H Platelet Count 41 L Mean Platelet Volume 11.9 H Neutrophils % 68.5 Lymphocytes % 9.7 L Monocytes % 13.5 H Eosinophils % 6.8 Basophils % 0.1 Nucleated Red Blood Cells % 1.2 H Neutrophils # 8.1 H Lymphocytes # 1.2 Monocytes # 1.6 H Eosinophils # 0.8 H Basophils # 0.0 Nucleated Red Blood Cells # 0.1 H Sodium Level 152 H Potassium Level 3.1 L Chloride Level 124 H Carbon Dioxide Level 24 Anion Gap 7 L Blood Urea Nitrogen 22 H Creatinine 0.60 Glucose Level 160 Lactic Acid Level 2.6 *H Calcium Level 7.7 L Blood Gas Specimen Source Blood arterial Arterial Blood Date Drawn 12/30/2016 4:52:54 AM Arterial Blood pH (Temp corrected) 7.442 Arterial Blood pCO2 (Temp correct) 34.0 L Arterial Blood pO2 (Temp corrected) 64.9 L Arterial Blood HCO3 22.7 Arterial Blood Base Excess -0.9 Arterial Blood Oxygen Saturation 91.9 L Rene Test ACCEPTAB Arterial Blood Gas Puncture Site Right Radial Arterial Blood Carboxyhemoglobin 0.3 Arterial Blood Methemoglobin 0.3 Blood Gas A-a O2 Differential 109.1 H Oxyhemoglobin Percent 91.3 L Total Hemoglobin 11.4 L Blood Gas Temperature 37.0 Blood Gas Respiration Rate 16.0 Blood Gas Actual Respiration Rate 24 Blood Gas Modality VENT - AC FiO2 30.0 Blood Gas Tidal Volume 400.0 Blood Gas Low PEEP Setting 5.0 Blood Gas Inspiratory Pressure 24.0 Blood Gas Notified Whom RTR Blood Gas Notified Time 12/30/2016 5:13:05 AM Bedside Glucose 130 153 Test 12/30/16 09:47 12/30/16 12:27 12/30/16 14:25 12/30/16 15:58 Bedside Glucose 178 109 137 147 Medications Current Medications Ondansetron HCl (Zofran Inj) 4 mg Q6H PRN IV NAUSEA AND/OR VOMITING; Start 01/29 at 01:00 Acetaminophen (Tylenol Tab) 650 mg Q6H PRN PO PAIN LEVEL 1-3 OR FEVER Last administered on 12/27/16 21:00; Admin Dose 650 MG; Start 12/23/16 at 01:00 Propranolol HCl (Inderal) 10 mg BID PO Last administered on 12/25/16 10:20; Admin Dose 10 MG; Start 12/23/16 at 01:30; Status Future Hold Docusate Sodium (Colace) 100 mg DAILY PO Last administered on 12/29/16 09:08; Admin Dose 100 MG; Start 12/23/16 at 09:00 Miscellaneous Information 1 ea NOTE XX ; Start 12/23/16 at 02:30 Furosemide (Lasix) 40 mg DAILY PO Last administered on 12/25/16 10:20; Admin Dose 40 MG; Start 12/24/16 at 09:00; Status Future Hold Rifaximin (Xifaxan) 550 mg BID PO Last administered on 12/30/16 09:22; Admin Dose 550 MG; Start 12/24/16 at 21:00 Lactulose (Enulose) 30 gm Q6H PRN PO CONSTIPATION Last administered on 16:13; Admin Dose 30 GM; Start 12/25/16 at 16:00 Lactulose (Enulose) 30 gm Q6 NGT Last administered on 12/30/16 13:16; Admin Dose 20 GM; Start 12/26/16 at 06:00 Eye Lubricant 1 applic 1 applic Q4 BOTH EYES Last administered on 12/30/16 13: 16; Admin Dose 1 APPLIC; Start 12/25/16 at 21:00 Norepinephrine 16 mg/Dextrose 500 ml @ 1.87 mls/hr TITRATE IV Last administered on 12/27/16 08:28; Admin Dose 15 MLS/HR; Start 12/26/16 at 03:00 Piperacillin Sod/ Tazobactam Sod 100 ml @ 100 mls/hr Q8 IVPB Last administered on 12/30/16 13:16; Admin Dose 100 MLS/HR; Start 12/26/16 at 06:30 Levetiracetam (Keppra 500 Mg/ 100ml (Pmx)) 100 ml @ 400 mls/hr Q12 IVPB Last administered on 12/30/16 09:22; Admin Dose 400 MLS/HR; Start 12/26/16 at 21:00 Dextrose (D50w Syringe) 25 ml Q15M PRN IV Till BS 80 mg/dL or above x2 Last administered on 12/27/16 11:52; Admin Dose 25 ML; Start 12/26/16 at 09:30 Dextrose (D50w Syringe) 50 ml Q15M PRN IV Till BS 80 mg/dL or above x2; Start 12/26/16 at 09:30 Lorazepam 1 mg 1 mg Q2 PRN IV Seizures; Start 12/26/16 at 09:30 Vasopressin/ Sodium Chloride (Vasostrict/NS) 60 ml @ 0 mls/hr Q12H IVPB Last administered on 12/27/16 20:00; Admin Dose 2.4 MLS/HR; Start 12/26/16 at 12:00 Diagnostic Test (Pha) 1 ea 1 ea Q2H XX Last administered on 12/30/16 06:21; Admin Dose 1 EA; Start 12/28/16 at 06:00; Stop 12/31/16 at 05:59 Potassium Chloride/Dextrose/ Sod Cl (D5-1/2ns + KCl 20 Meq) 1,000 ml @ 80 mls/ hr [id number] IV Last administered on 12/30/16 10:45; Admin Dose 80 MLS/HR; Start 12/29/16 at 09:30 IV Flush (NS 10 ml) 10 ml PRN PRN IV FLUSH LINE; Start 12/29/16 at 12:00 Ferrous Sulfate (Feosol Liquid Cup) 300 mg BID GTB Last administered on 09:22; Admin Dose 300 MG; Start 12/30/16 at 09:00 Miscellaneous Information 1 ea 1 ea ONCE XX ; Start 12/30/16 at 12:00 Vancomycin HCl/ Dextrose/Water (Vancocin/D5W) 150 ml @ 75 mls/hr Q12H IVPB ; Start 12/30/16 at 20:30 Miscellaneous Information (*Rx Drug Level Order Reminder*) VANCOMYCIN TROUGH AT 0730 ONCE ONCE XX ; Start 12/31/16 at 07:30; Stop 12/31/16 at 07:31 Assessment/Plan Additional Assessment/Plan IMP: 1. Massive GI bleed secondary to esophageal varices 2. Hypovolemic and likely septic shock. 3. History of cirrhosis with portal hypertension 4. Thrombocytopenia likely secondary to liver disease 5. Renal insufficiency possible ATN injury versus hepatorenal syndrome. 6. Hypernatremia and hypokalemia 7. Acute hypoxemic respiratory failure secondary to above RECS: 1. Vent support 2. Abx 3. Free H20 via NGT 4. Lactulose/rifaxamin 5. Am labs/CXR 6. Insulin gtt Critical care time 40 minutes. JEVON GARCIA MD Dec 30, 2016 16:39
--- NOTE | 2016-12-30 17:10 | CONS ---
Date/Time of Note Date/Time of Note DATE: 12/30/16 TIME: 17:09 Assessment/Plan Assessment/Plan Chief Complaint/Hosp Course Assessment: Septic shock Pneumonia Acute hypoxic respiratory failure - intubated and on mechanical ventilation Hematemesis and anemia - EGD showed grade IV esophageal varices status post ligation, follow up gastroenterology recommendations Acute kidney injury Alcoholic liver cirrhosis Diabetes mellitus Recommendations: -pressors to keep MAP>65, wean as tolerated -echocardiogram showed LVEF>70% Problems: Consultation Date/Type/Reason Admit Date/Time Dec 22, 2016 at 22:41 Initial Consult Date 12/26/16 Type of Consultation: Cardiology 24 HR Interval Summary Free Text/Dictation Remains on low dose Levophed. Remains on mechanical ventilation. Detailed Summary Additional Comments Unable to obtain review of systems, patient is intubated. Exam/Review of Systems Vital Signs Vitals Vital Signs Date Time Temp Pulse Resp B/P Pulse Ox O2 Delivery O2 Flow Rate FiO2 12/30/16 15:24 90 20 98 40 12/30/16 13:15 88/46 12/30/16 12:00 98.3 Mechanical Ventilator 12/29/16 11:45 15.0 Intake and Output 12/29/16 12/29/16 12/30/16 15:00 23:00 07:00 Intake Total 895.35 ml 610.49 ml 695.4 ml Output Total 290 ml 840 ml 250 ml Balance 605.35 ml -229.51 ml 445.4 ml Exam Constitutional: other (sedated), No alert Psych: No nl mood/affect, No no complaints Head: atraumatic, normocephalic Eyes: nl conjunctiva, nl lids ENMT: intubated Respiratory: clear to auscultation Cardiovascular: regular rate and rhythm Gastrointestinal: non-tender, soft Musculoskeletal: nl extremities to inspection Extremities: No clubbing, No cyanosis, No edema Neurological: No nl mental status, No nl speech Results Result Diagram: 12/30/16 0445 12/30/16 0445 Results 24 hrs Laboratory Tests Test 12/29/16 17:21 12/29/16 18:07 12/29/16 19:36 12/29/16 20:03 Bedside Glucose 128 130 129 White Blood Count 12.5 H Red Blood Count 2.22 L Hemoglobin 8.0 L Hematocrit 23.9 L Mean Corpuscular Volume 107.7 H Mean Corpuscular Hemoglobin 36.0 H Mean Corpuscular Hemoglobin Concent 33.5 Red Cell Distribution Width 18.8 H Platelet Count 45 L Mean Platelet Volume 12.0 H Neutrophils % 71.0 Lymphocytes % 9.1 L Monocytes % 12.5 H Eosinophils % 6.5 Basophils % 0.1 Nucleated Red Blood Cells % 0.8 H Neutrophils # 8.9 H Lymphocytes # 1.1 Monocytes # 1.6 H Eosinophils # 0.8 H Basophils # 0.0 Nucleated Red Blood Cells # 0.1 H Prothrombin Time 19.1 H Prothrombin Time Ratio 1.5 INR International Normalized Ratio 1.59 Test 12/29/16 21:43 12/29/16 23:40 12/30/16 02:09 12/30/16 04:16 Bedside Glucose 160 173 150 128 Test 12/30/16 04:45 12/30/16 05:00 12/30/16 05:42 12/30/16 08:11 White Blood Count 11.8 H Red Blood Count 2.21 L Hemoglobin 7.6 L Hematocrit 24.0 L Mean Corpuscular Volume 108.6 H Mean Corpuscular Hemoglobin 34.4 H Mean Corpuscular Hemoglobin Concent 31.7 L Red Cell Distribution Width 18.8 H Platelet Count 41 L Mean Platelet Volume 11.9 H Neutrophils % 68.5 Lymphocytes % 9.7 L Monocytes % 13.5 H Eosinophils % 6.8 Basophils % 0.1 Nucleated Red Blood Cells % 1.2 H Neutrophils # 8.1 H Lymphocytes # 1.2 Monocytes # 1.6 H Eosinophils # 0.8 H Basophils # 0.0 Nucleated Red Blood Cells # 0.1 H Sodium Level 152 H Potassium Level 3.1 L Chloride Level 124 H Carbon Dioxide Level 24 Anion Gap 7 L Blood Urea Nitrogen 22 H Creatinine 0.60 Glucose Level 160 Lactic Acid Level 2.6 *H Calcium Level 7.7 L Blood Gas Specimen Source Blood arterial Arterial Blood Date Drawn 12/30/2016 4:52:54 AM Arterial Blood pH (Temp corrected) 7.442 Arterial Blood pCO2 (Temp correct) 34.0 L Arterial Blood pO2 (Temp corrected) 64.9 L Arterial Blood HCO3 22.7 Arterial Blood Base Excess -0.9 Arterial Blood Oxygen Saturation 91.9 L Rene Test ACCEPTAB Arterial Blood Gas Puncture Site Right Radial Arterial Blood Carboxyhemoglobin 0.3 Arterial Blood Methemoglobin 0.3 Blood Gas A-a O2 Differential 109.1 H Oxyhemoglobin Percent 91.3 L Total Hemoglobin 11.4 L Blood Gas Temperature 37.0 Blood Gas Respiration Rate 16.0 Blood Gas Actual Respiration Rate 24 Blood Gas Modality VENT - AC FiO2 30.0 Blood Gas Tidal Volume 400.0 Blood Gas Low PEEP Setting 5.0 Blood Gas Inspiratory Pressure 24.0 Blood Gas Notified Whom RTR Blood Gas Notified Time 12/30/2016 5:13:05 AM Bedside Glucose 130 153 Test 12/30/16 09:47 12/30/16 12:27 12/30/16 14:25 12/30/16 15:58 Bedside Glucose 178 109 137 147 Medications Medications Current Medications Ondansetron HCl (Zofran Inj) 4 mg Q6H PRN IV NAUSEA AND/OR VOMITING; Start 01/29 at 01:00 Acetaminophen (Tylenol Tab) 650 mg Q6H PRN PO PAIN LEVEL 1-3 OR FEVER Last administered on 12/27/16 21:00; Admin Dose 650 MG; Start 12/23/16 at 01:00 Propranolol HCl (Inderal) 10 mg BID PO Last administered on 12/25/16 10:20; Admin Dose 10 MG; Start 12/23/16 at 01:30; Status Future Hold Docusate Sodium (Colace) 100 mg DAILY PO Last administered on 12/29/16 09:08; Admin Dose 100 MG; Start 12/23/16 at 09:00 Miscellaneous Information 1 ea NOTE XX ; Start 12/23/16 at 02:30 Furosemide (Lasix) 40 mg DAILY PO Last administered on 12/25/16 10:20; Admin Dose 40 MG; Start 12/24/16 at 09:00; Status Future Hold Rifaximin (Xifaxan) 550 mg BID PO Last administered on 12/30/16 09:22; Admin Dose 550 MG; Start 12/24/16 at 21:00 Lactulose (Enulose) 30 gm Q6H PRN PO CONSTIPATION Last administered on 16:13; Admin Dose 30 GM; Start 12/25/16 at 16:00 Lactulose (Enulose) 30 gm Q6 NGT Last administered on 12/30/16 13:16; Admin Dose 20 GM; Start 12/26/16 at 06:00 Eye Lubricant 1 applic 1 applic Q4 BOTH EYES Last administered on 12/30/16 13: 16; Admin Dose 1 APPLIC; Start 12/25/16 at 21:00 Norepinephrine 16 mg/Dextrose 500 ml @ 1.87 mls/hr TITRATE IV Last administered on 12/27/16 08:28; Admin Dose 15 MLS/HR; Start 12/26/16 at 03:00 Piperacillin Sod/ Tazobactam Sod 100 ml @ 100 mls/hr Q8 IVPB Last administered on 12/30/16 13:16; Admin Dose 100 MLS/HR; Start 12/26/16 at 06:30 Levetiracetam (Keppra 500 Mg/ 100ml (Pmx)) 100 ml @ 400 mls/hr Q12 IVPB Last administered on 12/30/16 09:22; Admin Dose 400 MLS/HR; Start 12/26/16 at 21:00 Dextrose (D50w Syringe) 25 ml Q15M PRN IV Till BS 80 mg/dL or above x2 Last administered on 12/27/16 11:52; Admin Dose 25 ML; Start 12/26/16 at 09:30 Dextrose (D50w Syringe) 50 ml Q15M PRN IV Till BS 80 mg/dL or above x2; Start 12/26/16 at 09:30 Lorazepam 1 mg 1 mg Q2 PRN IV Seizures; Start 12/26/16 at 09:30 Vasopressin/ Sodium Chloride (Vasostrict/NS) 60 ml @ 0 mls/hr Q12H IVPB Last administered on 12/27/16 20:00; Admin Dose 2.4 MLS/HR; Start 12/26/16 at 12:00 Diagnostic Test (Pha) 1 ea 1 ea Q2H XX Last administered on 12/30/16 06:21; Admin Dose 1 EA; Start 12/28/16 at 06:00; Stop 12/31/16 at 05:59 Potassium Chloride/Dextrose/ Sod Cl (D5-1/2ns + KCl 20 Meq) 1,000 ml @ 80 mls/ hr [id number] IV Last administered on 12/30/16 10:45; Admin Dose 80 MLS/HR; Start 12/29/16 at 09:30 IV Flush (NS 10 ml) 10 ml PRN PRN IV FLUSH LINE; Start 12/29/16 at 12:00 Ferrous Sulfate (Feosol Liquid Cup) 300 mg BID GTB Last administered on t 09:22; Admin Dose 300 MG; Start 12/30/16 at 09:00 Miscellaneous Information 1 ea 1 ea ONCE XX ; Start 12/30/16 at 12:00 Vancomycin HCl/ Dextrose/Water (Vancocin/D5W) 150 ml @ 75 mls/hr Q12H IVPB ; Start 12/30/16 at 20:30 Miscellaneous Information (*Rx Drug Level Order Reminder*) VANCOMYCIN TROUGH AT 0730 ONCE ONCE XX ; Start 12/31/16 at 07:30; Stop 12/31/16 at 07:31 TRISTAN UGARTE MD Dec 30, 2016 17:10
--- NOTE | 2016-12-30 18:16 | PN ---
Date/Time of Note Date/Time of Note DATE: 12/30/16 TIME: 18:15 Assessment/Plan VTE Prophylaxis VTE Prophylaxis Intervention: SCD's Assessment/Plan Chief Complaint/Hosp Course 1. Acute hypoxemic respiratory failure requiring mechanical ventilation secondary to decompensated liver cirrhosis -Pulmonary eval appreciated, continue vent management 2.Hypovolemic/Hypotensive shock -Wean off pressors as able -IVFs,Titrate Levophed to keep MAP>60 - 2D Echo shows preserved EF, Cards consult appreciated 3.Toxic metabolic encephalopathy with Hepatic encephalopathy with coma and hyperammonemia secondary to end-stage liver disease -Continue lactulose 4. Acute GI bleed secondary to varices status post banding-now stable -Continue protonix/Octreotide drip-Not a candidate for BB 2/2 Hypotension. 5.Severe anion-gap metabolic acidosis. -Continue IVF 6. Acute Kidney Injury, likely hemodynamics-improved -Nephrology consult appreciated -Monitor renal fxn closely. 7. 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 No ascites. -Patient has been sober for 1 year -Continue current medical management. -Negative Hep panel 8. New-onset Seizures. -Neur eval appreciated -EEG shows encephalopathy -Ativan PRN, continue Keppra 9.Hypernatremia with free water deficit-Patient appears severely dehydrated currently. -Continue IVFs -Hold all diuretics. 10.Leukocytosis likely secondary to UTI -Urine culture shows K pneumoniae, continue Zosyn 11.Azotemia 2/2 dehydration/GIB. -Continue IVFs 12. Hyperglycemia ,likely worsened by D5W with Adult-onset Diabetes mellitus- Poorly controlled. -Continue ICU Insulin drip protocol 13. Anemia of chronic disease and acute blood loss anemia from GI bleed. HH stable.Will monitor. 14.Thrombocytopenia of liver disease. Stable. DVT and GI prophylaxis: SCDs, Protonix Problems: Subjective 24 Hr Interval Summary Subjective hx not possible: pt non-verbal Exam/Review of Systems Vital Signs Vitals Vital Signs Date Time Temp Pulse Resp B/P Pulse Ox O2 Delivery O2 Flow Rate FiO2 12/30/16 17:47 87 20 100 40 12/30/16 13:15 88/46 12/30/16 12:00 98.3 Mechanical Ventilator 12/29/16 11:45 15.0 Intake and Output 12/29/16 12/29/16 12/30/16 15:00 23:00 07:00 Intake Total 895.35 ml 610.49 ml 695.4 ml Output Total 290 ml 840 ml 250 ml Balance 605.35 ml -229.51 ml 445.4 ml Exam Constitutional: non-verbal, No alert Respiratory: clear to auscultation Cardiovascular: regular rate and rhythm Gastrointestinal: soft, No distended Musculoskeletal: nl extremities to inspection Results Result Diagram: 12/30/16 0445 12/30/16 0445 Results 24 hrs Laboratory Tests Test 12/29/16 19:36 12/29/16 20:03 12/29/16 21:43 12/29/16 23:40 Bedside Glucose 129 160 173 White Blood Count 12.5 H Red Blood Count 2.22 L Hemoglobin 8.0 L Hematocrit 23.9 L Mean Corpuscular Volume 107.7 H Mean Corpuscular Hemoglobin 36.0 H Mean Corpuscular Hemoglobin Concent 33.5 Red Cell Distribution Width 18.8 H Platelet Count 45 L Mean Platelet Volume 12.0 H Neutrophils % 71.0 Lymphocytes % 9.1 L Monocytes % 12.5 H Eosinophils % 6.5 Basophils % 0.1 Nucleated Red Blood Cells % 0.8 H Neutrophils # 8.9 H Lymphocytes # 1.1 Monocytes # 1.6 H Eosinophils # 0.8 H Basophils # 0.0 Nucleated Red Blood Cells # 0.1 H Prothrombin Time 19.1 H Prothrombin Time Ratio 1.5 INR International Normalized Ratio 1.59 Test 12/30/16 02:09 12/30/16 04:16 12/30/16 04:45 12/30/16 05:00 Bedside Glucose 150 128 White Blood Count 11.8 H Red Blood Count 2.21 L Hemoglobin 7.6 L Hematocrit 24.0 L Mean Corpuscular Volume 108.6 H Mean Corpuscular Hemoglobin 34.4 H Mean Corpuscular Hemoglobin Concent 31.7 L Red Cell Distribution Width 18.8 H Platelet Count 41 L Mean Platelet Volume 11.9 H Neutrophils % 68.5 Lymphocytes % 9.7 L Monocytes % 13.5 H Eosinophils % 6.8 Basophils % 0.1 Nucleated Red Blood Cells % 1.2 H Neutrophils # 8.1 H Lymphocytes # 1.2 Monocytes # 1.6 H Eosinophils # 0.8 H Basophils # 0.0 Nucleated Red Blood Cells # 0.1 H Sodium Level 152 H Potassium Level 3.1 L Chloride Level 124 H Carbon Dioxide Level 24 Anion Gap 7 L Blood Urea Nitrogen 22 H Creatinine 0.60 Glucose Level 160 Lactic Acid Level 2.6 *H Calcium Level 7.7 L Blood Gas Specimen Source Blood arterial Arterial Blood Date Drawn 12/30/2016 4:52:54 AM Arterial Blood pH (Temp corrected) 7.442 Arterial Blood pCO2 (Temp correct) 34.0 L Arterial Blood pO2 (Temp corrected) 64.9 L Arterial Blood HCO3 22.7 Arterial Blood Base Excess -0.9 Arterial Blood Oxygen Saturation 91.9 L Rene Test ACCEPTAB Arterial Blood Gas Puncture Site Right Radial Arterial Blood Carboxyhemoglobin 0.3 Arterial Blood Methemoglobin 0.3 Blood Gas A-a O2 Differential 109.1 H Oxyhemoglobin Percent 91.3 L Total Hemoglobin 11.4 L Blood Gas Temperature 37.0 Blood Gas Respiration Rate 16.0 Blood Gas Actual Respiration Rate 24 Blood Gas Modality VENT - AC FiO2 30.0 Blood Gas Tidal Volume 400.0 Blood Gas Low PEEP Setting 5.0 Blood Gas Inspiratory Pressure 24.0 Blood Gas Notified Whom RTR Blood Gas Notified Time 12/30/2016 5:13:05 AM Test 12/30/16 05:42 12/30/16 08:11 12/30/16 09:47 12/30/16 12:27 Bedside Glucose 130 153 178 109 Test 12/30/16 14:25 12/30/16 15:58 12/30/16 18:05 Bedside Glucose 137 147 152 Medications Medications Current Medications Ondansetron HCl (Zofran Inj) 4 mg Q6H PRN IV NAUSEA AND/OR VOMITING; Start 01/29 at 01:00 Acetaminophen (Tylenol Tab) 650 mg Q6H PRN PO PAIN LEVEL 1-3 OR FEVER Last administered on 12/27/16 21:00; Admin Dose 650 MG; Start 12/23/16 at 01:00 Propranolol HCl (Inderal) 10 mg BID PO Last administered on 12/25/16 10:20; Admin Dose 10 MG; Start 12/23/16 at 01:30; Status Future Hold Docusate Sodium (Colace) 100 mg DAILY PO Last administered on 12/29/16 09:08; Admin Dose 100 MG; Start 12/23/16 at 09:00 Miscellaneous Information 1 ea NOTE XX ; Start 12/23/16 at 02:30 Furosemide (Lasix) 40 mg DAILY PO Last administered on 12/25/16 10:20; Admin Dose 40 MG; Start 12/24/16 at 09:00; Status Future Hold Rifaximin (Xifaxan) 550 mg BID PO Last administered on 12/30/16 09:22; Admin Dose 550 MG; Start 12/24/16 at 21:00 Lactulose (Enulose) 30 gm Q6H PRN PO CONSTIPATION Last administered on 16:13; Admin Dose 30 GM; Start 12/25/16 at 16:00 Lactulose (Enulose) 30 gm Q6 NGT Last administered on 12/30/16 18:00; Admin Dose 30 GM; Start 12/26/16 at 06:00 Eye Lubricant 1 applic 1 applic Q4 BOTH EYES Last administered on 12/30/16 18: 02; Admin Dose 1 APPLIC; Start 12/25/16 at 21:00 Norepinephrine 16 mg/Dextrose 500 ml @ 1.87 mls/hr TITRATE IV Last administered on 12/27/16 08:28; Admin Dose 15 MLS/HR; Start 12/26/16 at 03:00 Piperacillin Sod/ Tazobactam Sod 100 ml @ 100 mls/hr Q8 IVPB Last administered on 12/30/16 13:16; Admin Dose 100 MLS/HR; Start 12/26/16 at 06:30 Levetiracetam (Keppra 500 Mg/ 100ml (Pmx)) 100 ml @ 400 mls/hr Q12 IVPB Last administered on 12/30/16 09:22; Admin Dose 400 MLS/HR; Start 12/26/16 at 21:00 Dextrose (D50w Syringe) 25 ml Q15M PRN IV Till BS 80 mg/dL or above x2 Last administered on 12/27/16 11:52; Admin Dose 25 ML; Start 12/26/16 at 09:30 Dextrose (D50w Syringe) 50 ml Q15M PRN IV Till BS 80 mg/dL or above x2; Start 12/26/16 at 09:30 Lorazepam 1 mg 1 mg Q2 PRN IV Seizures; Start 12/26/16 at 09:30 Vasopressin/ Sodium Chloride (Vasostrict/NS) 60 ml @ 0 mls/hr Q12H IVPB Last administered on 12/27/16 20:00; Admin Dose 2.4 MLS/HR; Start 12/26/16 at 12:00 Diagnostic Test (Pha) 1 ea 1 ea Q2H XX Last administered on 12/30/16 06:21; Admin Dose 1 EA; Start 12/28/16 at 06:00; Stop 12/31/16 at 05:59 Potassium Chloride/Dextrose/ Sod Cl (D5-1/2ns + KCl 20 Meq) 1,000 ml @ 80 mls/ hr [id number] IV Last administered on 12/30/16 10:45; Admin Dose 80 MLS/HR; Start 12/29/16 at 09:30 IV Flush (NS 10 ml) 10 ml PRN PRN IV FLUSH LINE; Start 12/29/16 at 12:00 Ferrous Sulfate (Feosol Liquid Cup) 300 mg BID GTB Last administered on 09:22; Admin Dose 300 MG; Start 12/30/16 at 09:00 Miscellaneous Information 1 ea 1 ea ONCE XX ; Start 12/30/16 at 12:00 Vancomycin HCl/ Dextrose/Water (Vancocin/D5W) 150 ml @ 75 mls/hr Q12H IVPB ; Start 12/30/16 at 20:30 Miscellaneous Information (*Rx Drug Level Order Reminder*) VANCOMYCIN TROUGH AT 0730 ONCE ONCE XX ; Start 12/31/16 at 07:30; Stop 12/31/16 at 07:31 GT DON Dec 30, 2016 18:16
[2016-12-30] MEDS: VANCOMYCIN 750 MG in DEXTROSE 5% 150 ML IVPB SCH (19:57)
[2016-12-31] VITALS (69 sets, daily range): BP systolic 76–125; BP diastolic 37–86; PULSE 84–109; RESP 14–33
[2016-12-31] MEDS: LACTULOSE 30ML CUP NGT SCH ×5 (00:54→23:30)
[2016-12-31] MEDS: OCULAR LUBRICANT 3.5 GM OPH OINT BOTH EYES SCH ×6 (00:57→20:12)
[2016-12-31] MEDS: ACCU-CHEK XX SCH ×2 (01:55→04:16)
[2016-12-31] MEDS: ALBUTEROL 18 GM INHALER INH SCH ×6 (02:21→21:14)
[2016-12-31] MEDS: IPRATROPIUM (HFA) 12.9 GM INHALER INH SCH ×6 (02:21→21:13)
[2016-12-31 05:08] LABS: ABNORMAL IP MESSAGE 1; BASOPHILS % 0.1 % (0.0-2.0); EOSINOPHILS # 0.5 10^3/ul (0.0-0.5); EOSINOPHILS % 4.7 % (0.0-7.0); HEMATOCRIT 23.1 % (37.0-47.0); HEMOGLOBIN 7.5 g/dl (12.0-16.0); LYMPHOCYTES # 0.8 10^3/ul (0.8-2.9); LYMPHOCYTES % 7.8 % (15.0-51.0); MEAN CORPUSCULAR HEMOGLOBIN 35.5 pg (29.0-33.0); MEAN CORPUSCULAR HGB CONC 32.5 g/dl (32.0-37.0); MEAN CORPUSCULAR VOLUME 109.5 fl (82.0-101.0); MEAN PLATELET VOLUME 12.2 fl (7.4-10.4); MONOCYTE # 1.3 10^3/ul (0.3-0.9); MONOCYTES % 12.5 % (0.0-11.0); NEUTROPHIL # 7.6 10^3/ul (1.6-7.5); NEUTROPHILS % 73.1 % (39.0-77.0); NUCLEATED RED BLOOD CELLS # 0.4 10^3/ul (0.0-0.0); NUCLEATED RED BLOOD CELLS% 3.6 /100WBC (0.0-0.0); PLATELET COUNT 41 10^3/UL (140-415); RED BLOOD COUNT 2.11 10^6/ul (4.20-5.40); RED CELL DISTRIBUTION WIDTH 19.2 % (11.5-14.5); WHITE BLOOD COUNT 10.4 10^3/ul (4.8-10.8)
[2016-12-31 05:30] LABS: POSITIVE DIFF @See below
[2016-12-31 05:31] LABS: CALCIUM 7.5 mg/dl (8.4-10.2); CREATININE 0.49 mg/dl (0.44-1.00); MAGNESIUM 2.3 mg/dl (1.7-2.5); PHOSPHORUS 1.9 mg/dl (2.5-4.9)
[2016-12-31 05:35] LABS: POTASSIUM 2.9 mmol/L (3.5-5.1)
[2016-12-31 05:49] LABS: AADO2 Arterial 170.7 mmHg (7.0-24.0); Allen Test ACCEPTAB; Arterial Base Excess -2.4 mmol/L (-3.0-3); Arterial COHb 0.3 % (0.0-3.0); Arterial Fraction of Oxyhgb 94.9 % (93.0-99.0); Arterial HCO3 20.7 mmol/L (22.0-26.0); Arterial MetHb 0.3 % (0.0-1.5); MODE VENT - VC+
[2016-12-31] MEDS ORDERED: POTASSIUM CHLORIDE 250 ML IVPB ONE (06:00)
[2016-12-31] MEDS: PIPER-TAZO 3.375 GM IV (PMX) 100 ML IVPB SCH ×3 (06:05→21:54)
--- NOTE | 2016-12-31 07:47 | PN ---
DATE: 12/31/2016 SUBJECTIVE DATA: The patient remains critically ill, on full ventilatory support. No other events noted. No hemoptysis, hematemesis, hematochezia. OBJECTIVE DATA: VITAL SIGNS: Blood pressure 113/52, respirations 15, pulse 97, temperature 98.2. HEENT: Head is normocephalic. NECK: Supple. HEART: Regular rate. LUNGS: Diminished breath sounds at the base. ABDOMEN: Soft, nontender to palpation. No rebound or guarding. EXTREMITIES: Negative for clubbing, cyanosis. Positive edema. DERMATOLOGIC: No rashes. MUSCULOSKELETAL: No joint effusion. NEUROLOGIC: No change in exam. MEDICATIONS: Reviewed. LABORATORY AND DIAGNOSTIC DATA: White count 10.4, hemoglobin 10.5, hematocrit 23.1, platelet count is 41. Sodium 155, potassium 2.9, chloride 126, BUN 16, creatinine 0.49. Lactic acid 2.80. ASSESSMENT AND PLAN: 1. Nonoliguric acute kidney injury with unknown baseline creatinine. Etiology was secondary to acute tubular necrosis. Renal functions appeared to improve. At this point, continue current treatment. Supportive care. Renally dose all medications. 2. Hypokalemia. Continue to replete potassium chloride. 3. Hypernatremia. Patient has a free water deficit of approximately 2.5 L. Will start the patient on D5 water at 100 mL an hour and monitor closely. 4. Anemia. Monitor H and H levels. 5. Mineral bone disorder. Monitor calcium and phosphorus levels. 6. Septic shock. The patient is currently being weaned off pressor support. Continue current medical management. Continue IV fluids and antibiotics. 7. Ventilator dependent respiratory failure. Vent setting and ABGs have been reviewed. Continue to monitor. 8. End-stage liver disease, cirrhosis, currently compensated. Continue to monitor. 9. Seizure disorder. Continue current medical management. 10. Gastrointestinal bleeding. The patient is status post octreotide and Protonix. 11. Encephalopathy, multifactorial. Continue to monitor. Please note, I spent over 30 minutes of critical care time with this patient. Dictated By: Will Gonzales DO /[email or web address]/jane /Document#: [id number]
[2016-12-31] MEDS: DEXTROSE 5% 1,000 ML IV SCH ×2 (08:01→19:23)
[2016-12-31] MEDS: LEVETIRACETAM 500 MG (PMX) 100 ML IVPB SCH ×2 (08:15→20:19)
[2016-12-31] MEDS: BALSAM PERU/CASTOR OIL 60 GM TUBE TOP SCH ×2 (08:16→20:19)
[2016-12-31] MEDS: DOCUSATE SODIUM 100 MG CAP PO SCH (08:16)
[2016-12-31] MEDS: RIFAXIMIN 550 MG TAB PO SCH ×2 (08:24→20:19)
[2016-12-31] MEDS: FERROUS SULFATE 60 MG/ML 5ML CUP GTB SCH ×2 (08:24→21:20)
[2016-12-31] MEDS: VANCOMYCIN 750 MG in DEXTROSE 5% 150 ML IVPB SCH (08:42)
--- NOTE | 2016-12-31 10:16 | CONS ---
Date/Time of Note Date/Time of Note DATE: 12/31/16 TIME: 10:13 Assessment/Plan Assessment/Plan Additional Assessment/Plan Ventilator setting; AC of 16, tidal volume 400, PEEP of 5, 40% FiO2. Patient currently on insulin drip at 6 U/h. Assessment and recommendations; 1. Patient admitted with massive variceal bleeding status post banding via EGD. 2. Diabetes. 3. Severe anoxic encephalopathy. 4. Severe hypernatremia, likely from diabetes insipidus. 5. Anemia and thrombocytopenia. Continue current supportive care. Add desmopressin subcutaneously. Prognosis is extremely poor. Consultation Date/Type/Reason Admit Date/Time Dec 22, 2016 at 22:41 Initial Consult Date 12/26/16 Type of Consultation: Pulmonary/critical care 24 HR Interval Summary Free Text/Dictation Patient's condition remains critical. Remains completely unresponsive. General exam; elderly woman, orally intubated, unresponsive, currently in no distress. Exam/Review of Systems Vital Signs Vitals Vital Signs Date Time Temp Pulse Resp B/P Pulse Ox O2 Delivery O2 Flow Rate FiO2 12/31/16 09:11 96 24 99 40 12/31/16 07:00 98.7 115/56 Mechanical Ventilator 12/29/16 11:45 15.0 Intake and Output 12/30/16 12/30/16 12/31/16 15:00 23:00 07:00 Intake Total 1405.52 ml 1249 ml 682 ml Output Total 805 ml 1090 ml 600 ml Balance 600.52 ml 159 ml 82 ml Exam HEENT exam; supple neck, no JVD. No lymphadenopathy. Midline trachea. No thyromegaly. Patient has bilateral intraocular lens implants. Dentition is fair. Orally intubated. Next General exam; elderly woman, currently in no distress. Unresponsive. Results Result Diagram: 12/31/16 0405 12/31/16 0405 Results 24 hrs Laboratory Tests Test 12/30/16 12:27 12/30/16 14:25 12/30/16 15:58 12/30/16 18:05 Bedside Glucose 109 137 147 152 Test 12/30/16 19:55 12/30/16 21:46 12/30/16 23:46 12/31/16 01:54 Bedside Glucose 174 196 161 145 Test 12/31/16 04:05 12/31/16 04:15 12/31/16 05:00 12/31/16 05:59 White Blood Count 10.4 Red Blood Count 2.11 L Hemoglobin 7.5 L Hematocrit 23.1 L Mean Corpuscular Volume 109.5 H Mean Corpuscular Hemoglobin 35.5 H Mean Corpuscular Hemoglobin Concent 32.5 Red Cell Distribution Width 19.2 H Platelet Count 41 L Mean Platelet Volume 12.2 H Neutrophils % 73.1 Lymphocytes % 7.8 L Monocytes % 12.5 H Eosinophils % 4.7 Basophils % 0.1 Nucleated Red Blood Cells % 3.6 H Neutrophils # 7.6 H Lymphocytes # 0.8 Monocytes # 1.3 H Eosinophils # 0.5 Basophils # 0.0 Nucleated Red Blood Cells # 0.4 H Sodium Level 155 H Potassium Level 2.9 *L Chloride Level 126 H Carbon Dioxide Level 24 Anion Gap 8 Blood Urea Nitrogen 16 Creatinine 0.49 Glucose Level 111 # Lactic Acid Level 2.8 *H Calcium Level 7.5 L Phosphorus Level 1.9 L Magnesium Level 2.3 Ammonia 25 # Bedside Glucose 114 112 Blood Gas Specimen Source Blood arterial Arterial Blood Date Drawn 12/31/2016 5:37:06 AM Arterial Blood pH (Temp corrected) 7.467 H Arterial Blood pCO2 (Temp correct) 29.3 L Arterial Blood pO2 (Temp corrected) 80.8 Arterial Blood HCO3 20.7 L Arterial Blood Base Excess -2.4 Arterial Blood Oxygen Saturation 95.5 Rene Test ACCEPTAB Arterial Blood Gas Puncture Site Right Radial Arterial Blood Carboxyhemoglobin 0.3 Arterial Blood Methemoglobin 0.3 Blood Gas A-a O2 Differential 170.7 H Oxyhemoglobin Percent 94.9 Total Hemoglobin 9.0 L Blood Gas Temperature 37.0 Blood Gas Respiration Rate 16.0 Blood Gas Actual Respiration Rate 29 Blood Gas Modality VENT - VC+ FiO2 40.0 Blood Gas Inspiratory Time 0.70 Blood Gas Tidal Volume 400.0 Blood Gas Low PEEP Setting 5.0 Blood Gas Inspiratory Pressure 19.0 Blood Gas Notified Whom RTR Blood Gas Notified Time 12/31/2016 5:49:42 AM Test 12/31/16 07:00 12/31/16 08:13 Vancomycin Level Trough 10.1 Bedside Glucose 168 Medications Medications Current Medications Ondansetron HCl (Zofran Inj) 4 mg Q6H PRN IV NAUSEA AND/OR VOMITING; Start 01/29 at 01:00 Acetaminophen (Tylenol Tab) 650 mg Q6H PRN PO PAIN LEVEL 1-3 OR FEVER Last administered on 12/27/16 21:00; Admin Dose 650 MG; Start 12/23/16 at 01:00 Propranolol HCl (Inderal) 10 mg BID PO Last administered on 12/25/16 10:20; Admin Dose 10 MG; Start 12/23/16 at 01:30; Status Future Hold Docusate Sodium (Colace) 100 mg DAILY PO Last administered on 12/29/16 09:08; Admin Dose 100 MG; Start 12/23/16 at 09:00 Miscellaneous Information 1 ea NOTE XX ; Start 12/23/16 at 02:30 Furosemide (Lasix) 40 mg DAILY PO Last administered on 12/25/16 10:20; Admin Dose 40 MG; Start 12/24/16 at 09:00; Status Future Hold Rifaximin (Xifaxan) 550 mg BID PO Last administered on 12/31/16 08:24; Admin Dose 550 MG; Start 12/24/16 at 21:00 Lactulose (Enulose) 30 gm Q6H PRN PO CONSTIPATION Last administered on 16:13; Admin Dose 30 GM; Start 12/25/16 at 16:00 Lactulose (Enulose) 30 gm Q6 NGT Last administered on 12/31/16 06:05; Admin Dose 30 GM; Start 12/26/16 at 06:00 Eye Lubricant 1 applic 1 applic Q4 BOTH EYES Last administered on 12/31/16 08: 15; Admin Dose 1 APPLIC; Start 12/25/16 at 21:00 Norepinephrine 16 mg/Dextrose 500 ml @ 1.87 mls/hr TITRATE IV Last administered on 12/27/16 08:28; Admin Dose 15 MLS/HR; Start 12/26/16 at 03:00 Piperacillin Sod/ Tazobactam Sod 100 ml @ 100 mls/hr Q8 IVPB Last administered on 12/31/16 06:05; Admin Dose 100 MLS/HR; Start 12/26/16 at 06:30 Levetiracetam (Keppra 500 Mg/ 100ml (Pmx)) 100 ml @ 400 mls/hr Q12 IVPB Last administered on 12/31/16 08:15; Admin Dose 400 MLS/HR; Start 12/26/16 at 21:00 Dextrose (D50w Syringe) 25 ml Q15M PRN IV Till BS 80 mg/dL or above x2 Last administered on 12/27/16 11:52; Admin Dose 25 ML; Start 12/26/16 at 09:30 Dextrose (D50w Syringe) 50 ml Q15M PRN IV Till BS 80 mg/dL or above x2; Start 12/26/16 at 09:30 Lorazepam (Ativan) 1 mg Q2 PRN IV Seizures; Start 12/26/16 at 09:30 IV Flush (NS 10 ml) 10 ml PRN PRN IV FLUSH LINE; Start 12/29/16 at 12:00 Ferrous Sulfate (Feosol Liquid Cup) 300 mg BID GTB Last administered on 08:24; Admin Dose 300 MG; Start 12/30/16 at 09:00 Miscellaneous Information 1 ea 1 ea ONCE XX ; Start 12/30/16 at 12:00 Vancomycin HCl 750 mg/Dextrose/ Water 150 ml @ 75 mls/hr Q12H IVPB Last administered on 12/31/16 08:42; Admin Dose 75 MLS/HR; Start 12/30/16 at 20:30; Stop 12/31/16 at 11:00 Dextrose 1,000 ml @ 100 mls/hr Q10H IV Last administered on 12/31/16 08:01; Admin Dose 100 MLS/HR; Start 12/31/16 at 07:30 Vancomycin HCl/ Dextrose (Vancocin/D5W) 250 ml @ 125 mls/hr Q12H IVPB ; Start 12/31/16 at 20:30 KAYLA HUNTER Dec 31, 2016 10:16
--- NOTE | 2016-12-31 10:26 | PN ---
Date/Time of Note Date/Time of Note DATE: 12/31/16 TIME: 10:26 Assessment/Plan VTE Prophylaxis VTE Prophylaxis Intervention: SCD's Lines/Catheters IV Catheter Type (from Nrsg): PICC Line Central line still needed: Yes Urinary Cath still in place: Yes Reason Cath still needed: other (indicate) Assessment/Plan Assessment/Plan 1. Acute hypoxemic respiratory failure on mechanical ventilation secondary to decompensated liver cirrhosis - Pulmonary on board and recommendations appreciated. Continue vent management per pulm 2. Hypovolemic/Hypotensive shock - Weaned off pressor support last night and maintaining MAP >60 - 2D Echo shows preserved EF, Cardiology on board and recommendations appreciated 3. Toxic metabolic encephalopathy with Hepatic encephalopathy with coma and hyperammonemia secondary to end-stage liver disease - Continue lactulose 4. Acute GI bleed secondary to varices status post banding-now stable - H/H stable 5. Acute Kidney Injury, likely hemodynamics-resolving - Nephrology on board and recommendations appreciated - Monitor renal fxn closely. 6. 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 No ascites. - Patient has been sober for 1 year - Continue current medical management. - Negative Hep panel 7. New-onset Seizures. -Neurology on board and recommendations appreciated -EEG shows encephalopathy -Ativan PRN, continue Keppra 8. Hypernatremia with free water deficit - Started on D5W - Hold all diuretics. 9. Leukocytosis likely secondary to UTI- improving - Urine culture shows K pneumoniae, continue Zosyn 11. Azotemia 2/2 dehydration/GIB -improving - Continue IVFs 12. Hyperglycemia ,likely worsened by D5W with Adult-onset Diabetes mellitus- Poorly controlled. - Continue ICU Insulin drip protocol 13. Anemia of chronic disease and acute blood loss anemia from GI bleed - stable.Will monitor. 14. Thrombocytopenia of liver disease - stable Prognosis remains guarded. >30 mins of critical care time was spent on the patient Subjective 24 Hr Interval Summary Free Text/Dictation Patient seen and examined. No acute overnight events. Patient still unresponsive to touch or voice but does grimace to pain. Exam/Review of Systems Vital Signs Vitals Vital Signs Date Time Temp Pulse Resp B/P Pulse Ox O2 Delivery O2 Flow Rate FiO2 12/31/16 09:11 96 24 99 40 12/31/16 07:00 98.7 115/56 Mechanical Ventilator 12/29/16 11:45 15.0 Intake and Output 12/30/16 12/30/16 12/31/16 15:00 23:00 07:00 Intake Total 1405.52 ml 1249 ml 682 ml Output Total 805 ml 1090 ml 600 ml Balance 600.52 ml 159 ml 82 ml Exam General: NAD, on ventilator support and nonresponsive to stimulus CVS: regular rate and rhythm, no murmurs Lungs: diminished at bases, no crackles or wheezing Abd: soft, NT, ND, no rebound or guarding Ext: edema, petechia UE, no cyanosis or clubbing Results Result Diagram: 12/31/16 0405 12/31/16 0405 Results 24 hrs Laboratory Tests Test 12/30/16 12:27 12/30/16 14:25 12/30/16 15:58 12/30/16 18:05 Bedside Glucose 109 137 147 152 Test 12/30/16 19:55 12/30/16 21:46 12/30/16 23:46 12/31/16 01:54 Bedside Glucose 174 196 161 145 Test 12/31/16 04:05 12/31/16 04:15 12/31/16 05:00 12/31/16 05:59 White Blood Count 10.4 Red Blood Count 2.11 L Hemoglobin 7.5 L Hematocrit 23.1 L Mean Corpuscular Volume 109.5 H Mean Corpuscular Hemoglobin 35.5 H Mean Corpuscular Hemoglobin Concent 32.5 Red Cell Distribution Width 19.2 H Platelet Count 41 L Mean Platelet Volume 12.2 H Neutrophils % 73.1 Lymphocytes % 7.8 L Monocytes % 12.5 H Eosinophils % 4.7 Basophils % 0.1 Nucleated Red Blood Cells % 3.6 H Neutrophils # 7.6 H Lymphocytes # 0.8 Monocytes # 1.3 H Eosinophils # 0.5 Basophils # 0.0 Nucleated Red Blood Cells # 0.4 H Sodium Level 155 H Potassium Level 2.9 *L Chloride Level 126 H Carbon Dioxide Level 24 Anion Gap 8 Blood Urea Nitrogen 16 Creatinine 0.49 Glucose Level 111 # Lactic Acid Level 2.8 *H Calcium Level 7.5 L Phosphorus Level 1.9 L Magnesium Level 2.3 Ammonia 25 # Bedside Glucose 114 112 Blood Gas Specimen Source Blood arterial Arterial Blood Date Drawn 12/31/2016 5:37:06 AM Arterial Blood pH (Temp corrected) 7.467 H Arterial Blood pCO2 (Temp correct) 29.3 L Arterial Blood pO2 (Temp corrected) 80.8 Arterial Blood HCO3 20.7 L Arterial Blood Base Excess -2.4 Arterial Blood Oxygen Saturation 95.5 Rene Test ACCEPTAB Arterial Blood Gas Puncture Site Right Radial Arterial Blood Carboxyhemoglobin 0.3 Arterial Blood Methemoglobin 0.3 Blood Gas A-a O2 Differential 170.7 H Oxyhemoglobin Percent 94.9 Total Hemoglobin 9.0 L Blood Gas Temperature 37.0 Blood Gas Respiration Rate 16.0 Blood Gas Actual Respiration Rate 29 Blood Gas Modality VENT - VC+ FiO2 40.0 Blood Gas Inspiratory Time 0.70 Blood Gas Tidal Volume 400.0 Blood Gas Low PEEP Setting 5.0 Blood Gas Inspiratory Pressure 19.0 Blood Gas Notified Whom RTR Blood Gas Notified Time 12/31/2016 5:49:42 AM Test 12/31/16 07:00 12/31/16 08:13 Vancomycin Level Trough 10.1 Bedside Glucose 168 Medications Medications Current Medications Ondansetron HCl (Zofran Inj) 4 mg Q6H PRN IV NAUSEA AND/OR VOMITING; Start 01/29 at 01:00 Acetaminophen (Tylenol Tab) 650 mg Q6H PRN PO PAIN LEVEL 1-3 OR FEVER Last administered on 12/27/16 21:00; Admin Dose 650 MG; Start 12/23/16 at 01:00 Propranolol HCl (Inderal) 10 mg BID PO Last administered on 12/25/16 10:20; Admin Dose 10 MG; Start 12/23/16 at 01:30; Status Future Hold Docusate Sodium (Colace) 100 mg DAILY PO Last administered on 12/29/16 09:08; Admin Dose 100 MG; Start 12/23/16 at 09:00 Miscellaneous Information 1 ea NOTE XX ; Start 12/23/16 at 02:30 Furosemide (Lasix) 40 mg DAILY PO Last administered on 12/25/16 10:20; Admin Dose 40 MG; Start 12/24/16 at 09:00; Status Future Hold Rifaximin (Xifaxan) 550 mg BID PO Last administered on 12/31/16 08:24; Admin Dose 550 MG; Start 12/24/16 at 21:00 Lactulose (Enulose) 30 gm Q6H PRN PO CONSTIPATION Last administered on 16:13; Admin Dose 30 GM; Start 12/25/16 at 16:00 Lactulose (Enulose) 30 gm Q6 NGT Last administered on 12/31/16 06:05; Admin Dose 30 GM; Start 12/26/16 at 06:00 Eye Lubricant 1 applic 1 applic Q4 BOTH EYES Last administered on 12/31/16 08: 15; Admin Dose 1 APPLIC; Start 12/25/16 at 21:00 Norepinephrine 16 mg/Dextrose 500 ml @ 1.87 mls/hr TITRATE IV Last administered on 12/27/16 08:28; Admin Dose 15 MLS/HR; Start 12/26/16 at 03:00 Piperacillin Sod/ Tazobactam Sod 100 ml @ 100 mls/hr Q8 IVPB Last administered on 12/31/16 06:05; Admin Dose 100 MLS/HR; Start 12/26/16 at 06:30 Levetiracetam (Keppra 500 Mg/ 100ml (Pmx)) 100 ml @ 400 mls/hr Q12 IVPB Last administered on 12/31/16 08:15; Admin Dose 400 MLS/HR; Start 12/26/16 at 21:00 Dextrose (D50w Syringe) 25 ml Q15M PRN IV Till BS 80 mg/dL or above x2 Last administered on 12/27/16 11:52; Admin Dose 25 ML; Start 12/26/16 at 09:30 Dextrose (D50w Syringe) 50 ml Q15M PRN IV Till BS 80 mg/dL or above x2; Start 12/26/16 at 09:30 Lorazepam (Ativan) 1 mg Q2 PRN IV Seizures; Start 12/26/16 at 09:30 IV Flush (NS 10 ml) 10 ml PRN PRN IV FLUSH LINE; Start 12/29/16 at 12:00 Ferrous Sulfate (Feosol Liquid Cup) 300 mg BID GTB Last administered on 08:24; Admin Dose 300 MG; Start 12/30/16 at 09:00 Miscellaneous Information 1 ea 1 ea ONCE XX ; Start 12/30/16 at 12:00 Vancomycin HCl 750 mg/Dextrose/ Water 150 ml @ 75 mls/hr Q12H IVPB Last administered on 12/31/16 08:42; Admin Dose 75 MLS/HR; Start 12/30/16 at 20:30; Stop 12/31/16 at 11:00 Dextrose 1,000 ml @ 100 mls/hr Q10H IV Last administered on 12/31/16 08:01; Admin Dose 100 MLS/HR; Start 12/31/16 at 07:30 Vancomycin HCl/ Dextrose (Vancocin/D5W) 250 ml @ 125 mls/hr Q12H IVPB ; Start 12/31/16 at 20:30 Desmopressin Acetate (Ddavp) 4 mcg DAILY SC ; Start 12/31/16 at 10:30 BLACK STOKES MD Dec 31, 2016 10:26
[2016-12-31] MEDS ORDERED: DESMOPRESSIN 4 MCG INJ SC SCH (10:30)
[2016-12-31 16:23] LABS: CALCIUM 7.3 mg/dl (8.4-10.2); CREATININE 0.51 mg/dl (0.44-1.00); POTASSIUM 3.2 mmol/L (3.5-5.1)
[2016-12-31] MEDS ORDERED: POTASSIUM CHLORIDE 50 ML IVPB ONE (17:30)
[2016-12-31] MEDS ORDERED: KCL 20 MEQ in NS 100 ML IV ONE (20:00)
[2016-12-31] MEDS: VANCOMYCIN 1 GM in DEXTROSE 5% 250 ML IVPB SCH (20:19)
[2016-12-31] MEDS ORDERED: NORepinephrine 8MG/250 ML (PMX 250 ML ONE (22:04)
[2016-12-31] MEDS ORDERED: MIDAZOLAM 1 MG/ML 2 ML INJ ONE (23:07)
[2016-12-31] MEDS ORDERED: MIDAZOLAM 1 MG/ML 2 ML INJ IV ONE (23:30)
[2017-01-01] VITALS (102 sets, daily range): BP systolic 70–136; BP diastolic 42–92; PULSE 83–110; RESP 14–40
[2017-01-01] MEDS: OCULAR LUBRICANT 3.5 GM OPH OINT BOTH EYES SCH ×6 (00:42→21:18)
[2017-01-01] MEDS: IPRATROPIUM (HFA) 12.9 GM INHALER INH SCH ×6 (01:41→21:29)
[2017-01-01] MEDS: ALBUTEROL 18 GM INHALER INH SCH ×6 (01:41→21:29)
[2017-01-01] MEDS: DEXTROSE 5% 1,000 ML IV SCH (03:30)
[2017-01-01] MEDS: LACTULOSE 30ML CUP NGT SCH ×4 (04:54→23:58)
[2017-01-01] MEDS: PIPER-TAZO 3.375 GM IV (PMX) 100 ML IVPB SCH ×3 (04:54→22:02)
[2017-01-01] MEDS: INSULIN HUMAN REGULAR 100 UNIT in SOD CHLORIDE 0.9% 99 ML IV SCH (04:58)
[2017-01-01 05:31] LABS: ABNORMAL IP MESSAGE 1; BASOPHILS % 0.2 % (0.0-2.0); EOSINOPHILS # 0.7 10^3/ul (0.0-0.5); EOSINOPHILS % 4.3 % (0.0-7.0); HEMATOCRIT 23.6 % (37.0-47.0); HEMOGLOBIN 7.5 g/dl (12.0-16.0); LYMPHOCYTES # 1.1 10^3/ul (0.8-2.9); LYMPHOCYTES % 6.9 % (15.0-51.0); MEAN CORPUSCULAR HEMOGLOBIN 35.2 pg (29.0-33.0); MEAN CORPUSCULAR HGB CONC 31.8 g/dl (32.0-37.0); MEAN CORPUSCULAR VOLUME 110.8 fl (82.0-101.0); MONOCYTE # 1.5 10^3/ul (0.3-0.9); MONOCYTES % 9.1 % (0.0-11.0); NEUTROPHIL # 12.6 10^3/ul (1.6-7.5); NUCLEATED RED BLOOD CELLS # 0.3 10^3/ul (0.0-0.0); NUCLEATED RED BLOOD CELLS% 1.6 /100WBC (0.0-0.0); PLATELET COUNT 68 10^3/UL (140-415); RED BLOOD COUNT 2.13 10^6/ul (4.20-5.40); RED CELL DISTRIBUTION WIDTH 20.5 % (11.5-14.5); WHITE BLOOD COUNT 16.1 10^3/ul (4.8-10.8)
[2017-01-01 05:36] LABS: POSITIVE DIFF @See below
[2017-01-01 06:23] LABS: CALCIUM 7.5 mg/dl (8.4-10.2); CREATININE 0.75 mg/dl (0.44-1.00); MAGNESIUM 2.1 mg/dl (1.7-2.5); PHOSPHORUS 2.1 mg/dl (2.5-4.9); POTASSIUM 3.2 mmol/L (3.5-5.1)
[2017-01-01] MEDS ORDERED: SOD CHLORIDE 0.9% 1,000 ML IV SCH (07:30)
[2017-01-01] MEDS: VANCOMYCIN 1 GM in DEXTROSE 5% 250 ML IVPB SCH ×2 (08:13→21:18)
[2017-01-01] MEDS: LEVETIRACETAM 500 MG (PMX) 100 ML IVPB SCH ×2 (08:13→21:48)
[2017-01-01] MEDS: RIFAXIMIN 550 MG TAB PO SCH ×2 (08:21→21:19)
[2017-01-01] MEDS: FERROUS SULFATE 60 MG/ML 5ML CUP GTB SCH ×2 (08:21→21:18)
[2017-01-01] MEDS: DOCUSATE SODIUM 100 MG CAP PO SCH (08:22)
[2017-01-01] MEDS: BALSAM PERU/CASTOR OIL 60 GM TUBE TOP SCH ×2 (08:22→21:48)
[2017-01-01] MEDS ORDERED: POTASSIUM PHOSPHATE 40 MEQ in SOD CHLORIDE 0.9% 250 ML IVPB ONE (08:30)
--- NOTE | 2017-01-01 09:09 | PN ---
DATE: 01/01/2017 SUBJECTIVE DATA: The patient remains critically ill, currently back on presser support. No other events noted. No hemoptysis, hematemesis, hematochezia. OBJECTIVE DATA: VITAL SIGNS: Blood pressure is 106/63, respirations 20, pulse 91, temperature 98.6. HEENT: Head is normocephalic. NECK: Supple. CARDIAC: Heart is tachycardic. LUNGS: Diminished breath sounds at the base. ABDOMEN: Soft, nontender to palpation. No rebound or guarding. EXTREMITIES: Negative for clubbing, cyanosis. No edema. DERMATOLOGIC: Clean. No rashes. MUSCULOSKELETAL: No joint effusion. NEUROLOGIC: No change in exam. MEDICATIONS: Reviewed. LABORATORY AND DIAGNOSTIC DATA: Shows white count 16.1, hemoglobin 7.5, crit of 23.6, platelet count is 68. Sodium 145, potassium 3.2, chloride 122, BUN 15, creatinine 0.75, phosphorous 2.18. Lactic acid 3.0. ASSESSMENT AND PLAN: 1. Nonoliguric acute kidney injury. Etiology secondary to acute tubular necrosis. Renal function has improved. At this point, continue current treatment plan, supportive care. Renally dose all meds. 2. Hypokalemia. Continue to monitor and replete. 3. Hyponatremia, improving. Continue D5 water, current rate. 4. Mineral bone disorder. Patient's phosphorus levels are low. We will replete with potassium phosphate. 5. Anemia. Monitor H and H levels. 6. Septic shock. The patient is back on presser support. Continue current medical management. Continue IV fluids and antibiotics. 7. Ventilatory-dependent respiratory failure. Vent settings and ABGs reviewed. Continue to monitor. 8. End-stage liver disease, cirrhosis, currently decompensated. Continue to monitor. Follow up with GI. 9. Seizure disorder. Continue medical management. 10. Gastrointestinal bleeding. Continue current medical management. 11. Encephalopathy, multifactorial. Continue to monitor. Please note, I spent over 30 minutes of critical care time with this patient. Dictated By: Will Gonzales DO /[email or web address]/[email or web address] /Document#: [id number]
[2017-01-01] MEDS: DEXTROSE 5%-0.9% NACL 1,000 ML IV SCH ×2 (09:33→22:50)
--- NOTE | 2017-01-01 10:33 | CONS ---
Date/Time of Note Date/Time of Note DATE: 01/01/17 TIME: 10:31 Consult Date/Type/Reason Admit Date/Time Dec 22, 2016 at 22:41 Initial Consult Date 12/26/16 Type of Consultation: Pulmonary/critical care Subjective Continuous mechanical ventilation. Opens eyes but does not follow commands. Moves all 4 limbs. Continues vasopressor support. No active GI bleeding. Objective Vital Signs Date Time Temp Pulse Resp B/P Pulse Ox O2 Delivery O2 Flow Rate FiO2 01/01/17 09:38 85 25 99 35 01/01/17 06:15 106/63 01/01/17 05:00 97.1 12/31/16 18:00 Mechanical Ventilator 12/29/16 11:45 15.0 Intake and Output 12/31/16 12/31/16 01/01/17 15:00 23:00 07:00 Intake Total 1897.0 ml 1418 ml 1471 ml Output Total 475 ml 705 ml 470 ml Balance 1422.0 ml 713 ml 1001 ml Exam PHYSICAL EXAMINATION GENERAL: Elderly appearing lady on mechanical ventilation appears comfortable at rest VITAL SIGNS: see below. HEENT: Pupils equal, round, and reactive to light. CARDIAC: S1, S2, 1/6 systolic ejection murmur CHEST: Diminished air entry bilaterally. ABDOMEN: Mildly distended. Bowel sounds present no guarding or rebound EXTREMITIES: No cyanosis, clubbing edema +1 NEUROLOGIC: Generalized weakness Results/Medications Result Diagram: 01/01/17 0352 01/01/17 0352 Results 24 hrs Laboratory Tests Test 12/31/16 12:22 12/31/16 14:04 12/31/16 15:53 12/31/16 16:24 Bedside Glucose 113 158 129 Sodium Level 151 H Potassium Level 3.2 L Chloride Level 126 H Carbon Dioxide Level 22 Anion Gap 6 L Blood Urea Nitrogen 15 Creatinine 0.51 Glucose Level 134 Calcium Level 7.3 L Test 12/31/16 17:55 12/31/16 20:07 01/01/17 00:40 01/01/17 03:21 Bedside Glucose 148 159 173 177 Test 01/01/17 03:52 01/01/17 04:53 01/01/17 06:10 01/01/17 08:06 White Blood Count 16.1 #H Red Blood Count 2.13 L Hemoglobin 7.5 L Hematocrit 23.6 L Mean Corpuscular Volume 110.8 H Mean Corpuscular Hemoglobin 35.2 H Mean Corpuscular Hemoglobin Concent 31.8 L Red Cell Distribution Width 20.5 H Platelet Count 68 #L Mean Platelet Volume 13.0 H Neutrophils % 78.0 H Lymphocytes % 6.9 L Monocytes % 9.1 Eosinophils % 4.3 Basophils % 0.2 Nucleated Red Blood Cells % 1.6 H Neutrophils # 12.6 H Lymphocytes # 1.1 Monocytes # 1.5 H Eosinophils # 0.7 H Basophils # 0.0 Nucleated Red Blood Cells # 0.3 H Sodium Level 145 H Potassium Level 3.2 L Chloride Level 122 H Carbon Dioxide Level 20 L Anion Gap 6 L Blood Urea Nitrogen 16 Creatinine 0.75 Glucose Level 151 Lactic Acid Level 3.0 *H Calcium Level 7.5 L Phosphorus Level 2.1 L Magnesium Level 2.1 Bedside Glucose 172 180 170 Medications Current Medications Ondansetron HCl (Zofran Inj) 4 mg Q6H PRN IV NAUSEA AND/OR VOMITING; Start 01/29 at 01:00 Acetaminophen (Tylenol Tab) 650 mg Q6H PRN PO PAIN LEVEL 1-3 OR FEVER Last administered on 12/27/16 21:00; Admin Dose 650 MG; Start 12/23/16 at 01:00 Propranolol HCl (Inderal) 10 mg BID PO Last administered on 12/25/16 10:20; Admin Dose 10 MG; Start 12/23/16 at 01:30; Status Future Hold Docusate Sodium (Colace) 100 mg DAILY PO Last administered on 01/01/17 08:22; Admin Dose 100 MG; Start 12/23/16 at 09:00 Miscellaneous Information 1 ea NOTE XX ; Start 12/23/16 at 02:30 Furosemide (Lasix) 40 mg DAILY PO Last administered on 12/25/16 10:20; Admin Dose 40 MG; Start 12/24/16 at 09:00; Status Future Hold Rifaximin (Xifaxan) 550 mg BID PO Last administered on 01/01/17 08:21; Admin Dose 550 MG; Start 12/24/16 at 21:00 Lactulose (Enulose) 30 gm Q6H PRN PO CONSTIPATION Last administered on 16:13; Admin Dose 30 GM; Start 12/25/16 at 16:00 Lactulose (Enulose) 30 gm Q6 NGT Last administered on 01/01/17 04:54; Admin Dose 30 GM; Start 12/26/16 at 06:00 Eye Lubricant 1 applic 1 applic Q4 BOTH EYES Last administered on 01/01/17 08: 21; Admin Dose 1 APPLIC; Start 12/25/16 at 21:00 Norepinephrine 16 mg/Dextrose 500 ml @ 1.87 mls/hr TITRATE IV Last administered on 12/31/16 22:18; Admin Dose 3.75 MLS/HR; Start 12/26/16 at 03:00 Piperacillin Sod/ Tazobactam Sod 100 ml @ 100 mls/hr Q8 IVPB Last administered on 01/01/17 04:54; Admin Dose 100 MLS/HR; Start 12/26/16 at 06:30 Levetiracetam (Keppra 500 Mg/ 100ml (Pmx)) 100 ml @ 400 mls/hr Q12 IVPB Last administered on 01/01/17 08:13; Admin Dose 400 MLS/HR; Start 12/26/16 at 21:00 Dextrose (D50w Syringe) 25 ml Q15M PRN IV Till BS 80 mg/dL or above x2 Last administered on 12/27/16 11:52; Admin Dose 25 ML; Start 12/26/16 at 09:30 Dextrose (D50w Syringe) 50 ml Q15M PRN IV Till BS 80 mg/dL or above x2; Start 12/26/16 at 09:30 Lorazepam (Ativan) 1 mg Q2 PRN IV Seizures; Start 12/26/16 at 09:30 IV Flush (NS 10 ml) 10 ml PRN PRN IV FLUSH LINE; Start 12/29/16 at 12:00 Ferrous Sulfate (Feosol Liquid Cup) 300 mg BID GTB Last administered on 08:21; Admin Dose 300 MG; Start 12/30/16 at 09:00 Miscellaneous Information 1 ea 1 ea ONCE XX ; Start 12/30/16 at 12:00 Vancomycin HCl 1 gm/Dextrose 250 ml @ 125 mls/hr Q12H IVPB Last administered on 01/01/17 08:13; Admin Dose 125 MLS/HR; Start 12/31/16 at 20:30 Potassium Phosphate 40 meq/ Sodium Chloride 259.0909 ml @ 64.773 m... ONCE ONCE IVPB ; Start 01/01/17 at 08:30; Stop 01/01/17 at 12:29 Dextrose/Sodium Chloride (D5-NS) 1,000 ml @ 75 mls/hr [id number] IV Last administered on 01/01/17t 09:33; Admin Dose 75 MLS/HR; Start 01/01/17 at 09:30 Morphine Sulfate (morphine) 2 mg Q2H PRN IV SEDATION; Start 01/01/17 at 10:00 Assessment/Plan Chief Complaint/Hosp Course Assessment 1. Massive GI bleed secondary to esophageal varices 2. Hypovolemic and likely septic shock. 3. History of cirrhosis with portal hypertension 4. Thrombocytopenia likely secondary to liver disease 5. Renal insufficiency now resolved. 6. Hyper natremia and hypokalemia 7. Acute hypoxemic respiratory failure secondary to above Plan 1. Continue mechanical ventilation. Will attempt weaning trial if more alert. 2. Continue proton pump inhibitor 3. Decrease vasopressors as tolerated 4. Consider increasing free water, trial of tube feeding 5. Consider transfusion 1 unit packed red blood cells as patient has been present dependent for quite some time. Problems: JÚNIOR AGUILERA MD, [facility] Jan 01, 2017 10:33
--- NOTE | 2017-01-01 13:09 | CONS ---
Date/Time of Note Date/Time of Note DATE: 01/01/17 TIME: 13:08 Assessment/Plan Assessment/Plan Chief Complaint/Hosp Course Assessment: Septic shock Pneumonia Acute hypoxic respiratory failure - intubated and on mechanical ventilation Hematemesis and anemia - EGD showed grade IV esophageal varices status post ligation, follow up gastroenterology recommendations Acute kidney injury - resolved Alcoholic liver cirrhosis Diabetes mellitus Recommendations: -pressors to keep MAP>65, wean as tolerated -echocardiogram showed LVEF>70% Problems: Consultation Date/Type/Reason Admit Date/Time Dec 22, 2016 at 22:41 Initial Consult Date 12/26/16 Type of Consultation: Cardiology 24 HR Interval Summary Free Text/Dictation No significant clinical changes. Remains on low dose Levophed. Remains intubated. Detailed Summary Additional Comments Unable to obtain review of systems, patient is intubated. Exam/Review of Systems Vital Signs Vitals Vital Signs Date Time Temp Pulse Resp B/P Pulse Ox O2 Delivery O2 Flow Rate FiO2 01/01/17 11:45 89 17 97/53 98 01/01/17 11:30 Mechanical Ventilator 01/01/17 09:38 35 01/01/17 08:00 98.5 12/29/16 11:45 15.0 Intake and Output 12/31/16 12/31/16 01/01/17 15:00 23:00 07:00 Intake Total 1897.0 ml 1418 ml 1471 ml Output Total 475 ml 705 ml 500 ml Balance 1422.0 ml 713 ml 971 ml Exam Constitutional: other (intubated), No alert Psych: No nl mood/affect, No no complaints Head: atraumatic, normocephalic Eyes: nl conjunctiva, nl lids ENMT: intubated Respiratory: clear to auscultation Cardiovascular: regular rate and rhythm Gastrointestinal: non-tender, soft Musculoskeletal: nl extremities to inspection Extremities: No clubbing, No cyanosis, No edema Neurological: No nl mental status, No nl speech Results Result Diagram: 01/01/17 0352 01/01/17 0352 Results 24 hrs Laboratory Tests Test 12/31/16 14:04 12/31/16 15:53 12/31/16 16:24 12/31/16 17:55 Bedside Glucose 158 129 148 Sodium Level 151 H Potassium Level 3.2 L Chloride Level 126 H Carbon Dioxide Level 22 Anion Gap 6 L Blood Urea Nitrogen 15 Creatinine 0.51 Glucose Level 134 Calcium Level 7.3 L Test 12/31/16 20:07 01/01/17 00:40 01/01/17 03:21 01/01/17 03:52 Bedside Glucose 159 173 177 White Blood Count 16.1 #H Red Blood Count 2.13 L Hemoglobin 7.5 L Hematocrit 23.6 L Mean Corpuscular Volume 110.8 H Mean Corpuscular Hemoglobin 35.2 H Mean Corpuscular Hemoglobin Concent 31.8 L Red Cell Distribution Width 20.5 H Platelet Count 68 #L Mean Platelet Volume 13.0 H Neutrophils % 78.0 H Lymphocytes % 6.9 L Monocytes % 9.1 Eosinophils % 4.3 Basophils % 0.2 Nucleated Red Blood Cells % 1.6 H Neutrophils # 12.6 H Lymphocytes # 1.1 Monocytes # 1.5 H Eosinophils # 0.7 H Basophils # 0.0 Nucleated Red Blood Cells # 0.3 H Sodium Level 145 H Potassium Level 3.2 L Chloride Level 122 H Carbon Dioxide Level 20 L Anion Gap 6 L Blood Urea Nitrogen 16 Creatinine 0.75 Glucose Level 151 Lactic Acid Level 3.0 *H Calcium Level 7.5 L Phosphorus Level 2.1 L Magnesium Level 2.1 Test 01/01/17 04:53 01/01/17 06:10 01/01/17 08:06 01/01/17 10:12 Bedside Glucose 172 180 170 172 Test 01/01/17 11:55 Bedside Glucose 143 Medications Medications Current Medications Ondansetron HCl (Zofran Inj) 4 mg Q6H PRN IV NAUSEA AND/OR VOMITING; Start 01/29 at 01:00 Acetaminophen (Tylenol Tab) 650 mg Q6H PRN PO PAIN LEVEL 1-3 OR FEVER Last administered on 12/27/16 21:00; Admin Dose 650 MG; Start 12/23/16 at 01:00 Propranolol HCl (Inderal) 10 mg BID PO Last administered on 12/25/16 10:20; Admin Dose 10 MG; Start 12/23/16 at 01:30; Status Future Hold Docusate Sodium (Colace) 100 mg DAILY PO Last administered on 01/01/17 08:22; Admin Dose 100 MG; Start 12/23/16 at 09:00 Miscellaneous Information 1 ea NOTE XX ; Start 12/23/16 at 02:30 Furosemide (Lasix) 40 mg DAILY PO Last administered on 12/25/16 10:20; Admin Dose 40 MG; Start 12/24/16 at 09:00; Status Future Hold Rifaximin (Xifaxan) 550 mg BID PO Last administered on 01/01/17 08:21; Admin Dose 550 MG; Start 12/24/16 at 21:00 Lactulose (Enulose) 30 gm Q6H PRN PO CONSTIPATION Last administered on 16:13; Admin Dose 30 GM; Start 12/25/16 at 16:00 Lactulose (Enulose) 30 gm Q6 NGT Last administered on 01/01/17 11:39; Admin Dose 30 GM; Start 12/26/16 at 06:00 Eye Lubricant 1 applic 1 applic Q4 BOTH EYES Last administered on 01/01/17 11: 40; Admin Dose 1 APPLIC; Start 12/25/16 at 21:00 Norepinephrine 16 mg/Dextrose 500 ml @ 1.87 mls/hr TITRATE IV Last administered on 12/31/16 22:18; Admin Dose 3.75 MLS/HR; Start 12/26/16 at 03:00 Piperacillin Sod/ Tazobactam Sod 100 ml @ 100 mls/hr Q8 IVPB Last administered on 01/01/17 04:54; Admin Dose 100 MLS/HR; Start 12/26/16 at 06:30 Levetiracetam (Keppra 500 Mg/ 100ml (Pmx)) 100 ml @ 400 mls/hr Q12 IVPB Last administered on 01/01/17 08:13; Admin Dose 400 MLS/HR; Start 12/26/16 at 21:00 Dextrose (D50w Syringe) 25 ml Q15M PRN IV Till BS 80 mg/dL or above x2 Last administered on 12/27/16 11:52; Admin Dose 25 ML; Start 12/26/16 at 09:30 Dextrose (D50w Syringe) 50 ml Q15M PRN IV Till BS 80 mg/dL or above x2; Start 12/26/16 at 09:30 Lorazepam (Ativan) 1 mg Q2 PRN IV Seizures; Start 12/26/16 at 09:30 IV Flush (NS 10 ml) 10 ml PRN PRN IV FLUSH LINE; Start 12/29/16 at 12:00 Ferrous Sulfate (Feosol Liquid Cup) 300 mg BID GTB Last administered on 08:21; Admin Dose 300 MG; Start 12/30/16 at 09:00 Miscellaneous Information 1 ea 1 ea ONCE XX ; Start 12/30/16 at 12:00 Vancomycin HCl 1 gm/Dextrose 250 ml @ 125 mls/hr Q12H IVPB Last administered on 01/01/17 08:13; Admin Dose 125 MLS/HR; Start 12/31/16 at 20:30 Dextrose/Sodium Chloride (D5-NS) 1,000 ml @ 75 mls/hr [id number] IV Last administered on 01/01/17 09:33; Admin Dose 75 MLS/HR; Start 01/01/17 at 09:30 Morphine Sulfate (morphine) 2 mg Q2H PRN IV SEDATION; Start 01/01/17 at 10:00 TRISTAN UGARTE MD Jan 01, 2017 13:09
[2017-01-01] MEDS: morphine 2 MG INJ IV PRN ×2 (14:16→16:50)
--- NOTE | 2017-01-01 16:46 | PN ---
Date/Time of Note Date/Time of Note DATE: 01/01/17 TIME: 16:37 Assessment/Plan VTE Prophylaxis VTE Prophylaxis Intervention: heparin Lines/Catheters IV Catheter Type (from Nrs): PICC Line Central line still needed: Yes Urinary Cath still in place: Yes Reason Cath still needed: other (indicate) (critically ill) Assessment/Plan Assessment/Plan 1. Acute hypoxemic respiratory failure on mechanical ventilation - Pulmonary on board and recommendations appreciated. Continue vent management per pulm - Plans for meeting with family to discuss goals and possible trach placement 2. Hypotensive shock - Patient had to be started back on pressor support and will try to wean with goal MAP >60 - 2D Echo shows preserved EF, Cardiology on board and recommendations appreciated 3. Toxic metabolic encephalopathy with Hepatic encephalopathy with coma and hyperammonemia secondary to end-stage liver disease - Continue lactulose 4. Acute GI bleed secondary to varices status post banding-now stable - H/H stable 5. Acute Kidney Injury, likely hemodynamics-resolved - Nephrology on board and recommendations appreciated - Monitor renal fxn closely. - monitoring electrolytes and replacing as needed 6. 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 - Negative Hep panel 7. New-onset Seizures. -Neurology on board and recommendations appreciated -EEG shows encephalopathy -Ativan PRN, continue Keppra 8. Hypernatremia with free water deficit- normalizing - will continue on D5W and monitor 9. Leukocytosis likely secondary to UTI - Urine culture shows K pneumoniae, continue Zosyn 10. Azotemia 2/2 dehydration/GIB- resolved - Continue IVFs 11. Hyperglycemia with Adult-onset Diabetes mellitus-Poorly controlled. - Continue ICU Insulin drip protocol 12. Anemia of chronic disease and acute blood loss anemia from GI bleed - stable.Will monitor. 13. Thrombocytopenia of liver disease - stable >30 minutes of critical care time was spent with patient Subjective 24 Hr Interval Summary Free Text/Dictation Patient remains intubated and minimally responsive. Continues to have sporadic movements of extremities along with twitching of face. Exam/Review of Systems Vital Signs Vitals Vital Signs Date Time Temp Pulse Resp B/P Pulse Ox O2 Delivery O2 Flow Rate FiO2 01/01/17 16:15 94 21 87/47 97 Mechanical Ventilator 01/01/17 16:00 99.2 01/01/17 15:59 35 12/29/16 11:45 15.0 Intake and Output 12/31/16 12/31/16 01/01/17 14:59 22:59 06:59 Intake Total 1975.0 ml 1522 ml 1369 ml Output Total 465 ml 735 ml 470 ml Balance 1510.0 ml 787 ml 899 ml Exam General: NAD, on ventilator support and nonresponsive to stimulus CVS: regular rate and rhythm, no murmurs Lungs: diminished at bases, no crackles or wheezing Abd: soft, NT, slight distention, no rebound or guarding Ext: edema, petechia UE, no cyanosis or clubbing Neuro: not following commands, grimacing to pain Results Result Diagram: 01/01/17 0352 01/01/17 0352 Results 24 hrs Laboratory Tests Test 12/31/16 17:55 12/31/16 20:07 01/01/17 00:40 01/01/17 03:21 Bedside Glucose 148 159 173 177 Test 01/01/17 03:52 01/01/17 04:53 01/01/17 06:10 01/01/17 08:06 White Blood Count 16.1 #H Red Blood Count 2.13 L Hemoglobin 7.5 L Hematocrit 23.6 L Mean Corpuscular Volume 110.8 H Mean Corpuscular Hemoglobin 35.2 H Mean Corpuscular Hemoglobin Concent 31.8 L Red Cell Distribution Width 20.5 H Platelet Count 68 #L Mean Platelet Volume 13.0 H Neutrophils % 78.0 H Lymphocytes % 6.9 L Monocytes % 9.1 Eosinophils % 4.3 Basophils % 0.2 Nucleated Red Blood Cells % 1.6 H Neutrophils # 12.6 H Lymphocytes # 1.1 Monocytes # 1.5 H Eosinophils # 0.7 H Basophils # 0.0 Nucleated Red Blood Cells # 0.3 H Sodium Level 145 H Potassium Level 3.2 L Chloride Level 122 H Carbon Dioxide Level 20 L Anion Gap 6 L Blood Urea Nitrogen 16 Creatinine 0.75 Glucose Level 151 Lactic Acid Level 3.0 *H Calcium Level 7.5 L Phosphorus Level 2.1 L Magnesium Level 2.1 Bedside Glucose 172 180 170 Test 01/01/17 10:12 01/01/17 11:55 01/01/17 14:00 01/01/17 15:54 Bedside Glucose 172 143 148 154 Medications Medications Current Medications Ondansetron HCl (Zofran Inj) 4 mg Q6H PRN IV NAUSEA AND/OR VOMITING; Start 01/29 at 01:00 Acetaminophen (Tylenol Tab) 650 mg Q6H PRN PO PAIN LEVEL 1-3 OR FEVER Last administered on 12/27/16 21:00; Admin Dose 650 MG; Start 12/23/16 at 01:00 Propranolol HCl (Inderal) 10 mg BID PO Last administered on 12/25/16 10:20; Admin Dose 10 MG; Start 12/23/16 at 01:30; Status Future Hold Docusate Sodium (Colace) 100 mg DAILY PO Last administered on 01/01/17 08:22; Admin Dose 100 MG; Start 12/23/16 at 09:00 Miscellaneous Information 1 ea NOTE XX ; Start 12/23/16 at 02:30 Furosemide (Lasix) 40 mg DAILY PO Last administered on 12/25/16 10:20; Admin Dose 40 MG; Start 12/24/16 at 09:00; Status Future Hold Rifaximin (Xifaxan) 550 mg BID PO Last administered on 01/01/17 08:21; Admin Dose 550 MG; Start 12/24/16 at 21:00 Lactulose (Enulose) 30 gm Q6H PRN PO CONSTIPATION Last administered on 16:13; Admin Dose 30 GM; Start 12/25/16 at 16:00 Lactulose (Enulose) 30 gm Q6 NGT Last administered on 01/01/17 11:39; Admin Dose 30 GM; Start 12/26/16 at 06:00 Eye Lubricant 1 applic 1 applic Q4 BOTH EYES Last administered on 01/01/17 11: 40; Admin Dose 1 APPLIC; Start 12/25/16 at 21:00 Norepinephrine 16 mg/Dextrose 500 ml @ 1.87 mls/hr TITRATE IV Last administered on 12/31/16 22:18; Admin Dose 3.75 MLS/HR; Start 12/26/16 at 03:00 Piperacillin Sod/ Tazobactam Sod 100 ml @ 100 mls/hr Q8 IVPB Last administered on 01/01/17 15:12; Admin Dose 100 MLS/HR; Start 12/26/16 at 06:30 Levetiracetam (Keppra 500 Mg/ 100ml (Pmx)) 100 ml @ 400 mls/hr Q12 IVPB Last administered on 01/01/17 08:13; Admin Dose 400 MLS/HR; Start 12/26/16 at 21:00 Dextrose (D50w Syringe) 25 ml Q15M PRN IV Till BS 80 mg/dL or above x2 Last administered on 12/27/16 11:52; Admin Dose 25 ML; Start 12/26/16 at 09:30 Dextrose (D50w Syringe) 50 ml Q15M PRN IV Till BS 80 mg/dL or above x2; Start 12/26/16 at 09:30 Lorazepam (Ativan) 1 mg Q2 PRN IV Seizures; Start 12/26/16 at 09:30 IV Flush (NS 10 ml) 10 ml PRN PRN IV FLUSH LINE; Start 12/29/16 at 12:00 Ferrous Sulfate (Feosol Liquid Cup) 300 mg BID GTB Last administered on 08:21; Admin Dose 300 MG; Start 12/30/16 at 09:00 Miscellaneous Information 1 ea 1 ea ONCE XX ; Start 12/30/16 at 12:00 Vancomycin HCl 1 gm/Dextrose 250 ml @ 125 mls/hr Q12H IVPB Last administered on 01/01/17 08:13; Admin Dose 125 MLS/HR; Start 12/31/16 at 20:30 Dextrose/Sodium Chloride (D5-NS) 1,000 ml @ 75 mls/hr [id number] IV Last administered on 01/01/17 09:33; Admin Dose 75 MLS/HR; Start 01/01/17 at 09:30 Morphine Sulfate (morphine) 2 mg Q2H PRN IV SEDATION Last administered on 14:16; Admin Dose 2 MG; Start 01/01/17 at 10:00 Miscellaneous Information (*Rx Drug Level Order Reminder*) VANCO TROUGH @ 0, 730 ON... ONCE ONCE XX ; Start 01/02/17 at 07:30; Stop 01/02/17 at 07:31 Lorazepam (Ativan) 2 mg Q6H PRN IV AGITATION; Start 01/01/17 at 16:30 BLACK STOKES MD Jan 01, 2017 16:46
[2017-01-01 17:59] LABS: ADD UMIC YES; UR ASCORBIC ACID NEGATIVE (NEGATIVE); UR BILIRUBIN (Dip) NEGATIVE (NEGATIVE); UR BLOOD (Dip) 2+ mg/dL (NEGATIVE); UR BUDDING YEAST MANY /HPF (NONE SEEN); UR CLARITY CLOUDY (CLEAR); UR COLOR AMBER (YELLOW); UR GLUCOSE (Dip) NEGATIVE (NEGATIVE); UR KETONES (Dip) NEGATIVE (NEGATIVE); UR LEUKOCYTE ESTERASE (Dip) 3+ Leu/ul (NEGATIVE); UR NITRITE (Dip) NEGATIVE (NEGATIVE); UR RBC > 182 /HPF (0-5); UR SPECIFIC GRAVITY (Dip) 1.019 (1.003-1.030); UR SQUAMOUS EPITHELIAL CELL FEW /HPF (FEW); UR TOTAL PROTEIN (Dip) 1+ mg/dl (NEGATIVE); UR UROBILINOGEN (Dip) NEGATIVE (NEGATIVE)
[2017-01-01 18:04] LABS: CALCIUM 7.3 mg/dl (8.4-10.2); CREATININE 1.28 mg/dl (0.44-1.00); POTASSIUM 3.7 mmol/L (3.5-5.1)
[2017-01-02] VITALS (91 sets, daily range): BP systolic 69–119; BP diastolic 37–79; PULSE 98–122; RESP 13–33
[2017-01-02] MEDS: IPRATROPIUM (HFA) 12.9 GM INHALER INH SCH ×6 (00:59→21:46)
[2017-01-02] MEDS: ALBUTEROL 18 GM INHALER INH SCH ×6 (00:59→21:46)
[2017-01-02] MEDS: OCULAR LUBRICANT 3.5 GM OPH OINT BOTH EYES SCH ×6 (01:12→17:17)
[2017-01-02] MEDS: LACTULOSE 30ML CUP NGT SCH ×3 (05:24→17:17)
[2017-01-02] MEDS: PIPER-TAZO 3.375 GM IV (PMX) 100 ML IVPB SCH ×3 (05:24→21:51)
[2017-01-02] MEDS: INSULIN HUMAN REGULAR 100 UNIT in SOD CHLORIDE 0.9% 99 ML IV SCH (05:30)
[2017-01-02 06:18] LABS: CREATININE 1.46 mg/dl (0.44-1.00)
[2017-01-02 07:36] LABS: ABNORMAL IP MESSAGE 1; HEMATOCRIT 25.2 % (37.0-47.0); HEMOGLOBIN 8.1 g/dl (12.0-16.0); MEAN CORPUSCULAR HEMOGLOBIN 36.5 pg (29.0-33.0); MEAN CORPUSCULAR HGB CONC 32.1 g/dl (32.0-37.0); MEAN CORPUSCULAR VOLUME 113.5 fl (82.0-101.0); MEAN PLATELET VOLUME 12.9 fl (7.4-10.4); NUCLEATED RED BLOOD CELLS% 0.4 /100WBC (0.0-0.0); PLATELET COUNT 68 10^3/UL (140-415); RED BLOOD COUNT 2.22 10^6/ul (4.20-5.40); RED CELL DISTRIBUTION WIDTH 20.5 % (11.5-14.5); WHITE BLOOD COUNT 25.5 10^3/ul (4.8-10.8)
[2017-01-02 07:41] LABS: POSITIVE DIFF @See below
--- NOTE | 2017-01-02 08:11 | PN ---
DATE: 01/02/2017 SUBJECTIVE DATA: The patient is critically ill on presser support on full ventilatory support. No other acute events noted. No hemoptysis, hematemesis, hematochezia. OBJECTIVE DATA: VITAL SIGNS: Blood pressure is 112/1957, respirations 25, pulse 110, temperature 98.7. HEENT: Head is normocephalic. NECK: Supple. HEART: Regular rate. LUNGS: Show diminished breath sounds at the base. ABDOMEN: Soft, nontender to palpation. No rebound or guarding. EXTREMITIES: Negative for clubbing, cyanosis. Trace edema. DERMATOLOGIC: Clean. No rashes. MUSCULOSKELETAL: No joint effusion. NEUROLOGIC: No change in exam. MEDICATIONS: Reviewed. LABORATORY AND DIAGNOSTIC DATA: Currently pending. Laboratory data from 01/01 showed sodium 141, potassium 3.7, BUN 18, creatinine 1.28. White count 15.1, hemoglobin 7.5, crit 23.6, platelet count is 258. ASSESSMENT AND PLAN: 1. Nonoliguric acute kidney injury. Etiology secondary to acute tubular necrosis, septic acute kidney injury. The patient's renal function initially improved; however, has declined in the last 48 hours, likely due to underlying sepsis. At this point, continue current treatment, supportive care. Renally dose medications. Continue pressor support. 2. Hypernatremia, improving. We will decrease free water flushes 200 cc q.6 hours. Recommend to discontinue D5 water. 3. Hypokalemia. Continue to monitor and replete. 4. Mineral bone disorder. Monitor calcium and phosphorus levels. 5. Anemia. Monitor H and H levels. 6. Septic shock. The patient is currently on presser support. Continue medical management. Continue intravenous fluids, antibiotics. 7. Ventilatory-dependent respiratory failure. Vent settings have been reviewed. ABGs reviewed. 8. End-stage liver disease, cirrhosis, currently decompensated. Continue to monitor. 9. Seizure disorder. Continue medical management. 10. Gastrointestinal bleeding. Patient is status post octreotide, Protonix. 11. Encephalopathy, multifactorial. Continue to monitor. Please note, I spent over 30 minutes of critical care time with this patient. Dictated By: Will Gonzales DO /[email or web address] /Document#: [id number]
[2017-01-02 08:15] LABS: CALCIUM 7.4 mg/dl (8.4-10.2); CREATININE 1.5 mg/dl (0.44-1.00); MAGNESIUM 1.8 mg/dl (1.7-2.5); POTASSIUM 3.6 mmol/L (3.5-5.1)
[2017-01-02] MEDS: BALSAM PERU/CASTOR OIL 60 GM TUBE TOP SCH ×2 (08:15→21:52)
[2017-01-02] MEDS: RIFAXIMIN 550 MG TAB PO SCH ×2 (08:15→20:48)
[2017-01-02] MEDS: DOCUSATE SODIUM 100 MG CAP PO SCH (08:16)
[2017-01-02] MEDS: FERROUS SULFATE 60 MG/ML 5ML CUP GTB SCH ×2 (08:16→20:48)
[2017-01-02] MEDS: LEVETIRACETAM 500 MG (PMX) 100 ML IVPB SCH ×2 (08:23→20:49)
[2017-01-02] MEDS: ACETAMINOPHEN 325 MG TAB PO PRN (08:56)
[2017-01-02 09:30] LABS: ANISOCYTOSIS 2+ (0-0); BURR CELLS 2+ (0-0); EOSINOPHILS % (M) 1 % (0-7); PLATELET ESTIMATE DECREASED; POIKILOCYTOSIS 2+ (0-0); POLYCHROMASIA 2+ (0-0)
[2017-01-02 10:32] LABS: AADO2 Arterial 152.8 mmHg (7.0-24.0); Allen Test ACCEPTAB; Arterial Base Excess -8.9 mmol/L (-3.0-3); Arterial COHb 0.3 % (0.0-3.0); Arterial Fraction of Oxyhgb 92.7 % (93.0-99.0); Arterial HCO3 14.4 mmol/L (22.0-26.0); Arterial MetHb 0.4 % (0.0-1.5); Arterial Total Hemglobin 9.4 g/dl (12.0-18.0); MODE VENT - AC
--- NOTE | 2017-01-02 13:58 | CONS ---
Date/Time of Note Date/Time of Note DATE: 01/02/17 TIME: 13:57 Assessment/Plan Assessment/Plan Chief Complaint/Hosp Course Assessment: Septic shock Pneumonia Acute hypoxic respiratory failure - intubated and on mechanical ventilation Hematemesis and anemia - EGD showed grade IV esophageal varices status post ligation, follow up gastroenterology recommendations Acute kidney injury Alcoholic liver cirrhosis Diabetes mellitus Recommendations: -pressors to keep MAP>65, wean as tolerated -echocardiogram showed LVEF>70% Problems: Consultation Date/Type/Reason Admit Date/Time Dec 22, 2016 at 22:41 Initial Consult Date 12/26/16 Type of Consultation: Cardiology 24 HR Interval Summary Free Text/Dictation No significant clinical changes. Remains on low dose Levophed. Remains intubated. Detailed Summary Additional Comments Unable to obtain review of systems, patient is intubated. Exam/Review of Systems Vital Signs Vitals Vital Signs Date Time Temp Pulse Resp B/P Pulse Ox O2 Delivery O2 Flow Rate FiO2 01/02/17 12:00 110 01/02/17 11:30 25 100 35 01/02/17 09:43 98.6 01/02/17 07:00 112/57 01/01/17 19:15 Mechanical Ventilator 12/29/16 11:45 15.0 Intake and Output 01/01/17 01/01/17 01/02/17 15:00 23:00 07:00 Intake Total 1400.27 ml 2444.4309 ml 1315.57 ml Output Total 75 ml 328 ml 95 ml Balance 1325.27 ml 2116.4309 ml 1220.57 ml Exam Constitutional: other (intubated), No alert Psych: No nl mood/affect, No no complaints Head: atraumatic, normocephalic Eyes: nl conjunctiva, nl lids ENMT: intubated Respiratory: clear to auscultation Cardiovascular: regular rate and rhythm Gastrointestinal: non-tender, soft Musculoskeletal: nl extremities to inspection Extremities: No clubbing, No cyanosis, No edema Neurological: No nl mental status, No nl speech Results Result Diagram: 01/02/17 0430 01/02/17 0700 Results 24 hrs Laboratory Tests Test 01/01/17 14:00 01/01/17 15:54 01/01/17 17:21 01/01/17 18:07 Bedside Glucose 148 154 204 Sodium Level 141 Potassium Level 3.7 Chloride Level 118 H Carbon Dioxide Level 20 L Anion Gap 7 L Blood Urea Nitrogen 18 Creatinine 1.28 H Glucose Level 172 Calcium Level 7.3 L Test 01/01/17 21:17 01/01/17 22:13 01/01/17 23:10 01/02/17 01:12 Bedside Glucose 212 197 202 169 Test 01/02/17 04:30 01/02/17 04:31 01/02/17 06:35 01/02/17 07:00 White Blood Count 25.5 #H Red Blood Count 2.22 L Hemoglobin 8.1 L Hematocrit 25.2 L Mean Corpuscular Volume 113.5 H Mean Corpuscular Hemoglobin 36.5 H Mean Corpuscular Hemoglobin Concent 32.1 Red Cell Distribution Width 20.5 H Platelet Count 68 L Mean Platelet Volume 12.9 H Neutrophils % Segmented Neutrophils % (Manual) 94 H Band Neutrophils % (Manual) 4 Lymphocytes % Lymphocytes % (Manual) 1 L Monocytes % Eosinophils % Eosinophils % (Manual) 1 Basophils % Nucleated Red Blood Cells % 0.4 H Neutrophils # Neutrophils # (Manual) 24.2 H Band Neutrophils # 1.0 H Absolute Lymphocytes (Manual) 0.2 L Lymphocytes # Monocytes # Eosinophils # Basophils # Nucleated Red Blood Cells # Platelet Estimate DECREASED Polychromasia 2+ Poikilocytosis 2+ Anisocytosis 2+ Macrocytosis 1+ Blood Urea Nitrogen 20 21 H Creatinine 1.46 H 1.50 H Bedside Glucose 145 155 Urine Osmolality 331 Sodium Level 140 Potassium Level 3.6 Chloride Level 118 H Carbon Dioxide Level 17 L Anion Gap 9 Glucose Level 142 Calcium Level 7.4 L Magnesium Level 1.8 Vancomycin Level Trough 32.5 *H Test 01/02/17 08:04 01/02/17 09:47 01/02/17 10:10 01/02/17 12:05 Bedside Glucose 174 152 161 Blood Gas Specimen Source Blood arterial Arterial Blood Date Drawn 01/02/2017 10:22:28 AM Arterial Blood pH (Temp corrected) 7.408 Arterial Blood pCO2 (Temp correct) 23.4 L Arterial Blood pO2 (Temp corrected) 69.6 L Arterial Blood HCO3 14.4 L Arterial Blood Base Excess -8.9 L Arterial Blood Oxygen Saturation 93.4 L Rene Test ACCEPTAB Arterial Blood Gas Puncture Site Right Radial Arterial Blood Carboxyhemoglobin 0.3 Arterial Blood Methemoglobin 0.4 Blood Gas A-a O2 Differential 152.8 H Oxyhemoglobin Percent 92.7 L Total Hemoglobin 9.4 L Blood Gas Temperature 37.0 Blood Gas Respiration Rate 16.0 Blood Gas Actual Respiration Rate 25 Blood Gas Modality VENT - AC FiO2 35.0 Blood Gas Tidal Volume 400.0 Blood Gas Low PEEP Setting 5.0 Blood Gas Notified Whom TM Blood Gas Notified Time 01/02/2017 10:32:06 AM Medications Medications Current Medications Ondansetron HCl (Zofran Inj) 4 mg Q6H PRN IV NAUSEA AND/OR VOMITING; Start 01/29 at 01:00 Acetaminophen (Tylenol Tab) 650 mg Q6H PRN PO PAIN LEVEL 1-3 OR FEVER Last administered on 01/02/17 08:56; Admin Dose 650 MG; Start 12/23/16 at 01:00 Propranolol HCl (Inderal) 10 mg BID PO Last administered on 12/25/16 10:20; Admin Dose 10 MG; Start 12/23/16 at 01:30; Status Future Hold Docusate Sodium (Colace) 100 mg DAILY PO Last administered on 01/02/17 08:16; Admin Dose 100 MG; Start 12/23/16 at 09:00 Miscellaneous Information 1 ea NOTE XX ; Start 12/23/16 at 02:30 Furosemide (Lasix) 40 mg DAILY PO Last administered on 12/25/16 10:20; Admin Dose 40 MG; Start 12/24/16 at 09:00; Status Future Hold Rifaximin (Xifaxan) 550 mg BID PO Last administered on 01/02/17 08:15; Admin Dose 550 MG; Start 12/24/16 at 21:00 Lactulose (Enulose) 30 gm Q6H PRN PO CONSTIPATION Last administered on 16:13; Admin Dose 30 GM; Start 12/25/16 at 16:00 Lactulose (Enulose) 30 gm Q6 NGT Last administered on 01/02/17 12:07; Admin Dose 30 GM; Start 12/26/16 at 06:00 Eye Lubricant 1 applic 1 applic Q4 BOTH EYES Last administered on 01/02/17 12: 08; Admin Dose 1 APPLIC; Start 12/25/16 at 21:00 Norepinephrine 16 mg/Dextrose 500 ml @ 1.87 mls/hr TITRATE IV Last administered on 12/31/16 22:18; Admin Dose 3.75 MLS/HR; Start 12/26/16 at 03:00 Piperacillin Sod/ Tazobactam Sod 100 ml @ 100 mls/hr Q8 IVPB Last administered on 01/02/17 05:24; Admin Dose 100 MLS/HR; Start 12/26/16 at 06:30 Levetiracetam (Keppra 500 Mg/ 100ml (Pmx)) 100 ml @ 400 mls/hr Q12 IVPB Last administered on 01/02/17 08:23; Admin Dose 400 MLS/HR; Start 12/26/16 at 21:00 Dextrose (D50w Syringe) 25 ml Q15M PRN IV Till BS 80 mg/dL or above x2 Last administered on 12/27/16 11:52; Admin Dose 25 ML; Start 12/26/16 at 09:30 Dextrose (D50w Syringe) 50 ml Q15M PRN IV Till BS 80 mg/dL or above x2; Start 12/26/16 at 09:30 Lorazepam (Ativan) 1 mg Q2 PRN IV Seizures; Start 12/26/16 at 09:30 IV Flush (NS 10 ml) 10 ml PRN PRN IV FLUSH LINE; Start 12/29/16 at 12:00 Ferrous Sulfate (Feosol Liquid Cup) 300 mg BID GTB Last administered on 08:16; Admin Dose 300 MG; Start 12/30/16 at 09:00 Miscellaneous Information 1 ea 1 ea ONCE XX ; Start 12/30/16 at 12:00 Dextrose/Sodium Chloride (D5-NS) 1,000 ml @ 75 mls/hr [id number] IV Last administered on 01/01/17 22:50; Admin Dose 75 MLS/HR; Start 01/01/17 at 09:30 Morphine Sulfate (morphine) 2 mg Q2H PRN IV SEDATION Last administered on 16:50; Admin Dose 2 MG; Start 01/01/17 at 10:00 Lorazepam (Ativan) 2 mg Q6H PRN IV AGITATION; Start 01/01/17 at 16:30 Miscellaneous Information (*Rx Drug Level Order Reminder*) VANCO RANDOM W/ AM LABS... ONCE ONCE XX ; Start 01/03/17 at 05:00; Stop 01/03/17 at 05:01 TRISTAN UGARTE MD Jan 02, 2017 13:58
--- NOTE | 2017-01-02 14:34 | CONS ---
Date/Time of Note Date/Time of Note DATE: 01/02/17 TIME: 14:23 Consult Date/Type/Reason Admit Date/Time Dec 22, 2016 at 22:41 Initial Consult Date 12/26/16 Type of Consultation: Pulmonary Subjective Patient remains confused this morning no new events. Continues mechanical ventilation with moderate oral secretions. Objective Vital Signs Date Time Temp Pulse Resp B/P Pulse Ox O2 Delivery O2 Flow Rate FiO2 01/02/17 13:45 104 29 92/43 96 Mechanical Ventilator 01/02/17 13:40 35 01/02/17 12:15 98.3 12/29/16 11:45 15.0 Intake and Output 01/01/17 01/01/17 01/02/17 15:00 23:00 07:00 Intake Total 1400.27 ml 2444.4309 ml 1315.57 ml Output Total 75 ml 328 ml 95 ml Balance 1325.27 ml 2116.4309 ml 1220.57 ml Exam PHYSICAL EXAMINATION GENERAL: Elderly lady orally intubated VITAL SIGNS: see below. HEENT: Pupils equal, round, and reactive to light. CARDIAC: S1, S2, 1/6 systolic ejection murmur CHEST: Diminished air entry bilaterally. ABDOMEN: Mildly distended. Bowel sounds present no guarding or rebound EXTREMITIES: No cyanosis, clubbing edema +1 NEUROLOGIC: Generalized weakness Results/Medications Result Diagram: 01/02/17 0430 01/02/17 0700 Results 24 hrs Laboratory Tests Test 01/01/17 15:54 01/01/17 17:21 01/01/17 18:07 01/01/17 21:17 Bedside Glucose 154 204 212 Sodium Level 141 Potassium Level 3.7 Chloride Level 118 H Carbon Dioxide Level 20 L Anion Gap 7 L Blood Urea Nitrogen 18 Creatinine 1.28 H Glucose Level 172 Calcium Level 7.3 L Test 01/01/17 22:13 01/01/17 23:10 01/02/17 01:12 01/02/17 04:30 Bedside Glucose 197 202 169 White Blood Count 25.5 #H Red Blood Count 2.22 L Hemoglobin 8.1 L Hematocrit 25.2 L Mean Corpuscular Volume 113.5 H Mean Corpuscular Hemoglobin 36.5 H Mean Corpuscular Hemoglobin Concent 32.1 Red Cell Distribution Width 20.5 H Platelet Count 68 L Mean Platelet Volume 12.9 H Neutrophils % Segmented Neutrophils % (Manual) 94 H Band Neutrophils % (Manual) 4 Lymphocytes % Lymphocytes % (Manual) 1 L Monocytes % Eosinophils % Eosinophils % (Manual) 1 Basophils % Nucleated Red Blood Cells % 0.4 H Neutrophils # Neutrophils # (Manual) 24.2 H Band Neutrophils # 1.0 H Absolute Lymphocytes (Manual) 0.2 L Lymphocytes # Monocytes # Eosinophils # Basophils # Nucleated Red Blood Cells # Platelet Estimate DECREASED Polychromasia 2+ Poikilocytosis 2+ Anisocytosis 2+ Macrocytosis 1+ Blood Urea Nitrogen 20 Creatinine 1.46 H Test 01/02/17 04:31 01/02/17 06:35 01/02/17 07:00 01/02/17 08:04 Bedside Glucose 145 155 174 Urine Osmolality 331 Sodium Level 140 Potassium Level 3.6 Chloride Level 118 H Carbon Dioxide Level 17 L Anion Gap 9 Blood Urea Nitrogen 21 H Creatinine 1.50 H Glucose Level 142 Calcium Level 7.4 L Magnesium Level 1.8 Vancomycin Level Trough 32.5 *H Test 01/02/17 09:47 01/02/17 10:10 01/02/17 12:05 01/02/17 14:04 Blood Gas Specimen Source Blood arterial Arterial Blood Date Drawn 01/02/2017 10:22:28 AM Arterial Blood pH (Temp corrected) 7.408 Arterial Blood pCO2 (Temp correct) 23.4 L Arterial Blood pO2 (Temp corrected) 69.6 L Arterial Blood HCO3 14.4 L Arterial Blood Base Excess -8.9 L Arterial Blood Oxygen Saturation 93.4 L Rene Test ACCEPTAB Arterial Blood Gas Puncture Site Right Radial Arterial Blood Carboxyhemoglobin 0.3 Arterial Blood Methemoglobin 0.4 Blood Gas A-a O2 Differential 152.8 H Oxyhemoglobin Percent 92.7 L Total Hemoglobin 9.4 L Blood Gas Temperature 37.0 Blood Gas Respiration Rate 16.0 Blood Gas Actual Respiration Rate 25 Blood Gas Modality VENT - AC FiO2 35.0 Blood Gas Tidal Volume 400.0 Blood Gas Low PEEP Setting 5.0 Blood Gas Notified Whom TM Blood Gas Notified Time 01/02/2017 10:32:06 AM Bedside Glucose 152 161 180 Medications Current Medications Ondansetron HCl (Zofran Inj) 4 mg Q6H PRN IV NAUSEA AND/OR VOMITING; Start 01/29 at 01:00 Acetaminophen (Tylenol Tab) 650 mg Q6H PRN PO PAIN LEVEL 1-3 OR FEVER Last administered on 01/02/17 08:56; Admin Dose 650 MG; Start 12/23/16 at 01:00 Propranolol HCl (Inderal) 10 mg BID PO Last administered on 12/25/16 10:20; Admin Dose 10 MG; Start 12/23/16 at 01:30; Status Future Hold Docusate Sodium (Colace) 100 mg DAILY PO Last administered on 01/02/17 08:16; Admin Dose 100 MG; Start 12/23/16 at 09:00 Miscellaneous Information 1 ea NOTE XX ; Start 12/23/16 at 02:30 Furosemide (Lasix) 40 mg DAILY PO Last administered on 12/25/16 10:20; Admin Dose 40 MG; Start 12/24/16 at 09:00; Status Future Hold Rifaximin (Xifaxan) 550 mg BID PO Last administered on 01/02/17 08:15; Admin Dose 550 MG; Start 12/24/16 at 21:00 Lactulose (Enulose) 30 gm Q6H PRN PO CONSTIPATION Last administered on 16:13; Admin Dose 30 GM; Start 12/25/16 at 16:00 Lactulose (Enulose) 30 gm Q6 NGT Last administered on 01/02/17 12:07; Admin Dose 30 GM; Start 12/26/16 at 06:00 Eye Lubricant 1 applic 1 applic Q4 BOTH EYES Last administered on 01/02/17 12: 08; Admin Dose 1 APPLIC; Start 12/25/16 at 21:00 Norepinephrine 16 mg/Dextrose 500 ml @ 1.87 mls/hr TITRATE IV Last administered on 12/31/16 22:18; Admin Dose 3.75 MLS/HR; Start 12/26/16 at 03:00 Piperacillin Sod/ Tazobactam Sod 100 ml @ 100 mls/hr Q8 IVPB Last administered on 01/02/17 05:24; Admin Dose 100 MLS/HR; Start 12/26/16 at 06:30 Levetiracetam (Keppra 500 Mg/ 100ml (Pmx)) 100 ml @ 400 mls/hr Q12 IVPB Last administered on 01/02/17 08:23; Admin Dose 400 MLS/HR; Start 12/26/16 at 21:00 Dextrose (D50w Syringe) 25 ml Q15M PRN IV Till BS 80 mg/dL or above x2 Last administered on 12/27/16 11:52; Admin Dose 25 ML; Start 12/26/16 at 09:30 Dextrose (D50w Syringe) 50 ml Q15M PRN IV Till BS 80 mg/dL or above x2; Start 12/26/16 at 09:30 Lorazepam (Ativan) 1 mg Q2 PRN IV Seizures; Start 12/26/16 at 09:30 IV Flush (NS 10 ml) 10 ml PRN PRN IV FLUSH LINE; Start 12/29/16 at 12:00 Ferrous Sulfate (Feosol Liquid Cup) 300 mg BID GTB Last administered on 08:16; Admin Dose 300 MG; Start 12/30/16 at 09:00 Miscellaneous Information 1 ea 1 ea ONCE XX ; Start 12/30/16 at 12:00 Dextrose/Sodium Chloride (D5-NS) 1,000 ml @ 75 mls/hr [id number] IV Last administered on 01/01/17 22:50; Admin Dose 75 MLS/HR; Start 01/01/17 at 09:30 Morphine Sulfate (morphine) 2 mg Q2H PRN IV SEDATION Last administered on 16:50; Admin Dose 2 MG; Start 01/01/17 at 10:00 Lorazepam (Ativan) 2 mg Q6H PRN IV AGITATION; Start 01/01/17 at 16:30 Miscellaneous Information (*Rx Drug Level Order Reminder*) VANCO RANDOM W/ AM LABS... ONCE ONCE XX ; Start 01/03/17 at 05:00; Stop 01/03/17 at 05:01 Assessment/Plan Chief Complaint/Hosp Course Assessment 1. Massive GI bleed secondary to esophageal varices 2. Hypovolemic and likely septic shock. 3. History of cirrhosis with portal hypertension 4. Thrombocytopenia likely secondary to liver disease 5. Renal insufficiency now resolved. 6. Hyper natremia and hypokalemia 7. Acute hypoxemic respiratory failure secondary to above Plan 1. Continue mechanical ventilation. Will attempt weaning trial if more alert. 2. Continue proton pump inhibitor 3 continue tube feeding as tolerated long discussion with patient's son at bedside. Explained current condition and prognosis. Also explained need for tracheostomy and G-tube. Son agrees. We will schedule both of these procedures. Problems: JÚNIOR AGUILERA MD, [facility] Jan 02, 2017 14:33
--- NOTE | 2017-01-02 14:41 | PN ---
Date/Time of Note Date/Time of Note DATE: 01/02/17 TIME: 14:35 Assessment/Plan VTE Prophylaxis VTE Prophylaxis Intervention: SCD's Lines/Catheters IV Catheter Type (from Nrsg): PICC Line Central line still needed: Yes Urinary Cath still in place: Yes Reason Cath still needed: other (indicate) (critically ill patient) Assessment/Plan Assessment/Plan 1. Acute hypoxemic respiratory failure on mechanical ventilation - Pulmonary on board and recommendations appreciated. Continue vent management per pulm - Dr. Butler consulted for Trach placement 2. Hypotensive shock - Goal of MAP >60 - 2D Echo shows preserved EF, Cardiology on board and recommendations appreciated 3. Toxic metabolic encephalopathy with Hepatic encephalopathy with coma and hyperammonemia secondary to end-stage liver disease - Continue lactulose 4. Acute GI bleed secondary to varices status post banding-now stable - H/H stable 5. Acute Kidney Injury, likely hemodynamics-worsening - Nephrology on board and recommendations appreciated - Monitor renal fxn closely. - monitoring electrolytes and replacing as needed - Renal function was improving but over the past couple days has declined again. most likely related to sepsis - Will continue IVF 6. 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 - Negative Hep panel 7. New-onset Seizures. -Neurology on board and recommendations appreciated -EEG shows encephalopathy -Ativan PRN, continue Keppra 8. Hypernatremia with free water deficit- resolved - will continue monitoring while on NSS 9. Leukocytosis likely secondary to UTI - Urine culture shows K pneumoniae, continue Zosyn 10. Azotemia 2/2 dehydration/GIB - Continue IVFs 11. Hyperglycemia with Adult-onset Diabetes mellitus-Poorly controlled. - Patient is currently receiving TPN. Will stop insulin drip and change fluids to NSS with accuchecks q4hr - ISS as needed 12. Anemia of chronic disease and acute blood loss anemia from GI bleed - stable.Will monitor. 13. Thrombocytopenia of liver disease - stable >30 minutes of critical care time was spent with patient Subjective 24 Hr Interval Summary Free Text/Dictation Patient still intubated and not responding to verbal commands. Plans for trach and PEG after consent given by son. No acute overnight events. Exam/Review of Systems Vital Signs Vitals Vital Signs Date Time Temp Pulse Resp B/P Pulse Ox O2 Delivery O2 Flow Rate FiO2 01/02/17 13:45 104 29 92/43 96 Mechanical Ventilator 01/02/17 13:40 35 01/02/17 12:15 98.3 12/29/16 11:45 15.0 Intake and Output 01/01/17 01/01/17 01/02/17 15:00 23:00 07:00 Intake Total 1400.27 ml 2444.4309 ml 1315.57 ml Output Total 75 ml 328 ml 95 ml Balance 1325.27 ml 2116.4309 ml 1220.57 ml Exam General: NAD, on ventilator support, no response to stimulus CVS: regular rate and rhythm, no murmurs Lungs: diminished at bases, no crackles or wheezing Abd: soft, NT, slight distention, no rebound or guarding Ext: edema, petechia UE, no cyanosis or clubbing Neuro: not following commands, grimacing to pain Results Result Diagram: 01/02/17 0430 01/02/17 0700 Results 24 hrs Laboratory Tests Test 01/01/17 15:54 01/01/17 17:21 01/01/17 18:07 01/01/17 21:17 Bedside Glucose 154 204 212 Sodium Level 141 Potassium Level 3.7 Chloride Level 118 H Carbon Dioxide Level 20 L Anion Gap 7 L Blood Urea Nitrogen 18 Creatinine 1.28 H Glucose Level 172 Calcium Level 7.3 L Test 01/01/17 22:13 01/01/17 23:10 01/02/17 01:12 01/02/17 04:30 Bedside Glucose 197 202 169 White Blood Count 25.5 #H Red Blood Count 2.22 L Hemoglobin 8.1 L Hematocrit 25.2 L Mean Corpuscular Volume 113.5 H Mean Corpuscular Hemoglobin 36.5 H Mean Corpuscular Hemoglobin Concent 32.1 Red Cell Distribution Width 20.5 H Platelet Count 68 L Mean Platelet Volume 12.9 H Neutrophils % Segmented Neutrophils % (Manual) 94 H Band Neutrophils % (Manual) 4 Lymphocytes % Lymphocytes % (Manual) 1 L Monocytes % Eosinophils % Eosinophils % (Manual) 1 Basophils % Nucleated Red Blood Cells % 0.4 H Neutrophils # Neutrophils # (Manual) 24.2 H Band Neutrophils # 1.0 H Absolute Lymphocytes (Manual) 0.2 L Lymphocytes # Monocytes # Eosinophils # Basophils # Nucleated Red Blood Cells # Platelet Estimate DECREASED Polychromasia 2+ Poikilocytosis 2+ Anisocytosis 2+ Macrocytosis 1+ Blood Urea Nitrogen 20 Creatinine 1.46 H Test 01/02/17 04:31 01/02/17 06:35 01/02/17 07:00 01/02/17 08:04 Bedside Glucose 145 155 174 Urine Osmolality 331 Sodium Level 140 Potassium Level 3.6 Chloride Level 118 H Carbon Dioxide Level 17 L Anion Gap 9 Blood Urea Nitrogen 21 H Creatinine 1.50 H Glucose Level 142 Calcium Level 7.4 L Magnesium Level 1.8 Vancomycin Level Trough 32.5 *H Test 01/02/17 09:47 01/02/17 10:10 01/02/17 12:05 01/02/17 14:04 Blood Gas Specimen Source Blood arterial Arterial Blood Date Drawn 01/02/2017 10:22:28 AM Arterial Blood pH (Temp corrected) 7.408 Arterial Blood pCO2 (Temp correct) 23.4 L Arterial Blood pO2 (Temp corrected) 69.6 L Arterial Blood HCO3 14.4 L Arterial Blood Base Excess -8.9 L Arterial Blood Oxygen Saturation 93.4 L Rene Test ACCEPTAB Arterial Blood Gas Puncture Site Right Radial Arterial Blood Carboxyhemoglobin 0.3 Arterial Blood Methemoglobin 0.4 Blood Gas A-a O2 Differential 152.8 H Oxyhemoglobin Percent 92.7 L Total Hemoglobin 9.4 L Blood Gas Temperature 37.0 Blood Gas Respiration Rate 16.0 Blood Gas Actual Respiration Rate 25 Blood Gas Modality VENT - AC FiO2 35.0 Blood Gas Tidal Volume 400.0 Blood Gas Low PEEP Setting 5.0 Blood Gas Notified Whom TM Blood Gas Notified Time 01/02/2017 10:32:06 AM Bedside Glucose 152 161 180 Medications Medications Current Medications Ondansetron HCl (Zofran Inj) 4 mg Q6H PRN IV NAUSEA AND/OR VOMITING; Start 01/29 at 01:00 Acetaminophen (Tylenol Tab) 650 mg Q6H PRN PO PAIN LEVEL 1-3 OR FEVER Last administered on 01/02/17 08:56; Admin Dose 650 MG; Start 12/23/16 at 01:00 Propranolol HCl (Inderal) 10 mg BID PO Last administered on 12/25/16 10:20; Admin Dose 10 MG; Start 12/23/16 at 01:30; Status Future Hold Docusate Sodium (Colace) 100 mg DAILY PO Last administered on 01/02/17 08:16; Admin Dose 100 MG; Start 12/23/16 at 09:00 Miscellaneous Information 1 ea NOTE XX ; Start 12/23/16 at 02:30 Furosemide (Lasix) 40 mg DAILY PO Last administered on 12/25/16 10:20; Admin Dose 40 MG; Start 12/24/16 at 09:00; Status Future Hold Rifaximin (Xifaxan) 550 mg BID PO Last administered on 01/02/17 08:15; Admin Dose 550 MG; Start 12/24/16 at 21:00 Lactulose (Enulose) 30 gm Q6H PRN PO CONSTIPATION Last administered on 16:13; Admin Dose 30 GM; Start 12/25/16 at 16:00 Lactulose (Enulose) 30 gm Q6 NGT Last administered on 01/02/17 12:07; Admin Dose 30 GM; Start 12/26/16 at 06:00 Eye Lubricant 1 applic 1 applic Q4 BOTH EYES Last administered on 01/02/17 12: 08; Admin Dose 1 APPLIC; Start 12/25/16 at 21:00 Norepinephrine 16 mg/Dextrose 500 ml @ 1.87 mls/hr TITRATE IV Last administered on 12/31/16 22:18; Admin Dose 3.75 MLS/HR; Start 12/26/16 at 03:00 Piperacillin Sod/ Tazobactam Sod 100 ml @ 100 mls/hr Q8 IVPB Last administered on 01/02/17 14:24; Admin Dose 100 MLS/HR; Start 12/26/16 at 06:30 Levetiracetam (Keppra 500 Mg/ 100ml (Pmx)) 100 ml @ 400 mls/hr Q12 IVPB Last administered on 01/02/17 08:23; Admin Dose 400 MLS/HR; Start 12/26/16 at 21:00 Dextrose (D50w Syringe) 25 ml Q15M PRN IV Till BS 80 mg/dL or above x2 Last administered on 12/27/16 11:52; Admin Dose 25 ML; Start 12/26/16 at 09:30 Dextrose (D50w Syringe) 50 ml Q15M PRN IV Till BS 80 mg/dL or above x2; Start 12/26/16 at 09:30 Lorazepam (Ativan) 1 mg Q2 PRN IV Seizures; Start 12/26/16 at 09:30 IV Flush (NS 10 ml) 10 ml PRN PRN IV FLUSH LINE; Start 12/29/16 at 12:00 Ferrous Sulfate (Feosol Liquid Cup) 300 mg BID GTB Last administered on 08:16; Admin Dose 300 MG; Start 12/30/16 at 09:00 Miscellaneous Information (* Miscellaneous Pharmacy Order) 1 ea ONCE XX ; Start 12/30/16 at 12:00 Morphine Sulfate (morphine) 2 mg Q2H PRN IV SEDATION Last administered on 16:50; Admin Dose 2 MG; Start 01/01/17 at 10:00 Lorazepam (Ativan) 2 mg Q6H PRN IV AGITATION; Start 01/01/17 at 16:30 Miscellaneous Information (*Rx Drug Level Order Reminder*) VANCO RANDOM W/ AM LABS... ONCE ONCE XX ; Start 01/03/17 at 05:00; Stop 01/03/17 at 05:01 BLACK STOKES MD Jan 02, 2017 14:41
[2017-01-02] MEDS: SOD CHLORIDE 0.9% 1,000 ML IV SCH (16:04)
--- NOTE | 2017-01-02 16:36 | PN ---
Date/Time of Note Date/Time of Note DATE: 01/02/17 TIME: 16:30 Assessment/Plan VTE Prophylaxis VTE Prophylaxis Intervention: SCD's Lines/Catheters IV C[facility]ter Type (from [facility]): PICC Line Central line still needed: Yes Urinary Cath still in place: Yes Reason Cath still needed: urinary retention Assessment/Plan Assessment/Plan Assessment * Acute respiratory failure * Toxic metabolic encephalopathy * sepsis * S/P EGD Grade IV/IV esophageal varices * Post endoscopic variceal ligation 4 Severe portal hypertensive gastropathy Plan * continue present management * Case discussed with DR Helton * further orders will depend on clinical course * prognosis poor Subjective 24 Hr Interval Summary Free Text/Dictation * course reviewed with RN * patient seen and examined * patient unresponsive Exam/Review of Systems Vital Signs Vitals Vital Signs Date Time Temp Pulse Resp B/P Pulse Ox O2 Delivery O2 Flow Rate FiO2 01/02/17 16:00 98.2 105 29 87/48 96 Mechanical Ventilator 01/02/17 15:23 35 12/29/16 11:45 15.0 Intake and Output 01/01/17 01/01/17 01/02/17 15:00 23:00 07:00 Intake Total 1400.27 ml 2444.4309 ml 1315.57 ml Output Total 75 ml 328 ml 95 ml Balance 1325.27 ml 2116.4309 ml 1220.57 ml Exam Constitutional: non-verbal ENMT: intubated Respiratory: diminished breath sounds, normal air movement Cardiovascular: regular rate and rhythm Gastrointestinal: distended, soft Musculoskeletal: muscle weakness, range of motion Extremities: edema Neurological: unresponsive Results Result Diagram: 01/02/17 0430 01/02/17 0700 Results 24 hrs Laboratory Tests Test 01/01/17 17:21 01/01/17 18:07 01/01/17 21:17 01/01/17 22:13 Sodium Level 141 Potassium Level 3.7 Chloride Level 118 H Carbon Dioxide Level 20 L Anion Gap 7 L Blood Urea Nitrogen 18 Creatinine 1.28 H Glucose Level 172 Calcium Level 7.3 L Bedside Glucose 204 212 197 Test 01/01/17 23:10 01/02/17 01:12 01/02/17 04:30 01/02/17 04:31 Bedside Glucose 202 169 145 White Blood Count 25.5 #H Red Blood Count 2.22 L Hemoglobin 8.1 L Hematocrit 25.2 L Mean Corpuscular Volume 113.5 H Mean Corpuscular Hemoglobin 36.5 H Mean Corpuscular Hemoglobin Concent 32.1 Red Cell Distribution Width 20.5 H Platelet Count 68 L Mean Platelet Volume 12.9 H Neutrophils % Segmented Neutrophils % (Manual) 94 H Band Neutrophils % (Manual) 4 Lymphocytes % Lymphocytes % (Manual) 1 L Monocytes % Eosinophils % Eosinophils % (Manual) 1 Basophils % Nucleated Red Blood Cells % 0.4 H Neutrophils # Neutrophils # (Manual) 24.2 H Band Neutrophils # 1.0 H Absolute Lymphocytes (Manual) 0.2 L Lymphocytes # Monocytes # Eosinophils # Basophils # Nucleated Red Blood Cells # Platelet Estimate DECREASED Polychromasia 2+ Poikilocytosis 2+ Anisocytosis 2+ Macrocytosis 1+ Blood Urea Nitrogen 20 Creatinine 1.46 H Test 01/02/17 06:35 01/02/17 07:00 01/02/17 08:04 01/02/17 09:47 Bedside Glucose 155 174 Urine Osmolality 331 Sodium Level 140 Potassium Level 3.6 Chloride Level 118 H Carbon Dioxide Level 17 L Anion Gap 9 Blood Urea Nitrogen 21 H Creatinine 1.50 H Glucose Level 142 Calcium Level 7.4 L Magnesium Level 1.8 Vancomycin Level Trough 32.5 *H Blood Gas Specimen Source Blood arterial Arterial Blood Date Drawn 01/02/2017 10:22:28 AM Arterial Blood pH (Temp corrected) 7.408 Arterial Blood pCO2 (Temp correct) 23.4 L Arterial Blood pO2 (Temp corrected) 69.6 L Arterial Blood HCO3 14.4 L Arterial Blood Base Excess -8.9 L Arterial Blood Oxygen Saturation 93.4 L Rene Test ACCEPTAB Arterial Blood Gas Puncture Site Right Radial Arterial Blood Carboxyhemoglobin 0.3 Arterial Blood Methemoglobin 0.4 Blood Gas A-a O2 Differential 152.8 H Oxyhemoglobin Percent 92.7 L Total Hemoglobin 9.4 L Blood Gas Temperature 37.0 Blood Gas Respiration Rate 16.0 Blood Gas Actual Respiration Rate 25 Blood Gas Modality VENT - AC FiO2 35.0 Blood Gas Tidal Volume 400.0 Blood Gas Low PEEP Setting 5.0 Blood Gas Notified Whom TM Blood Gas Notified Time 01/02/2017 10:32:06 AM Test 01/02/17 10:10 01/02/17 12:05 01/02/17 14:04 Bedside Glucose 152 161 180 Medications Medications Current Medications Ondansetron HCl (Zofran Inj) 4 mg Q6H PRN IV NAUSEA AND/OR VOMITING; Start 01/29 at 01:00 Acetaminophen (Tylenol Tab) 650 mg Q6H PRN PO PAIN LEVEL 1-3 OR FEVER Last administered on 01/02/17 08:56; Admin Dose 650 MG; Start 12/23/16 at 01:00 Propranolol HCl (Inderal) 10 mg BID PO Last administered on 12/25/16 10:20; Admin Dose 10 MG; Start 12/23/16 at 01:30; Status Future Hold Docusate Sodium (Colace) 100 mg DAILY PO Last administered on 01/02/17 08:16; Admin Dose 100 MG; Start 12/23/16 at 09:00 Miscellaneous Information 1 ea NOTE XX ; Start 12/23/16 at 02:30 Furosemide (Lasix) 40 mg DAILY PO Last administered on 12/25/16 10:20; Admin Dose 40 MG; Start 12/24/16 at 09:00; Status Future Hold Rifaximin (Xifaxan) 550 mg BID PO Last administered on 01/02/17 08:15; Admin Dose 550 MG; Start 12/24/16 at 21:00 Lactulose (Enulose) 30 gm Q6H PRN PO CONSTIPATION Last administered on 16:13; Admin Dose 30 GM; Start 12/25/16 at 16:00 Lactulose (Enulose) 30 gm Q6 NGT Last administered on 01/02/17 12:07; Admin Dose 30 GM; Start 12/26/16 at 06:00 Eye Lubricant 1 applic 1 applic Q4 BOTH EYES Last administered on 01/02/17 16: 05; Admin Dose 1 APPLIC; Start 12/25/16 at 21:00 Norepinephrine 16 mg/Dextrose 500 ml @ 1.87 mls/hr TITRATE IV Last administered on 12/31/16 22:18; Admin Dose 3.75 MLS/HR; Start 12/26/16 at 03:00 Piperacillin Sod/ Tazobactam Sod 100 ml @ 100 mls/hr Q8 IVPB Last administered on 01/02/17 14:24; Admin Dose 100 MLS/HR; Start 12/26/16 at 06:30 Levetiracetam (Keppra 500 Mg/ 100ml (Pmx)) 100 ml @ 400 mls/hr Q12 IVPB Last administered on 01/02/17 08:23; Admin Dose 400 MLS/HR; Start 12/26/16 at 21:00 Dextrose (D50w Syringe) 25 ml Q15M PRN IV Till BS 80 mg/dL or above x2 Last administered on 12/27/16 11:52; Admin Dose 25 ML; Start 12/26/16 at 09:30 Dextrose (D50w Syringe) 50 ml Q15M PRN IV Till BS 80 mg/dL or above x2; Start 12/26/16 at 09:30 Lorazepam (Ativan) 1 mg Q2 PRN IV Seizures; Start 12/26/16 at 09:30 IV Flush (NS 10 ml) 10 ml PRN PRN IV FLUSH LINE; Start 12/29/16 at 12:00 Ferrous Sulfate (Feosol Liquid Cup) 300 mg BID GTB Last administered on 08:16; Admin Dose 300 MG; Start 12/30/16 at 09:00 Miscellaneous Information (* Miscellaneous Pharmacy Order) 1 ea ONCE XX ; Start 12/30/16 at 12:00 Morphine Sulfate (morphine) 2 mg Q2H PRN IV SEDATION Last administered on 16:50; Admin Dose 2 MG; Start 01/01/17 at 10:00 Lorazepam (Ativan) 2 mg Q6H PRN IV AGITATION; Start 01/01/17 at 16:30 Miscellaneous Information VANCO RANDOM W/ AM LABS... ONCE ONCE XX ; Start 01/03 at 05:00; Stop 01/03/17 at 05:01 Sodium Chloride (NS) 1,000 ml @ 75 mls/hr [id number] IV Last administered on 01/02 16:04; Admin Dose 75 MLS/HR; Start 01/02/17 at 15:00 Insulin Aspart (Novolog Insulin Pen) NOVOLOG *MILD* ALGORI... Q4 SC ; Start at 17:00 CAIN GAVIRIA NP Jan 02, 2017 16:36
[2017-01-02] MEDS: INSULIN ASPART [NOVOLOG] 3 ML PEN SC SCH ×2 (17:28→20:44)
[2017-01-02] MEDS ORDERED: INSULIN GLARGINE [LANtus] 3 ML PEN SC ONE (18:00)
[2017-01-02] MEDS: morphine 2 MG INJ IV PRN (18:31)
--- NOTE | 2017-01-02 20:46 | CONS ---
DATE OF ADMISSION: 12/22/2016 DATE OF CONSULTATION: 01/02/2017 REASON FOR CONSULTATION: Evaluation for tracheostomy. HISTORY OF PRESENT ILLNESS: This is a 61-year-old female, with a history of hepatic encephalopathy secondary to underlying cirrhosis. Patient was admitted with an elevation of an ammonia, was found to have severe respiratory failure, underwent endotracheal intubation. Subsequently unable to come off the ventilator secondary to multiple other medical problems. The patient also was noted to have coagulopathy with an INR of 1.59 and a thrombocytopenia with a platelet count of 68, and hemoglobin of 8.1. PAST MEDICAL HISTORY: Significant for liver cirrhosis, respiratory failure, GI bleeding, diabetes. PAST SURGICAL HISTORY: None. ALLERGIES: NONE. SOCIAL HISTORY: No smoking, drinking, or drug use. MEDICATION: List reviewed. PHYSICAL EXAMINATION: VITAL SIGNS: Blood pressure is 94/48, pulse is 105, respirations 26, saturation 96 percent, FiO2 is 35 percent. HEENT: Orotracheally intubated. HEART: Regular rate and rhythm. LUNGS: Clear. ABDOMEN: Soft. EXTREMITIES: Warm. IMPRESSION: 1. Respiratory failure. 2. Renal failure. 3. Hypernatremia. 4. End-stage liver disease with cirrhosis. 5. Seizure disorder. 6. Gastrointestinal bleed. 7. Thrombocytopenia. 8. Coagulopathy. 9. Anemia. RECOMMENDATIONS: We will proceed with placement of a tracheostomy when coagulopathy is corrected and anemia is corrected. Discussed with the nursing staff. Dictated By: Abhinav Butler MD /rafael/shawn /Document#: [id number]
[2017-01-03] VITALS (104 sets, daily range): BP systolic 78–145; BP diastolic 42–66; PULSE 95–125; RESP 21–37
[2017-01-03] MEDS: INSULIN ASPART [NOVOLOG] 3 ML PEN SC SCH ×6 (01:00→22:18)
[2017-01-03] MEDS: OCULAR LUBRICANT 3.5 GM OPH OINT BOTH EYES SCH ×6 (01:00→22:13)
[2017-01-03] MEDS: IPRATROPIUM (HFA) 12.9 GM INHALER INH SCH ×6 (01:22→21:06)
[2017-01-03] MEDS: ALBUTEROL 18 GM INHALER INH SCH ×6 (01:22→21:06)
[2017-01-03] MEDS: SOD CHLORIDE 0.9% 1,000 ML IV SCH ×3 (04:20→17:40)
[2017-01-03 05:28] LABS: ABNORMAL IP MESSAGE 1; HEMATOCRIT 22.7 % (37.0-47.0); MEAN CORPUSCULAR HEMOGLOBIN 37.7 pg (29.0-33.0); MEAN CORPUSCULAR HGB CONC 35.2 g/dl (32.0-37.0); MEAN CORPUSCULAR VOLUME 107.1 fl (82.0-101.0); MEAN PLATELET VOLUME 12.5 fl (7.4-10.4); NUCLEATED RED BLOOD CELLS% 0.1 /100WBC (0.0-0.0); RED BLOOD COUNT 2.12 10^6/ul (4.20-5.40); RED CELL DISTRIBUTION WIDTH 19.9 % (11.5-14.5)
[2017-01-03 06:00] LABS: CALCIUM 7.4 mg/dl (8.4-10.2); CREATININE 1.7 mg/dl (0.44-1.00); PHOSPHORUS 4.9 mg/dl (2.5-4.9); POTASSIUM 3.7 mmol/L (3.5-5.1)
[2017-01-03 06:05] LABS: POSITIVE DIFF @See below
[2017-01-03 06:06] LABS: PLATELET COUNT 78 10^3/UL (140-415); WHITE BLOOD COUNT 28.5 10^3/ul (4.8-10.8)
[2017-01-03] MEDS: PIPER-TAZO 3.375 GM IV (PMX) 100 ML IVPB SCH ×3 (06:33→22:19)
[2017-01-03] MEDS ORDERED: FUROSEMIDE 40 MG INJ IV ONE (08:00)
[2017-01-03 08:07] LABS: ANISOCYTOSIS 2+ (0-0); HYPOCHROMASIA 1+ (0-0); MONOCYTES % (M) 4 % (0-11); PLATELET ESTIMATE DECREASED; POIKILOCYTOSIS 1+ (0-0); POLYCHROMASIA 3+ (0-0)
--- NOTE | 2017-01-03 08:07 | PN ---
DATE: 01/03/2017 SUBJECTIVE DATA: The patient is critically ill on full ventilatory support, on presser support. No other acute events noted. No hemoptysis, hematemesis, hematochezia. OBJECTIVE DATA: VITAL SIGNS: Blood pressure is 115/59, respirations 32, pulse 109, temperature 98.6. HEENT: Head is normocephalic. NECK: Supple. HEART: Regular rate. LUNGS: Show diminished breath sounds at the base. ABDOMEN: Soft, nontender to palpation. No rebound or guarding. EXTREMITIES: Negative for clubbing, cyanosis. No trace edema. DERMATOLOGIC: No rashes. MUSCULOSKELETAL: No joint effusion. NEUROLOGIC: No change in exam. MEDICATIONS: Reviewed. LABORATORY AND DIAGNOSTIC DATA: Shows sodium 138, potassium 3.7, chloride 115, bicarb 16, BUN 27, creatinine 1.70. White count 28.5, hemoglobin 8.0, hematocrit 22.7, platelet count is 78. ASSESSMENT AND PLAN: 1. Nonoliguric acute kidney injury. The patient's renal function has declined over the last several days. Urinary output has been minimal. The patient is in ATN. At this point, would continue current treatment plan. Continue supportive care. Renally dose all medications. Continue pressor support. We will give the patient 1 dose of Lasix to see if we can convert to nonoliguric state. Monitor closely. 2. Hyponatremia, improved. Continue free water flushes. 3. Hypokalemia, improved. 4. Mineral bone disorder. Monitor calcium and phosphorus levels. 5. Anemia. Continue to monitor H and H levels. Transfuse as needed. 6. Septic shock. The patient is currently on presser support, although being weaned off. Continue current medical management. Continue IV fluids. Antibiotic therapy. 7. Ventilatory-dependent respiratory failure. The patient's vent settings and ABGs have been reviewed. 8. End-stage liver disease, currently decompensated. Continue to monitor. 9. Seizure disorder. Continue medical management. 10. Status post gastrointestinal bleeding. 11. Encephalopathy, etiology is multifactorial. Please note, I spent over 35 minutes of critical care time with this patient. Dictated By: Will Gonzales DO /rafael/jane /Document#: [id number]
[2017-01-03] MEDS: DOCUSATE SODIUM 100 MG CAP PO SCH (09:00)
[2017-01-03] MEDS: BALSAM PERU/CASTOR OIL 60 GM TUBE TOP SCH ×2 (09:00→21:00)
[2017-01-03] MEDS: LACTULOSE 30ML CUP NGT SCH ×3 (09:06→22:13)
[2017-01-03] MEDS: FERROUS SULFATE 60 MG/ML 5ML CUP GTB SCH ×2 (09:06→22:13)
[2017-01-03] MEDS: LEVETIRACETAM 500 MG (PMX) 100 ML IVPB SCH ×2 (09:06→22:13)
[2017-01-03] MEDS: RIFAXIMIN 550 MG TAB PO SCH ×2 (09:06→22:14)
--- NOTE | 2017-01-03 10:10 | PN ---
Date/Time of Note Date/Time of Note DATE: 01/03/17 TIME: 10:10 Assessment/Plan VTE Prophylaxis VTE Prophylaxis Intervention: contraindicated, SCD's Lines/Catheters IV Catheter Type (from Nrsg): PICC Line Central line still needed: Yes (access for pressors) Urinary Cath still in place: Yes (critically ill) Reason Cath still needed: other (indicate) Assessment/Plan Assessment/Plan 1. Acute hypoxemic respiratory failure on mechanical ventilation - Pulmonary on board and recommendations appreciated. Continue vent management per pulm - Plans for trach placement 2. Hypotensive shock - Goal of MAP >60 - 2D Echo shows preserved EF, Cardiology on board and recommendations appreciated 3. Toxic metabolic encephalopathy with Hepatic encephalopathy with coma and hyperammonemia secondary to end-stage liver disease - Continue lactulose 4. Acute GI bleed secondary to varices status post banding-now stable - H/H stable 5. Acute Kidney Injury, likely hemodynamics-worsening - Nephrology on board and recommendations appreciated - Restart on IVF NSS at 75cc - Most likely secondary to sepsis - Monitor renal fxn closely. - monitoring electrolytes and replacing as needed 6. 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 - Negative Hep panel 7. New-onset Seizures. -Neurology on board and recommendations appreciated -EEG shows encephalopathy -Ativan PRN, continue Keppra 8. Hypernatremia with free water deficit- resolved 9. Leukocytosis likely secondary to UTI - Urine culture shows K pneumoniae 10. Azotemia 2/2 dehydration/GIB - Continue IVFs 11. Hyperglycemia with Adult-onset Diabetes mellitus-Poorly controlled. - Patient is currently receiving TPN. Will start Lantus 15units tonight and increase based on ISS needs daily - ISS as needed 12. Anemia of chronic disease and acute blood loss anemia from GI bleed - stable.Will monitor. 13. Thrombocytopenia of liver disease - stable >35 minutes of critical care time was spent with patient Subjective 24 Hr Interval Summary Free Text/Dictation patient still intubated and remains off pressor support. She opens eyes spontaneously but not to touch or voice. No acute overnight events. Exam/Review of Systems Vital Signs Vitals Vital Signs Date Time Temp Pulse Resp B/P Pulse Ox O2 Delivery O2 Flow Rate FiO2 01/03/17 09:45 105 31 106/58 96 01/03/17 09:44 35 01/03/17 09:30 Mechanical Ventilator 01/03/17 07:00 97.0 Intake and Output 01/02/17 01/02/17 01/03/17 15:00 23:00 07:00 Intake Total 1243.09 ml 1124.96 ml 1274.96 ml Output Total 125 ml 215 ml 210 ml Balance 1118.09 ml 909.96 ml 1064.96 ml Exam General: NAD, on ventilator support, no response to stimulus CVS: regular rate and rhythm, no murmurs Lungs: diminished at bases, no crackles or wheezing Abd: soft, NT, slight distention, no rebound or guarding Ext: edema, petechia UE, no cyanosis or clubbing Neuro: not following commands Results Result Diagram: 01/03/17 0430 01/03/17 0430 Results 24 hrs Laboratory Tests Test 01/02/17 12:05 01/02/17 14:04 01/02/17 17:12 01/02/17 18:22 Bedside Glucose 161 180 163 187 Test 01/02/17 20:37 01/03/17 00:57 01/03/17 04:30 01/03/17 05:48 Bedside Glucose 201 241 H 242 H White Blood Count 28.5 H Red Blood Count 2.12 L Hemoglobin 8.0 L Hematocrit 22.7 L Mean Corpuscular Volume 107.1 H Mean Corpuscular Hemoglobin 37.7 H Mean Corpuscular Hemoglobin Concent 35.2 Red Cell Distribution Width 19.9 H Platelet Count 78 L Mean Platelet Volume 12.5 H Neutrophils % Segmented Neutrophils % (Manual) 91 H Band Neutrophils % (Manual) 4 Lymphocytes % Lymphocytes % (Manual) 1 L Monocytes % Monocytes % (Manual) 4 Eosinophils % Basophils % Nucleated Red Blood Cells % 0.1 H Neutrophils # Neutrophils # (Manual) 26.2 H Band Neutrophils # 1.1 H Absolute Lymphocytes (Manual) 0.2 L Lymphocytes # Monocytes # Absolute Monocytes (Manual) 1.1 H Eosinophils # Basophils # Nucleated Red Blood Cells # Platelet Estimate DECREASED Polychromasia 3+ Hypochromasia 1+ Poikilocytosis 1+ Anisocytosis 2+ Macrocytosis 2+ Sodium Level 138 Potassium Level 3.7 Chloride Level 115 H Carbon Dioxide Level 16 L Anion Gap 11 Blood Urea Nitrogen 27 H Creatinine 1.70 H Glucose Level 237 H Calcium Level 7.4 L Phosphorus Level 4.9 Magnesium Level 2.0 Ammonia 23 Random Vancomycin Level 21.3 Test 01/03/17 09:10 Bedside Glucose 268 H Medications Medications Current Medications Ondansetron HCl (Zofran Inj) 4 mg Q6H PRN IV NAUSEA AND/OR VOMITING; Start 01/29 at 01:00 Acetaminophen (Tylenol Tab) 650 mg Q6H PRN PO PAIN LEVEL 1-3 OR FEVER Last administered on 01/02/17 08:56; Admin Dose 650 MG; Start 12/23/16 at 01:00 Propranolol HCl (Inderal) 10 mg BID PO Last administered on 12/25/16 10:20; Admin Dose 10 MG; Start 12/23/16 at 01:30; Status Future Hold Docusate Sodium (Colace) 100 mg DAILY PO Last administered on 01/02/17 08:16; Admin Dose 100 MG; Start 12/23/16 at 09:00 Miscellaneous Information 1 ea NOTE XX ; Start 12/23/16 at 02:30 Furosemide (Lasix) 40 mg DAILY PO Last administered on 12/25/16 10:20; Admin Dose 40 MG; Start 12/24/16 at 09:00; Status Future Hold Rifaximin (Xifaxan) 550 mg BID PO Last administered on 01/03/17 09:06; Admin Dose 550 MG; Start 12/24/16 at 21:00 Lactulose (Enulose) 30 gm Q6H PRN PO CONSTIPATION Last administered on 16:13; Admin Dose 30 GM; Start 12/25/16 at 16:00 Eye Lubricant 1 applic 1 applic Q4 BOTH EYES Last administered on 01/03/17 09: 06; Admin Dose 1 APPLIC; Start 12/25/16 at 21:00 Norepinephrine 16 mg/Dextrose 500 ml @ 1.87 mls/hr TITRATE IV Last administered on 12/31/16 22:18; Admin Dose 3.75 MLS/HR; Start 12/26/16 at 03:00 Piperacillin Sod/ Tazobactam Sod 100 ml @ 100 mls/hr Q8 IVPB Last administered on 01/03/17 06:33; Admin Dose 100 MLS/HR; Start 12/26/16 at 06:30 Levetiracetam (Keppra 500 Mg/ 100ml (Pmx)) 100 ml @ 400 mls/hr Q12 IVPB Last administered on 01/03/17 09:06; Admin Dose 400 MLS/HR; Start 12/26/16 at 21:00 Dextrose (D50w Syringe) 25 ml Q15M PRN IV Till BS 80 mg/dL or above x2 Last administered on 12/27/16 11:52; Admin Dose 25 ML; Start 12/26/16 at 09:30 Dextrose (D50w Syringe) 50 ml Q15M PRN IV Till BS 80 mg/dL or above x2; Start 12/26/16 at 09:30 Lorazepam (Ativan) 1 mg Q2 PRN IV Seizures; Start 12/26/16 at 09:30 IV Flush (NS 10 ml) 10 ml PRN PRN IV FLUSH LINE; Start 12/29/16 at 12:00 Ferrous Sulfate (Feosol Liquid Cup) 300 mg BID GTB Last administered on 09:06; Admin Dose 300 MG; Start 12/30/16 at 09:00 Miscellaneous Information (* Miscellaneous Pharmacy Order) 1 ea ONCE XX ; Start 12/30/16 at 12:00 Morphine Sulfate (morphine) 2 mg Q2H PRN IV SEDATION Last administered on 18:31; Admin Dose 2 MG; Start 01/01/17 at 10:00 Lorazepam 2 mg 2 mg Q6H PRN IV AGITATION; Start 01/01/17 at 16:30 Sodium Chloride (NS) 1,000 ml @ 75 mls/hr [id number] IV Last administered on 01/03 04:20; Admin Dose 75 MLS/HR; Start 01/02/17 at 15:00 Insulin Aspart (Novolog Insulin Pen) NOVOLOG *MILD* ALGORI... Q4 SC Last administered on 01/03/17 09:17; Admin Dose 4 UNIT; Start 01/02/17 at 17:00 Insulin Glargine (Lantus) 15 unit DAILY@20 SC ; Start 01/03/17 at 21:00 Lactulose (Enulose) 30 gm Q12 NGT Last administered on 01/03/17 09:06; Admin Dose 30 GM; Start 01/03/17 at 00:00 BLACK STOKES MD Jan 03, 2017 10:10
[2017-01-03] MEDS: LORAZEPAM 2 MG INJ IV PRN ×3 (10:20→21:26)
[2017-01-03] MEDS ORDERED: GLUCOSE GEL 15 GRAM TUBE PO PRN ×2 (10:30)
[2017-01-03] MEDS ORDERED: DEXTROSE 50% 50 ML SYRINGE IV PRN ×2 (10:30)
[2017-01-03] MEDS ORDERED: GLUCOSE GEL 15 GRAM TUBE BUCCAL PRN (10:30)
[2017-01-03] MEDS ORDERED: GLUCAGON 1 MG INJ IM PRN (10:30)
--- NOTE | 2017-01-03 11:36 | CONS ---
Date/Time of Note Date/Time of Note DATE: 01/03/17 TIME: 11:35 Consult Date/Type/Reason Admit Date/Time Dec 22, 2016 at 22:41 Initial Consult Date 12/26/16 Type of Consultation: Pulmonary Subjective Patient intubated on mechanical ventilation appears comfortable at rest. No vasopressor support. Objective Vital Signs Date Time Temp Pulse Resp B/P Pulse Ox O2 Delivery O2 Flow Rate FiO2 01/03/17 11:27 101 34 96 35 01/03/17 11:00 91/53 Mechanical Ventilator 01/03/17 07:00 97.0 Intake and Output 01/02/17 01/02/17 01/03/17 15:00 23:00 07:00 Intake Total 1243.09 ml 1124.96 ml 1274.96 ml Output Total 125 ml 215 ml 210 ml Balance 1118.09 ml 909.96 ml 1064.96 ml Exam PHYSICAL EXAMINATION GENERAL: Elderly lady orally intubated appears comfortable no acute distress. VITAL SIGNS: see below. HEENT: Pupils equal, round, and reactive to light. CARDIAC: S1, S2, 1/6 systolic ejection murmur CHEST: Diminished air entry bilaterally. ABDOMEN: Mildly distended. Bowel sounds present no guarding or rebound EXTREMITIES: No cyanosis, clubbing edema +1 NEUROLOGIC: Generalized weakness Results/Medications Result Diagram: 01/03/17 0430 01/03/17 0430 Results 24 hrs Laboratory Tests Test 01/02/17 12:05 01/02/17 14:04 01/02/17 17:12 01/02/17 18:22 Bedside Glucose 161 180 163 187 Test 01/02/17 20:37 01/03/17 00:57 01/03/17 04:30 01/03/17 05:48 Bedside Glucose 201 241 H 242 H White Blood Count 28.5 H Red Blood Count 2.12 L Hemoglobin 8.0 L Hematocrit 22.7 L Mean Corpuscular Volume 107.1 H Mean Corpuscular Hemoglobin 37.7 H Mean Corpuscular Hemoglobin Concent 35.2 Red Cell Distribution Width 19.9 H Platelet Count 78 L Mean Platelet Volume 12.5 H Neutrophils % Segmented Neutrophils % (Manual) 91 H Band Neutrophils % (Manual) 4 Lymphocytes % Lymphocytes % (Manual) 1 L Monocytes % Monocytes % (Manual) 4 Eosinophils % Basophils % Nucleated Red Blood Cells % 0.1 H Neutrophils # Neutrophils # (Manual) 26.2 H Band Neutrophils # 1.1 H Absolute Lymphocytes (Manual) 0.2 L Lymphocytes # Monocytes # Absolute Monocytes (Manual) 1.1 H Eosinophils # Basophils # Nucleated Red Blood Cells # Platelet Estimate DECREASED Polychromasia 3+ Hypochromasia 1+ Poikilocytosis 1+ Anisocytosis 2+ Macrocytosis 2+ Sodium Level 138 Potassium Level 3.7 Chloride Level 115 H Carbon Dioxide Level 16 L Anion Gap 11 Blood Urea Nitrogen 27 H Creatinine 1.70 H Glucose Level 237 H Calcium Level 7.4 L Phosphorus Level 4.9 Magnesium Level 2.0 Ammonia 23 Random Vancomycin Level 21.3 Test 01/03/17 09:10 Bedside Glucose 268 H Medications Current Medications Ondansetron HCl (Zofran Inj) 4 mg Q6H PRN IV NAUSEA AND/OR VOMITING; Start 01/29 at 01:00 Acetaminophen (Tylenol Tab) 650 mg Q6H PRN PO PAIN LEVEL 1-3 OR FEVER Last administered on 01/02/17 08:56; Admin Dose 650 MG; Start 12/23/16 at 01:00 Propranolol HCl (Inderal) 10 mg BID PO Last administered on 12/25/16 10:20; Admin Dose 10 MG; Start 12/23/16 at 01:30; Status Future Hold Docusate Sodium (Colace) 100 mg DAILY PO Last administered on 01/02/17 08:16; Admin Dose 100 MG; Start 12/23/16 at 09:00 Miscellaneous Information 1 ea NOTE XX ; Start 12/23/16 at 02:30 Furosemide (Lasix) 40 mg DAILY PO Last administered on 12/25/16 10:20; Admin Dose 40 MG; Start 12/24/16 at 09:00; Status Future Hold Rifaximin (Xifaxan) 550 mg BID PO Last administered on 01/03/17 09:06; Admin Dose 550 MG; Start 12/24/16 at 21:00 Lactulose (Enulose) 30 gm Q6H PRN PO CONSTIPATION Last administered on 16:13; Admin Dose 30 GM; Start 12/25/16 at 16:00 Eye Lubricant 1 applic 1 applic Q4 BOTH EYES Last administered on 01/03/17 09: 06; Admin Dose 1 APPLIC; Start 12/25/16 at 21:00 Norepinephrine 16 mg/Dextrose 500 ml @ 1.87 mls/hr TITRATE IV Last administered on 12/31/16 22:18; Admin Dose 3.75 MLS/HR; Start 12/26/16 at 03:00 Piperacillin Sod/ Tazobactam Sod 100 ml @ 100 mls/hr Q8 IVPB Last administered on 01/03/17 06:33; Admin Dose 100 MLS/HR; Start 12/26/16 at 06:30 Levetiracetam (Keppra 500 Mg/ 100ml (Pmx)) 100 ml @ 400 mls/hr Q12 IVPB Last administered on 01/03/17 09:06; Admin Dose 400 MLS/HR; Start 12/26/16 at 21:00 Lorazepam (Ativan) 1 mg Q2 PRN IV Seizures; Start 12/26/16 at 09:30 IV Flush (NS 10 ml) 10 ml PRN PRN IV FLUSH LINE; Start 12/29/16 at 12:00 Ferrous Sulfate (Feosol Liquid Cup) 300 mg BID GTB Last administered on 09:06; Admin Dose 300 MG; Start 12/30/16 at 09:00 Morphine Sulfate (morphine) 2 mg Q2H PRN IV SEDATION Last administered on 18:31; Admin Dose 2 MG; Start 01/01/17 at 10:00 Lorazepam 2 mg 2 mg Q6H PRN IV AGITATION Last administered on 01/03/17 10:20; Admin Dose 2 MG; Start 01/01/17 at 16:30 Sodium Chloride (NS) 1,000 ml @ 75 mls/hr [id number] IV Last administered on 01/03 04:20; Admin Dose 75 MLS/HR; Start 01/02/17 at 15:00 Insulin Aspart (Novolog Insulin Pen) NOVOLOG *MILD* ALGORI... Q4 SC Last administered on 01/03/17 09:17; Admin Dose 4 UNIT; Start 01/02/17 at 17:00 Insulin Glargine (Lantus) 15 unit DAILY@20 SC ; Start 01/03/17 at 21:00 Lactulose (Enulose) 30 gm Q12 NGT Last administered on 01/03/17 09:06; Admin Dose 30 GM; Start 01/03/17 at 00:00 Miscellaneous Information 1 ea NOTE XX ; Start 01/03/17 at 10:30 Glucose (Glutose) 15 gm Q15M PRN PO DECREASED GLUCOSE; Start 01/03/17 at 10:30 Glucose (Glutose) 22.5 gm Q15M PRN PO DECREASED GLUCOSE; Start 01/03/17 at 10: 30 Dextrose (D50w Syringe) 25 ml Q15M PRN IV DECREASED GLUCOSE; Start 01/03/17 at 10:30 Dextrose (D50w Syringe) 50 ml Q15M PRN IV DECREASED GLUCOSE; Start 01/03/17 at 10:30 Glucagon (Glucagen) 1 mg Q15M PRN IM DECREASED GLUCOSE; Start 01/03/17 at 10:30 Glucose 15 gm 15 gm Q15M PRN BUCCAL DECREASED GLUCOSE; Start 01/03/17 at 10:30 Vancomycin HCl/ Sodium Chloride (Vancocin/NS) 150 ml @ 75 mls/hr Q48H IVPB ; Start 01/04/17 at 06:00 Assessment/Plan Chief Complaint/Hosp Course Assessment 1. Massive GI bleed secondary to esophageal varices 2. Hypovolemic and likely septic shock. 3. History of cirrhosis with portal hypertension 4. Thrombocytopenia likely secondary to liver disease 5. Renal insufficiency now resolved. 6. Hyper natremia and hypokalemia 7. Acute hypoxemic respiratory failure secondary to above Plan 1. Continue mechanical ventilation. Pending tracheostomy and G-tube 2. Continue proton pump inhibitor 3 continue tube feeding as tolerated Prognosis guarded. Critical care time 40 minutes. Problems: JÚNIOR AGUILERA MD, [facility] Jan 03, 2017 11:36
--- NOTE | 2017-01-03 13:55 | CONS ---
Date/Time of Note Date/Time of Note DATE: 01/03/17 TIME: 13:55 Assessment/Plan Assessment/Plan Chief Complaint/Hosp Course Assessment: Septic shock Pneumonia Acute hypoxic respiratory failure - intubated and on mechanical ventilation Hematemesis and anemia - EGD showed grade IV esophageal varices status post ligation, follow up gastroenterology recommendations Acute kidney injury Alcoholic liver cirrhosis Diabetes mellitus Recommendations: -pressors to keep MAP>65, wean as tolerated -echocardiogram showed LVEF>70% Problems: Consultation Date/Type/Reason Admit Date/Time Dec 22, 2016 at 22:41 Initial Consult Date 12/26/16 Type of Consultation: Cardiology 24 HR Interval Summary Free Text/Dictation No significant clinical changes. Remains on low dose Levophed. Remains intubated. Detailed Summary Additional Comments Unable to obtain review of systems, patient is intubated. Exam/Review of Systems Vital Signs Vitals Vital Signs Date Time Temp Pulse Resp B/P Pulse Ox O2 Delivery O2 Flow Rate FiO2 01/03/17 13:06 107 34 96 35 01/03/17 12:15 98.5 90/48 Mechanical Ventilator Intake and Output 01/02/17 01/02/17 01/03/17 15:00 23:00 07:00 Intake Total 1243.09 ml 1124.96 ml 1274.96 ml Output Total 125 ml 215 ml 210 ml Balance 1118.09 ml 909.96 ml 1064.96 ml Exam Constitutional: other (intubated), No alert Psych: No nl mood/affect, No no complaints Head: atraumatic, normocephalic Eyes: nl conjunctiva, nl lids ENMT: intubated Respiratory: clear to auscultation Cardiovascular: regular rate and rhythm Gastrointestinal: non-tender, soft Musculoskeletal: nl extremities to inspection Extremities: No clubbing, No cyanosis, No edema Neurological: No nl mental status, No nl speech Results Result Diagram: 01/03/17 0430 01/03/17 0430 Results 24 hrs Laboratory Tests Test 01/02/17 14:04 01/02/17 17:12 01/02/17 18:22 01/02/17 20:37 Bedside Glucose 180 163 187 201 Test 01/03/17 00:57 01/03/17 04:30 01/03/17 05:48 01/03/17 09:10 Bedside Glucose 241 H 242 H 268 H White Blood Count 28.5 H Red Blood Count 2.12 L Hemoglobin 8.0 L Hematocrit 22.7 L Mean Corpuscular Volume 107.1 H Mean Corpuscular Hemoglobin 37.7 H Mean Corpuscular Hemoglobin Concent 35.2 Red Cell Distribution Width 19.9 H Platelet Count 78 L Mean Platelet Volume 12.5 H Neutrophils % Segmented Neutrophils % (Manual) 91 H Band Neutrophils % (Manual) 4 Lymphocytes % Lymphocytes % (Manual) 1 L Monocytes % Monocytes % (Manual) 4 Eosinophils % Basophils % Nucleated Red Blood Cells % 0.1 H Neutrophils # Neutrophils # (Manual) 26.2 H Band Neutrophils # 1.1 H Absolute Lymphocytes (Manual) 0.2 L Lymphocytes # Monocytes # Absolute Monocytes (Manual) 1.1 H Eosinophils # Basophils # Nucleated Red Blood Cells # Platelet Estimate DECREASED Polychromasia 3+ Hypochromasia 1+ Poikilocytosis 1+ Anisocytosis 2+ Macrocytosis 2+ Sodium Level 138 Potassium Level 3.7 Chloride Level 115 H Carbon Dioxide Level 16 L Anion Gap 11 Blood Urea Nitrogen 27 H Creatinine 1.70 H Glucose Level 237 H Calcium Level 7.4 L Phosphorus Level 4.9 Magnesium Level 2.0 Ammonia 23 Random Vancomycin Level 21.3 Test 01/03/17 12:51 Bedside Glucose 292 H Medications Medications Current Medications Ondansetron HCl (Zofran Inj) 4 mg Q6H PRN IV NAUSEA AND/OR VOMITING; Start 01/29 at 01:00 Acetaminophen (Tylenol Tab) 650 mg Q6H PRN PO PAIN LEVEL 1-3 OR FEVER Last administered on 01/02/17 08:56; Admin Dose 650 MG; Start 12/23/16 at 01:00 Propranolol HCl (Inderal) 10 mg BID PO Last administered on 12/25/16 10:20; Admin Dose 10 MG; Start 12/23/16 at 01:30; Status Future Hold Docusate Sodium (Colace) 100 mg DAILY PO Last administered on 01/02/17 08:16; Admin Dose 100 MG; Start 12/23/16 at 09:00 Miscellaneous Information 1 ea NOTE XX ; Start 12/23/16 at 02:30 Furosemide (Lasix) 40 mg DAILY PO Last administered on 12/25/16 10:20; Admin Dose 40 MG; Start 12/24/16 at 09:00; Status Future Hold Rifaximin (Xifaxan) 550 mg BID PO Last administered on 01/03/17 09:06; Admin Dose 550 MG; Start 12/24/16 at 21:00 Lactulose (Enulose) 30 gm Q6H PRN PO CONSTIPATION Last administered on 16:13; Admin Dose 30 GM; Start 12/25/16 at 16:00 Eye Lubricant 1 applic 1 applic Q4 BOTH EYES Last administered on 01/03/17 12: 52; Admin Dose 1 APPLIC; Start 12/25/16 at 21:00 Norepinephrine 16 mg/Dextrose 500 ml @ 1.87 mls/hr TITRATE IV Last administered on 12/31/16 22:18; Admin Dose 3.75 MLS/HR; Start 12/26/16 at 03:00 Piperacillin Sod/ Tazobactam Sod 100 ml @ 100 mls/hr Q8 IVPB Last administered on 01/03/17 13:38; Admin Dose 100 MLS/HR; Start 12/26/16 at 06:30 Levetiracetam (Keppra 500 Mg/ 100ml (Pmx)) 100 ml @ 400 mls/hr Q12 IVPB Last administered on 01/03/17 09:06; Admin Dose 400 MLS/HR; Start 12/26/16 at 21:00 Lorazepam (Ativan) 1 mg Q2 PRN IV Seizures; Start 12/26/16 at 09:30 IV Flush (NS 10 ml) 10 ml PRN PRN IV FLUSH LINE; Start 12/29/16 at 12:00 Ferrous Sulfate (Feosol Liquid Cup) 300 mg BID GTB Last administered on 09:06; Admin Dose 300 MG; Start 12/30/16 at 09:00 Morphine Sulfate (morphine) 2 mg Q2H PRN IV SEDATION Last administered on 18:31; Admin Dose 2 MG; Start 01/01/17 at 10:00 Lorazepam 2 mg 2 mg Q6H PRN IV AGITATION Last administered on 01/03/17 10:20; Admin Dose 2 MG; Start 01/01/17 at 16:30 Sodium Chloride (NS) 1,000 ml @ 75 mls/hr [id number] IV Last administered on 01/03 04:20; Admin Dose 75 MLS/HR; Start 01/02/17 at 15:00 Insulin Aspart (Novolog Insulin Pen) NOVOLOG *MILD* ALGORI... Q4 SC Last administered on 01/03/17 12:54; Admin Dose 4 UNIT; Start 01/02/17 at 17:00 Insulin Glargine (Lantus) 15 unit DAILY@20 SC ; Start 01/03/17 at 21:00 Lactulose (Enulose) 30 gm Q12 NGT Last administered on 01/03/17 09:06; Admin Dose 30 GM; Start 01/03/17 at 00:00 Miscellaneous Information 1 ea NOTE XX ; Start 01/03/17 at 10:30 Glucose (Glutose) 15 gm Q15M PRN PO DECREASED GLUCOSE; Start 01/03/17 at 10:30 Glucose (Glutose) 22.5 gm Q15M PRN PO DECREASED GLUCOSE; Start 01/03/17 at 10: 30 Dextrose (D50w Syringe) 25 ml Q15M PRN IV DECREASED GLUCOSE; Start 01/03/17 at 10:30 Dextrose (D50w Syringe) 50 ml Q15M PRN IV DECREASED GLUCOSE; Start 01/03/17 at 10:30 Glucagon (Glucagen) 1 mg Q15M PRN IM DECREASED GLUCOSE; Start 01/03/17 at 10:30 Glucose 15 gm 15 gm Q15M PRN BUCCAL DECREASED GLUCOSE; Start 01/03/17 at 10:30 Vancomycin HCl/ Sodium Chloride (Vancocin/NS) 150 ml @ 75 mls/hr Q48H IVPB ; Start 01/04/17 at 06:00 TRISTAN UGARTE MD Jan 03, 2017 13:55
[2017-01-03 14:37] LABS: MICROALBUMIN 11.2 mg/dL
--- NOTE | 2017-01-03 19:33 | PN ---
Date/Time of Note Date/Time of Note DATE: 01/03/17 TIME: 19:32 Assessment/Plan Lines/Catheters IV Catheter Type (from Nrsg): PICC Line Pereyra in Place (from Nrsg): Yes (critically ill) Assessment/Plan Chief Complaint/Hosp Course IMPRESSION: 1. Respiratory failure. 2. Renal failure. 3. Hypernatremia. 4. End-stage liver disease with cirrhosis. 5. Seizure disorder. 6. Gastrointestinal bleed. 7. Thrombocytopenia. 8. Coagulopathy. 9. Anemia. RECOMMENDATIONS: We will proceed with placement of a tracheostomy when coagulopathy is corrected and anemia is corrected. Discussed with the nursing staff. Problems: Subjective 24 Hr Interval Summary Constitutional: improved Pain Control: mild Exam/Review of Systems Vital Signs Vitals Vital Signs Date Time Temp Pulse Resp B/P Pulse Ox O2 Delivery O2 Flow Rate FiO2 01/03/17 19:00 111 30 112/56 98 Mechanical Ventilator 01/03/17 18:29 50 01/03/17 16:00 99.1 Intake and Output 01/02/17 01/02/17 01/03/17 15:00 23:00 07:00 Intake Total 1243.09 ml 1124.96 ml 1274.96 ml Output Total 125 ml 215 ml 210 ml Balance 1118.09 ml 909.96 ml 1064.96 ml Exam ENMT: mucosa pink and moist, nl external ears & nose, nl lips & teeth, nl nasal mucosa & septum Neck: non-tender, supple Respiratory: clear to auscultation, normal air movement Cardiovascular: nl pulses, regular rate and rhythm Gastrointestinal: nl liver, spleen, non-tender, soft Results Result Diagram: 01/03/1742901/03/17429 JOJO DAVIDSON MD Jan 03, 2017 19:33
[2017-01-03] MEDS ORDERED: INSULIN GLARGINE [LANtus] 3 ML PEN SC SCH (21:00)
[2017-01-04] VITALS (99 sets, daily range): BP systolic 98–138; BP diastolic 38–74; PULSE 92–124; RESP 16–40
[2017-01-04] MEDS: IPRATROPIUM (HFA) 12.9 GM INHALER INH SCH ×6 (00:54→21:38)
[2017-01-04] MEDS: ALBUTEROL 18 GM INHALER INH SCH ×6 (00:55→21:38)
[2017-01-04] MEDS: OCULAR LUBRICANT 3.5 GM OPH OINT BOTH EYES SCH ×6 (01:57→23:09)
[2017-01-04] MEDS: INSULIN ASPART [NOVOLOG] 3 ML PEN SC SCH ×6 (02:01→23:05)
[2017-01-04] MEDS: PIPER-TAZO 3.375 GM IV (PMX) 100 ML IVPB SCH ×3 (05:30→23:09)
[2017-01-04 06:04] LABS: ABNORMAL IP MESSAGE 1; BASOPHIL # 0.1 10^3/ul (0.0-0.1); BASOPHILS % 0.2 % (0.0-2.0); EOSINOPHILS # 0.6 10^3/ul (0.0-0.5); EOSINOPHILS % 2.3 % (0.0-7.0); HEMATOCRIT 23.2 % (37.0-47.0); HEMOGLOBIN 7.5 g/dl (12.0-16.0); LYMPHOCYTES # 0.9 10^3/ul (0.8-2.9); LYMPHOCYTES % 3.6 % (15.0-51.0); MEAN CORPUSCULAR HEMOGLOBIN 34.7 pg (29.0-33.0); MEAN CORPUSCULAR HGB CONC 32.3 g/dl (32.0-37.0); MEAN CORPUSCULAR VOLUME 107.4 fl (82.0-101.0); MONOCYTES % 4.1 % (0.0-11.0); NEUTROPHIL # 22.4 10^3/ul (1.6-7.5); NEUTROPHILS % 88.8 % (39.0-77.0); NUCLEATED RED BLOOD CELLS% 0.1 /100WBC (0.0-0.0); PLATELET COUNT 75 10^3/UL (140-415); RED BLOOD COUNT 2.16 10^6/ul (4.20-5.40); RED CELL DISTRIBUTION WIDTH 20.4 % (11.5-14.5); WHITE BLOOD COUNT 25.3 10^3/ul (4.8-10.8)
[2017-01-04 06:09] LABS: POSITIVE DIFF @See below
[2017-01-04 06:50] LABS: CALCIUM 7.3 mg/dl (8.4-10.2); CREATININE 1.46 mg/dl (0.44-1.00); MAGNESIUM 1.8 mg/dl (1.7-2.5); PHOSPHORUS 4.2 mg/dl (2.5-4.9); POTASSIUM 3.3 mmol/L (3.5-5.1)
[2017-01-04] MEDS: VANCOMYCIN 750 MG in SOD CHLORIDE 0.9% 150 ML IVPB SCH (06:58)
[2017-01-04] MEDS: SOD CHLORIDE 0.9% 1,000 ML IV SCH ×4 (07:30→20:20)
[2017-01-04] MEDS ORDERED: POTASSIUM CHLORIDE 250 ML IVPB ONE (08:00)
[2017-01-04] MEDS: RIFAXIMIN 550 MG TAB PO SCH ×2 (08:20→23:08)
[2017-01-04] MEDS: FERROUS SULFATE 60 MG/ML 5ML CUP GTB SCH ×2 (08:20→23:08)
[2017-01-04] MEDS: LEVETIRACETAM 500 MG (PMX) 100 ML IVPB SCH ×2 (08:20→23:08)
[2017-01-04] MEDS: LACTULOSE 30ML CUP NGT SCH ×2 (08:20→23:08)
[2017-01-04] MEDS: DOCUSATE SODIUM 100 MG CAP PO SCH (08:21)
[2017-01-04] MEDS: BALSAM PERU/CASTOR OIL 60 GM TUBE TOP SCH ×2 (09:00→23:09)
--- NOTE | 2017-01-04 09:28 | PN ---
DATE: 01/04/2017 SUBJECTIVE DATA: The patient remains critically ill, on presser support. Full ventilatory support. No other events noted. OBJECTIVE DATA: VITAL SIGNS: Blood pressure is 120/56, temperature 98.1. Pulse 101, respirations 37. HEENT: Head is normocephalic. NECK: Supple. HEART: Regular rate. LUNGS: Diminished breath sounds at the base. ABDOMEN: Soft, nontender to palpation. No rebound or guarding. EXTREMITIES: Negative for clubbing, cyanosis. Positive edema. DERMATOLOGIC: Clean. No rashes. MUSCULOSKELETAL: No joint effusion. NEUROLOGIC: No change in exam. MEDICATIONS: Reviewed. LABORATORY AND DIAGNOSTIC DATA: Shows sodium 139, potassium is 3.3, chloride 116, bicarb 16, BUN 29, creatinine 1.46. White count 25.3, hemoglobin 7.5, hematocrit 23.2, platelet count 75. ASSESSMENT AND PLAN: 1. Nonoliguric acute kidney injury. Etiology secondary acute tubular necrosis. Renal function has been fluctuating. At this point, continue current treatment plan. Supportive care. Renally dose all medications. The patient urinary output has improved after 1 dose of diuretics. Continue to monitor closely. 2. Hypokalemia. Replete potassium chloride. 3. Hyponatremia, improved. 4. Mineral bone disorder. Monitor calcium and phosphorus levels. 5. Anemia. Monitor H and H levels. Transfuse as needed. 6. Septic shock. The patient is on presser support IV antibiotics and IV fluids. Continue. 7. Ventilatory-dependent respiratory failure. Vent settings and ABGs reviewed. Continue to monitor. 8. End-stage renal disease. Decompensated. Continue medical management. 9. Seizure disorder. Continue current treatment plan. 10. Status post gastrointestinal bleeding. 11. Encephalopathy. Etiology is multifactorial. Please note, I spent over 35 minutes of critical care time with this patient. Dictated By: Will Gonzales DO /rafael/jane /Document#: [id number]
[2017-01-04] MEDS: LORAZEPAM 2 MG INJ IV PRN ×3 (11:16→23:12)
--- NOTE | 2017-01-04 12:37 | PN ---
Date/Time of Note Date/Time of Note DATE: 01/04/17 TIME: 12:35 Assessment/Plan VTE Prophylaxis VTE Prophylaxis Intervention: contraindicated Lines/Catheters IV Catheter Type (from Nrsg): PICC Line Central line still needed: Yes Urinary Cath still in place: Yes Reason Cath still needed: other (indicate) Assessment/Plan Assessment/Plan 1. Acute hypoxemic respiratory failure on mechanical ventilation - Pulmonary on board and recommendations appreciated. Continue vent management per pulm - Patients son has decided not to pursue trach placement at this time 2. Hypotensive shock - Goal of MAP >60 - Still requiring pressors at higher rate - 2D Echo shows preserved EF, Cardiology on board and recommendations appreciated 3. Toxic metabolic encephalopathy with Hepatic encephalopathy with coma and hyperammonemia secondary to end-stage liver disease - Continue lactulose 4. Acute GI bleed secondary to varices status post banding-now stable - H/H stable 5. Acute Kidney Injury, likely hemodynamics - Nephrology on board and recommendations appreciated - on IVF NSS at 75cc - Monitor renal fxn closely. - monitoring electrolytes and replacing as needed 6. 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 - Negative Hep panel 7. New-onset Seizures. -Neurology on board and recommendations appreciated -EEG shows encephalopathy -Ativan PRN, continue Keppra 8. Hypernatremia with free water deficit- resolved 9. Leukocytosis likely secondary to UTI - Urine culture shows K pneumoniae 10. Azotemia 2/2 dehydration/GIB - Continue IVFs 11. Hyperglycemia with Adult-onset Diabetes mellitus-Poorly controlled. - Patient is currently receiving TPN. Sugars have been in the 200s and will increase Lantus to 20 units - ISS as needed 12. Anemia of chronic disease and acute blood loss anemia from GI bleed - stable.Will monitor. 13. Thrombocytopenia of liver disease - stable >35 minutes of critical care time was spent with patient Subjective 24 Hr Interval Summary Free Text/Dictation Patient still intubated and nonresponsive on pressor support. Patients son would like to hold off on trach and PEG placement but not ready for comfort measures at this time. Exam/Review of Systems Vital Signs Vitals Vital Signs Date Time Temp Pulse Resp B/P Pulse Ox O2 Delivery O2 Flow Rate FiO2 01/04/17 12:15 120 40 107/56 94 Mechanical Ventilator 01/04/17 12:00 99.1 01/04/17 12:00 40 Intake and Output 01/03/17 01/03/17 01/04/17 14:59 22:59 06:59 Intake Total 1384.36 ml 1112.50 ml 1184.96 ml Output Total 355 ml 445 ml 350 ml Balance 1029.36 ml 667.50 ml 834.96 ml Exam General: NAD, on ventilator support, no response to stimulus CVS: regular rate and rhythm, no murmurs Lungs: diminished at bases, no crackles or wheezing Abd: soft, NT, slight distention, no rebound or guarding Ext: diffuse edema, petechia UE, no cyanosis or clubbing Neuro: not following commands Results Result Diagram: 01/04/17 0430 01/04/17 0430 Results 24 hrs Laboratory Tests Test 01/03/17 12:51 01/03/17 16:56 01/03/17 22:15 01/04/17 01:57 Bedside Glucose 292 H 245 H 253 H 254 H Test 01/04/17 04:30 01/04/17 04:33 01/04/17 08:26 White Blood Count 25.3 H Red Blood Count 2.16 L Hemoglobin 7.5 L Hematocrit 23.2 L Mean Corpuscular Volume 107.4 H Mean Corpuscular Hemoglobin 34.7 H Mean Corpuscular Hemoglobin Concent 32.3 Red Cell Distribution Width 20.4 H Platelet Count 75 L Mean Platelet Volume 12.0 H Neutrophils % 88.8 H Lymphocytes % 3.6 L Monocytes % 4.1 Eosinophils % 2.3 Basophils % 0.2 Nucleated Red Blood Cells % 0.1 H Neutrophils # 22.4 H Lymphocytes # 0.9 Monocytes # 1.0 H Eosinophils # 0.6 H Basophils # 0.1 Nucleated Red Blood Cells # 0.0 Sodium Level 139 Potassium Level 3.3 L Chloride Level 116 H Carbon Dioxide Level 16 L Anion Gap 10 Blood Urea Nitrogen 29 H Creatinine 1.46 H Glucose Level 242 H Calcium Level 7.3 L Phosphorus Level 4.2 Magnesium Level 1.8 Bedside Glucose 248 H 263 H Medications Medications Current Medications Ondansetron HCl (Zofran Inj) 4 mg Q6H PRN IV NAUSEA AND/OR VOMITING; Start 01/29 at 01:00 Acetaminophen (Tylenol Tab) 650 mg Q6H PRN PO PAIN LEVEL 1-3 OR FEVER Last administered on 01/02/17 08:56; Admin Dose 650 MG; Start 12/23/16 at 01:00 Propranolol HCl (Inderal) 10 mg BID PO Last administered on 12/25/16 10:20; Admin Dose 10 MG; Start 12/23/16 at 01:30; Status Future Hold Docusate Sodium (Colace) 100 mg DAILY PO Last administered on 01/02/17 08:16; Admin Dose 100 MG; Start 12/23/16 at 09:00 Miscellaneous Information 1 ea NOTE XX ; Start 12/23/16 at 02:30 Furosemide (Lasix) 40 mg DAILY PO Last administered on 12/25/16 10:20; Admin Dose 40 MG; Start 12/24/16 at 09:00; Status Future Hold Rifaximin (Xifaxan) 550 mg BID PO Last administered on 01/04/17 08:20; Admin Dose 550 MG; Start 12/24/16 at 21:00 Lactulose (Enulose) 30 gm Q6H PRN PO CONSTIPATION Last administered on 16:13; Admin Dose 30 GM; Start 12/25/16 at 16:00 Eye Lubricant 1 applic 1 applic Q4 BOTH EYES Last administered on 01/04/17 12: 20; Admin Dose 1 APPLIC; Start 12/25/16 at 21:00 Norepinephrine 16 mg/Dextrose 500 ml @ 1.87 mls/hr TITRATE IV Last administered on 01/03/17 22:03; Admin Dose 5.62 MLS/HR; Start 12/26/16 at 03:00 Piperacillin Sod/ Tazobactam Sod 100 ml @ 100 mls/hr Q8 IVPB Last administered on 01/04/17 05:30; Admin Dose 100 MLS/HR; Start 12/26/16 at 06:30 Levetiracetam (Keppra 500 Mg/ 100ml (Pmx)) 100 ml @ 400 mls/hr Q12 IVPB Last administered on 01/04/17 08:20; Admin Dose 400 MLS/HR; Start 12/26/16 at 21:00 Lorazepam (Ativan) 1 mg Q2 PRN IV Seizures Last administered on 01/03/17 21:26 ; Admin Dose 1 MG; Start 12/26/16 at 09:30 IV Flush (NS 10 ml) 10 ml PRN PRN IV FLUSH LINE; Start 12/29/16 at 12:00 Ferrous Sulfate (Feosol Liquid Cup) 300 mg BID GTB Last administered on 08:20; Admin Dose 300 MG; Start 12/30/16 at 09:00 Morphine Sulfate (morphine) 2 mg Q2H PRN IV SEDATION Last administered on 18:31; Admin Dose 2 MG; Start 01/01/17 at 10:00 Lorazepam 2 mg 2 mg Q6H PRN IV AGITATION Last administered on 01/04/17 11:16; Admin Dose 2 MG; Start 01/01/17 at 16:30 Sodium Chloride (NS) 1,000 ml @ 75 mls/hr [id number] IV Last administered on 01/04 07:30; Admin Dose 75 MLS/HR; Start 01/02/17 at 15:00 Insulin Aspart (Novolog Insulin Pen) NOVOLOG *MILD* ALGORI... Q4 SC Last administered on 01/04/17 08:29; Admin Dose 4 UNIT; Start 01/02/17 at 17:00 Insulin Glargine (Lantus) 15 unit DAILY@20 SC Last administered on 01/03/17 22 :19; Admin Dose 15 UNIT; Start 01/03/17 at 21:00 Lactulose (Enulose) 30 gm Q12 NGT Last administered on 01/04/17 08:20; Admin Dose 30 GM; Start 01/03/17 at 00:00 Miscellaneous Information 1 ea NOTE XX ; Start 01/03/17 at 10:30 Glucose (Glutose) 15 gm Q15M PRN PO DECREASED GLUCOSE; Start 01/03/17 at 10:30 Glucose (Glutose) 22.5 gm Q15M PRN PO DECREASED GLUCOSE; Start 01/03/17 at 10: 30 Dextrose (D50w Syringe) 25 ml Q15M PRN IV DECREASED GLUCOSE; Start 01/03/17 at 10:30 Dextrose (D50w Syringe) 50 ml Q15M PRN IV DECREASED GLUCOSE; Start 01/03/17 at 10:30 Glucagon (Glucagen) 1 mg Q15M PRN IM DECREASED GLUCOSE; Start 01/03/17 at 10:30 Glucose 15 gm 15 gm Q15M PRN BUCCAL DECREASED GLUCOSE; Start 01/03/17 at 10:30 Vancomycin HCl 750 mg/Sodium Chloride 150 ml @ 75 mls/hr Q48H IVPB Last administered on 01/04/17 06:58; Admin Dose 75 MLS/HR; Start 01/04/17 at 06:00 Sodium Chloride (NS) 1,000 ml @ 75 mls/hr [id number] IV Last administered on 01/03 14:51; Admin Dose 75 MLS/HR; Start 01/03/17 at 14:30 BLACK STOKES MD Jan 04, 2017 12:37
--- NOTE | 2017-01-04 16:27 | CONS ---
Date/Time of Note Date/Time of Note DATE: 01/04/17 TIME: 16:22 Consult Date/Type/Reason Admit Date/Time Dec 22, 2016 at 22:41 Initial Consult Date 12/26/16 Type of Consultation: Pulm Subjective Worse today. Increased work of breathing and now requiring increased vasopressors Objective Vital Signs Date Time Temp Pulse Resp B/P Pulse Ox O2 Delivery O2 Flow Rate FiO2 01/04/17 15:45 123 40 129/64 96 Mechanical Ventilator 01/04/17 13:20 40 01/04/17 12:00 99.1 Intake and Output 01/03/17 01/03/17 01/04/17 15:00 23:00 07:00 Intake Total 1286.24 ml 1214.37 ml 1084.96 ml Output Total 360 ml 465 ml 360 ml Balance 926.24 ml 749.37 ml 724.96 ml Exam PHYSICAL EXAMINATION GENERAL: Elderly lady orally intubated agonal respiration. VITAL SIGNS: see below. HEENT: Pupils equal, round, and reactive to light. CARDIAC: S1, S2, 1/6 systolic ejection murmur CHEST: Diminished air entry bilaterally. ABDOMEN: Mildly distended. Bowel sounds present no guarding or rebound EXTREMITIES: No cyanosis, clubbing edema +1 NEUROLOGIC: Generalized weakness Results/Medications Result Diagram: 01/04/17 0430 01/04/17 0430 Results 24 hrs Laboratory Tests Test 01/03/17 16:56 01/03/17 22:15 01/04/17 01:57 01/04/17 04:30 Bedside Glucose 245 H 253 H 254 H White Blood Count 25.3 H Red Blood Count 2.16 L Hemoglobin 7.5 L Hematocrit 23.2 L Mean Corpuscular Volume 107.4 H Mean Corpuscular Hemoglobin 34.7 H Mean Corpuscular Hemoglobin Concent 32.3 Red Cell Distribution Width 20.4 H Platelet Count 75 L Mean Platelet Volume 12.0 H Neutrophils % 88.8 H Lymphocytes % 3.6 L Monocytes % 4.1 Eosinophils % 2.3 Basophils % 0.2 Nucleated Red Blood Cells % 0.1 H Neutrophils # 22.4 H Lymphocytes # 0.9 Monocytes # 1.0 H Eosinophils # 0.6 H Basophils # 0.1 Nucleated Red Blood Cells # 0.0 Sodium Level 139 Potassium Level 3.3 L Chloride Level 116 H Carbon Dioxide Level 16 L Anion Gap 10 Blood Urea Nitrogen 29 H Creatinine 1.46 H Glucose Level 242 H Calcium Level 7.3 L Phosphorus Level 4.2 Magnesium Level 1.8 Test 01/04/17 04:33 01/04/17 08:26 01/04/17 12:38 Bedside Glucose 248 H 263 H 187 Medications Current Medications Ondansetron HCl (Zofran Inj) 4 mg Q6H PRN IV NAUSEA AND/OR VOMITING; Start 01/29 at 01:00 Acetaminophen (Tylenol Tab) 650 mg Q6H PRN PO PAIN LEVEL 1-3 OR FEVER Last administered on 01/02/17 08:56; Admin Dose 650 MG; Start 12/23/16 at 01:00 Propranolol HCl (Inderal) 10 mg BID PO Last administered on 12/25/16 10:20; Admin Dose 10 MG; Start 12/23/16 at 01:30; Status Future Hold Docusate Sodium (Colace) 100 mg DAILY PO Last administered on 01/02/17 08:16; Admin Dose 100 MG; Start 12/23/16 at 09:00 Miscellaneous Information 1 ea NOTE XX ; Start 12/23/16 at 02:30 Furosemide (Lasix) 40 mg DAILY PO Last administered on 12/25/16 10:20; Admin Dose 40 MG; Start 12/24/16 at 09:00; Status Future Hold Rifaximin (Xifaxan) 550 mg BID PO Last administered on 01/04/17 08:20; Admin Dose 550 MG; Start 12/24/16 at 21:00 Lactulose (Enulose) 30 gm Q6H PRN PO CONSTIPATION Last administered on 16:13; Admin Dose 30 GM; Start 12/25/16 at 16:00 Eye Lubricant 1 applic 1 applic Q4 BOTH EYES Last administered on 01/04/17 12: 20; Admin Dose 1 APPLIC; Start 12/25/16 at 21:00 Norepinephrine 16 mg/Dextrose 500 ml @ 1.87 mls/hr TITRATE IV Last administered on 01/03/17 22:03; Admin Dose 5.62 MLS/HR; Start 12/26/16 at 03:00 Piperacillin Sod/ Tazobactam Sod 100 ml @ 100 mls/hr Q8 IVPB Last administered on 01/04/17 13:35; Admin Dose 100 MLS/HR; Start 12/26/16 at 06:30 Levetiracetam (Keppra 500 Mg/ 100ml (Pmx)) 100 ml @ 400 mls/hr Q12 IVPB Last administered on 01/04/17 08:20; Admin Dose 400 MLS/HR; Start 12/26/16 at 21:00 Lorazepam (Ativan) 1 mg Q2 PRN IV Seizures Last administered on 01/03/17 21:26 ; Admin Dose 1 MG; Start 12/26/16 at 09:30 IV Flush (NS 10 ml) 10 ml PRN PRN IV FLUSH LINE; Start 12/29/16 at 12:00 Ferrous Sulfate (Feosol Liquid Cup) 300 mg BID GTB Last administered on 08:20; Admin Dose 300 MG; Start 12/30/16 at 09:00 Morphine Sulfate (morphine) 2 mg Q2H PRN IV SEDATION Last administered on 18:31; Admin Dose 2 MG; Start 01/01/17 at 10:00 Lorazepam 2 mg 2 mg Q6H PRN IV AGITATION Last administered on 01/04/17 15:27; Admin Dose 2 MG; Start 01/01/17 at 16:30 Sodium Chloride (NS) 1,000 ml @ 75 mls/hr [id number] IV Last administered on 01/04 07:30; Admin Dose 75 MLS/HR; Start 01/02/17 at 15:00 Insulin Aspart (Novolog Insulin Pen) NOVOLOG *MILD* ALGORI... Q4 SC Last administered on 01/04/17 12:46; Admin Dose 2 UNIT; Start 01/02/17 at 17:00 Lactulose (Enulose) 30 gm Q12 NGT Last administered on 01/04/17 08:20; Admin Dose 30 GM; Start 01/03/17 at 00:00 Miscellaneous Information 1 ea NOTE XX ; Start 01/03/17 at 10:30 Glucose (Glutose) 15 gm Q15M PRN PO DECREASED GLUCOSE; Start 01/03/17 at 10:30 Glucose (Glutose) 22.5 gm Q15M PRN PO DECREASED GLUCOSE; Start 01/03/17 at 10: 30 Dextrose (D50w Syringe) 25 ml Q15M PRN IV DECREASED GLUCOSE; Start 01/03/17 at 10:30 Dextrose (D50w Syringe) 50 ml Q15M PRN IV DECREASED GLUCOSE; Start 01/03/17 at 10:30 Glucagon (Glucagen) 1 mg Q15M PRN IM DECREASED GLUCOSE; Start 01/03/17 at 10:30 Glucose 15 gm 15 gm Q15M PRN BUCCAL DECREASED GLUCOSE; Start 01/03/17 at 10:30 Vancomycin HCl 750 mg/Sodium Chloride 150 ml @ 75 mls/hr Q48H IVPB Last administered on 01/04/17 06:58; Admin Dose 75 MLS/HR; Start 01/04/17 at 06:00 Sodium Chloride (NS) 1,000 ml @ 75 mls/hr [id number] IV Last administered on 01/03 14:51; Admin Dose 75 MLS/HR; Start 01/03/17 at 14:30 Insulin Glargine (Lantus) 20 unit DAILY@20 SC ; Start 01/04/17 at 20:00 Assessment/Plan Chief Complaint/Hosp Course Assessment 1. Massive GI bleed secondary to esophageal varices 2. Hypovolemic and septic shock. 3. History of cirrhosis with portal hypertension 4. Thrombocytopenia likely secondary to liver disease 5. Renal insufficiency now resolved. 6. Acute hypoxemic respiratory failure secondary to above Plan 1. Continue mechanical ventilation. Change in condition noted. 2. Continue proton pump inhibitor 3 continue tube feeding as tolerated Prognosis guarded. Critical care time 40 minutes. Discussed with patient's sister and son at bedside. Explained deterioration in condition and goals of care. Family feel that tracheostomy and PEG tube are not consistent with patient's wishes they are considering comfort measures. Will monitor over the next 24 hours and address switch to palliative care tomorrow morning with patient's family. Problems: JÚNIOR AGUILERA MD, [facility] Jan 04, 2017 16:27
--- NOTE | 2017-01-04 19:20 | PN ---
Date/Time of Note Date/Time of Note DATE: 01/04/17 TIME: 19:20 Assessment/Plan Lines/Catheters IV Catheter Type (from Nrs): PICC Line Pereyra in Place (from Nrsg): Yes Assessment/Plan Chief Complaint/Hosp Course IMPRESSION: 1. Respiratory failure. 2. Renal failure. 3. Hypernatremia. 4. End-stage liver disease with cirrhosis. 5. Seizure disorder. 6. Gastrointestinal bleed. 7. Thrombocytopenia. 8. Coagulopathy. 9. Anemia. RECOMMENDATIONS: Trach on hold per family Problems: Subjective 24 Hr Interval Summary Constitutional: improved Pain Control: mild Exam/Review of Systems Vital Signs Vitals Vital Signs Date Time Temp Pulse Resp B/P Pulse Ox O2 Delivery O2 Flow Rate FiO2 01/04/17 19:00 120 29 118/58 96 Mechanical Ventilator 01/04/17 16:38 40 01/04/17 12:00 99.1 Intake and Output 01/03/17 01/03/17 01/04/17 15:00 23:00 07:00 Intake Total 1286.24 ml 1214.37 ml 1084.96 ml Output Total 360 ml 465 ml 360 ml Balance 926.24 ml 749.37 ml 724.96 ml Exam ENMT: mucosa pink and moist, nl external ears & nose, nl lips & teeth, nl nasal mucosa & septum Neck: non-tender, supple Respiratory: clear to auscultation, normal air movement Cardiovascular: nl pulses, regular rate and rhythm Results Result Diagram: 01/04/170 01/04/17429 JOJO DAVIDSON MD Jan 04, 2017 19:20
[2017-01-04] MEDS: morphine 2 MG INJ IV PRN (19:35)
[2017-01-04] MEDS ORDERED: INSULIN GLARGINE [LANtus] 3 ML PEN SC SCH (20:00)
[2017-01-05] VITALS (89 sets, daily range): BP systolic 93–132; BP diastolic 44–66; PULSE 99–118; RESP 20–36
[2017-01-05] MEDS: INSULIN ASPART [NOVOLOG] 3 ML PEN SC SCH ×6 (01:08→21:05)
[2017-01-05] MEDS: OCULAR LUBRICANT 3.5 GM OPH OINT BOTH EYES SCH ×6 (01:09→21:00)
[2017-01-05] MEDS: IPRATROPIUM (HFA) 12.9 GM INHALER INH SCH ×6 (01:48→20:04)
[2017-01-05] MEDS: ALBUTEROL 18 GM INHALER INH SCH ×6 (01:49→20:05)
[2017-01-05] MEDS: PIPER-TAZO 3.375 GM IV (PMX) 100 ML IVPB SCH ×3 (05:28→22:05)
[2017-01-05 05:35] LABS: ABNORMAL IP MESSAGE 1; BASOPHIL # 0.1 10^3/ul (0.0-0.1); BASOPHILS % 0.3 % (0.0-2.0); EOSINOPHILS # 0.6 10^3/ul (0.0-0.5); EOSINOPHILS % 3.1 % (0.0-7.0); HEMATOCRIT 22.8 % (37.0-47.0); HEMOGLOBIN 7.5 g/dl (12.0-16.0); LYMPHOCYTES % 4.9 % (15.0-51.0); MEAN CORPUSCULAR HEMOGLOBIN 36.1 pg (29.0-33.0); MEAN CORPUSCULAR HGB CONC 32.9 g/dl (32.0-37.0); MEAN CORPUSCULAR VOLUME 109.6 fl (82.0-101.0); MEAN PLATELET VOLUME 11.7 fl (7.4-10.4); MONOCYTES % 5.1 % (0.0-11.0); NEUTROPHIL # 17.4 10^3/ul (1.6-7.5); NEUTROPHILS % 85.8 % (39.0-77.0); NUCLEATED RED BLOOD CELLS% 0.1 /100WBC (0.0-0.0); PLATELET COUNT 76 10^3/UL (140-415); RED BLOOD COUNT 2.08 10^6/ul (4.20-5.40); RED CELL DISTRIBUTION WIDTH 19.9 % (11.5-14.5); WHITE BLOOD COUNT 20.3 10^3/ul (4.8-10.8)
[2017-01-05 05:40] LABS: POSITIVE DIFF @See below
[2017-01-05 06:26] LABS: CALCIUM 7.3 mg/dl (8.4-10.2); CREATININE 1.33 mg/dl (0.44-1.00); MAGNESIUM 1.8 mg/dl (1.7-2.5); PHOSPHORUS 4.4 mg/dl (2.5-4.9); POTASSIUM 3.6 mmol/L (3.5-5.1)
[2017-01-05] MEDS: SOD CHLORIDE 0.9% 1,000 ML IV SCH ×4 (06:30→23:00)
--- NOTE | 2017-01-05 07:39 | RADRPT ---
PROCEDURE: XR Chest. CLINICAL INDICATION: Shortness of breath. TECHNIQUE: Single frontal view. COMPARISON: 12/29/2016. FINDINGS: The endotracheal tube, nasogastric tube, and right arm PICC line remain in satisfactory position. Th ere is extensive bilateral pulmonary air space disease, worse than seen previously. The heart size is normal. There is no pleural effusion. There is no pneumothorax. IMPRESSION: 1. Worse appearance of the lungs. 2. No other change from 12/29/2016. RPTAT: QQ .Felice Reno MD, MD Date Time Electronically viewed and signed by .Felice Reno MD, MD on 01/05/2017 07:39 .R/
--- NOTE | 2017-01-05 08:14 | PN ---
DATE: 01/05/2017 SUBJECTIVE DATA: The patient remains critically ill, on presser support. No other acute events noted. No hemoptysis, hematemesis, hematochezia. OBJECTIVE DATA: VITAL SIGNS: Blood pressure 119/56, respirations 27, pulse 108, temperature 98.2. HEENT: Head is normocephalic. NECK: Supple. HEART: Regular rate. LUNGS: Diminished breath sounds at the base. ABDOMEN: Soft, nontender to palpation. No guarding. EXTREMITIES: Negative for clubbing, cyanosis. Positive edema. DERMATOLOGIC: Clean. No rashes. MUSCULOSKELETAL: No joint effusion. NEUROLOGIC: Unchanged exam. MEDICATIONS: Reviewed. LABORATORY AND DIAGNOSTIC DATA: Shows sodium 141, potassium 3.6, chloride 119, bicarb 16, BUN 29, creatinine 1.33. White count 20.3, hemoglobin 7.5, hematocrit 22.8, platelet count is 76,000. ASSESSMENT AND PLAN: 1. Nonoliguric acute kidney injury, etiology secondary to acute tubular necrosis. Renal function has been fluctuating but overall improving. Continue current treatment plan. Supportive family. Renal dose all meds. 2. Hypokalemia. Continue to monitor and replete. 3. Mineral bone disorder. Monitor calcium and phosphorus levels. 4. Anemia. Monitor H and H levels. 5. Septic shock. The patient remains on presser support, intravenous fluids, IV antibiotics, continue. 6. Ventilatory-dependent respiratory failure. Vent settings and ABGs reviewed. Continue to monitor. 7. Seizure disorder. Continue current treatment plan. 8. Cirrhosis. Continue current medical management. 9. Status post gastrointestinal bleed. 10. Encephalopathy, etiology is multifactorial. Please note, I spent over 30 minutes of critical care time with this patient. Dictated By: Will Gonzales DO /rafael/cande /Document#: [id number]
[2017-01-05] MEDS: DOCUSATE SODIUM 100 MG CAP PO SCH (09:00)
[2017-01-05 09:05] LABS: AADO2 Arterial 158.7 mmHg (7.0-24.0); Allen Test ACCEPTAB; Arterial COHb 0.1 % (0.0-3.0); Arterial Fraction of Oxyhgb 95.5 % (93.0-99.0); Arterial HCO3 14.9 mmol/L (22.0-26.0); Arterial MetHb 0.7 % (0.0-1.5); Arterial Total Hemglobin 7.7 g/dl (12.0-18.0); MODE VENT - AC
[2017-01-05] MEDS: RIFAXIMIN 550 MG TAB PO SCH ×2 (09:06→21:00)
[2017-01-05] MEDS: LACTULOSE 30ML CUP NGT SCH ×2 (09:06→21:00)
[2017-01-05] MEDS: FERROUS SULFATE 60 MG/ML 5ML CUP GTB SCH ×2 (09:06→21:00)
[2017-01-05] MEDS: LEVETIRACETAM 500 MG (PMX) 100 ML IVPB SCH ×2 (09:06→21:00)
--- NOTE | 2017-01-05 09:31 | PN ---
Date/Time of Note Date/Time of Note DATE: 01/05/17 TIME: 09:27 Assessment/Plan VTE Prophylaxis VTE Prophylaxis Intervention: contraindicated Lines/Catheters IV Catheter Type (from Nrsg): PICC Line Central line still needed: Yes Urinary Cath still in place: Yes Reason Cath still needed: terminal illness/intractable pain Assessment/Plan Assessment/Plan 1. Acute hypoxemic respiratory failure on mechanical ventilation - Pulmonary on board and recommendations appreciated. Continue vent management per pulm - CXR this am shows extensive bilateral pulmonary air space disease, worse than seen previously. 2. Hypotensive shock - Goal of MAP >60 - Still requiring pressor support - 2D Echo shows preserved EF, Cardiology on board and recommendations appreciated 3. Toxic metabolic encephalopathy with Hepatic encephalopathy with coma and hyperammonemia secondary to end-stage liver disease - Continue lactulose 4. Acute GI bleed secondary to varices status post banding-now stable - H/H stable 5. Acute Kidney Injury, likely hemodynamics - Nephrology on board and recommendations appreciated - on IVF NSS at 75cc - Monitor renal fxn closely. - monitoring electrolytes and replacing as needed 6. 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 - Negative Hep panel 7. New-onset Seizures. -Neurology on board and recommendations appreciated -EEG shows encephalopathy -Ativan PRN, continue Keppra 8. Hypernatremia with free water deficit- resolved 9. Leukocytosis likely secondary to UTI - Urine culture shows K pneumoniae 10. Azotemia 2/2 dehydration/GIB - Continue IVFs 11. Hyperglycemia with Adult-onset Diabetes mellitus-Poorly controlled. - Patient is currently receiving TPN. Sugars still in the 200s and will increase Lantus to 28 units - ISS increased to moderate dose - monitor for hypoglycemia and will adjust insulin requirement as needed 12. Anemia of chronic disease and acute blood loss anemia from GI bleed - stable.Will monitor. 13. Thrombocytopenia of liver disease - stable 14. Disposition - PEG/Trach cancelled for time being. Awaiting joel decision to pursue comfort care vs continue current medical management' >35 minutes of critical care time was spent with patient Subjective 24 Hr Interval Summary Free Text/Dictation Patient remains intubated with minimal response and no purposeful movements. CXR this am shows worsening air space disease. Awaiting joel decision to start comfort care vs continue current management. Exam/Review of Systems Vital Signs Vitals Vital Signs Date Time Temp Pulse Resp B/P Pulse Ox O2 Delivery O2 Flow Rate FiO2 01/05/17 08:46 102 25 95 40 01/05/17 06:15 119/56 Mechanical Ventilator 01/05/17 04:00 98.7 Intake and Output 01/04/17 01/04/17 01/05/17 15:00 23:00 07:00 Intake Total 1567.46 ml 1001.21 ml 1166.21 ml Output Total 430 ml 595 ml 930 ml Balance 1137.46 ml 406.21 ml 236.21 ml Exam General: NAD, on ventilator support, no response to stimulus CVS: regular rate and rhythm, no murmurs Lungs: diminished at bases, no crackles or wheezing Abd: soft, NT, slight distention, no rebound or guarding Ext: diffuse anasarca, petechia UE, no cyanosis or clubbing Neuro: not following commands Results Result Diagram: 01/05/17 0440 01/05/17 0440 Results 24 hrs Laboratory Tests Test 01/04/17 12:38 01/04/17 16:44 01/04/17 22:58 01/05/17 01:02 Bedside Glucose 187 222 H 190 233 H Test 01/05/17 04:40 01/05/17 05:27 01/05/17 07:00 01/05/17 09:04 White Blood Count 20.3 H Red Blood Count 2.08 L Hemoglobin 7.5 L Hematocrit 22.8 L Mean Corpuscular Volume 109.6 H Mean Corpuscular Hemoglobin 36.1 H Mean Corpuscular Hemoglobin Concent 32.9 Red Cell Distribution Width 19.9 H Platelet Count 76 L Mean Platelet Volume 11.7 H Neutrophils % 85.8 H Lymphocytes % 4.9 L Monocytes % 5.1 Eosinophils % 3.1 Basophils % 0.3 Nucleated Red Blood Cells % 0.1 H Neutrophils # 17.4 H Lymphocytes # 1.0 Monocytes # 1.0 H Eosinophils # 0.6 H Basophils # 0.1 Nucleated Red Blood Cells # 0.0 Sodium Level 141 Potassium Level 3.6 Chloride Level 119 H Carbon Dioxide Level 16 L Anion Gap 10 Blood Urea Nitrogen 29 H Creatinine 1.33 H Glucose Level 217 Calcium Level 7.3 L Phosphorus Level 4.4 Magnesium Level 1.8 Bedside Glucose 246 H 240 H Blood Gas Specimen Source Blood arterial Arterial Blood Date Drawn 01/05/2017 8:45:54 AM Arterial Blood pH (Temp corrected) 7.327 L Arterial Blood pCO2 (Temp correct) 29.2 L Arterial Blood pO2 (Temp corrected) 92.9 Arterial Blood HCO3 14.9 L Arterial Blood Base Excess -10.0 L Arterial Blood Oxygen Saturation 96.3 Rene Test ACCEPTAB Arterial Blood Gas Puncture Site Right Radial Arterial Blood Carboxyhemoglobin 0.1 Arterial Blood Methemoglobin 0.7 Blood Gas A-a O2 Differential 158.7 H Oxyhemoglobin Percent 95.5 Total Hemoglobin 7.7 L Blood Gas Temperature 37.0 Blood Gas Respiration Rate 16.0 Blood Gas Actual Respiration Rate 30 Blood Gas Modality VENT - AC FiO2 40.0 Blood Gas Tidal Volume 400.0 Blood Gas Low PEEP Setting 5.0 Blood Gas Notified Whom DT Blood Gas Notified Time 12/29/2016 9:04:34 AM Medications Medications Current Medications Ondansetron HCl (Zofran Inj) 4 mg Q6H PRN IV NAUSEA AND/OR VOMITING; Start 01/29 at 01:00 Acetaminophen (Tylenol Tab) 650 mg Q6H PRN PO PAIN LEVEL 1-3 OR FEVER Last administered on 01/02/17 08:56; Admin Dose 650 MG; Start 12/23/16 at 01:00 Propranolol HCl (Inderal) 10 mg BID PO Last administered on 12/25/16 10:20; Admin Dose 10 MG; Start 12/23/16 at 01:30; Status Future Hold Docusate Sodium (Colace) 100 mg DAILY PO Last administered on 01/02/17 08:16; Admin Dose 100 MG; Start 12/23/16 at 09:00 Miscellaneous Information 1 ea NOTE XX ; Start 12/23/16 at 02:30 Furosemide (Lasix) 40 mg DAILY PO Last administered on 12/25/16 10:20; Admin Dose 40 MG; Start 12/24/16 at 09:00; Status Future Hold Rifaximin (Xifaxan) 550 mg BID PO Last administered on 01/05/17 09:06; Admin Dose 550 MG; Start 12/24/16 at 21:00 Lactulose (Enulose) 30 gm Q6H PRN PO CONSTIPATION Last administered on 16:13; Admin Dose 30 GM; Start 12/25/16 at 16:00 Eye Lubricant 1 applic 1 applic Q4 BOTH EYES Last administered on 01/05/17 09: 06; Admin Dose 1 APPLIC; Start 12/25/16 at 21:00 Norepinephrine 16 mg/Dextrose 500 ml @ 1.87 mls/hr TITRATE IV Last administered on 01/03/17 22:03; Admin Dose 5.62 MLS/HR; Start 12/26/16 at 03:00 Piperacillin Sod/ Tazobactam Sod 100 ml @ 100 mls/hr Q8 IVPB Last administered on 01/05/17 05:28; Admin Dose 100 MLS/HR; Start 12/26/16 at 06:30 Levetiracetam (Keppra 500 Mg/ 100ml (Pmx)) 100 ml @ 400 mls/hr Q12 IVPB Last administered on 01/05/17 09:06; Admin Dose 400 MLS/HR; Start 12/26/16 at 21:00 Lorazepam (Ativan) 1 mg Q2 PRN IV Seizures Last administered on 01/03/17 21:26 ; Admin Dose 1 MG; Start 12/26/16 at 09:30 IV Flush (NS 10 ml) 10 ml PRN PRN IV FLUSH LINE; Start 12/29/16 at 12:00 Ferrous Sulfate (Feosol Liquid Cup) 300 mg BID GTB Last administered on 09:06; Admin Dose 300 MG; Start 12/30/16 at 09:00 Morphine Sulfate (morphine) 2 mg Q2H PRN IV SEDATION Last administered on 19:35; Admin Dose 2 MG; Start 01/01/17 at 10:00 Lorazepam 2 mg 2 mg Q6H PRN IV AGITATION Last administered on 01/04/17 23:12; Admin Dose 2 MG; Start 01/01/17 at 16:30 Sodium Chloride (NS) 1,000 ml @ 75 mls/hr [id number] IV Last administered on 01/04 07:30; Admin Dose 75 MLS/HR; Start 01/02/17 at 15:00 Insulin Aspart (Novolog Insulin Pen) NOVOLOG *MILD* ALGORI... Q4 SC Last administered on 01/05/17 09:10; Admin Dose 3 UNIT; Start 01/02/17 at 17:00 Lactulose (Enulose) 30 gm Q12 NGT Last administered on 01/05/17 09:06; Admin Dose 30 GM; Start 01/03/17 at 00:00 Miscellaneous Information 1 ea NOTE XX ; Start 01/03/17 at 10:30 Glucose (Glutose) 15 gm Q15M PRN PO DECREASED GLUCOSE; Start 01/03/17 at 10:30 Glucose (Glutose) 22.5 gm Q15M PRN PO DECREASED GLUCOSE; Start 01/03/17 at 10: 30 Dextrose (D50w Syringe) 25 ml Q15M PRN IV DECREASED GLUCOSE; Start 01/03/17 at 10:30 Dextrose (D50w Syringe) 50 ml Q15M PRN IV DECREASED GLUCOSE; Start 01/03/17 at 10:30 Glucagon (Glucagen) 1 mg Q15M PRN IM DECREASED GLUCOSE; Start 01/03/17 at 10:30 Glucose 15 gm 15 gm Q15M PRN BUCCAL DECREASED GLUCOSE; Start 01/03/17 at 10:30 Vancomycin HCl 750 mg/Sodium Chloride 150 ml @ 75 mls/hr Q48H IVPB Last administered on 01/04/17 06:58; Admin Dose 75 MLS/HR; Start 01/04/17 at 06:00 Sodium Chloride (NS) 1,000 ml @ 75 mls/hr [id number] IV Last administered on 01/03 14:51; Admin Dose 75 MLS/HR; Start 01/03/17 at 14:30 Insulin Glargine (Lantus) 28 unit DAILY@20 SC ; Start 01/05/17 at 20:00 Insulin Aspart (Novolog Insulin Pen) NOVOLOG *MODERATE* ALGORI... Q4 SC ; Start 01/05/17 at 13:00; Status UNV Miscellaneous Information (* Miscellaneous Pharmacy Order) Discontinue all previ... ONCE ONCE XX ; Start 01/05/17 at 09:30; Stop 01/05/17 at 09:31; Status UNV BLACK STOKES MD Jan 05, 2017 09:31
[2017-01-05] MEDS: morphine 2 MG INJ IV PRN (11:50)
--- NOTE | 2017-01-05 11:50 | CONS ---
Date/Time of Note Date/Time of Note DATE: 01/05/17 TIME: 11:48 Assessment/Plan Assessment/Plan Additional Assessment/Plan Ventilator setting; AC of 16, tidal volume 400, PEEP of 5, 40% FiO2. Assessment and recommendations; 1. Patient admitted with massive upper GI bleed status post variceal banding. 2. Severe encephalopathy. 3. Anemia and thrombocytopenia. 4. Renal insufficiency. 5. Bilateral pneumonia. 6. Seizure disorder. Continue current supportive care. Prognosis is extremely poor. Consultation Date/Type/Reason Admit Date/Time Dec 22, 2016 at 22:41 Initial Consult Date 12/26/16 Type of Consultation: Pulmonary/critical care 24 HR Interval Summary Free Text/Dictation Patient's condition remains critical. Remains completely unresponsive. Patient however has remained hemodynamically stable. General exam; elderly woman, orally intubated, unresponsive, currently in no distress. Exam/Review of Systems Vital Signs Vitals Vital Signs Date Time Temp Pulse Resp B/P Pulse Ox O2 Delivery O2 Flow Rate FiO2 01/05/17 11:11 112 23 94 40 01/05/17 10:30 125/64 01/05/17 10:00 Mechanical Ventilator 01/05/17 08:00 98.4 Intake and Output 01/04/17 01/04/17 01/05/17 15:00 23:00 07:00 Intake Total 1567.46 ml 1001.21 ml 1241.21 ml Output Total 430 ml 595 ml 930 ml Balance 1137.46 ml 406.21 ml 311.21 ml Exam HEENT exam; supple neck, no JVD. No lymphadenopathy. Midline trachea. No thyromegaly. Orally intubated. Patient has a multiple carious teeth. Pupils are small bilaterally. Chest exam; scattered crackles bilaterally. S1-S2 audible, no murmurs. Abdomen exam; soft, nondistended. Bowel sounds are sluggish. Extremity exam; 2+ anasarca. Patient has a multiple ecchymosis involving all 4 extremities. 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 Results Result Diagram: 01/05/17 0440 01/05/17 0440 Results 24 hrs Laboratory Tests Test 01/04/17 12:38 01/04/17 16:44 01/04/17 22:58 01/05/17 01:02 Bedside Glucose 187 222 H 190 233 H Test 01/05/17 04:40 01/05/17 05:27 01/05/17 07:00 01/05/17 09:04 White Blood Count 20.3 H Red Blood Count 2.08 L Hemoglobin 7.5 L Hematocrit 22.8 L Mean Corpuscular Volume 109.6 H Mean Corpuscular Hemoglobin 36.1 H Mean Corpuscular Hemoglobin Concent 32.9 Red Cell Distribution Width 19.9 H Platelet Count 76 L Mean Platelet Volume 11.7 H Neutrophils % 85.8 H Lymphocytes % 4.9 L Monocytes % 5.1 Eosinophils % 3.1 Basophils % 0.3 Nucleated Red Blood Cells % 0.1 H Neutrophils # 17.4 H Lymphocytes # 1.0 Monocytes # 1.0 H Eosinophils # 0.6 H Basophils # 0.1 Nucleated Red Blood Cells # 0.0 Sodium Level 141 Potassium Level 3.6 Chloride Level 119 H Carbon Dioxide Level 16 L Anion Gap 10 Blood Urea Nitrogen 29 H Creatinine 1.33 H Glucose Level 217 Calcium Level 7.3 L Phosphorus Level 4.4 Magnesium Level 1.8 Bedside Glucose 246 H 240 H Blood Gas Specimen Source Blood arterial Arterial Blood Date Drawn 01/05/2017 8:45:54 AM Arterial Blood pH (Temp corrected) 7.327 L Arterial Blood pCO2 (Temp correct) 29.2 L Arterial Blood pO2 (Temp corrected) 92.9 Arterial Blood HCO3 14.9 L Arterial Blood Base Excess -10.0 L Arterial Blood Oxygen Saturation 96.3 Rene Test ACCEPTAB Arterial Blood Gas Puncture Site Right Radial Arterial Blood Carboxyhemoglobin 0.1 Arterial Blood Methemoglobin 0.7 Blood Gas A-a O2 Differential 158.7 H Oxyhemoglobin Percent 95.5 Total Hemoglobin 7.7 L Blood Gas Temperature 37.0 Blood Gas Respiration Rate 16.0 Blood Gas Actual Respiration Rate 30 Blood Gas Modality VENT - AC FiO2 40.0 Blood Gas Tidal Volume 400.0 Blood Gas Low PEEP Setting 5.0 Blood Gas Notified Whom DT Blood Gas Notified Time 12/29/2016 9:04:34 AM Medications Medications Current Medications Ondansetron HCl (Zofran Inj) 4 mg Q6H PRN IV NAUSEA AND/OR VOMITING; Start 01/29 at 01:00 Acetaminophen (Tylenol Tab) 650 mg Q6H PRN PO PAIN LEVEL 1-3 OR FEVER Last administered on 01/02/17t 08:56; Admin Dose 650 MG; Start 12/23/16 at 01:00 Propranolol HCl (Inderal) 10 mg BID PO Last administered on 12/25/16 10:20; Admin Dose 10 MG; Start 12/23/16 at 01:30; Status Future Hold Docusate Sodium (Colace) 100 mg DAILY PO Last administered on 01/02/17 08:16; Admin Dose 100 MG; Start 12/23/16 at 09:00 Miscellaneous Information 1 ea NOTE XX ; Start 12/23/16 at 02:30 Furosemide (Lasix) 40 mg DAILY PO Last administered on 12/25/16 10:20; Admin Dose 40 MG; Start 12/24/16 at 09:00; Status Future Hold Rifaximin (Xifaxan) 550 mg BID PO Last administered on 01/05/17 09:06; Admin Dose 550 MG; Start 12/24/16 at 21:00 Lactulose (Enulose) 30 gm Q6H PRN PO CONSTIPATION Last administered on 16:13; Admin Dose 30 GM; Start 12/25/16 at 16:00 Eye Lubricant 1 applic 1 applic Q4 BOTH EYES Last administered on 01/05/17 09: 06; Admin Dose 1 APPLIC; Start 12/25/16 at 21:00 Norepinephrine 16 mg/Dextrose 500 ml @ 1.87 mls/hr TITRATE IV Last administered on 01/03/17 22:03; Admin Dose 5.62 MLS/HR; Start 12/26/16 at 03:00 Piperacillin Sod/ Tazobactam Sod 100 ml @ 100 mls/hr Q8 IVPB Last administered on 01/05/17 05:28; Admin Dose 100 MLS/HR; Start 12/26/16 at 06:30 Levetiracetam (Keppra 500 Mg/ 100ml (Pmx)) 100 ml @ 400 mls/hr Q12 IVPB Last administered on 01/05/17 09:06; Admin Dose 400 MLS/HR; Start 12/26/16 at 21:00 Lorazepam (Ativan) 1 mg Q2 PRN IV Seizures Last administered on 01/03/17 21:26 ; Admin Dose 1 MG; Start 12/26/16 at 09:30 IV Flush (NS 10 ml) 10 ml PRN PRN IV FLUSH LINE; Start 12/29/16 at 12:00 Ferrous Sulfate (Feosol Liquid Cup) 300 mg BID GTB Last administered on 09:06; Admin Dose 300 MG; Start 12/30/16 at 09:00 Morphine Sulfate (morphine) 2 mg Q2H PRN IV SEDATION Last administered on 19:35; Admin Dose 2 MG; Start 01/01/17 at 10:00 Lorazepam 2 mg 2 mg Q6H PRN IV AGITATION Last administered on 01/04/17 23:12; Admin Dose 2 MG; Start 01/01/17 at 16:30 Sodium Chloride (NS) 1,000 ml @ 75 mls/hr [id number] IV Last administered on 01/05 09:40; Admin Dose 75 MLS/HR; Start 01/02/17 at 15:00 Lactulose (Enulose) 30 gm Q12 NGT Last administered on 01/05/17 09:06; Admin Dose 30 GM; Start 01/03/17 at 00:00 Miscellaneous Information 1 ea NOTE XX ; Start 01/03/17 at 10:30 Glucose (Glutose) 15 gm Q15M PRN PO DECREASED GLUCOSE; Start 01/03/17 at 10:30 Glucose (Glutose) 22.5 gm Q15M PRN PO DECREASED GLUCOSE; Start 01/03/17 at 10: 30 Dextrose (D50w Syringe) 25 ml Q15M PRN IV DECREASED GLUCOSE; Start 01/03/17 at 10:30 Dextrose (D50w Syringe) 50 ml Q15M PRN IV DECREASED GLUCOSE; Start 01/03/17 at 10:30 Glucagon (Glucagen) 1 mg Q15M PRN IM DECREASED GLUCOSE; Start 01/03/17 at 10:30 Glucose 15 gm 15 gm Q15M PRN BUCCAL DECREASED GLUCOSE; Start 01/03/17 at 10:30 Vancomycin HCl 750 mg/Sodium Chloride 150 ml @ 75 mls/hr Q48H IVPB Last administered on 01/04/17 06:58; Admin Dose 75 MLS/HR; Start 01/04/17 at 06:00 Sodium Chloride (NS) 1,000 ml @ 75 mls/hr [id number] IV Last administered on 01/03 14:51; Admin Dose 75 MLS/HR; Start 01/03/17 at 14:30 Insulin Glargine (Lantus) 28 unit DAILY@20 SC ; Start 01/05/17 at 20:00 Insulin Aspart (Novolog Insulin Pen) NOVOLOG *MODERATE* ALGORI... Q4 SC ; Start 01/05/17 at 13:00 KAYLA HUNTER Jan 05, 2017 11:50
[2017-01-05] MEDS: BALSAM PERU/CASTOR OIL 60 GM TUBE TOP SCH ×2 (11:53→21:01)
[2017-01-05] MEDS ORDERED: INSULIN GLARGINE [LANtus] 3 ML PEN SC SCH (20:00)
[2017-01-06] VITALS (60 sets, daily range): BP systolic 85–127; BP diastolic 43–69; PULSE 91–105; RESP 8–27
[2017-01-06] MEDS: IPRATROPIUM (HFA) 12.9 GM INHALER INH SCH ×4 (00:37→13:33)
[2017-01-06] MEDS: ALBUTEROL 18 GM INHALER INH SCH ×4 (00:37→13:33)
[2017-01-06] MEDS: OCULAR LUBRICANT 3.5 GM OPH OINT BOTH EYES SCH ×5 (01:06→21:00)
[2017-01-06] MEDS: INSULIN ASPART [NOVOLOG] 3 ML PEN SC SCH ×4 (01:15→14:14)
[2017-01-06 04:55] LABS: ABNORMAL IP MESSAGE 1; BASOPHIL # 0.1 10^3/ul (0.0-0.1); BASOPHILS % 0.3 % (0.0-2.0); EOSINOPHILS # 0.6 10^3/ul (0.0-0.5); EOSINOPHILS % 3.6 % (0.0-7.0); HEMATOCRIT 23.3 % (37.0-47.0); HEMOGLOBIN 7.4 g/dl (12.0-16.0); LYMPHOCYTES # 0.8 10^3/ul (0.8-2.9); LYMPHOCYTES % 4.9 % (15.0-51.0); MEAN CORPUSCULAR HEMOGLOBIN 35.4 pg (29.0-33.0); MEAN CORPUSCULAR HGB CONC 31.8 g/dl (32.0-37.0); MEAN CORPUSCULAR VOLUME 111.5 fl (82.0-101.0); MEAN PLATELET VOLUME 12.1 fl (7.4-10.4); MONOCYTES % 6.4 % (0.0-11.0); NEUTROPHIL # 13.6 10^3/ul (1.6-7.5); NEUTROPHILS % 84.2 % (39.0-77.0); PLATELET COUNT 61 10^3/UL (140-415); RED BLOOD COUNT 2.09 10^6/ul (4.20-5.40); RED CELL DISTRIBUTION WIDTH 19.8 % (11.5-14.5); WHITE BLOOD COUNT 16.2 10^3/ul (4.8-10.8)
[2017-01-06 05:12] LABS: POSITIVE DIFF @See below
[2017-01-06 05:15] LABS: CALCIUM 7.7 mg/dl (8.4-10.2); CREATININE 1.24 mg/dl (0.44-1.00); MAGNESIUM 1.8 mg/dl (1.7-2.5); PHOSPHORUS 4.6 mg/dl (2.5-4.9); POTASSIUM 3.4 mmol/L (3.5-5.1)
[2017-01-06] MEDS: VANCOMYCIN 750 MG in SOD CHLORIDE 0.9% 150 ML IVPB SCH (05:33)
[2017-01-06] MEDS: PIPER-TAZO 3.375 GM IV (PMX) 100 ML IVPB SCH ×2 (05:33→14:43)
--- NOTE | 2017-01-06 07:44 | PN ---
DATE: 01/06/2017 SUBJECTIVE DATA: The patient is in critical condition. Currently off presser support. No other events noted. No hemoptysis, hematemesis, hematochezia. OBJECTIVE DATA: VITAL SIGNS: Blood pressure is 106/56, respirations 20, pulse temperature 97.8. HEENT: Head is normocephalic. NECK: Supple. HEART: Regular rate. LUNGS: Diminished breath sounds at the base. ABDOMEN: Soft. Nontender to palpation. No rebound or guarding. EXTREMITIES: Negative for clubbing, cyanosis. No edema. DERMATOLOGIC: No rashes. MUSCULOSKELETAL: No joint effusion. NEUROLOGIC: No change in exam. MEDICATIONS: Reviewed. LABORATORY AND DIAGNOSTIC DATA: Shows white count 16.2, hemoglobin 7.4, hematocrit 23.3, platelet count 61. Sodium 140, potassium 3.4, chloride 119, BUN 30, creatinine 1.24. The patient's imaging studies were reviewed. ASSESSMENT AND PLAN: 1. Nonoliguric acute kidney injury, etiology secondary to acute tubular necrosis. Renal function has been stabilizing. Continue current treatment. Supportive care. Renally dose all meds. 2. Hypokalemia. Will replete potassium chloride. 3. Mineral bone disorder. Monitor calcium and phosphorus levels. 4. Anemia. Monitor H and H levels. 5. Septic shock. The patient is currently off pressor support. Continue IV fluids. Decrease rate. Continue antibiotic therapy. 6. Ventilatory-dependent respiratory failure. Vent settings and ABGs reviewed. Continue to monitor. 7. Seizure disorder. Continue current treatment plan. 8. Cirrhosis. Continue medical management. 9. Status post gastrointestinal bleed. 10. Encephalopathy. Etiology is multifactorial. Continue to monitor. Please note, I spent over 30 minutes of critical care time with this patient. Dictated By: Will Gonzales DO /[email or web address]/ethel /Document#: [id number]
[2017-01-06] MEDS: DOCUSATE SODIUM 100 MG CAP PO SCH (09:00)
[2017-01-06] MEDS: FERROUS SULFATE 60 MG/ML 5ML CUP GTB SCH (09:35)
[2017-01-06] MEDS: LACTULOSE 30ML CUP NGT SCH (09:35)
[2017-01-06] MEDS: LEVETIRACETAM 500 MG (PMX) 100 ML IVPB SCH (09:35)
[2017-01-06] MEDS: SOD CHLORIDE 0.9% 1,000 ML IV SCH ×2 (09:36→12:20)
[2017-01-06] MEDS: RIFAXIMIN 550 MG TAB PO SCH (09:36)
[2017-01-06] MEDS ORDERED: LIDOCAINE 1% (MPF) 5 ML VIAL SC ONE (10:00)
--- NOTE | 2017-01-06 11:38 | CONS ---
Date/Time of Note Date/Time of Note DATE: 01/06/17 TIME: 11:36 Assessment/Plan Assessment/Plan Additional Assessment/Plan Ventilator setting; AC of 16, tidal volume 400, PEEP of 5, 40% FiO2. Next Assessment and recommendations; 1. Patient admitted with massive upper GI bleed status post EGD with variceal banding. 2. Severe hepatic encephalopathy with profound mental unresponsiveness. 3. Chronic renal insufficiency. Possibly hepatorenal syndrome. 4. Stable seizure disorder. 5. Anemia and thrombocytopenia. 6. Diabetes. Continue current supportive care. Prognosis is very poor. Consultation Date/Type/Reason Admit Date/Time Dec 22, 2016 at 22:41 Initial Consult Date 12/26/16 Type of Consultation: Pulmonary/critical care 24 HR Interval Summary Free Text/Dictation Patient's condition remains critical. Remains completely unresponsive. However has remained hemodynamically stable. No overt seizure activity noted. General exam; middle-aged woman, orally intubated, unresponsive, currently in no distress. Exam/Review of Systems Vital Signs Vitals Vital Signs Date Time Temp Pulse Resp B/P Pulse Ox O2 Delivery O2 Flow Rate FiO2 01/06/17 11:26 99 21 99 40 01/06/17 07:00 106/56 Mechanical Ventilator 01/06/17 04:00 97.8 Intake and Output 01/05/17 01/05/17 01/06/17 15:00 23:00 07:00 Intake Total 1075 ml 1060 ml 1065 ml Output Total 765 ml 1470 ml 350 ml Balance 310 ml -410 ml 715 ml Exam HEENT exam; supple neck, no JVD. No lymphadenopathy. Midline trachea. No thyromegaly. Orally intubated. Chest exam; diminished but clear breath sounds. S1-S2 audible, no murmurs. Regular rhythm. Abdomen exam; soft, protuberant. Bowel sounds are sluggish. Extremity exam; trace edema. 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 Results Result Diagram: 01/06/17 0430 01/06/17 0430 Results 24 hrs Laboratory Tests Test 01/05/17 14:02 01/05/17 16:21 01/05/17 21:02 01/06/17 01:07 Bedside Glucose 209 195 176 213 Test 01/06/17 04:30 01/06/17 05:34 01/06/17 09:32 White Blood Count 16.2 #H Red Blood Count 2.09 L Hemoglobin 7.4 L Hematocrit 23.3 L Mean Corpuscular Volume 111.5 H Mean Corpuscular Hemoglobin 35.4 H Mean Corpuscular Hemoglobin Concent 31.8 L Red Cell Distribution Width 19.8 H Platelet Count 61 L Mean Platelet Volume 12.1 H Neutrophils % 84.2 H Lymphocytes % 4.9 L Monocytes % 6.4 Eosinophils % 3.6 Basophils % 0.3 Nucleated Red Blood Cells % 0.0 Neutrophils # 13.6 H Lymphocytes # 0.8 Monocytes # 1.0 H Eosinophils # 0.6 H Basophils # 0.1 Nucleated Red Blood Cells # 0.0 Sodium Level 140 Potassium Level 3.4 L Chloride Level 119 H Carbon Dioxide Level 18 L Anion Gap 6 L Blood Urea Nitrogen 30 H Creatinine 1.24 H Glucose Level 187 Calcium Level 7.7 L Phosphorus Level 4.6 Magnesium Level 1.8 Bedside Glucose 188 184 Medications Medications Current Medications Ondansetron HCl (Zofran Inj) 4 mg Q6H PRN IV NAUSEA AND/OR VOMITING; Start 01/29 at 01:00 Acetaminophen (Tylenol Tab) 650 mg Q6H PRN PO PAIN LEVEL 1-3 OR FEVER Last administered on 01/02/17 08:56; Admin Dose 650 MG; Start 12/23/16 at 01:00 Propranolol HCl (Inderal) 10 mg BID PO Last administered on 12/25/16 10:20; Admin Dose 10 MG; Start 12/23/16 at 01:30; Status Future Hold Docusate Sodium (Colace) 100 mg DAILY PO Last administered on 01/02/17 08:16; Admin Dose 100 MG; Start 12/23/16 at 09:00 Miscellaneous Information 1 ea NOTE XX ; Start 12/23/16 at 02:30 Furosemide (Lasix) 40 mg DAILY PO Last administered on 12/25/16 10:20; Admin Dose 40 MG; Start 12/24/16 at 09:00; Status Future Hold Rifaximin (Xifaxan) 550 mg BID PO Last administered on 01/06/17 09:36; Admin Dose 550 MG; Start 12/24/16 at 21:00 Lactulose (Enulose) 30 gm Q6H PRN PO CONSTIPATION Last administered on 16:13; Admin Dose 30 GM; Start 12/25/16 at 16:00 Eye Lubricant 1 applic 1 applic Q4 BOTH EYES Last administered on 01/06/17 09: 34; Admin Dose 1 APPLIC; Start 12/25/16 at 21:00 Norepinephrine 16 mg/Dextrose 500 ml @ 1.87 mls/hr TITRATE IV Last administered on 01/03/17 22:03; Admin Dose 5.62 MLS/HR; Start 12/26/16 at 03:00 Piperacillin Sod/ Tazobactam Sod 100 ml @ 100 mls/hr Q8 IVPB Last administered on 01/06/17 05:33; Admin Dose 100 MLS/HR; Start 12/26/16 at 06:30 Levetiracetam (Keppra 500 Mg/ 100ml (Pmx)) 100 ml @ 400 mls/hr Q12 IVPB Last administered on 01/06/17 09:35; Admin Dose 400 MLS/HR; Start 12/26/16 at 21:00 Lorazepam (Ativan) 1 mg Q2 PRN IV Seizures Last administered on 01/03/17 21:26 ; Admin Dose 1 MG; Start 12/26/16 at 09:30 IV Flush (NS 10 ml) 10 ml PRN PRN IV FLUSH LINE; Start 12/29/16 at 12:00 Ferrous Sulfate (Feosol Liquid Cup) 300 mg BID GTB Last administered on 09:35; Admin Dose 300 MG; Start 12/30/16 at 09:00 Morphine Sulfate (morphine) 2 mg Q2H PRN IV SEDATION Last administered on 11:50; Admin Dose 2 MG; Start 01/01/17 at 10:00 Lorazepam 2 mg 2 mg Q6H PRN IV AGITATION Last administered on 01/04/17 23:12; Admin Dose 2 MG; Start 01/01/17 at 16:30 Sodium Chloride (NS) 1,000 ml @ 75 mls/hr [id number] IV Last administered on 01/05 09:40; Admin Dose 75 MLS/HR; Start 01/02/17 at 15:00 Lactulose (Enulose) 30 gm Q12 NGT Last administered on 01/06/17 09:35; Admin Dose 30 GM; Start 01/03/17 at 00:00 Miscellaneous Information 1 ea NOTE XX ; Start 01/03/17 at 10:30 Glucose (Glutose) 15 gm Q15M PRN PO DECREASED GLUCOSE; Start 01/03/17 at 10:30 Glucose (Glutose) 22.5 gm Q15M PRN PO DECREASED GLUCOSE; Start 01/03/17 at 10: 30 Dextrose (D50w Syringe) 25 ml Q15M PRN IV DECREASED GLUCOSE; Start 01/03/17 at 10:30 Dextrose (D50w Syringe) 50 ml Q15M PRN IV DECREASED GLUCOSE; Start 01/03/17 at 10:30 Glucagon (Glucagen) 1 mg Q15M PRN IM DECREASED GLUCOSE; Start 01/03/17 at 10:30 Glucose 15 gm 15 gm Q15M PRN BUCCAL DECREASED GLUCOSE; Start 01/03/17 at 10:30 Vancomycin HCl 750 mg/Sodium Chloride 150 ml @ 75 mls/hr Q48H IVPB Last administered on 01/06/17 05:33; Admin Dose 75 MLS/HR; Start 01/04/17 at 06:00 Sodium Chloride (NS) 1,000 ml @ 75 mls/hr [id number] IV Last administered on 01/06 09:36; Admin Dose 75 MLS/HR; Start 01/03/17 at 14:30 Insulin Glargine (Lantus) 28 unit DAILY@20 SC Last administered on 01/05/17 21 :06; Admin Dose 28 UNIT; Start 01/05/17 at 20:00 Insulin Aspart (Novolog Insulin Pen) NOVOLOG *MODERATE* ALGORI... Q4 SC Last administered on 01/06/17 09:39; Admin Dose 4 UNIT; Start 01/05/17 at 13:00 KAYLA HUNTER Jan 06, 2017 11:38
[2017-01-06] MEDS ORDERED: LORAZEPAM 2 MG INJ IV PRN (14:30)
[2017-01-06] MEDS ORDERED: morphine 2 MG INJ IV ONE (14:30)
--- NOTE | 2017-01-06 14:30 | PN ---
Date/Time of Note Date/Time of Note DATE: 01/06/17 TIME: 14:29 Assessment/Plan Lines/Catheters IV Catheter Type (from Nrs): PICC Line Pereyra in Place (from Nrsg): Yes Assessment/Plan Chief Complaint/Hosp Course IMPRESSION: 1. Respiratory failure. 2. Renal failure. 3. Hypernatremia. 4. End-stage liver disease with cirrhosis. 5. Seizure disorder. 6. Gastrointestinal bleed. 7. Thrombocytopenia. 8. Coagulopathy. 9. Anemia. RECOMMENDATIONS: Trach on hold per family will continue supp care Problems: Subjective 24 Hr Interval Summary Constitutional: improved Pain Control: mild Exam/Review of Systems Vital Signs Vitals Vital Signs Date Time Temp Pulse Resp B/P Pulse Ox O2 Delivery O2 Flow Rate FiO2 01/06/17 13:33 104 23 100 40 01/06/17 13:30 121/66 01/06/17 12:15 97.7 01/06/17 09:00 Mechanical Ventilator Intake and Output 01/05/17 01/05/17 01/06/17 15:00 23:00 07:00 Intake Total 1075 ml 1060 ml 1065 ml Output Total 765 ml 1470 ml 350 ml Balance 310 ml -410 ml 715 ml Exam ENMT: mucosa pink and moist, nl external ears & nose, nl lips & teeth, nl nasal mucosa & septum Neck: non-tender, supple Respiratory: clear to auscultation, normal air movement Cardiovascular: nl pulses, regular rate and rhythm Results Result Diagram: 01/06/17 0430 01/06/17 043 JOJO DAVIDSON MD Jan 06, 2017 14:30
--- NOTE | 2017-01-06 15:33 | PN ---
Date/Time of Note Date/Time of Note DATE: 01/06/17 TIME: 15:28 Assessment/Plan VTE Prophylaxis VTE Prophylaxis Intervention: contraindicated, SCD's Lines/Catheters IV Catheter Type (from Nrsg): PICC Line Central line still needed: Yes Urinary Cath still in place: Yes Reason Cath still needed: terminal illness/intractable pain Assessment/Plan Assessment/Plan 1. Acute hypoxemic respiratory failure on mechanical ventilation - Pulmonary on board and recommendations appreciated. - Discuss patients condition with family and son has opted to terminally wean patient today and place on comfort care 2. Hypotensive shock - Goal of MAP >60 - 2D Echo shows preserved EF, Cardiology on board and recommendations appreciated 3. Toxic metabolic encephalopathy with Hepatic encephalopathy with coma and hyperammonemia secondary to end-stage liver disease 4. Acute GI bleed secondary to varices status post banding-now stable - H/H stable 5. Acute Kidney Injury, likely hemodynamics - Nephrology on board and recommendations appreciated 6. 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 New-onset Seizures. -Neurology on board and recommendations appreciated -EEG shows encephalopathy 8. Hypernatremia with free water deficit- resolved 9. Leukocytosis likely secondary to UTI- resolved - Urine culture shows K pneumoniae 10. Azotemia 2/2 dehydration/GIB 11. Hyperglycemia with Adult-onset Diabetes mellitus-Poorly controlled. - patient is currently comfort measures and will d/c accuchecks 12. Anemia of chronic disease and acute blood loss anemia from GI bleed - HH stable.Will monitor. 13. Thrombocytopenia of liver disease - stable 14. Disposition - Patients family at bedside and son ready for terminal extubation and comfort measures at 1600. >35 minutes of critical care time was spent with patient Subjective 24 Hr Interval Summary Free Text/Dictation Patient remains intubated and continues to be unresponsive. Family at bedside and patients condition discussed with family and son. Readdressed options for comfort care vs Trach/PEG and would like to pursue comfort care at this time. Exam/Review of Systems Vital Signs Vitals Vital Signs Date Time Temp Pulse Resp B/P Pulse Ox O2 Delivery O2 Flow Rate FiO2 01/06/17 13:33 104 23 100 40 01/06/17 13:30 121/66 01/06/17 12:15 97.7 01/06/17 09:00 Mechanical Ventilator Intake and Output 01/05/17 01/05/17 01/06/17 15:00 23:00 07:00 Intake Total 1075 ml 1060 ml 1065 ml Output Total 765 ml 1470 ml 350 ml Balance 310 ml -410 ml 715 ml Exam General: on ventilator support, no response to stimulus CVS: regular rate and rhythm, no murmurs Lungs: diminished at bases, no crackles or wheezing Abd: soft, NT, slight distention, no rebound or guarding Ext: diffuse anasarca, petechia UE, no cyanosis or clubbing Neuro: not following commands Results Result Diagram: 01/06/17 0430 01/06/17 0430 Results 24 hrs Laboratory Tests Test 01/05/17 16:21 01/05/17 21:02 01/06/17 01:07 01/06/17 04:30 Bedside Glucose 195 176 213 White Blood Count 16.2 #H Red Blood Count 2.09 L Hemoglobin 7.4 L Hematocrit 23.3 L Mean Corpuscular Volume 111.5 H Mean Corpuscular Hemoglobin 35.4 H Mean Corpuscular Hemoglobin Concent 31.8 L Red Cell Distribution Width 19.8 H Platelet Count 61 L Mean Platelet Volume 12.1 H Neutrophils % 84.2 H Lymphocytes % 4.9 L Monocytes % 6.4 Eosinophils % 3.6 Basophils % 0.3 Nucleated Red Blood Cells % 0.0 Neutrophils # 13.6 H Lymphocytes # 0.8 Monocytes # 1.0 H Eosinophils # 0.6 H Basophils # 0.1 Nucleated Red Blood Cells # 0.0 Sodium Level 140 Potassium Level 3.4 L Chloride Level 119 H Carbon Dioxide Level 18 L Anion Gap 6 L Blood Urea Nitrogen 30 H Creatinine 1.24 H Glucose Level 187 Calcium Level 7.7 L Phosphorus Level 4.6 Magnesium Level 1.8 Test 01/06/17 05:34 01/06/17 09:32 01/06/17 14:13 Bedside Glucose 188 184 198 Medications Medications Current Medications Eye Lubricant (Akwa Oint) 1 applic Q4 BOTH EYES Last administered on 01/06/17 14:09; Admin Dose 1 APPLIC; Start 12/25/16 at 21:00 Lorazepam 1 mg 1 mg Q2 PRN IV Seizures Last administered on 01/03/17 21:26; Admin Dose 1 MG; Start 12/26/16 at 09:30 Morphine Sulfate/ Sodium Chloride (morphine) 100 ml @ 2 mls/hr Q24H IV ; Start 01/06/17 at 14:30 Lorazepam (Ativan) 2 mg Q30MIN PRN IV AGITATION/DISTRESS; Start 01/06/17 at 14: 30 BLACK STOKES MD Jan 06, 2017 15:33
[2017-01-06] MEDS: morphine (DRIP) 100 MG/100 ML 100 ML IV SCH (16:25)
[2017-01-06] MEDS: LORAZEPAM 2 MG INJ IV PRN (16:38)
[2017-01-06] MEDS: BALSAM PERU/CASTOR OIL 60 GM TUBE TOP SCH (21:00)
[2017-01-07] VITALS (12 sets, daily range): BP systolic 69–86; BP diastolic 33–46; PULSE 80–104; RESP 16–20
[2017-01-07] MEDS: OCULAR LUBRICANT 3.5 GM OPH OINT BOTH EYES SCH ×6 (01:00→20:46)
[2017-01-07] MEDS: BALSAM PERU/CASTOR OIL 60 GM TUBE TOP SCH ×2 (10:58→20:45)
--- NOTE | 2017-01-07 15:49 | PN ---
Date/Time of Note Date/Time of Note DATE: 01/07/17 TIME: 15:45 Assessment/Plan VTE Prophylaxis VTE Prophylaxis Intervention: SCD's Lines/Catheters IV Catheter Type (from Nrsg): PICC Line Central line still needed: Yes Urinary Cath still in place: Yes Reason Cath still needed: terminal illness/intractable pain Assessment/Plan Chief Complaint/Hosp Course 1. Acute hypoxemic respiratory failure on mechanical ventilation - comfort care, extubated 2. Hypotensive shock - Goal of MAP >60 - 2D Echo shows preserved EF, Cardiology on board and recommendations appreciated 3. Toxic metabolic encephalopathy with Hepatic encephalopathy with coma and hyperammonemia secondary to end-stage liver disease 4. Acute GI bleed secondary to varices status post banding-now stable - H/H stable 5. Acute Kidney Injury, likely hemodynamics - Nephrology on board and recommendations appreciated 6. 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 New-onset Seizures. -Neurology on board and recommendations appreciated -EEG shows encephalopathy 8. Hypernatremia with free water deficit- resolved 9. Leukocytosis likely secondary to UTI- resolved - Urine culture shows K pneumoniae 10. Azotemia 2/2 dehydration/GIB 11. Hyperglycemia with Adult-onset Diabetes mellitus-Poorly controlled. - patient is currently comfort measures and will d/c accuchecks 12. Anemia of chronic disease and acute blood loss anemia from GI bleed - stable.Will monitor. 13. Thrombocytopenia of liver disease - stable 14. Disposition - hospice, comfort care. Problems: Subjective 24 Hr Interval Summary Free Text/Dictation unresponsive to stimuli, except spontaneous small movements. Exam/Review of Systems Vital Signs Vitals Vital Signs Date Time Temp Pulse Resp B/P Pulse Ox O2 Delivery O2 Flow Rate FiO2 01/07/17 15:39 95.0 86 16 85/45 95 01/07/17 02:00 Nasal Cannula 3.0 01/06/17 15:48 40 Intake and Output 01/06/17 01/06/17 01/07/17 15:00 23:00 07:00 Intake Total 845 ml 626 ml 10 ml Output Total 315 ml 1370 ml 275 ml Balance 530 ml -744 ml -265 ml Exam General: off ventilator support, no response to stimulus CVS: regular rate and rhythm, no murmurs Lungs: diminished at bases, no crackles or wheezing Abd: soft, NT, slight distention, no rebound or guarding Ext: diffuse anasarca, petechia UE, no cyanosis or clubbing Neuro: not following commands Results Result Diagram: 01/06/1742901/06/17 043 Medications Medications Current Medications Eye Lubricant (Akwa Oint) 1 applic Q4 BOTH EYES Last administered on 01/07/17 13:00; Admin Dose 1 APPLIC; Start 12/25/16 at 21:00 Lorazepam 1 mg 1 mg Q2 PRN IV Seizures Last administered on 01/06/17 16:38; Admin Dose 1 MG; Start 12/26/16 at 09:30 Morphine Sulfate/ Sodium Chloride (morphine) 100 ml @ 2 mls/hr Q24H IV Last administered on 01/06/17 16:25; Admin Dose 2 MLS/HR; Start 01/06/17 at 14:30 Lorazepam (Ativan) 2 mg Q30MIN PRN IV AGITATION/DISTRESS; Start 01/06/17 at 14: 30 ADEN DANIELLE Jan 07, 2017 15:49
--- NOTE | 2017-01-07 16:25 | PN ---
Date/Time of Note Date/Time of Note DATE: 01/07/17 TIME: 16:25 Assessment/Plan Lines/Catheters IV Catheter Type (from Nrs): PICC Line Pereyra in Place (from Nrs): Yes Assessment/Plan Chief Complaint/Hosp Course IMPRESSION: 1. Respiratory failure. 2. Renal failure. 3. Hypernatremia. 4. End-stage liver disease with cirrhosis. 5. Seizure disorder. 6. Gastrointestinal bleed. 7. Thrombocytopenia. 8. Coagulopathy. 9. Anemia. RECOMMENDATIONS: Trach on hold per family will continue supp care Problems: Subjective 24 Hr Interval Summary Constitutional: improved Pain Control: mild Exam/Review of Systems Vital Signs Vitals Vital Signs Date Time Temp Pulse Resp B/P Pulse Ox O2 Delivery O2 Flow Rate FiO2 01/07/17 15:39 95.0 86 16 85/45 95 01/07/17 02:00 Nasal Cannula 3.0 01/06/17 15:48 40 Intake and Output 01/06/17 01/06/17 01/07/17 15:00 23:00 07:00 Intake Total 845 ml 626 ml 10 ml Output Total 315 ml 1370 ml 275 ml Balance 530 ml -744 ml -265 ml Exam Neck: non-tender, supple Respiratory: clear to auscultation, normal air movement Cardiovascular: nl pulses, regular rate and rhythm Gastrointestinal: nl liver, spleen, non-tender, soft Results Result Diagram: 01/06/1742901/06/17429 JOJO DAVIDSON MD Jan 07, 2017 16:25
[2017-01-07] MEDS: morphine (DRIP) 100 MG/100 ML 100 ML IV SCH (18:42)
--- NOTE | 2017-01-07 19:39 | CONS ---
Date/Time of Note Date/Time of Note DATE: 01/07/17 TIME: 19:38 Assessment/Plan Assessment/Plan Chief Complaint/Hosp Course Assessment: Septic shock Pneumonia Acute hypoxic respiratory failure Hematemesis and anemia - EGD showed grade IV esophageal varices status post ligation, follow up gastroenterology recommendations Acute kidney injury Alcoholic liver cirrhosis Diabetes mellitus Recommendations: -comfort measures per primary team Problems: Consultation Date/Type/Reason Admit Date/Time Dec 22, 2016 at 22:41 Initial Consult Date 12/26/16 Type of Consultation: Cardiology 24 HR Interval Summary Free Text/Dictation Patient has been transitioned to comfort only measures. Detailed Summary Additional Comments Unable to obtain review of systems due to patient's mental status. Exam/Review of Systems Vital Signs Vitals Vital Signs Date Time Temp Pulse Resp B/P Pulse Ox O2 Delivery O2 Flow Rate FiO2 01/07/17 17:51 3.0 01/07/17 16:00 85 01/07/17 15:39 95.0 16 85/45 95 01/07/17 02:00 Nasal Cannula 01/06/17 15:48 40 Intake and Output 01/06/17 01/06/17 01/07/17 15:00 23:00 07:00 Intake Total 845 ml 626 ml 10 ml Output Total 315 ml 1370 ml 275 ml Balance 530 ml -744 ml -265 ml Exam Constitutional: No distress Psych: No nl mood/affect, No no complaints Head: atraumatic, normocephalic Eyes: nl conjunctiva, nl lids Respiratory: clear to auscultation Cardiovascular: regular rate and rhythm Gastrointestinal: non-tender, soft Musculoskeletal: nl extremities to inspection Extremities: No clubbing, No cyanosis, No edema Neurological: No nl mental status, No nl speech Results Result Diagram: 01/06/17 04301/06/17 0430 Medications Medications Current Medications Eye Lubricant (Akwa Oint) 1 applic Q4 BOTH EYES Last administered on 01/07/17 18:42; Admin Dose 1 APPLIC; Start 12/25/16 at 21:00 Lorazepam 1 mg 1 mg Q2 PRN IV Seizures Last administered on 01/06/17 16:38; Admin Dose 1 MG; Start 12/26/16 at 09:30 Morphine Sulfate/ Sodium Chloride (morphine) 100 ml @ 2 mls/hr Q24H IV Last administered on 9/25/17at 18:42; Admin Dose 2 MLS/HR; Start 01/06/17 at 14:30 Lorazepam (Ativan) 2 mg Q30MIN PRN IV AGITATION/DISTRESS; Start 01/06/17 at 14: 30 TRISTAN UGARTE MD Jan 07, 2017 19:39
[2017-01-08] VITALS (7 sets, daily range): BP systolic 60–134; BP diastolic 30–61; PULSE 37–80; RESP 16–20
[2017-01-08] MEDS: OCULAR LUBRICANT 3.5 GM OPH OINT BOTH EYES SCH ×4 (01:29→13:00)
[2017-01-08] MEDS: BALSAM PERU/CASTOR OIL 60 GM TUBE TOP SCH (09:24)
[2017-01-08] MEDS: morphine (DRIP) 100 MG/100 ML 100 ML IV SCH (14:30)
--- NOTE | 2017-01-08 16:53 | DES ---
Date/Time of Note Date/Time of Note DATE: 01/08/17 TIME: 16:52 Discharge/ Summary Admission/Discharge Info Admit Date/Time Dec 22, 2016 at 22:41 Discharge Date/Time Jan 08, 2017 at 16:05 Final Diagnosis acute hypoxic respiratory failure Preliminary Cause of toxic metabolic encephalopathy due to end stage liver disease Hospital Course 61-year-old woman brought in by family for recent agitation and confusion, she does have a history of depression and dementia and has recently used new medications for insomnia and depression. Patient also has a history of cirrhosis. However soon after patient was admitted patient was found obtunded on the medical floor and was intubated and admitted to the intensive care unit. Patient was found to have gross bleeding from the rectum and GI saw the patient and performed endoscopic variceal ligation. However over the course of an extensive stay patient's multiple comorbidities did not allow for successful extubation and although tracheostomy was briefly discussed with the family, patient was soon decided to be put on comfort measures. Patient was placed on morphine drip and hospice was consulted, however patient did not survive before being officially admitted under the hospitalist service and on January 022016 at 12:44 PM, patient was pronounced . Patient was examined at that time was found to have no breath sounds, no heart sounds, no pulse, blown pupils, no pupillary reflex, no response to sternal rub or other external stimuli. O2 saturation was nonexistent and patient was pronouned . Diagnosis Acute hypoxic respiratory failure Hypotensive shock Toxic metabolic encephalopathy Hepatic encephalopathy Hyperammonemia Acute GI bleed Esophageal varices Acute kidney injury End-stage alcoholic liver disease New onset seizures Electrolyte derangement ADEN DANIELLE Jan 08, 2017 16:53
--- NOTE | 2017-01-08 19:38 | DS ---
DATE OF ADMISSION: 12/22/2016 DATE OF DISCHARGE: 01/08/2017 CHIEF COMPLAINT: History has been obtained from medical record. HISTORY OF PRESENT ILLNESS: The patient is a 61-year-old female with history of alcoholic cirrhosis of liver and was admitted on 10/21/2016 due to encephalopathy due to end-stage liver disease. The patient subsequently also had a GI bleed and the patient underwent EGD and was noted to have stage IV esophageal varies varices. The patient also went into acute respiratory failure. The patient's family subsequently decided comfort care. The patient was placed on morphine drip and today hospice was consulted. The patient was already on a morphine drip. The patient was also on Ativan on a p.r.n. basis. The patient; however, within a few hours of hospice evaluation and pronounced at 12:44 p.m. I met with the patient's family as well as the [facility] nurse and arrangements for mortuary will be made. The patient's family did not have mortuary arrangements made prior to admission into hospice. Dictated By: Aakash Carpenter MD /[email or web address]/jane /Document#: [id number]
== END 2017-01-08 16:05 | disposition expired | DRG 441 ==
LOC: E/R 20:57 → MS1 22:41 → TEL 12-23 08:48 → ICU 12-25 17:30 → TEL 01-06 22:08
PROVIDERS: ADMIT Family Medicine; ATTEND Internal Medicine
PROC: 5A1955Z Respiratory Ventilation, Greater than 96 Consecutive Hours (ICD-10-PCS; principal; 2016-12-25)
PROC: 0BH17EZ Insertion of Endotracheal Airway into Trachea, Via Natural or Artificial Opening (ICD-10-PCS; 2016-12-25)
PROC: 06HM33Z Insertion of Infusion Device into Right Femoral Vein, Percutaneous Approach (ICD-10-PCS; 2016-12-26)
PROC: 0W3P8ZZ Control Bleeding in Gastrointestinal Tract, Via Natural or Artificial Opening Endoscopic (ICD-10-PCS; 2016-12-26)
PROC: 4A10X4Z Monitoring of Central Nervous Electrical Activity, External Approach (ICD-10-PCS; 2016-12-26)
PROC: 02HV33Z Insertion of Infusion Device into Superior Vena Cava, Percutaneous Approach (ICD-10-PCS; 2017-01-01)
PROC: B548ZZA Ultrasonography of Superior Vena Cava, Guidance (ICD-10-PCS; 2017-01-01)
DX: K72.90 Hepatic failure, unspecified without coma (principal); G92 Toxic encephalopathy; J96.01 Acute respiratory failure with hypoxia; N17.0 Acute kidney failure with tubular necrosis; I85.11 Secondary esophageal varices with bleeding; J18.9 Pneumonia, unspecified organism; R57.1 Hypovolemic shock; R65.21 Severe sepsis with septic shock; A41.9 Sepsis, unspecified organism; D68.9 Coagulation defect, unspecified; K92.0 Hematemesis; E72.20 Disorder of urea cycle metabolism, unspecified; E87.2 Acidosis; E87.0 Hyperosmolality and hypernatremia; D62 Acute posthemorrhagic anemia; N39.0 Urinary tract infection, site not specified; F03.90 Unspecified dementia, unspecified severity, without behavioral disturbance, psychotic disturbance, mood disturbance, and anxiety; R13.10 Dysphagia, unspecified; E11.65 Type 2 diabetes mellitus with hyperglycemia; D69.59 Other secondary thrombocytopenia; Z79.4 Long term (current) use of insulin; G47.00 Insomnia, unspecified; F32.9 Major depressive disorder, single episode, unspecified; F17.210 Nicotine dependence, cigarettes, uncomplicated; K70.30 Alcoholic cirrhosis of liver without ascites; D63.8 Anemia in other chronic diseases classified elsewhere; F10.21 Alcohol dependence, in remission; D72.829 Elevated white blood cell count, unspecified; E86.0 Dehydration; R79.89 Other specified abnormal findings of blood chemistry; K08.109 Complete loss of teeth, unspecified cause, unspecified class; M89.9 Disorder of bone, unspecified; E83.9 Disorder of mineral metabolism, unspecified; G40.909 Epilepsy, unspecified, not intractable, without status epilepticus; E87.6 Hypokalemia; Z51.5 Encounter for palliative care; B96.1 Klebsiella pneumoniae [K. pneumoniae] as the cause of diseases classified elsewhere; Z66 Do not resuscitate
CPT/HCPCS: 31500; 36430; 36569; 36600; 70450; 70551; 71010; 76705; 76775; 76937; 80048; 80053; 80202; 80306; 81001; 81003; 82043; 82140; 82247; 82248; 82565; 82803; 82962; 83036; 83605; 83735; 83935; 84100; 84132; 84155; 84300; 84436; 84479; 84484; 84520; 85014; 85018; 85025; 85610; 85730; 86704; 86709; 86803; 86850; 86900; 86901; 86920; 87040; 87081; 87086; 87340; 93005; 93306; 93971; 94002; 94003; 94640; 94770; 95819; C1751; C1769; C9113; J0692; J1815; J1940; J1953; J2060; J2250; J2270; J2354; J2543; J3010; J3370; J3480; J7030; J7040; J7042; J7050; J7060; J7070; P9016; P9059